=== PATIENT | female | born 1940 | race Caucasian/White ===

== ENCOUNTER 2016-04-04 09:50 | Outpatient (CLI) | payer MEDICARE ==
[2016-04-04 10:49] LABS: #Basophils 0.1 thou/uL (0.0-0.2); #Eosinphils 0.2 thou/uL (0.0-0.7); #Lymphocytes 2.5 thou/uL (1.20-3.40); #Monocytes 0.7 thou/uL (0.11-0.59); #Neutrophils 4.5 thou/uL (1.40-6.50); %Basophils 1.2 % (0.0-1.0); %Eosinophils 2.9 % (0.0-10.0); %Monocytes 8.4 % (0.0-10.0); %Neutrophils 56.5 % (42.0-75.0); Hemoglobin 14.1 g/dL (12.0-16.0); Mean Corpuscular HGB CONC 35.1 g/dL (32.0-36.0); Mean Corpuscular Hemoglobin 32.1 pg (27.0-31.0); Mean Corpuscular Volume 91.5 fl (81.0-99.0); Platelet Count 295 thou/uL (130-400); RBC Distribution Width 11.8 % (11.5-14.5); Red Blood Cell (RBC) Count 4.39 mill/uL (4.20-5.40)
[2016-04-04 12:00] LABS: ALT (SGPT) 15 U/L (0-55); AST (SGOT) 23 U/L (5-34); Albumin 4.4 g/dL (3.4-4.8); Alkaline Phosphatase 153 U/L (40-150); Anion Gap 21 mmol/L (10-20); BUN (Urea Nitrogen) 24 mg/dL (9.8-20.1); Bilirubin, Total 0.6 mg/dL (0.2-1.2); Calc. Creatinine Clearance 0 mL/min (70-130); Calcium 9.9 mg/dL (7.8-10.44); Carbon Dioxide 25 mmol/L (23-31); Cardiac Risk 3.9 (Less than 4.5); Chloride 97 mmol/L (98-107); Cholesterol 237 mg/dL (< 200 Desired); Estimated GFR-MDRD 41; Glucose 115 mg/dL (83-110); HDL Cholesterol 61 mg/dL (>60 Neg Risk); LDL Cholesterol, Calculated 153 mg/dL; Potassium 3.4 mmol/L (3.5-5.1); Protein, Total 7.4 g/dL (5.8-8.1); Sodium 140 mmol/L (136-145); Triglycerides 113 mg/dL (Less than 150)
[2016-04-04 12:23] LABS: Hemoglobin A1c 5.3 % (4.0-6.0)
[2016-04-04 12:59] LABS: Free T4 (Free Thyroxine) 1.09 ng/dL (0.70-1.48); Thyroid Stimulating Hormone 5.1109 uIU/mL (0.35-4.94)
== END 2016-04-04 09:51 | disposition home or self-care (01) ==
LOC: MADLABBHPM 09:50
PROVIDERS: ATTEND Family Medicine
DX: I50.9 Heart failure, unspecified (principal)
CPT/HCPCS: 36415; 80053; 80061; 83036; 84439; 84443; 85025

== ENCOUNTER 2016-04-07 11:38 | Emergency (ER) | payer MEDICARE ==
[~2016-04-07 11:38] MED LIST: Sodium Chloride 0.9% 1,000 ML BAG ONE
[2016-04-07 12:52] LABS: #Basophils 0.1 thou/uL (0.0-0.2); #Eosinphils 0.1 thou/uL (0.0-0.7); #Monocytes 0.9 thou/uL (0.11-0.59); #Neutrophils 5.1 thou/uL (1.40-6.50); %Basophils 1.4 % (0.0-1.0); %Eosinophils 1.6 % (0.0-10.0); %Lymphocytes 32.1 % (21.0-51.0); %Monocytes 10.1 % (0.0-10.0); %Neutrophils 54.9 % (42.0-75.0); Hemoglobin 13.1 g/dL (12.0-16.0); Large Platelets SLIGHT; MDiff Complete? YES; Mean Corpuscular HGB CONC 34.3 g/dL (32.0-36.0); Mean Corpuscular Hemoglobin 31.5 pg (27.0-31.0); Mean Corpuscular Volume 91.8 fl (81.0-99.0); Platelet Count 260 thou/uL (130-400); Red Blood Cell (RBC) Count 4.16 mill/uL (4.20-5.40); White Blood Cell (WBC) Count 9.3 thou/uL (4.8-10.8)
[2016-04-07 13:01] LABS: Acetaminophen Less than 3.0 mcg/mL (10.0-30.0); Alcohol Less than 10 mg/dL (Less than 10); Salicylate Less than 5.0 mg/dL (15.0-30.0)
[2016-04-07 13:04] LABS: CKMB 1.9 ng/mL (0-6.6); Troponin I 0.017 ng/mL (< 0.028)
--- NOTE | 2016-04-07 13:06 | CT ---
CT HEAD NONCONTRAST: Date: 04/07/16 HISTORY: Syncope. COMPARISON: 02/03/16. FINDINGS: There is no evidence of acute intracranial hemorrhage or infarct. The ventricles appear normal in si ze, shape, and position. Diffuse cortical atrophy and chronic ischemic small vessel disease are tequila lar in appearance to the prior study. IMPRESSION: No acute intracranial abnormalities are demonstrate on noncontrast CT head. POS: [facility]
[2016-04-07 13:10] LABS: ALT (SGPT) 15 U/L (0-55); AST (SGOT) 41 U/L (5-34); Albumin 4.2 g/dL (3.4-4.8); Alkaline Phosphatase 147 U/L (40-150); Anion Gap 18 mmol/L (10-20); BUN (Urea Nitrogen) 20 mg/dL (9.8-20.1); Bilirubin, Total 0.6 mg/dL (0.2-1.2); CK (CPK) 109 U/L (29-168); Calc. Creatinine Clearance 0 mL/min (70-130); Calcium 9.7 mg/dL (7.8-10.44); Carbon Dioxide 32 mmol/L (23-31); Chloride 92 mmol/L (98-107); Estimated GFR-MDRD 34; Globulin 3.4 g/dL (2.4-3.5); Glucose 100 mg/dL (83-110); Potassium 4.6 mmol/L (3.5-5.1); Protein, Total 7.6 g/dL (5.8-8.1); Sodium 137 mmol/L (136-145)
--- NOTE | 2016-04-07 13:27 | CT ---
CT CERVICAL SPINE NONCONTRAST: History: Fall, syncope, neck injury. FINDINGS: Vertebral body heights are maintained. Osteophytosis is present throughout the vertebral bodies and facets. Disc space narrowing is most pronounced at the C3-4 and C5-6 levels. Minimal degenerative spondylolisthesis is present at the C4-5 level and the cervicothoracic junction. No acute fracture or dislocation are apparent. There is multilevel foraminal stenoses. Dystrophic calcification and lobulation associated with each thyroid lobe has the appearance of a multinodular goiter. There is calcification in the arterial structures. IMPRESSION: 1. Cervical spondylosis. No acute osseous abnormalities are demonstrated. 2. Atherosclerosis. POS: [facility]
[2016-04-07 13:28] LABS: Bilirubin Negative (Negative); Blood, Urine Trace (Negative); Clarity Cloudy (Clear); Glucose, Urine (Dipstick) Negative (Negative); Leukocyte Trace (Negative); Nitrite Negative (Negative); Protein, Urine (Dipstick) 100 mg/dL (Neg-Trace); Urobilinogen 0.2 mg/dL (0.2-1.0); pH, Urine 5.5 (5.0-9.0)
[2016-04-07 13:29] LABS: Bacteria/HPF 4+ HPF (None Seen); RBC/HPF 0-3 HPF (0-3)
[2016-04-07 13:36] LABS: Amphetamine Not Detected (NotDetected); Benzodiazepine Screen Detected (NotDetected); Cocaine Metabolite Screen Not Detected (NotDetected); Methadone Not Detected (NotDetected); Methamphetamine Not Detected (NotDetected); Opiate Screen Not Detected (NotDetected); Phencyclidine (PCP) Not Detected (NotDetected); THC/Cannabinoid Screen Not Detected (NotDetected); Tricyclic Screen Not Detected (NotDetected)
[2016-04-07 13:37] LABS: Barbiturates Screen Detected (NotDetected); Medtox Control Line Valid? VALID (VALID); Oxycodone Screen Not Detected (NotDetected)
[2016-04-07] MEDS ORDERED: Sulfameth/Trimethoprim DS 800-160mg TAB ONE (16:33)
--- NOTE | 2016-04-07 17:28 | PICIS ---
[facility] EMERGENCY RECORD TRIAGE (11:50 CJEF) TRIAGE NOTES: PT HAS BEEN SICK FOR SEVERAL DAYS AND HAS BEEN TAKEN OFF MOST CARDIAC MEDICATIONS BY DR. FUENTES. PT WAS IN [place] YESTERDAY AND HAD HER AUTONOMIC SYSTEM CHECKED. PT HAS PMHX OF OTHOSTATIC HYPOTENSION AND WAS POSITIVE YESTERDAY WITH A DROP OF APPROX SYSTOLIC OF 130'S TO SYSTOLIC OF 30'S. PT REPORTS TODAY SHE HAS HAD X3 NEAR SYNCOPAL EPISODES. PT WITH LOTS OF RECENT STRESS. (11:50 CJEF) PATIENT: NAME: Judi Negrete, AGE: 75, GENDER: female, : Mon1940, TIME OF GREET: MonApr 07, 2016 11:39, PREFERRED LANGUAGE: Kinyarwanda, ETHNICITY: Not or , ECODE BILLING MAP: [facility], SSN: [id number], Zip Code: [address], KG WEIGHT: 102.51, PHONE: , , , PERSON ID: [id number], PCP: RUY. (11:50 CJEF) COMPLAINT: FAINTED X 2. (11:50 CJEF) ADMISSION: URGENCY: 2 Emergent, ADMISSION SOURCE: Home, TRANSPORT: CAR, BED: ED -02. (11:50 CJEF) ASSESSMENT: Assessment: NEAR SYNCOPE. (11:53 CJEF) PAIN: No complaint of pain. (11:53 CJEF) SIRS SCORING: Heart Rate 55-109 (0), Temp range 96.8-101.1 (0), respiratory rate 12-24 (0), Mental Status altered: no (0), Infection or Suspected Infection: No. (11:53 CJEF) TRIAGE SCREENING: Patient denies suicidal ideation, Patient denies presence of domestic violence. (11:53 CJEF) PROVIDERS: TRIAGE NURSE: Laisha Allred RN. (11:50 CJEF) VITAL SIGNS: BP 142/65, Pulse 82, Resp 18, Pain 0, O2 Sat 95, on Room Air, Time 04/07/2016 11:45. (11:45 CJEF) Temp 97.6, (Tympanic), Time 04/07/2016 11:52. (11:52 CJEF) PREVIOUS VISIT ALLERGIES: AARON Inhibitors, hydrocodone bitartrate, potassium chloride, vicodin. (11:50 CJEF) AARON Inhibitors, hydrocodone bitartrate, potassium chloride, vicodin. (11:53 CJEF) KNOWN ALLERGIES AARON Inhibitors hydrocodone bitartrate potassium: - IV POT potassium chloride (Unconfirmed) vicodin: Reaction: Rash CURRENT MEDICATIONS Xanax: TABLET : Strength - 0.25 mg : ORAL Patient Dose: 0.25 mg Oral once a day (at bedtime). (11:56 CJEF) KCl-20: PACKET (EA) : Strength - 20 mEq : ORAL Patient Dose: 10 mEq once a day. (13:30 CJEF) simvastatin: &a-1R&a+25V*p+0X*z1069A*c202B*c15G*c2P*p-0X&a-25V&a+1R Name: Judi Negrete : 1940 F75 MedRec: [id number] AcctNum: [id number] Prepared: [facility] Apr 07, 2016 16:58 by Interface Page 1 of 17 pMD [facility] EMERGENCY RECORD TABLET : Strength - 40 mg : ORAL Patient Dose: 40 mg Oral once a day. (13:30 CJEF) torsemide: TABLET : Strength - 20 mg : ORAL Patient Dose: 20 mg Oral 2 times a day. (13:31 CJEF) venlafaxine: TABLET, EXTENDED RELEASE 24 HR : Strength - 150 mg : ORAL Patient Dose: 150 mg Oral once a day. (13:31 CJEF) VITAL SIGNS VITAL SIGNS: BP: 142/65, Pulse: 82, Resp: 18, Pain: 0, O2 sat: 95 on Room Air, Time: 04/07/2016 11:45. (11:45 CJEF) Temp: 97.6 (Tympanic), Time: 04/07/2016 11:52. (11:52 CJEF) BP: 126/80, Pulse: 83, Resp: 19, Pain: 0, O2 sat: 97 on Room Air, Time: 04/07/2016 12:04. (12:04 CJEF) BP: 114/93, Pulse: 84, Resp: 18, O2 sat: 97 on Room Air, Time: 04/07/2016 12:20. (12:20 CJEF) BP: 144/80, Pulse: 91, Resp: 18, O2 sat: 97 on Room Air, Time: 04/07/2016 12:42. (12:42 CJEF) BP: 142/70, Pulse: 84, Resp: 17, O2 sat: 97 on Room Air, Time: 04/07/2016 13:11. (13:11 CJEF) BP: 137/74, Pulse: 77, Resp: 14, O2 sat: 98 on Room Air, Time: 04/07/2016 13:31. (13:31 CJEF) BP: 136/58, Pulse: 84, Resp: 17, O2 sat: 95 on Room Air, Time: 04/07/2016 13:48. (13:48 CJEF) BP: 126/66, Pulse: 80, Resp: 20, Pain: 0, O2 sat: 100 on Room Air, Time: 04/07/2016 14:13. (14:13 CJEF) BP: 157/68, Pulse: 80, Resp: 17, O2 sat: 97 on Room Air, Time: 04/07/2016 14:32. (14:32 CJEF) Temp: 97.6 (Tympanic), Time: 04/07/2016 14:39. (14:39 CJEF) BP: 141/76, Pulse: 80, Resp: 20, Pain: 0, O2 sat: 96 on Room Air, Time: 04/07/2016 15:19. (15:19 CJEF) BP: 133/63 (Lying), Pulse: 80, Resp: 18, O2 sat: 95 on Room Air, Time: 04/07/2016 15:40. (15:40 CJEF) BP: 130/61, Pulse: 83, Resp: 14, Temp: 97.9 (Tympanic), Pain: 0, O2 sat: 95 on Room Air, Time: 04/07/2016 16:01. (16:01 CJEF) BP: 137/62, Pulse: 83, Resp: 18, Pain: 0, O2 sat: 94 on Room Air, Time: 04/07/2016 16:44. (16:44 CJEF) NURSING ASSESSMENT: CARDIOVASCULAR (11:53 CJEF) CONSTITUTIONAL: Complex assessment performed, Patient arrives, via hospital wheelchair, Unsteady gait, Assistance to cart, History obtained from patient, Patient appears, generally ill, Patient cooperative, Patient alert, Oriented to person, place and time, Skin warm, Skin dry, Skin normal in color, Mucous membranes pink, Mucous membranes moist, Patient is well-groomed, PT HAS BEEN SICK FOR SEVERAL DAYS AND HAS BEEN TAKEN OFF MOST CARDIAC MEDICATIONS BY DR. FUENTES. PT WAS IN [place] YESTERDAY AND HAD HER AUTONOMIC SYSTEM CHECKED. PT HAS PMHX OF OTHOSTATIC HYPOTENSION AND WAS POSITIVE YESTERDAY WITH A DROP OF &a-1R&a+25V*p+0X*o0221J*c202B*c15G*c2P*p-0X&a-25V&a+1R Name: Judi Negrete : 1940 F75 MedRec: [id number] AcctNum: [id number] Prepared: [facility] Apr 07, 2016 16:58 by Interface Page 2 of 17 pMD [facility] EMERGENCY RECORD APPROX SYSTOLIC OF 130'S TO SYSTOLIC OF 30'S. PT REPORTS TODAY SHE HAS HAD X3 NEAR SYNCOPAL EPISODES. PT WITH LOTS OF RECENT STRESS. PT REPORTS THAT SHE HAS HAD X2 NEAR SYNCOPE EPISODES TODAY. PAIN: Patient rates pain as 0 out of 10. CARDIOVASCULAR: Cardiovascular assessment findings include heart rate normal, Heart rhythm, Normal sinus, Heart sounds normal, S1, S2, Associated with, near syncopal event, X3, Notes: PACED RHYTHM. RESPIRATORY/CHEST: Breath sounds clear, Respiratory assessment findings include respiratory effort easy, Respirations regular, Conversing normally, Neck and chest exam findings include trachea midline, Chest expansion equal, Chest movement symmetrical. NOTES: Patient tolerated procedure well. SAFETY: Side rails up, Cart/Stretcher in lowest position, Family at bedside, Call light within reach, Hospital ID band on. NURSING ASSESSMENT: FALL RISK (11:54 [facility]) FALL RISK: Fall risk assessment findings include: no history of falls (0), No bed rest greater than 2 days (0), No use of level of consciousness altering agents with mentation or cognitive changes (0), Change in blood pressure (1), Sensory deficits (1), Impaired mobility (3), No neurologic diagnosis (0), No elimination problems (0), No confusion (0), Total score 5, Fall risk. HENDRICH II FALL RISK: Hendrich II Fall Risk assessment findings include patient not confused, disoriented or impulsive, not symptomatic or depressed, no altered elimination, no dizziness or vertigo, female, no antiepileptics (anticonvulsants) administered, no Benzodiazepines administered, Unable to rise without assistance during test(4), Total score 4, Score less than 5. Patient not high risk for falls. NURSING ASSESSMENT: SKIN (11:55 CJEF) SKIN: Skin assessment findings include skin warm, Skin dry, Skin normal in color. ANNALEE SCALE: (3) Sensory perception slightly limited, (3) Skin is occasionally moist, (3) Patient walks occasionally, (3) Slightly limited mobility, (3) Adequate nutrition, (3) Patient has no apparent problem moving, Annalee Risk Total: 18. NOTES: Patient tolerated procedure well. SAFETY: Side rails up, Cart/Stretcher in lowest position, Family at bedside, Call light within reach, Hospital ID band on. NURSING PROCEDURE: BEDSIDE SIRS TESTING SCORES: Heart Rate 55-109 (0), Temp range 96.8-101.1 (0), respiratory rate 12-24 (0), Latest WBC 3-14.9 (0), Mental Status altered: no (0), Yes, Infection or Suspected Infection. (12:59 CJEF) SIRS: Yes, Infection or Suspected Infection. (13:35 &a-1R&a+25V*p+0X*x1427Z*c202B*c15G*c2P*p-0X&a-25V&a+1R Name: Judi Negrete : 1940 F75 MedRec: [id number] AcctNum: [id number] Prepared: [facility] Apr 07, 2016 16:58 by Interface Page 3 of 17 pMD [facility] EMERGENCY RECORD CJEF) NURSING PROCEDURE: TEST PREPARER (11:50 CJEF) PATIENT IDENTIFIER: Patient actively involved in identification process, Patient's identity verified by patient stating name, Patient's identity verified by patient stating date. TEST PREPARER: Cardiac monitoring indicated for NEAR SYNCOPE, Patient placed on cardiac cath tech, Heart rate: 80, showing paced rhythm, Patient placed on non-invasive blood pressure monitor, with disposable blood pressure cuff applied, Patient placed on continuous pulse oximetry, Adult/pediatric oxisensor applied. FOLLOW-UP: After procedure, alarms set and on, After procedure, patient tolerating monitoring. NOTES: Patient tolerated procedure well. SAFETY: Side rails up, Cart/Stretcher in lowest position, Family at bedside, Call light within reach, Hospital ID band on. NURSING PROCEDURE: EKG CHART (12:01 [facility]) PATIENT IDENTIFIER: Patient actively involved in identification process, Patient's identity verified by patient stating name, Patient's identity verified by patient stating date. EKG: EKG indicated for NEAR SYNCOPE, 12 lead EKG performed on the left chest, first EKG. FOLLOW-UP: After procedure, EKG for interpretation given to Dr. AYOUB. NOTES: Patient tolerated procedure well. SAFETY: Side rails up, Cart/Stretcher in lowest position, Family at bedside, Call light within reach, Hospital ID band on. NURSING PROCEDURE: IV (12:42 [facility]) PATIENT IDENITIFIER: Patient actively involved in identification process, Patient's identity verified by patient stating name, Patient's identity verified by patient stating date. IV SITE 1: IV therapy indicated for hydration, IV therapy indicated for medication administration, IV established, to the right forearm, using a 20 gauge catheter, in three attempts, IV site prepped with CHLORAPREP, Saline lock established, Flushed with normal saline (mls): 10, Labs drawn at time of placement, labeled in the presence of the patient and sent to lab. FOLLOW-UP SITE 1: After procedure, sterile transparent dressing applied. NOTES: Patient tolerated procedure well. SAFETY: Side rails up, Cart/Stretcher in lowest position, Family at bedside, Call light within reach, Hospital ID band on. NURSING PROCEDURE: NURSE NOTES NURSES NOTES: Patient in no apparent distress, Patient resting quietly, Notes: PT RESTING IN BED WITH EYES SHUT. NO DISTRESS NOTED. PT REPORTS THAT LYING DOWN RESOLVES HER SYMPTOMS. (12:20 &a-1R&a+25V*p+0X*q4799S*c202B*c15G*c2P*p-0X&a-25V&a+1R Name: Judi Negrete : 1940 F75 MedRec: [id number] AcctNum: [id number] Prepared: [facility] Apr 07, 2016 16:58 by Interface Page 4 of 17 pMD [facility] EMERGENCY RECORD CJEF) Patient in no apparent distress, Patient resting quietly, Notes: PT RESTING IN BED WITH EYES SHUT. NO DISTRESS NOTED. (14:13 CJEF) Patient in no apparent distress, Patient resting quietly, Notes: PT RESTING IN BED WITH EYES SHUT. NO DISTRESS NOTED. (15:20 CJEF) Patient in no apparent distress, Patient resting quietly, Notes: PT RESTING IN BED WITH EYES SHUT. NO DISTRESS NOTED. (16:01 CJEF) Notes: EMS AT BEDSIDE TO MOVE PT TO THEIR STRETCHER. (16:43 CJEF) NURSING PROCEDURE: ORTHOSTATIC VITAL SIGNS PATIENT IDENTIFIER: Patient actively involved in identification process, Patient's identity verified by patient stating name, Patient's identity verified by patient stating date. (13:28 CJEF) ORTHOSTATIC VITAL SIGNS: Orthostatic vital signs indicated for dizziness, Orthostatic vital signs indicated for NEAR SYNCOPE, Lying:, Blood pressure: 158/82, Pulse: 82, Dizziness present, Sitting:, Blood pressure: 153/81, Pulse: 86, Dizziness with position change, Standing:, Blood pressure: 53/35, Pulse: 106, Dizziness with position change. (13:28 CJEF) Orthostatic vital signs indicated for dizziness, Lying:, Blood pressure: 127/81, Pulse: 81, Dizziness present, Sitting:, Blood pressure: 97/54, Pulse: 89, Dizziness with position change, Standing:, Blood pressure: 82/69, Pulse: 106, Dizziness with position change. (15:36 CJEF) FOLLOW-UP: After procedure, results given to Dr. AYOUB. (15:36 CJEF) NOTES: Patient tolerated procedure well. (13:28 CJEF) SAFETY: Side rails up, Cart/Stretcher in lowest position, Family at bedside, Call light within reach, Hospital ID band on. (13:28 CJEF) NURSING PROCEDURE: TRANSFER (16:44 CJEF) TRANSFER: Reason for transfer need for specialized care, Transported by urgent ambulance, accompanied by emergency medical services personnel, Report called to receiving facility, ANNETTE HERNANDES, Provided opportunity to answer questions, Summary of Care printed, Copy of patient record prepared for receiving facility, Copy of diagnostic studies, Status of patient's valuables documented on chart, Medication reconciliation form prepared and sent to receiving facility, Patient consent for transfer signed, Patient given appropriate sedation for safe transport, Family member contacted. BELONGINGS: Belongings remain with patient, Valuables remain with patient. NOTES: Patient tolerated procedure well. SAFETY: Side rails up, Cart/Stretcher in lowest position, Family at bedside, Call light within reach, Hospital ID band on. &a-1R&a+25V*p+0X*g9049G*c202B*c15G*c2P*p-0X&a-25V&a+1R Name: Judi Negrete : 1940 F75 MedRec: [id number] AcctNum: [id number] Prepared: MonApr 07, 2016 16:58 by Interface Page 5 of 17 pMD [facility] EMERGENCY RECORD NURSING PROCEDURE: TRANSPORT TO TESTS PATIENT IDENTIFIER: Patient actively involved in identification process, Patient's identity verified by patient stating name, Patient's identity verified by patient stating date. (12:53 CJEF) TRANSPORT TO TESTS: Transport indicated to facilitate diagnosis, Patient transported to CT scan, via cart, Accompanied by x-ray educational technician. (12:53 CJEF) FOLLOW-UP: After procedure, patient returned to emergency department. (13:02 CJEF) NOTES: Patient tolerated procedure well. (12:53 CJEF) SAFETY: Side rails up, Cart/Stretcher in lowest position, Family at bedside, Call light within reach, Hospital ID band on. (12:53 CJEF) NURSING PROCEDURE: URINE COLLECTION (13:10 CJEF) PATIENT IDENTIFIER: Patient actively involved in identification process, Patient's identity verified by patient stating name, Patient's identity verified by patient stating date. URINE COLLECTION FEMALE: Urine collected by straight cath, using a 5 fr catheter kit, in one attempt. NOTES: Patient tolerated procedure well. SAFETY: Side rails up, Cart/Stretcher in lowest position, Family at bedside, Call light within reach, Hospital ID band on. ORDER DETAILS Order Name: B type Natriuretic Peptide, Status: Active, Time: 12:25 04/07/2016, User: JC, - Ordered for: MD Ayoub Lloyd, - Entered by: MD Ayoub Lloyd - [facility] Apr 07, 2016 12:25, - Quantity: 1, Order Name: TEST PREPARER ED, Status: Done, Time: 12:01 04/07/2016, User: YAQUELIN, - Ordered for: MD Ayoub Lloyd, - Entered by: CECILIO Allred, [facility] Apr 07, 2016 12:00, - Quantity: 1, Order Name: Cardiac Profile w/CKMB & Troponin - I, Status: Active, Time: 12:25 04/07/2016, User: JC, - Ordered for: MD Ayoub Lloyd, - Entered by: MD Ayoub Lloyd - [facility] Apr 07, 2016 12:25, - Quantity: 1, Order Name: CATH STRAIGHT ED, Status: Done, Time: 13:11 04/07/2016, User: YAQUELIN, - Ordered for: MD Ayoub Lloyd, - Entered by: CECILIO Allred, Laisha [facility] Apr 07, 2016 13:11, - Quantity: 1, Order Name: CBC with Differential, Status: Active, Time: 12:25 04/07/2016, User: JC, - Ordered for: MD Ayoub Lloyd, &a-1R&a+25V*p+0X*s9973W*c202B*c15G*c2P*p-0X&a-25V&a+1R Name: Judi Negreet : 1940 F75 MedRec: [id number] AcctNum: [id number] Prepared: MonApr 07, 2016 16:58 by Interface Page 6 of 17 [facility] EMERGENCY RECORD - Entered by: MD Ayoub Lloyd - [facility] Apr 07, 2016 12:25, - Quantity: 1, Order Name: CK (CPK), Status: Active, Time: 12:25 04/07/2016, User: JC, - Ordered for: MD Ayoub Lloyd, - Entered by: MD Ayoub Lloyd - [facility] Apr 07, 2016 12:25, - Quantity: 1, Order Name: Comprehensive Metabolic Panel, Status: Active, Time: 12:25 04/07/2016, User: JC, - Ordered for: MD Ayoub Lloyd, - Entered by: MD Ayoub Lloyd - [facility] Apr 07, 2016 12:25, - Quantity: 1, Order Name: CT Brain WO Con, Status: Active, Time: 12:28 04/07/2016, User: LLDO, - Ordered for: MD Ayoub Lloyd, - Entered by: MD Ayoub Lloyd [facility] Apr 07, 2016 12:28, - Quantity: 1, Order Name: CT Cervical Spine WO Con, Status: Active, Time: 12:28 04/07/2016, User: LLDO, - Ordered for: MD Ayoub Lloyd, - Entered by: MD Ayoub Lloyd [facility] Apr 07, 2016 12:28, - Quantity: 1, Order Name: Culture, Urine, Status: Active, Time: 12:26 04/07/2016, User: LLDO, - Ordered for: MD Ayoub Lloyd, - Entered by: MD Ayoub Lloyd [facility] Apr 07, 2016 12:26, - Quantity: 1, Order Name: Drug Screen, Serum, Status: Active, Time: 12:26 04/07/2016, User: LLDO, - Ordered for: MD Ayoub Lloyd, - Entered by: MD Ayoub Lloyd [facility] Apr 07, 2016 12:26, - Quantity: 1, Order Name: Drug Screen, Urine, Status: Active, Time: 12:26 04/07/2016, User: LLDO, - Ordered for: MD Ayoub Lloyd, - Entered by: MD Ayoub Lloyd [facility] Apr 07, 2016 12:26, - Quantity: 1, Order Name: EKG 12 Lead in Emergency Room, Status: Active, Time: 12:00 04/07/2016, User: CJEF, - Ordered for: MD Ayoub Lloyd, - Entered by: CECILIO Allred, Laisha [facility] Apr 07, 2016 12:00, - Quantity: 1, Order Name: ERRT Oxygen Usage ER, Status: Active, Time: 12:25 04/07/2016, User: LLDO, - Ordered for: MD Ayoub Lloyd, - Entered by: MD Ayoub Lloyd [facility] Apr 07, 2016 12:25, - Quantity: 1, Order Name: ERRT Pulse Oximeter ER, Status: Active, Time: 12:25 04/07/2016, User: LLDO, - Ordered for: MD Ayoub Lloyd, &a-1R&a+25V*p+0X*d0199H*c202B*c15G*c2P*p-0X&a-25V&a+1R Name: Judi Negrete : 1940 F75 MedRec: [id number] AcctNum: [id number] Prepared: MonApr 07, 2016 16:58 by Interface Page 7 of 17 D [facility] EMERGENCY RECORD - Entered by: MD Ayoub Lloyd - [facility] Apr 07, 2016 12:25, - Quantity: 1, Order Name: ORTHOSTATIC VITAL SIGNS, Status: Done, Time: 13:28 04/07/2016, User: YAQUELIN, - Ordered for: MD Ayoub Lloyd, - Entered by: MD Ayoub Lloyd - [facility] Apr 07, 2016 13:13, - Quantity: 1, Order Name: SALINE LOCK, Status: Done, Time: 12:41 04/07/2016, User: YAQUELIN, - Ordered for: MD Ayoub Lloyd, - Entered by: CECILIO Allred, Laisha [facility] Apr 07, 2016 12:41, - Quantity: 1, Order Name: Urinalysis w/ Rflx Microscopic, Status: Active, Time: 12:26 04/07/2016, User: JC, - Ordered for: MD Ayoub Lloyd, - Entered by: MD Ayoub Lloyd - [facility] Apr 07, 2016 12:26, - Quantity: 1. MEDICATION ADMINISTRATION SUMMARY Drug Name: Septra DS, Dose Ordered: 1 tab(s), Route: Oral, Status: Given, Time: 16:33 04/07/2016, Drug Name: *sodium chloride 0.9 % intravenous, Dose Ordered: 150 mL/hr, Route: IV Fluid Infusion, Status: Given, Time: 15:46 04/07/2016, Drug Name: *sodium chloride 0.9 % intravenous, Dose Ordered: 1 L, Route: IV Fluid Infusion, Status: Given, Time: 14:17 04/07/2016, *Additional information available in notes, Detailed record available in Medication Service section. MEDICATION SERVICE Septra DS: Order: Septra DS (sulfamethoxazole/trimethoprim) - Dose: 1 tab(s) : Oral Schedule: Now Ordered by: Javi Ayoub MD Entered by: Javi Ayoub MD [facility] Apr 07, 2016 16:31 Documented as given by: Laisha Allred RN [facility] Apr 07, 2016 16:33 Patient, Medication, Dose, Route and Time verified prior to administration. Amount given: 1 tab, Site: Medication administered P.O., Mouth check performed after administration of medication, Patient appears Awake and alert- acceptable, Correct patient, time, route, dose and medication confirmed prior to administration, Patient advised of actions and side-effects prior to administration, Allergies confirmed and medications reviewed prior to administration, Patient tolerated procedure well, Patient in position of comfort, Side rails up, Cart in lowest position, Family at bedside. : Follow Up : Response assessment performed, No signs or symptoms of allergic reaction noted, Advised not to ambulate without assistance, Patient in position of comfort, Side rails up, Cart in &a-1R&a+25V*p+0X*h2985S*c202B*c15G*c2P*p-0X&a-25V&a+1R Name: Judi Negrete : 1940 F75 MedRec: [id number] AcctNum: [id number] Prepared: [facility] Apr 07, 2016 16:58 by Interface Page 8 of 17 D [facility] EMERGENCY RECORD lowest position, Family at bedside. (16:46 [facility]) sodium chloride 0.9 % intravenous: Order: sodium chloride 0.9 % intravenous (0.9 % sodium chloride) - Dose: 1 L : IV Fluid Infusion Notes: (Bolus) after bolus, run NS at 150 ml/h Ordered by: Javi Ayoub MD Entered by: Javi Ayoub MD [facility] Apr 07, 2016 14:16 Documented as given by: Laisha Allred RN [facility] Apr 07, 2016 14:17 Patient, Medication, Dose, Route and Time verified prior to administration. Amount given: 1 L, IV SITE #1 IV fluids established for hydration, IV SITE #1 into right forearm, IV SITE #1 1st bag hung, IV SITE #1 bolus of 1000 ml established, via primary tubing, Awake and alert- acceptable, Connections checked prior to administration, Line traced prior to administration, Catheter placement confirmed via flush prior to administration, IV site without signs or symptoms of infiltration during medication administration, No swelling during administration, No drainage during administration, IV flushed after administration, Correct patient, time, route, dose and medication confirmed prior to administration, Patient advised of actions and side-effects prior to administration, Allergies confirmed and medications reviewed prior to administration, Patient tolerated procedure well, Patient in position of comfort, Side rails up, Cart in lowest position, Family at bedside. : Follow Up : Response assessment performed, No signs or symptoms of allergic reaction noted, _IV SITE #1:_, IV fluid infusion discontinued, on [facility] Apr 07, 2016 15:48, Total fluid hydration time IV site 1 1 hour, 35 minutes, ., Total amount infused: 1 L, Advised not to ambulate without assistance, Patient in position of comfort, Side rails up, Cart in lowest position, Family at bedside. (15:47 [facility]) sodium chloride 0.9 % intravenous: Order: sodium chloride 0.9 % intravenous (0.9 % sodium chloride) - Dose: 150 mL/hr : IV Fluid Infusion Schedule: Now Notes: after bolus, run NS at 150 ml/h Read back and verified, Written Order Ordered by: Javi Ayoub MD Entered by: Laisha Allred RN [facility] Apr 07, 2016 15:42 Documented as given by: Laisha Allred RN [facility] Apr 07, 2016 15:46 Patient, Medication, Dose, Route and Time verified prior to administration. Amount given: 150ML/HR, IV SITE #1 IV fluids established for hydration, IV SITE #1 into right forearm, IV SITE #1 2nd bag hung, IV SITE #1 After bolus completed rate changed to 150 ml/hr, IV SITE #1 Rate of infusion (non-bolus) Infusing at 150 ml/hr, via primary tubing, IV SITE #1 on IV pump, Awake and alert- acceptable, Connections checked prior to administration, Line traced prior to administration, Catheter placement confirmed via flush prior to administration, IV site without signs or symptoms of infiltration &a-1R&a+25V*p+0X*q1865B*c202B*c15G*c2P*p-0X&a-25V&a+1R Name: Judi Negrete : 1940 F75 MedRec: [id number] AcctNum: [id number] Prepared: MonApr 07, 2016 16:58 by Interface Page 9 of 17 pMD [facility] EMERGENCY RECORD during medication administration, No swelling during administration, No drainage during administration, IV flushed after administration, Correct patient, time, route, dose and medication confirmed prior to administration, Patient advised of actions and side-effects prior to administration, Allergies confirmed and medications reviewed prior to administration, Patient tolerated procedure well, Patient in position of comfort, Side rails up, Cart in lowest position, Family at bedside. : Follow Up : Response assessment performed, No signs or symptoms of allergic reaction noted, _IV SITE #1:_, IV fluid infusion discontinued, on MonApr 07, 2016 16:47, Total fluid hydration time IV site 1 1 hour, 5 minutes, ., Total amount infused: 150ML. (16:47 CJEF) HPI SYNCOPE (16:20 LLDO) CHIEF COMPLAINT: Patient presents for evaluation of syncope, Patient presents for evaluation of multiple episodes of syncope in the past 36 hours. marked orthostasis on standing. might be related to multiple medication changes recently. no head trauma. HISTORIAN: History provided by patient, History provided by patient's family, DAUGHTERs. LOCATION: Symptoms are generalized. QUALITY: Symptom quality described as blackout, Symptom quality described as dizziness. SEVERITY: Maximum severity of symptoms severe, Currently symptoms are moderate. TIME COURSE: Sudden onset of symptoms, There has been no change in the patient's symptoms over time, Symptoms are intermittent. ASSOCIATED WITH: Associated with fall, No associated shortness of breath, No associated seizures, No associated tachycardia, Associated with weakness. EXACERBATED BY: Patient's condition exacerbated by movement, Patient's condition exacerbated by position. RELIEVED BY: Patient's condition relieved by nothing. RISK FACTORS: Abdominal aortic aneurysm risk factors, include age over 40 years, Subarachnoid hemorrhage risk factors, not applicable for this patient, Thoracic aortic dissection risk factors, include hypertension, Coronary artery disease risk factors, include known coronary artery disease, include family history, include hypertension, Pulmonary embolism risk factors, not applicable to this patient. WELLS CRITERIA FOR PE: Total 0. ROS (16:25 LLDO) CONSTITUTIONAL: Historian reports fatigue, reports weakness. CARDIOVASCULAR: Historian reports syncope. RESPIRATORY: Historian denies shortness of breath. NEUROLOGIC: Historian denies confusion, reports &a-1R&a+25V*p+0X*[id number]*c202B*c15G*c2P*p-0X&a-25V&a+1R Name: Judi Negrete : 1940 F75 MedRec: [id number] AcctNum: [id number] Prepared: MonApr 07, 2016 16:58 by Interface Page 10 of 17 pMD [facility] EMERGENCY RECORD dizziness, denies dysphasia, denies focal weakness, denies gait changes, reports headache, denies irritability, denies lethargy, denies mental status changes, denies paralysis, denies paresthesias, denies seizures, denies sensory changes, denies speech changes, denies tics, denies tremors. NOTES: All systems reviewed, negative except as described above. PAST MEDICAL HISTORY MEDICAL HISTORY: Notes: ORTHOSTATIC HYPOTENSION, Past medical history includes history of obesity, Past medical history includes pulmonary disease, chronic obstructive pulmonary disease, Past medical history includes cardiac history, coronary artery disease, congestive heart failure, Treated with a pacemaker, Past medical history includes history of hyperlipidemia, high cholesterol, Past medical history includes history of hypertension, which has been treated. REVIEWED 02/02/16. (11:53 CJEF) FEMALE SURGICAL HISTORY: EXPLORATORY LAPAROTOMY, Surgical history of cholecystectomy, Surgical history of hysterectomy. lap band. REVIEWED 02/02/16. (11:53 CJEF) PSYCHIATRIC HISTORY: Psychiatric history includes, anxiety, depression. REVIEWED 02/02/16. (11:53 CJEF) SOCIAL HISTORY: Patient denies alcohol use, Patient denies drug use, Patient has no smoking history, Lives at home, with family. REVIEWED 02/02/16. (11:53 CJEF) NOTES: Nursing records reviewed, Agree with nursing records, Medication list reviewed. (16:29 LLDO) PHYSICAL EXAM (16:27 LLDO) CONSTITUTIONAL: Vital Signs Reviewed, Patient afebrile, Pulse normal, Blood pressure normal, Respiratory rate normal, Patient appears, uncomfortable, Patient appears, in mild pain distress, Patient alert and oriented to person, place and time, Nursing notes reviewed, examined when pt is supine. EVENTS TRANSFER: Triage to Emergency Main ED -02. (MonApr 07, 2016 11:50 CJEF) Removed from Emergency Main ED -02. (16:47 CJEF) PROBLEM LIST No recorded problems DIAGNOSIS (16:33 LLDO) FINAL: PRIMARY: Orthostasis, ADDITIONAL: renal insufficiency, UTI SITE NOT SPECIFIED. DISPOSITION PATIENT: Disposition Type: Transfer, Disposition: Transfer to [facility]. (16:33 LLDO) &a-1R&a+25V*p+0X*k8286S*c202B*c15G*c2P*p-0X&a-25V&a+1R Name: Judi Negrete : 1940 F75 MedRec: [id number] AcctNum: [id number] Prepared: MonApr 07, 2016 16:58 by Interface Page 11 of 17 pMD [facility] EMERGENCY RECORD Patient left the department. (16:47 CJEF) PRESCRIPTION No recorded prescriptions IMAGING HOME MEDS: Image captured from scanner. (13:27 JPAR) *EKG: Image captured from scanner. (16:33 LWAL) CONSENTS: Image captured from scanner. (16:34 LWAL) EMS TRANSPORT ORDERS: Image captured from scanner. (16:34 LWAL) *MEMORANDUM OF TRANSFER: Image captured from scanner. (16:36 LWAL) *SUPPLY CHARGE SHEET: Image captured from scanner. (16:48 CJEF) ADMIN (16:33 LLDO) DIGITAL SIGNATURE: MD Ayoub Lloyd. RESULTS RADIOLOGY: CT Cervical Spine WO Con Observe DT: MonApr 07, 2016 12:34, CSP CT CERVICAL SPINE NONCONTRAST: History: Fall, syncope, neck injury. FINDINGS: Vertebral body heights are maintained. Osteophytosis is present throughout the vertebral bodies and facets. Disc space narrowing is most pronounced at the C3-4 and C5-6 levels. Minimal degenerative spondylolisthesis is present at the C4-5 level and the cervicothoracic junction. No acute fracture or dislocation are apparent. There is multilevel foraminal stenoses. Dystrophic calcification and lobulation associated with each thyroid lobe has the appearance of a multinodular goiter. There is calcification in the arterial structures. IMPRESSION: 1. Cervical spondylosis. No acute osseous abnormalities are demonstrated. 2. Atherosclerosis. POS: [facility] . (13:35 CJEF) CT Brain WO Con Observe DT: MonApr 07, 2016 12:30, BR CT HEAD NONCONTRAST: Date: &a-1R&a+25V*p+0X*h7388Q*c202B*c15G*c2P*p-0X&a-25V&a+1R Name: Judi Negrete : 1940 F75 MedRec: [id number] AcctNum: [id number] Prepared: MonApr 07, 2016 16:58 by Interface Page 12 of 17 pMD [facility] EMERGENCY RECORD 04/07/16 HISTORY: Syncope. COMPARISON: 02/03/16. FINDINGS: There is no evidence of acute intracranial hemorrhage or infarct. The ventricles appear normal in si ze, shape, and position. Diffuse cortical atrophy and chronic ischemic small vessel disease are tequila lar in appearance to the prior study. IMPRESSION: No acute intracranial abnormalities are demonstrate on noncontrast CT head. POS: [facility] . (13:35 CJEF) CT Cervical Spine WO Con Observe DT: MonApr 07, 2016 12:34, CSP CT CERVICAL SPINE NONCONTRAST: History: Fall, syncope, neck injury. FINDINGS: Vertebral body heights are maintained. Osteophytosis is present throughout the vertebral bodies and facets. Disc space narrowing is most pronounced at the C3-4 and C5-6 levels. Minimal degenerative spondylolisthesis is present at the C4-5 level and the cervicothoracic junction. No acute fracture or dislocation are apparent. There is multilevel foraminal stenoses. Dystrophic calcification and lobulation associated with each thyroid lobe has the appearance of a multinodular goiter. There is calcification in the arterial structures. IMPRESSION: 1. Cervical spondylosis. No acute osseous abnormalities are demonstrated. 2. Atherosclerosis. POS: [facility] . (13:35 LWAL) CT Brain WO Con Observe DT: MonApr 07, 2016 12:30, BR CT HEAD NONCONTRAST: &a-1R&a+25V*p+0X*g5920G*c202B*c15G*c2P*p-0X&a-25V&a+1R Name: Judi Negrete : 1940 F75 MedRec: [id number] AcctNum: [id number] Prepared: MonApr 07, 2016 16:58 by Interface Page 13 of 17 pMD [facility] EMERGENCY RECORD Date: 04/07/16 HISTORY: Syncope. COMPARISON: 02/03/16. FINDINGS: There is no evidence of acute intracranial hemorrhage or infarct. The ventricles appear normal in si ze, shape, and position. Diffuse cortical atrophy and chronic ischemic small vessel disease are tequila lar in appearance to the prior study. IMPRESSION: No acute intracranial abnormalities are demonstrate on noncontrast CT head. POS: [facility] . (13:35 LWAL) LABORATORY: Drug Screen, Blood Collection DT: MonApr 07, 2016 12:41, *Acetaminophen Less than 3.0 - L mcg/mL, Range (10.0-30.0), Therapeutic Range: 10.0 - 30.0 ug/mL Toxic Range: Possible, toxicity: 150 - 200 ug/mL Probable toxicity: Greater than 200, ug/mL *IMPORTANT TESTING INFORMATION* The half-life of NAC is 2, hours. The total NAC clearance is 5.6 hours for adults and 11 hours for, Newborns. Testing acetaminophen levels prior to a reasonable time frame, for clearance can cause falsely decreased acetaminophen levels. , Alcohol Less than 10 mg/dL, Range (Less than 10), The pharmacological response to blood alcohol levels may vary from, individual to individual. Negative: Less than 10, mg/dL Toxic: 50 - 100 mg/dL , Depression of REELER OPERATOR: Greater than 100 mg/dL , Fatalities reported: Greater than 400 mg/dL , &a-1R&a+25V*p+0X*g7121I*c202B*c15G*c2P*p-0X&a-25V&a+1R Name: Judi Negrete : 1940 F75 MedRec: [id number] AcctNum: [id number] Prepared: MonApr 07, 2016 16:58 by Interface Page 14 of 17 pMD [facility] EMERGENCY RECORD *Salicylate Less than 5.0 - L mg/dL, Range (15.0-30.0). (13:07 LWAL) CBC with Differential Collection DT: MonApr 07, 2016 12:41, White Blood Cell (WBC) Count 9.3 thou/uL, Range (4.8-10.8), *Red Blood Cell (RBC) Count 4.16 - L mill/uL, Range (4.20-5.40), Hemoglobin 13.1 g/dL, Range (12.0-16.0), Hematocrit 38.2 %, Range (36.0-47.0), Mean Corpuscular Volume 91.8 fl, Range (81.0-99.0), *Mean Corpuscular Hemoglobin 31.5 - H pg, Range (27.0-31.0), Mean Corpuscular HGB CONC 34.3 g/dL, Range (32.0-36.0), RBC Distribution Width 12.0 %, Range (11.5-14.5), Platelet Count 260 thou/uL, Range (130-400), *Mean Platelet Volume 12.0 - H fL, Range (7.4-10.4), %Neutrophils 54.9 %, Range (42.0-75.0), %Lymphocytes 32.1 %, Range (21.0-51.0), *%Monocytes 10.1 - H %, Range (0.0-10.0), %Eosinophils 1.6 %, Range (0.0-10.0), *%Basophils 1.4 - H %, Range (0.0-1.0), #Neutrophils 5.1 thou/uL, Range (1.40-6.50), #Lymphocytes 3.0 thou/uL, Range (1.20-3.40), *#Monocytes 0.9 - H thou/uL, Range (0.11-0.59), #Eosinphils 0.1 thou/uL, Range (0.0-0.7), #Basophils 0.1 thou/uL, Range (0.0-0.2), Large Platelets SLIGHT . (13:07 LWAL) CK (CPK) Collection DT: MonApr 07, 2016 12:41, CK (CPK) 109 U/L, Range (29-168). (13:12 CJ) Comprehensive Metabolic Panel Collection DT: MonApr 07, 2016 12:41, Sodium 137 mmol/L, Range (136-145), Potassium 4.6 mmol/L, Range (3.5-5.1), *Chloride 92 - L mmol/L, Range (98-107), *Carbon Dioxide 32 - H mmol/L, Range (23-31), Anion Gap 18 mmol/L, Range (10-20), BUN (Urea Nitrogen) 20 mg/dL, Range (9.8-20.1), *Creatinine 1.51 - H mg/dL, Range (0.6-1.1), Estimated GFR-MDRD 34 , Reference Range for Estimated GFR: Greater than 90, mL/min/1.73 m2 NOTE: The MDRD equation has not been validated for use, with the elderly (over 70 years of age), women, patients with, serious comorbid condition or persons with extremes of body size, muscle, mass, or nutritional status. , Glucose 100 mg/dL, Range (83-110), Calcium 9.7 mg/dL, Range (7.8-10.44), Bilirubin, Total 0.6 mg/dL, Range (0.2-1.2), Protein, Total 7.6 g/dL, Range (5.8-8.1), NOTE: Plasma values are generally 0.3 to 0.5 g/dL higher than serum values, due to the presence of fibrinogen. , Albumin 4.2 g/dL, Range (3.4-4.8), Globulin 3.4 g/dL, Range (2.4-3.5), &a-1R&a+25V*p+0X*l7165X*c202B*c15G*c2P*p-0X&a-25V&a+1R Name: Judi Negrete : 1940 F75 MedRec: [id number] AcctNum: [id number] Prepared: MonApr 07, 2016 16:58 by Interface Page 15 of 17 pMD [facility] EMERGENCY RECORD Alb/Glob Ratio 1.2 g/dL, Range (1.2-2.2), Alkaline Phosphatase 147 U/L, Range (40-150), *AST (SGOT) 41 - H U/L, Range (5-34), ALT (SGPT) 15 U/L, Range (0-55). (13:12 EF) B type Natriuretic Peptide Collection DT: MonApr 07, 2016 12:41, B type Natriuretic Peptide 46.2 pg/mL, Range (0-100). (13:12 CJEF) Cardiac Profile w/CKMB & TropI Collection DT: MonApr 07, 2016 12:41, CKMB 1.9 ng/mL, Range (0-6.6), Troponin I 0.017 ng/mL, Range (< 0.028), Reference Range , 0.00 - 0.028 ng/mL Negative 0.029 - 0.29 ng/mL , Indeterminate Greater or Equal to 0.3 ng/mL Strongly suggests LA , . (13:12 CJEF) Urine Microscopic Collection DT: MonApr 07, 2016 13:28, RBC/HPF 0-3 HPF, Range (0-3), *WBC/HPF 7-10 - H HPF, Range (0-3), *Squamous Epithelial 4-6 - H HPF, Range (0-3), *Bacteria/HPF 4+ - H HPF, Range (None Seen). (13:35 CJEF) Urinalysis w/ Rflx Microscopic Collection DT: MonApr 07, 2016 13:28, Color Yellow , Range (Yellow), Clarity Cloudy , Range (Clear), Specific [place], Urine 1.020 , Range (1.005-1.030), pH, Urine 5.5 , Range (5.0-9.0), *Leukocyte Trace - H , Range (Negative), Nitrite Negative , Range (Negative), *Protein, Urine (Dipstick) 100 - H mg/dL, Range (Neg-Trace), Glucose, Urine (Dipstick) Negative mg/dL, Range (Negative), Ketone, Urine Negative mg/dL, Range (Negative), Urobilinogen 0.2 mg/dL, Range (0.2-1.0), Bilirubin Negative , Range (Negative), *Blood, Urine Trace - H , Range (Negative). (13:35 CJEF) Urine Microscopic Collection DT: MonApr 07, 2016 13:28, RBC/HPF 0-3 HPF, Range (0-3), *WBC/HPF 7-10 - H HPF, Range (0-3), *Squamous Epithelial 4-6 - H HPF, Range (0-3), *Bacteria/HPF 4+ - H HPF, Range (None Seen). (13:35 LWAL) Urinalysis w/ Rflx Microscopic Collection DT: MonApr 07, 2016 13:28, Color Yellow , Range (Yellow), Clarity Cloudy , Range (Clear), Specific [place], Urine 1.020 , Range (1.005-1.030), pH, Urine 5.5 , Range (5.0-9.0), *Leukocyte Trace - H , Range (Negative), Nitrite Negative , Range (Negative), *Protein, Urine (Dipstick) 100 - H mg/dL, Range (Neg-Trace), Glucose, Urine (Dipstick) Negative mg/dL, Range (Negative), Ketone, Urine Negative mg/dL, Range (Negative), Urobilinogen 0.2 mg/dL, Range (0.2-1.0), Bilirubin Negative , Range (Negative), &a-1R&a+25V*p+0X*d8087K*c202B*c15G*c2P*p-0X&a-25V&a+1R Name: Judi Negrete : 1940 F75 MedRec: [id number] AcctNum: [id number] Prepared: MonApr 07, 2016 16:58 by Interface Page 16 of 17 pMD [facility] EMERGENCY RECORD *Blood, Urine Trace - H , Range (Negative). (13:35 LWAL) Drug Screen, Urine Collection DT: MonApr 07, 2016 13:36, THC/Cannabinoid Screen Not Detected , Range (NotDetected), Phencyclidine (PCP) Not Detected , Range (NotDetected), Cocaine Metabolite Screen Not Detected , Range (NotDetected), Methamphetamine Not Detected , Range (NotDetected), Opiate Screen Not Detected , Range (NotDetected), Amphetamine Not Detected , Range (NotDetected), *Benzodiazepine Screen Detected - H , Range (NotDetected), Tricyclic Screen Not Detected , Range (NotDetected), Methadone Not Detected , Range (NotDetected), *Barbiturates Screen Detected - H , Range (NotDetected), Oxycodone Screen Not Detected , Range (NotDetected), Propoxyphene Screen Not Detected , Range (NotDetected), Drug Screen Cutoff , Range (), The VISEOx Profile-V Panel for Qualitative Drugs of Abuse assays are for, presumptive screening testing only. The drug class and detection limits, are as follows: Drug Class Detection Limit Amphetamine , 500 ng/mL* Barbiturates 200 ng/mL , Benzodiazepines 150 ng/mL* Cocaine 150 ng/mL*, Methamphetamine 500 ng/mL* Methadone 200, ng/mL* Opiates 100 ng/mL* Oxycodone , 100 ng/mL PCP 25 ng/mL Propoxyphene , 300 ng/mL Tricyclic Antidepressants 300 ng/mL Cannabinoids (THC) , 50 ng/mL Tests which yield a presumptive positive result must be , tested using a more specific alternate chemical method in order to obtain, a confirmed analytical result. Additional confirmation and identification, may be ordered on a routine basis, if desired. Presumptive positive urines, are held for two weeks. . (13:50 [facility]) [place]: YAQUELIN=CECILIO Allred, Laisha DEJESUS=MART Coello, Jazmin GREENE=MD Anitra, Javi EARL=CECILIO Torres, Stephie VICKERS=CECILIO Booker, Fabio &a-1R&a+25V*p+0X*p5272Q*c202B*c15G*c2P*p-0X&a-25V&a+1R Name: Judi Negrete : 1940 F75 MedRec: [id number] AcctNum: [id number] Prepared: [place] Apr 07, 2016 16:58 by Interface Page 17 of 17 pMD MTDD
== END 2016-04-07 16:48 | disposition short-term general hospital (02) ==
LOC: MADERS 11:38
DX: I95.1 Orthostatic hypotension (principal); N39.0 Urinary tract infection, site not specified; N28.9 Disorder of kidney and ureter, unspecified; F41.9 Anxiety disorder, unspecified; F32.9 Major depressive disorder, single episode, unspecified
CPT/HCPCS: 36415; 51701; 70450; 72125; 80053; 80306; 80307; 81003; 81015; 82553; 83880; 84484; 85025; 87077; 87086; 87186; 93005; 94760; 96360; 96361; A4353; J7050

== ENCOUNTER 2016-08-04 12:44 | Emergency (ER) | payer MEDICARE ==
[2016-08-04] MEDS ORDERED: cloNIDine HCl 0.1 MG TAB ONE (13:18)
[2016-08-04] MEDS ORDERED: Lorazepam 1 MG TAB ONE (13:25)
[2016-08-04 13:41] LABS: #Basophils 0.2 thou/uL (0.0-0.2); #Eosinphils 0.2 thou/uL (0.0-0.7); #Lymphocytes 3.6 thou/uL (1.20-3.40); #Monocytes 0.8 thou/uL (0.11-0.59); #Neutrophils 3.9 thou/uL (1.40-6.50); %Basophils 2.1 % (0.0-1.0); %Eosinophils 2.8 % (0.0-10.0); %Lymphocytes 41.6 % (21.0-51.0); %Neutrophils 44.5 % (42.0-75.0); Hemoglobin 13.1 g/dL (12.0-16.0); Mean Corpuscular HGB CONC 33.7 g/dL (32.0-36.0); Mean Corpuscular Hemoglobin 30.4 pg (27.0-31.0); Mean Corpuscular Volume 90.2 fl (81.0-99.0); Mean Platelet Volume 10.4 fL (7.4-10.4); Platelet Count 142 thou/uL (130-400); RBC Distribution Width 11.4 % (11.5-14.5); White Blood Cell (WBC) Count 8.7 thou/uL (4.8-10.8)
[2016-08-04 13:54] LABS: Anion Gap 15 mmol/L (10-20); BUN (Urea Nitrogen) 22 mg/dL (9.8-20.1); Calc. Creatinine Clearance 0 mL/min (70-130); Calcium 9.2 mg/dL (7.8-10.44); Carbon Dioxide 26 mmol/L (23-31); Chloride 100 mmol/L (98-107); Estimated GFR-MDRD 70; Glucose 98 mg/dL (83-110); Potassium 3.4 mmol/L (3.5-5.1); Sodium 138 mmol/L (136-145)
[2016-08-04 13:59] LABS: CKMB 2.4 ng/mL (0-6.6); Troponin I 0.012 ng/mL (< 0.028)
== END 2016-08-04 14:30 | disposition home or self-care (01) ==
LOC: MADERS 12:44
DX: I11.0 Hypertensive heart disease with heart failure (principal); I50.9 Heart failure, unspecified; J44.9 Chronic obstructive pulmonary disease, unspecified; I25.10 Atherosclerotic heart disease of native coronary artery without angina pectoris; E78.5 Hyperlipidemia, unspecified; F41.9 Anxiety disorder, unspecified; F32.9 Major depressive disorder, single episode, unspecified; Z95.0 Presence of cardiac pacemaker
CPT/HCPCS: 36415; 80048; 82553; 84484; 85025; 93005

== ENCOUNTER 2016-08-06 12:14 | Emergency (ER) | payer MEDICARE ==
[2016-08-06] MEDS ORDERED: Ketorolac Tromethamine 30 MG/ML VIAL ONE (13:12)
[2016-08-06] MEDS ORDERED: Meclizine HCl 25 MG TAB ONE (13:12)
[2016-08-06] MEDS ORDERED: Ondansetron HCl/PF 4 MG/2 ML Vial ONE (13:12)
--- NOTE | 2016-08-06 13:14 | RAD ---
UPRIGHT PORTABLE CHEST 1 VIEW: Date: 08/06/16 HISTORY: 76-year-old female with syncope. COMPARISON: 02/02/16. FINDINGS: Cardiomegaly with left ICD. Monitor leads overlie the chest. Probable small hiatal hernia. No conflu ent pneumonia, overt edema, or pleural effusion. IMPRESSION: Cardiomegaly with left ICD. Probable small hiatal hernia. No other acute process. POS: [facility]
--- NOTE | 2016-08-06 13:33 | CT ---
CT HEAD NONCONTRAST: Date: 08/06/16 INDICATION: Syncopal episode at home. Reference made to 04/07/16. FINDINGS: There is age-appropriate size of ventricular system. Mild chronic microvascular ischemic disease pre sent. No acute intracranial hemorrhage, mass effect, or midline shift. There is mild paranasal sinus mucosal thickening. IMPRESSION: 1. No acute intracranial abnormalities. 2. Mild chronic microvascular ischemic disease. POS: [facility]
[2016-08-06 13:36] LABS: #Basophils 0.1 thou/uL (0.0-0.2); #Eosinphils 0.2 thou/uL (0.0-0.7); #Lymphocytes 2.3 thou/uL (1.20-3.40); #Neutrophils 5.7 thou/uL (1.40-6.50); %Basophils 1.4 % (0.0-1.0); %Eosinophils 2.6 % (0.0-10.0); %Lymphocytes 24.6 % (21.0-51.0); %Monocytes 10.8 % (0.0-10.0); %Neutrophils 60.6 % (42.0-75.0); Hemoglobin 13.9 g/dL (12.0-16.0); Mean Corpuscular HGB CONC 35.1 g/dL (32.0-36.0); Mean Corpuscular Hemoglobin 31.5 pg (27.0-31.0); Mean Corpuscular Volume 89.7 fl (81.0-99.0); Mean Platelet Volume 9.6 fL (7.4-10.4); Platelet Count 263 thou/uL (130-400); RBC Distribution Width 11.4 % (11.5-14.5); Red Blood Cell (RBC) Count 4.41 mill/uL (4.20-5.40); White Blood Cell (WBC) Count 9.3 thou/uL (4.8-10.8)
[2016-08-06 13:40] LABS: PTT 27.4 SEC (22.9-36.1); Prothrombin Time 13.1 SEC (12.0-14.7)
[2016-08-06 13:49] LABS: ALT (SGPT) 18 U/L (8-55); AST (SGOT) 27 U/L (5-34); Alkaline Phosphatase 122 U/L (40-150); Anion Gap 16 mmol/L (10-20); BUN (Urea Nitrogen) 20 mg/dL (9.8-20.1); Bilirubin, Total 0.4 mg/dL (0.2-1.2); CK (CPK) 75 U/L (29-168); Calc. Creatinine Clearance 0 mL/min (70-130); Calcium 9.5 mg/dL (7.8-10.44); Carbon Dioxide 27 mmol/L (23-31); Chloride 100 mmol/L (98-107); Estimated GFR-MDRD 64; Globulin 2.8 g/dL (2.4-3.5); Glucose 110 mg/dL (83-110); Lipase 138 U/L (8-78); Potassium 3.4 mmol/L (3.5-5.1); Protein, Total 6.8 g/dL (6.0-8.3); Sodium 140 mmol/L (136-145)
[2016-08-06 13:56] LABS: Troponin I 0.014 ng/mL (< 0.028)
[2016-08-06 14:24] LABS: Bacteria/HPF Rare-Few HPF (None Seen); Bilirubin Negative (Negative); Blood, Urine Negative (Negative); Clarity Clear (Clear); Glucose, Urine (Dipstick) Negative (Negative); Leukocyte Negative (Negative); Nitrite Negative (Negative); Protein, Urine (Dipstick) 30 mg/dL (Neg-Trace); RBC/HPF 0-3 HPF (0-3); Renal Epithelial 0-3 HPF (0-3); Squamous Epithelial 0-3 HPF (0-3); Transitional Epithelial 0-3 HPF (0-3); Urobilinogen 0.2 mg/dL (0.2-1.0); WBC/HPF 0-3 HPF (0-3)
== END 2016-08-06 15:52 | disposition home or self-care (01) ==
LOC: MADERS 12:14
DX: R55 Syncope and collapse (principal); E66.9 Obesity, unspecified; J44.9 Chronic obstructive pulmonary disease, unspecified; I11.0 Hypertensive heart disease with heart failure; I50.9 Heart failure, unspecified; I25.10 Atherosclerotic heart disease of native coronary artery without angina pectoris; E78.5 Hyperlipidemia, unspecified; E78.00 Pure hypercholesterolemia, unspecified; F41.9 Anxiety disorder, unspecified; F32.9 Major depressive disorder, single episode, unspecified; Z79.899 Other long term (current) drug therapy
CPT/HCPCS: 36415; 51701; 70450; 71010; 80053; 81001; 82150; 82553; 83605; 83690; 83880; 84443; 84484; 85025; 85610; 85730; 87086; 93005; 96361; 96374; 96375; A4353; J1885; J2405; J7050

== ENCOUNTER 2016-09-06 11:19 | Outpatient (CLI) | payer MEDICARE ==
[2016-09-06 12:25] LABS: #Basophils 0.2 thou/uL (0.0-0.2); #Eosinphils 0.3 thou/uL (0.0-0.7); #Lymphocytes 4.3 thou/uL (1.20-3.40); #Neutrophils 5.7 thou/uL (1.40-6.50); %Basophils 1.5 % (0.0-1.0); %Eosinophils 2.4 % (0.0-10.0); %Lymphocytes 37.4 % (21.0-51.0); %Monocytes 8.6 % (0.0-10.0); %Neutrophils 50.1 % (42.0-75.0); Hemoglobin 14.4 g/dL (12.0-16.0); Mean Corpuscular HGB CONC 32.9 g/dL (32.0-36.0); Mean Corpuscular Hemoglobin 29.9 pg (27.0-31.0); Mean Corpuscular Volume 91.1 fl (81.0-99.0); Mean Platelet Volume 10.4 fL (7.4-10.4); Platelet Count 301 thou/uL (130-400); RBC Distribution Width 11.6 % (11.5-14.5); White Blood Cell (WBC) Count 11.4 thou/uL (4.8-10.8)
[2016-09-06 12:35] LABS: ALT (SGPT) 17 U/L (8-55); AST (SGOT) 25 U/L (5-34); Albumin 4.3 g/dL (3.4-4.8); Alkaline Phosphatase 129 U/L (40-150); Anion Gap 17 mmol/L (10-20); BUN (Urea Nitrogen) 16 mg/dL (9.8-20.1); Bilirubin, Total 0.7 mg/dL (0.2-1.2); Calc. Creatinine Clearance 0 mL/min (70-130); Calcium 9.9 mg/dL (7.8-10.44); Carbon Dioxide 28 mmol/L (23-31); Cardiac Risk 4.4 (Less than 4.5); Chloride 96 mmol/L (98-107); Cholesterol 284 mg/dl (< 200 Desired); Estimated GFR-MDRD 49; Globulin 3.2 g/dL (2.4-3.5); Glucose 106 mg/dL (83-110); HDL Cholesterol 65 mg/dL (>60 Neg Risk); LDL Cholesterol, Calculated 190 mg/dL; Potassium 3.7 mmol/L (3.5-5.1); Protein, Total 7.5 g/dL (6.0-8.3); Sodium 137 mmol/L (136-145); Triglycerides 143 mg/dL (Less than 150)
[2016-09-06 21:28] LABS: Folate (Folic Acid) 74.5 ng/mL (7.0-31.4)
== END 2016-09-06 11:20 | disposition home or self-care (01) ==
LOC: MADLABBHPM 11:19
PROVIDERS: ATTEND Family Medicine
DX: E78.5 Hyperlipidemia, unspecified (principal); E53.8 Deficiency of other specified B group vitamins; E55.9 Vitamin D deficiency, unspecified
CPT/HCPCS: 36415; 80053; 80061; 82306; 82607; 82746; 85025

== ENCOUNTER 2016-11-29 12:55 | Emergency (ER) | payer MEDICARE ==
--- NOTE | 2016-11-29 14:00 | CT ---
HEAD CT NONCONTRAST: Indication: Syncope. Comparison: 10-06-16 FINDINGS: There is mild generalized parenchymal volume loss. Ventricular system is within normal limits in siz e. There is mild chronic microvascular ischemic disease. No intracranial hemorrhage, mass effect, or midline shift. IMPRESSION: No acute intracranial abnormalities. POS: [facility]
[2016-11-29 14:10] LABS: CKMB 1.5 ng/mL (0-6.6); Troponin I 0.018 ng/mL (< 0.028)
[2016-11-29 14:46] LABS: ALT (SGPT) 17 U/L (8-55); AST (SGOT) 22 U/L (5-34); Albumin 4.1 g/dL (3.4-4.8); Alkaline Phosphatase 119 U/L (40-150); Anion Gap 16 mmol/L (10-20); BUN (Urea Nitrogen) 17 mg/dL (9.8-20.1); Bilirubin, Total 0.6 mg/dL (0.2-1.2); Calc. Creatinine Clearance 0 mL/min (70-130); Calcium 9.8 mg/dL (7.8-10.44); Carbon Dioxide 27 mmol/L (23-31); Chloride 102 mmol/L (98-107); Estimated GFR-MDRD 57; Globulin 3.2 g/dL (2.4-3.5); Glucose 98 mg/dL (83-110); Magnesium 1.9 mg/dL (1.6-2.6); Potassium 3.6 mmol/L (3.5-5.1); Protein, Total 7.3 g/dL (6.0-8.3); Sodium 141 mmol/L (136-145)
== END 2016-11-29 16:40 | disposition short-term general hospital (02) ==
LOC: MADERS 12:55
DX: R55 Syncope and collapse (principal); J44.9 Chronic obstructive pulmonary disease, unspecified; I25.10 Atherosclerotic heart disease of native coronary artery without angina pectoris; E66.9 Obesity, unspecified; I11.0 Hypertensive heart disease with heart failure; I50.9 Heart failure, unspecified; F41.9 Anxiety disorder, unspecified; F32.9 Major depressive disorder, single episode, unspecified; Z79.899 Other long term (current) drug therapy
CPT/HCPCS: 36415; 70450; 80053; 82553; 83735; 84443; 84484; 93005

== ENCOUNTER 2016-12-02 14:02 | Inpatient (IN) | payer MEDICARE ==
[2016-12-05] MEDS ORDERED: Polyethylene Glycol 3350 17 GM Packet PO PRN (15:11)
[2016-12-05] MEDS: Potassium Chloride 10 MEQ TAB PO SCH (17:22)
[2016-12-05] MEDS: ALPRAZolam 0.25 MG TAB PO SCH (20:21)
[2016-12-05] MEDS: Famotidine 20 MG TAB PO SCH (20:22)
[2016-12-05] MEDS: Atorvastatin Calcium 10 MG TAB PO SCH (20:22)
[2016-12-05] MEDS: Metoprolol Tartrate 25 MG TAB PO SCH (20:22)
[2016-12-05] MEDS: Senokot S 8.6-50 MG TAB PO SCH (20:23)
[2016-12-05] MEDS: Midodrine HCl 2.5 MG TAB PO SCH (20:23)
--- NOTE | 2016-12-06 07:17 | HP ---
DATE OF ADMISSION: 12/05/2016 ATTENDING: Barb Mayers M.D. REASON FOR ADMISSION: Skilled Rehabilitation in [facility] swing bed. HISTORY OF PRESENT ILLNESS AND HOSPITAL COURSE: Ms. Negrete is a very pleasant 76-year-old with multiple chronic medical conditions including CHF, hypertension, COPD, depression, anxiety, nonischemic cardiomyopathy. The patient was admitted to [facility] on 11/29/2016 due to episodes of feeling extremely dizzy becoming more frequent. She has had similar episodes in the past that was deemed due to orthostatic hypotension. The patient reports that she has been doing okay for a while with midodrine maintenance until on 11/29/2016 when she had a near syncopal episode while attending her routine psych counselling in [facility] in [place]. She reports that this episode was somewhat different and she was transferred to [place] [facility] for initial evaluation. She was subsequently transferred to [facility] and was admitted for further observation. She was seen by neurologist as well as charge rn during the hospital course. She was reported to have evidence of tachycardia/SVT during her hospital stay in telemetry. Initially, it was thought to be supraventricular tachycardia, but was found to be sinus tachycardia with very- very short infrequent episodes of atrial fibrillation. There was an behavioral health technician consultation wherein digoxin was added to her regimen to help control the heart rate. Midodrine 5 mg was likewise increased from b.i.d. to three times a day The patient reports that she continues to have general weakness and fatigue and very deconditioned, hence she was transferred to [facility] bed for continued therapy prior to going back to the home environment. When seen today, she was resting in bed by herself, her daughter Senait came in during the assessment. The patient was able to give the history herself. She is currently chest pain free, eating, but very unsteady with her gait. States that she tried to visit her while in the hospital, but could not tolerate sitting in a wheelchair for more than 10 minutes and she feels easily tired and dizzy. No other new issues reported. PAST MEDICAL HISTORY: Hypertension, dyslipidemia, chronic combined systolic and diastolic congestive heart failure, nonischemic cardiomyopathy as verified by heart catheterization on 06/2013, COPD, anxiety with depression, CAD with recurrent angina, dyspnea on exertion, orthostatic hypotension, hypoxemia requiring supplemental oxygen p.r.n., tremors, and insomnia. PAST SURGICAL HISTORY: Exploratory laparotomy, AICD implantation, cholecystectomy, hysterectomy, pacemaker. FAMILY HISTORY: Noncontributory. SOCIAL HISTORY: Nonsmoker, no alcohol, no illicit drug use. The patient is . 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 ALLERGIES: To VICODIN, itching; AARON INHIBITOR. PREVIOUS HOSPITALIZATION: Chest pain in 2014; syncopal episode in 2016; respiratory failure in 02/02/2016; dizziness, orthostatic hypotension recurring multiple times; hospitalized multiple times. REVIEW OF SYSTEMS: Constitutional: No fever, no chills. Reports malaise, general weakness. HEENT: No acute visual changes or hearing changes. Cardiovascular: Reports intermittent palpitations, chest pain, dyspnea on exertion. No paroxysmal nocturnal dyspnea, no pain with breathing. Respiratory : No acute or active shortness of breath, cough, wheezing, sputum production. GI: No nausea, vomiting, abdominal pain, diarrhea, constipation. Genitourinary : No dysuria, hematuria, frequency, urgency or incontinence. Musculoskeletal: No acute joint pain, swelling, stiffness. Skin: No rashes, no lesions or pruritus. Neurologic: No motor or sensory losses. Psychiatric: Reports depressive symptoms, severe anxiety. No hallucinations. No suicidal thoughts. HOME MEDICATIONS: 1. Effexor 150 mg p.o. daily. 2. Demadex 20 mg p.o. b.i.d. 3. Zocor 40 mg p.o. at bedtime. 4. Docusate sodium 1 tablet twice daily. 5. Klor-Con 10 mEq. twice daily. 6. MiraLax 17 grams daily. 7. ProAmatine 5 mg twice daily. 8. Metoprolol 12.5 mg b.i.d. 9. Pepcid 20 mg b.i.d. 10. Digoxin 0.125 mg daily. 11. Vitamin D3 1000 units q. day. 12. Tylenol 650 mg q.4 hours as needed. 13. Xanax 0.75 mg at bedtime and 0.25 mg daily. RECENT PROCEDURES FROM THE HOSPITAL: Bilateral carotid Dopplers, which were negative for any flow limiting disease. The patient also had an echocardiogram , which is pending at the time of discharge. CT scan of the brain showing no acute intracranial abnormalities. PHYSICAL EXAMINATION: VITAL SIGNS: Blood pressure 138/94, temperature 97.3, pulse 88, respirations 20 , O2 sats 95% on room air. GENERAL: The patient is awake, alert, oriented x3, not in distress, generally weak looking. HEENT: Normocephalic, atraumatic. PERRL, intact EOM. Nnnicteric sclerae. Oral mucosa is moist. NECK: Supple. No LAD, no JVD, no bruit. CHEST: Normal excursion, clear to auscultation bilaterally. CARDIAC: RRR. Normal S1 and S2. No murmurs. ABDOMEN: Soft, nondistended, nontender. Positive bowel sounds in 4 quadrants. No rebound, no guarding. Negative CVA tenderness bilaterally. EXTREMITIES: No edema, no cyanosis. PSYCHIATRIC: Appears calm with appropriate demeanor and affect. SKIN: Good turgor. Intact. No rashes, no lesions. NEUROLOGIC: Nonfocal. DTRs 2+, unsteady gait. PSYCH: good eye contact, calm with appropriate mood and affect. ASSESSMENT: 1. Deconditioning. 2. Severe dizziness and balance disorder. 3. Orthostatic hypotension. 4. Paroxysmal atrial fibrillation. 5. Chronic obstructive pulmonary disease. 6. Coronary artery disease. 7. Chronic mixed systolic and diastolic heart failure. 8. Hypertension. 9. History of Meniere's disease. 10. Anxiety and depression. 11. Insomnia. PLAN: 1. The patient is admitted to [facility] for purposes of skilled rehabilitation. All her medications will be continued as per list. Routine digoxin level. PT, OT evaluation in a.m. 2. Fall precautions. 3. Gastrointestinal prophylaxis with PPI. DVT prophylaxis with compression stockings. 4. Further recommendations depending on the hospital course. ESTIMATED LENGTH OF STAY: 1 to 2 weeks. CODE STATUS: The patient reports FULL CODE. MTDD
[2016-12-06] MEDS: Torsemide 20 MG TAB PO SCH ×2 (08:29→14:23)
[2016-12-06] MEDS: Venlafaxine HCl XR 150 MG CAP PO SCH (08:29)
[2016-12-06] MEDS: Midodrine HCl 2.5 MG TAB PO SCH ×3 (08:30→20:27)
[2016-12-06] MEDS: Potassium Chloride 10 MEQ TAB PO SCH ×2 (08:30→17:21)
[2016-12-06] MEDS: Famotidine 20 MG TAB PO SCH ×2 (08:30→20:27)
[2016-12-06] MEDS: Senokot S 8.6-50 MG TAB PO SCH ×2 (08:30→20:27)
[2016-12-06] MEDS: Metoprolol Tartrate 25 MG TAB PO SCH ×2 (08:30→20:27)
[2016-12-06] MEDS: Digoxin 0.125 MG TAB PO SCH (08:30)
[2016-12-06] MEDS: Atorvastatin Calcium 10 MG TAB PO SCH (20:27)
[2016-12-06] MEDS: ALPRAZolam 0.25 MG TAB PO SCH (20:27)
[2016-12-07] MEDS: Potassium Chloride 10 MEQ TAB PO SCH ×2 (07:58→16:36)
[2016-12-07] MEDS: Digoxin 0.125 MG TAB PO SCH (08:29)
[2016-12-07] MEDS: Famotidine 20 MG TAB PO SCH ×2 (08:30→20:03)
[2016-12-07] MEDS: Metoprolol Tartrate 25 MG TAB PO SCH ×2 (08:30→20:03)
[2016-12-07] MEDS: Midodrine HCl 2.5 MG TAB PO SCH ×3 (08:31→20:03)
[2016-12-07] MEDS: Torsemide 20 MG TAB PO SCH ×2 (08:31→14:17)
[2016-12-07] MEDS: Senokot S 8.6-50 MG TAB PO SCH ×2 (08:31→20:05)
[2016-12-07] MEDS: Acetaminophen 325 MG TAB PO PRN (08:32)
[2016-12-07] MEDS: Venlafaxine HCl XR 150 MG CAP PO SCH (08:32)
[2016-12-07] MEDS: ALPRAZolam 0.25 MG TAB PO SCH (20:02)
[2016-12-07] MEDS: Atorvastatin Calcium 10 MG TAB PO SCH (20:02)
[2016-12-08] MEDS: Metoprolol Tartrate 25 MG TAB PO SCH ×2 (08:17→21:45)
[2016-12-08] MEDS: Senokot S 8.6-50 MG TAB PO SCH ×2 (08:17→21:47)
[2016-12-08] MEDS: Venlafaxine HCl XR 150 MG CAP PO SCH (08:17)
[2016-12-08] MEDS: Potassium Chloride 10 MEQ TAB PO SCH ×2 (08:17→17:04)
[2016-12-08] MEDS: Midodrine HCl 2.5 MG TAB PO SCH ×3 (08:17→21:47)
[2016-12-08] MEDS: Digoxin 0.125 MG TAB PO SCH (08:18)
[2016-12-08] MEDS: Famotidine 20 MG TAB PO SCH ×2 (08:18→21:45)
[2016-12-08] MEDS: Torsemide 20 MG TAB PO SCH ×2 (08:18→14:21)
[2016-12-08] MEDS: ALPRAZolam 0.25 MG TAB PO SCH (21:44)
[2016-12-08] MEDS: Atorvastatin Calcium 10 MG TAB PO SCH (21:45)
[2016-12-09] MEDS: Famotidine 20 MG TAB PO SCH ×2 (08:46→20:51)
[2016-12-09] MEDS: Senokot S 8.6-50 MG TAB PO SCH ×2 (08:46→20:53)
[2016-12-09] MEDS: Metoprolol Tartrate 25 MG TAB PO SCH ×2 (08:46→20:52)
[2016-12-09] MEDS: Potassium Chloride 10 MEQ TAB PO SCH ×2 (08:46→17:10)
[2016-12-09] MEDS: Venlafaxine HCl XR 150 MG CAP PO SCH (08:47)
[2016-12-09] MEDS: Torsemide 20 MG TAB PO SCH ×2 (08:47→14:43)
[2016-12-09] MEDS: Midodrine HCl 2.5 MG TAB PO SCH ×3 (08:51→20:53)
[2016-12-09] MEDS: Digoxin 0.125 MG TAB PO SCH ×2 (08:51→09:15)
[2016-12-09] MEDS: Acetaminophen 325 MG TAB PO PRN ×2 (09:22→20:51)
[2016-12-09] MEDS: Atorvastatin Calcium 10 MG TAB PO SCH (20:50)
[2016-12-09] MEDS: ALPRAZolam 0.25 MG TAB PO SCH (20:50)
[2016-12-10] MEDS: Digoxin 0.125 MG TAB PO SCH (08:54)
[2016-12-10] MEDS: Potassium Chloride 10 MEQ TAB PO SCH ×2 (08:54→17:23)
[2016-12-10] MEDS: Venlafaxine HCl XR 150 MG CAP PO SCH (08:54)
[2016-12-10] MEDS: Metoprolol Tartrate 25 MG TAB PO SCH ×2 (08:55→21:16)
[2016-12-10] MEDS: Torsemide 20 MG TAB PO SCH ×3 (08:55→15:22)
[2016-12-10] MEDS: Famotidine 20 MG TAB PO SCH ×2 (08:55→21:15)
[2016-12-10] MEDS: Senokot S 8.6-50 MG TAB PO SCH ×2 (08:55→21:15)
[2016-12-10] MEDS: Midodrine HCl 2.5 MG TAB PO SCH ×3 (08:59→21:15)
[2016-12-10] MEDS: Acetaminophen 325 MG TAB PO PRN (08:59)
[2016-12-10] MEDS: Ondansetron ODT 4 MG TAB PO PRN (11:56)
[2016-12-10] MEDS: Atorvastatin Calcium 10 MG TAB PO SCH (21:15)
[2016-12-10] MEDS: ALPRAZolam 0.25 MG TAB PO SCH (21:16)
[2016-12-11] MEDS: Potassium Chloride 10 MEQ TAB PO SCH ×2 (08:29→17:07)
[2016-12-11] MEDS: Venlafaxine HCl XR 150 MG CAP PO SCH (08:29)
[2016-12-11] MEDS: Senokot S 8.6-50 MG TAB PO SCH ×2 (08:29→20:10)
[2016-12-11] MEDS: Famotidine 20 MG TAB PO SCH ×2 (08:29→20:13)
[2016-12-11] MEDS: Torsemide 20 MG TAB PO SCH ×2 (08:29→14:51)
[2016-12-11] MEDS: Midodrine HCl 2.5 MG TAB PO SCH ×3 (08:30→20:14)
[2016-12-11] MEDS: Digoxin 0.125 MG TAB PO SCH (08:30)
[2016-12-11] MEDS: Metoprolol Tartrate 25 MG TAB PO SCH ×2 (08:30→20:12)
[2016-12-11] MEDS: Acetaminophen 325 MG TAB PO PRN (14:51)
[2016-12-11] MEDS: ALPRAZolam 0.25 MG TAB PO SCH (20:11)
[2016-12-11] MEDS: Atorvastatin Calcium 10 MG TAB PO SCH (20:13)
[2016-12-12 05:55] LABS: #Basophils 0.1 thou/uL (0.0-0.2); #Eosinphils 0.6 thou/uL (0.0-0.7); #Lymphocytes 4.2 thou/uL (1.20-3.40); #Monocytes 0.9 thou/uL (0.11-0.59); %Basophils 1.5 % (0.0-1.0); %Eosinophils 5.7 % (0.0-10.0); %Lymphocytes 42.7 % (21.0-51.0); %Monocytes 9.3 % (0.0-10.0); %Neutrophils 40.8 % (42.0-75.0); Hemoglobin 13.5 g/dL (12.0-16.0); Mean Corpuscular HGB CONC 33.9 g/dL (32.0-36.0); Mean Corpuscular Hemoglobin 30.9 pg (27.0-31.0); Mean Corpuscular Volume 91.1 fl (81.0-99.0); Mean Platelet Volume 11.4 fL (7.4-10.4); Platelet Count 232 thou/uL (130-400); RBC Distribution Width 11.6 % (11.5-14.5); Red Blood Cell (RBC) Count 4.36 mill/uL (4.20-5.40); White Blood Cell (WBC) Count 9.9 thou/uL (4.8-10.8)
[2016-12-12] MEDS: Potassium Chloride 10 MEQ TAB PO SCH ×2 (07:36→16:59)
[2016-12-12] MEDS: Senokot S 8.6-50 MG TAB PO SCH ×2 (08:38→20:35)
[2016-12-12] MEDS: Digoxin 0.125 MG TAB PO SCH (08:38)
[2016-12-12] MEDS: Famotidine 20 MG TAB PO SCH ×2 (08:39→20:36)
[2016-12-12] MEDS: Metoprolol Tartrate 25 MG TAB PO SCH ×2 (08:39→20:36)
[2016-12-12] MEDS: Midodrine HCl 2.5 MG TAB PO SCH ×3 (08:40→20:37)
[2016-12-12] MEDS: Acetaminophen 325 MG TAB PO PRN ×2 (08:40→20:38)
[2016-12-12] MEDS: Venlafaxine HCl XR 150 MG CAP PO SCH (08:40)
[2016-12-12] MEDS: Torsemide 20 MG TAB PO SCH ×2 (08:41→16:59)
[2016-12-12 10:08] LABS: ALT (SGPT) 15 U/L (8-55); AST (SGOT) 19 U/L (5-34); Albumin 3.9 g/dL (3.4-4.8); Alkaline Phosphatase 104 U/L (40-150); Anion Gap 16 mmol/L (10-20); BUN (Urea Nitrogen) 17 mg/dL (9.8-20.1); Bilirubin, Total 0.3 mg/dL (0.2-1.2); Calc. Creatinine Clearance 97 mL/min (70-130); Calcium 9.6 mg/dL (7.8-10.44); Carbon Dioxide 28 mmol/L (23-31); Chloride 101 mmol/L (98-107); Estimated GFR-MDRD 65; Glucose 97 mg/dL (83-110); Potassium 3.4 mmol/L (3.5-5.1); Protein, Total 6.9 g/dL (6.0-8.3); Sodium 142 mmol/L (136-145)
[2016-12-12 10:29] LABS: Digoxin 0.71 ng/mL (0.8-2.0)
[2016-12-12] MEDS: ALPRAZolam 0.25 MG TAB PO SCH (20:35)
[2016-12-12] MEDS: Atorvastatin Calcium 10 MG TAB PO SCH (20:36)
[2016-12-13] MEDS: Midodrine HCl 2.5 MG TAB PO SCH ×3 (08:11→20:38)
[2016-12-13] MEDS: Senokot S 8.6-50 MG TAB PO SCH ×2 (08:12→20:38)
[2016-12-13] MEDS: Potassium Chloride 10 MEQ TAB PO SCH ×2 (08:12→17:05)
[2016-12-13] MEDS: Metoprolol Tartrate 25 MG TAB PO SCH ×2 (08:12→20:38)
[2016-12-13] MEDS: Famotidine 20 MG TAB PO SCH ×2 (08:13→20:38)
[2016-12-13] MEDS: Venlafaxine HCl XR 150 MG CAP PO SCH (08:13)
[2016-12-13] MEDS: Torsemide 20 MG TAB PO SCH ×2 (08:13→14:35)
[2016-12-13] MEDS: Digoxin 0.125 MG TAB PO SCH (08:14)
[2016-12-13] MEDS: Acetaminophen 325 MG TAB PO PRN (11:54)
[2016-12-13] MEDS: Atorvastatin Calcium 10 MG TAB PO SCH (20:37)
[2016-12-13] MEDS: ALPRAZolam 0.25 MG TAB PO SCH (20:38)
[2016-12-14] MEDS: Senokot S 8.6-50 MG TAB PO SCH ×2 (08:16→20:45)
[2016-12-14] MEDS: Famotidine 20 MG TAB PO SCH ×2 (08:16→20:45)
[2016-12-14] MEDS: Torsemide 20 MG TAB PO SCH ×2 (08:16→15:15)
[2016-12-14] MEDS: Potassium Chloride 10 MEQ TAB PO SCH ×2 (08:17→17:08)
[2016-12-14] MEDS: Venlafaxine HCl XR 150 MG CAP PO SCH (08:17)
[2016-12-14] MEDS: Digoxin 0.125 MG TAB PO SCH (08:17)
[2016-12-14] MEDS: Metoprolol Tartrate 25 MG TAB PO SCH ×2 (08:17→20:45)
[2016-12-14] MEDS: Midodrine HCl 2.5 MG TAB PO SCH ×3 (08:17→20:45)
[2016-12-14] MEDS: Atorvastatin Calcium 10 MG TAB PO SCH (20:45)
[2016-12-14] MEDS: ALPRAZolam 0.25 MG TAB PO SCH (20:46)
[2016-12-15] MEDS: Midodrine HCl 2.5 MG TAB PO SCH ×3 (08:33→20:37)
[2016-12-15] MEDS: Digoxin 0.125 MG TAB PO SCH (08:33)
[2016-12-15] MEDS: Torsemide 20 MG TAB PO SCH ×2 (08:34→14:35)
[2016-12-15] MEDS: Venlafaxine HCl XR 150 MG CAP PO SCH (08:34)
[2016-12-15] MEDS: Metoprolol Tartrate 25 MG TAB PO SCH ×2 (08:34→20:38)
[2016-12-15] MEDS: Famotidine 20 MG TAB PO SCH ×2 (08:34→20:37)
[2016-12-15] MEDS: Senokot S 8.6-50 MG TAB PO SCH ×2 (08:34→20:38)
[2016-12-15] MEDS: Potassium Chloride 10 MEQ TAB PO SCH ×2 (08:34→17:04)
[2016-12-15] MEDS: Atorvastatin Calcium 10 MG TAB PO SCH (20:37)
[2016-12-15] MEDS: ALPRAZolam 0.25 MG TAB PO SCH (20:37)
[2016-12-16] MEDS: Potassium Chloride 10 MEQ TAB PO SCH ×2 (08:16→16:19)
[2016-12-16] MEDS: Torsemide 20 MG TAB PO SCH ×2 (08:16→14:34)
[2016-12-16] MEDS: Midodrine HCl 2.5 MG TAB PO SCH ×3 (08:16→21:27)
[2016-12-16] MEDS: Senokot S 8.6-50 MG TAB PO SCH ×2 (08:16→21:27)
[2016-12-16] MEDS: Digoxin 0.125 MG TAB PO SCH (08:16)
[2016-12-16] MEDS: Metoprolol Tartrate 25 MG TAB PO SCH ×2 (08:16→21:28)
[2016-12-16] MEDS: Venlafaxine HCl XR 150 MG CAP PO SCH (08:17)
[2016-12-16] MEDS: Famotidine 20 MG TAB PO SCH ×2 (08:17→21:33)
[2016-12-16] MEDS: Acetaminophen 325 MG TAB PO PRN (16:19)
[2016-12-16] MEDS: ALPRAZolam 0.5 MG TAB PO SCH (21:34)
[2016-12-16] MEDS: Atorvastatin Calcium 10 MG TAB PO SCH (21:35)
[2016-12-17] MEDS: Senokot S 8.6-50 MG TAB PO SCH ×2 (08:46→20:54)
[2016-12-17] MEDS: Metoprolol Tartrate 25 MG TAB PO SCH ×2 (08:46→20:52)
[2016-12-17] MEDS: Venlafaxine HCl XR 150 MG CAP PO SCH (08:46)
[2016-12-17] MEDS: Famotidine 20 MG TAB PO SCH ×2 (08:47→20:52)
[2016-12-17] MEDS: Midodrine HCl 2.5 MG TAB PO SCH ×3 (08:47→20:53)
[2016-12-17] MEDS: Potassium Chloride 10 MEQ TAB PO SCH ×2 (08:47→17:08)
[2016-12-17] MEDS: Torsemide 20 MG TAB PO SCH ×2 (08:47→13:42)
[2016-12-17] MEDS: Digoxin 0.125 MG TAB PO SCH (08:47)
[2016-12-17] MEDS: Ondansetron ODT 4 MG TAB PO PRN (13:42)
[2016-12-17] MEDS: ALPRAZolam 0.5 MG TAB PO SCH (20:46)
[2016-12-17] MEDS: Atorvastatin Calcium 10 MG TAB PO SCH (20:51)
[2016-12-17] MEDS: Acetaminophen 325 MG TAB PO PRN (20:53)
[2016-12-18] MEDS: Potassium Chloride 10 MEQ TAB PO SCH ×2 (09:01→17:23)
[2016-12-18] MEDS: Digoxin 0.125 MG TAB PO SCH (09:02)
[2016-12-18] MEDS: Famotidine 20 MG TAB PO SCH ×2 (09:02→20:37)
[2016-12-18] MEDS: Metoprolol Tartrate 25 MG TAB PO SCH ×2 (09:02→20:37)
[2016-12-18] MEDS: Midodrine HCl 2.5 MG TAB PO SCH ×3 (09:03→20:37)
[2016-12-18] MEDS: Torsemide 20 MG TAB PO SCH ×2 (09:03→15:22)
[2016-12-18] MEDS: Senokot S 8.6-50 MG TAB PO SCH ×2 (09:03→20:37)
[2016-12-18] MEDS: Venlafaxine HCl XR 150 MG CAP PO SCH (09:03)
[2016-12-18] MEDS: Atorvastatin Calcium 10 MG TAB PO SCH (20:37)
[2016-12-18] MEDS: ALPRAZolam 0.5 MG TAB PO SCH (20:38)
[2016-12-18] MEDS: Acetaminophen 325 MG TAB PO PRN (20:38)
[2016-12-19] MEDS: Torsemide 20 MG TAB PO SCH ×2 (09:16→14:39)
[2016-12-19] MEDS: Famotidine 20 MG TAB PO SCH ×2 (09:16→20:32)
[2016-12-19] MEDS: Senokot S 8.6-50 MG TAB PO SCH ×2 (09:17→20:32)
[2016-12-19] MEDS: Acetaminophen 325 MG TAB PO PRN (09:17)
[2016-12-19] MEDS: Midodrine HCl 2.5 MG TAB PO SCH ×3 (09:17→20:32)
[2016-12-19] MEDS: Potassium Chloride 10 MEQ TAB PO SCH ×2 (09:17→16:55)
[2016-12-19] MEDS: Metoprolol Tartrate 25 MG TAB PO SCH ×2 (09:17→20:31)
[2016-12-19] MEDS: Digoxin 0.125 MG TAB PO SCH (09:18)
[2016-12-19] MEDS: Venlafaxine HCl XR 150 MG CAP PO SCH (09:18)
[2016-12-19] MEDS ORDERED: FLU VACC TS2017-18 (>65YR) 0.5 ML SYRINGE IM ONE (12:00)
[2016-12-19 20:23] VITALS: BMI 37.0
[2016-12-19] MEDS: Atorvastatin Calcium 10 MG TAB PO SCH (20:30)
[2016-12-19] MEDS: ALPRAZolam 0.25 MG TAB PO SCH (20:31)
[2016-12-20] MEDS: Potassium Chloride 10 MEQ TAB PO SCH ×2 (08:28→17:07)
[2016-12-20] MEDS: Digoxin 0.125 MG TAB PO SCH (08:28)
[2016-12-20] MEDS: Torsemide 20 MG TAB PO SCH ×2 (08:28→14:47)
[2016-12-20] MEDS: Senokot S 8.6-50 MG TAB PO SCH ×2 (08:28→20:41)
[2016-12-20] MEDS: Metoprolol Tartrate 25 MG TAB PO SCH ×2 (08:28→20:41)
[2016-12-20] MEDS: Midodrine HCl 2.5 MG TAB PO SCH ×3 (08:29→20:42)
[2016-12-20] MEDS: Famotidine 20 MG TAB PO SCH ×2 (08:30→20:41)
[2016-12-20] MEDS: Venlafaxine HCl XR 150 MG CAP PO SCH (08:30)
[2016-12-20] MEDS: ALPRAZolam 0.25 MG TAB PO SCH (20:41)
[2016-12-20] MEDS: Atorvastatin Calcium 10 MG TAB PO SCH (20:41)
[2016-12-21] MEDS: Midodrine HCl 2.5 MG TAB PO SCH ×3 (08:56→20:36)
[2016-12-21] MEDS: Famotidine 20 MG TAB PO SCH ×2 (08:57→20:35)
[2016-12-21] MEDS: Senokot S 8.6-50 MG TAB PO SCH ×2 (08:57→20:37)
[2016-12-21] MEDS: Potassium Chloride 10 MEQ TAB PO SCH ×2 (08:57→17:06)
[2016-12-21] MEDS: Digoxin 0.125 MG TAB PO SCH (08:57)
[2016-12-21] MEDS: Metoprolol Tartrate 25 MG TAB PO SCH ×2 (08:57→20:34)
[2016-12-21] MEDS: Venlafaxine HCl XR 150 MG CAP PO SCH (08:57)
[2016-12-21] MEDS: Torsemide 20 MG TAB PO SCH ×2 (08:58→14:40)
[2016-12-21] MEDS: ALPRAZolam 0.25 MG TAB PO SCH (20:32)
[2016-12-21] MEDS: Atorvastatin Calcium 10 MG TAB PO SCH (20:35)
[2016-12-22] MEDS: Midodrine HCl 2.5 MG TAB PO SCH ×3 (08:22→20:10)
[2016-12-22] MEDS: Venlafaxine HCl XR 150 MG CAP PO SCH (08:22)
[2016-12-22] MEDS: Metoprolol Tartrate 25 MG TAB PO SCH ×2 (08:22→20:11)
[2016-12-22] MEDS: Torsemide 20 MG TAB PO SCH ×2 (08:23→14:37)
[2016-12-22] MEDS: Acetaminophen 325 MG TAB PO PRN ×2 (08:23→17:44)
[2016-12-22] MEDS: Potassium Chloride 10 MEQ TAB PO SCH ×2 (08:23→17:06)
[2016-12-22] MEDS: Senokot S 8.6-50 MG TAB PO SCH ×2 (08:23→20:10)
[2016-12-22] MEDS: Famotidine 20 MG TAB PO SCH ×2 (08:23→20:10)
[2016-12-22] MEDS: Digoxin 0.125 MG TAB PO SCH (08:23)
[2016-12-22] MEDS: ALPRAZolam 0.25 MG TAB PO SCH (20:09)
[2016-12-22] MEDS: Atorvastatin Calcium 10 MG TAB PO SCH (20:10)
[2016-12-23] MEDS: Midodrine HCl 2.5 MG TAB PO SCH ×3 (08:23→20:51)
[2016-12-23] MEDS: Potassium Chloride 10 MEQ TAB PO SCH ×2 (08:23→16:46)
[2016-12-23] MEDS: Venlafaxine HCl XR 150 MG CAP PO SCH (08:23)
[2016-12-23] MEDS: Metoprolol Tartrate 25 MG TAB PO SCH ×2 (08:24→20:50)
[2016-12-23] MEDS: Senokot S 8.6-50 MG TAB PO SCH ×2 (08:24→20:52)
[2016-12-23] MEDS: Acetaminophen 325 MG TAB PO PRN ×2 (08:24→14:25)
[2016-12-23] MEDS: Famotidine 20 MG TAB PO SCH ×2 (08:24→20:52)
[2016-12-23] MEDS: Digoxin 0.125 MG TAB PO SCH (08:25)
[2016-12-23] MEDS: Torsemide 20 MG TAB PO SCH ×2 (08:25→14:15)
[2016-12-23] MEDS: ALPRAZolam 0.25 MG TAB PO SCH (20:50)
[2016-12-23] MEDS: Atorvastatin Calcium 10 MG TAB PO SCH (20:52)
[2016-12-24] MEDS: Metoprolol Tartrate 25 MG TAB PO SCH ×2 (08:45→20:36)
[2016-12-24] MEDS: Torsemide 20 MG TAB PO SCH ×2 (08:46→14:19)
[2016-12-24] MEDS: Potassium Chloride 10 MEQ TAB PO SCH ×2 (08:46→17:14)
[2016-12-24] MEDS: Digoxin 0.125 MG TAB PO SCH (08:46)
[2016-12-24] MEDS: Midodrine HCl 2.5 MG TAB PO SCH ×3 (08:46→20:37)
[2016-12-24] MEDS: Famotidine 20 MG TAB PO SCH ×2 (08:46→20:36)
[2016-12-24] MEDS: Venlafaxine HCl XR 150 MG CAP PO SCH (08:46)
[2016-12-24] MEDS: Senokot S 8.6-50 MG TAB PO SCH ×2 (08:46→20:36)
[2016-12-24] MEDS: Atorvastatin Calcium 10 MG TAB PO SCH (20:36)
[2016-12-24] MEDS: ALPRAZolam 0.25 MG TAB PO SCH (20:36)
[2016-12-24] MEDS: Acetaminophen 325 MG TAB PO PRN (20:42)
[2016-12-25] MEDS: Midodrine HCl 2.5 MG TAB PO SCH ×3 (08:44→20:27)
[2016-12-25] MEDS: Metoprolol Tartrate 25 MG TAB PO SCH ×2 (08:44→20:26)
[2016-12-25] MEDS: Acetaminophen 325 MG TAB PO PRN (08:44)
[2016-12-25] MEDS: Famotidine 20 MG TAB PO SCH ×2 (08:45→20:26)
[2016-12-25] MEDS: Torsemide 20 MG TAB PO SCH ×2 (08:45→14:41)
[2016-12-25] MEDS: Potassium Chloride 10 MEQ TAB PO SCH ×2 (08:45→17:10)
[2016-12-25] MEDS: Senokot S 8.6-50 MG TAB PO SCH ×2 (08:45→20:27)
[2016-12-25] MEDS: Venlafaxine HCl XR 150 MG CAP PO SCH (08:45)
[2016-12-25] MEDS: Digoxin 0.125 MG TAB PO SCH (08:45)
[2016-12-25] MEDS: Ondansetron ODT 4 MG TAB PO PRN (10:03)
[2016-12-25] MEDS: ALPRAZolam 0.25 MG TAB PO SCH (20:24)
[2016-12-25] MEDS: Atorvastatin Calcium 10 MG TAB PO SCH (20:25)
[2016-12-26] MEDS: Potassium Chloride 10 MEQ TAB PO SCH ×2 (08:34→17:13)
[2016-12-26] MEDS: Digoxin 0.125 MG TAB PO SCH (08:35)
[2016-12-26] MEDS: Famotidine 20 MG TAB PO SCH ×2 (08:35→20:33)
[2016-12-26] MEDS: Midodrine HCl 2.5 MG TAB PO SCH ×3 (08:36→20:29)
[2016-12-26] MEDS: Metoprolol Tartrate 25 MG TAB PO SCH ×2 (08:36→20:29)
[2016-12-26] MEDS: Senokot S 8.6-50 MG TAB PO SCH ×2 (08:37→20:35)
[2016-12-26] MEDS: Torsemide 20 MG TAB PO SCH ×2 (08:37→14:17)
[2016-12-26] MEDS: Venlafaxine HCl XR 150 MG CAP PO SCH (08:37)
[2016-12-26] MEDS: Atorvastatin Calcium 10 MG TAB PO SCH (20:32)
[2016-12-26] MEDS: ALPRAZolam 0.25 MG TAB PO SCH (20:33)
[2016-12-26] MEDS ORDERED: Apixaban 5 MG TAB PO SCH (21:00)
[2016-12-27] MEDS: Digoxin 0.125 MG TAB PO SCH (08:36)
[2016-12-27] MEDS: Famotidine 20 MG TAB PO SCH ×2 (08:36→20:44)
[2016-12-27] MEDS: Potassium Chloride 10 MEQ TAB PO SCH ×2 (08:36→17:24)
[2016-12-27] MEDS: Metoprolol Tartrate 25 MG TAB PO SCH ×2 (08:37→20:44)
[2016-12-27] MEDS: Senokot S 8.6-50 MG TAB PO SCH ×2 (08:37→20:44)
[2016-12-27] MEDS: Midodrine HCl 2.5 MG TAB PO SCH ×3 (08:37→20:45)
[2016-12-27] MEDS: Torsemide 20 MG TAB PO SCH ×2 (08:38→13:15)
[2016-12-27] MEDS: Venlafaxine HCl XR 150 MG CAP PO SCH (08:38)
[2016-12-27] MEDS: ALPRAZolam 0.25 MG TAB PO SCH (20:44)
[2016-12-27] MEDS: Atorvastatin Calcium 10 MG TAB PO SCH (20:44)
[2016-12-28] MEDS: Senokot S 8.6-50 MG TAB PO SCH ×2 (08:21→20:10)
[2016-12-28] MEDS: Venlafaxine HCl XR 150 MG CAP PO SCH (08:22)
[2016-12-28] MEDS: Metoprolol Tartrate 25 MG TAB PO SCH ×2 (08:22→20:10)
[2016-12-28] MEDS: Digoxin 0.125 MG TAB PO SCH (08:22)
[2016-12-28] MEDS: Torsemide 20 MG TAB PO SCH ×2 (08:22→14:44)
[2016-12-28] MEDS: Famotidine 20 MG TAB PO SCH ×2 (08:22→20:10)
[2016-12-28] MEDS: Potassium Chloride 10 MEQ TAB PO SCH ×2 (08:22→17:08)
[2016-12-28] MEDS: Midodrine HCl 2.5 MG TAB PO SCH ×3 (08:25→20:12)
[2016-12-28] MEDS: Acetaminophen 325 MG TAB PO PRN (13:44)
[2016-12-28] MEDS: Atorvastatin Calcium 10 MG TAB PO SCH (20:09)
[2016-12-28] MEDS: ALPRAZolam 0.25 MG TAB PO SCH (20:10)
[2016-12-29] MEDS: Famotidine 20 MG TAB PO SCH (08:12)
[2016-12-29] MEDS: Digoxin 0.125 MG TAB PO SCH (08:12)
[2016-12-29] MEDS: Potassium Chloride 10 MEQ TAB PO SCH (08:13)
[2016-12-29] MEDS: Senokot S 8.6-50 MG TAB PO SCH (08:13)
[2016-12-29] MEDS: Venlafaxine HCl XR 150 MG CAP PO SCH (08:13)
[2016-12-29] MEDS: Metoprolol Tartrate 25 MG TAB PO SCH (08:13)
[2016-12-29] MEDS: Torsemide 20 MG TAB PO SCH ×2 (08:13→14:45)
[2016-12-29] MEDS: Midodrine HCl 2.5 MG TAB PO SCH ×2 (08:13→14:45)
[2016-12-29 09:31] VITALS: BP 120/86; TEMP 97.6
--- NOTE | 2016-12-30 14:41 | DIS ---
DATE OF ADMISSION: 12/05/2016 DATE OF DISCHARGE: 12/29/2016 REASON FOR ADMISSION: Skilled rehabilitation in [place] swing bed post-hospitalization. CONSULTS: 1. Cardiology, Dr. Yusuf. 2. Neurology, Dr. Lona Paris. FINAL DIAGNOSES: 1. Deconditioning. 2. Severe dizziness and imbalance disorder secondary to severe dysautonomia. 3. Orthostatic hypotension. 4. Paroxysmal atrial fibrillation. 5. Pacemaker in situ. 6. Anxiety and depression. SECONDARY DIAGNOSES: 1. Coronary artery disease, chronic. 2. Systolic and diastolic heart failure, compensated. 3. Hypertension. 4. Insomnia, chronic. 5. History of Meniere disease. LABORATORY DATA: On 12/12/2016, WBC 9.9, hemoglobin 13.5, hematocrit 39.7 and platelets 232. Chemi stry: Sodium 142, potassium 3.4, BUN 17, creatinine 0.85 and glucose 97. Liver function tests with in normal limits. Albumin 3.9. Digoxin 0.71. PROCEDURES: EEG on 12/22/2016, unremarkable as reported by Dr. Lona Paris. DISCHARGE MEDICATIONS: Alprazolam 0.75 mg p.o. at bedtime, acetaminophen 650 mg p.o. q.4 hours p.r. n., atorvastatin 20 mg p.o. at bedtime, vitamin D3 1000 mg p.o. q.a.m., digoxin 0.125 mg q.a.m., fam otidine 20 mg p.o. b.i.d., metoprolol 12.5 mg p.o. b.i.d., midodrine 5 mg p.o. t.i.d., MiraLax 17 gr ams p.o. daily p.r.n., potassium chloride 10 mEq p.o. b.i.d., Demadex 20 mg p.o. b.i.d. and venlafax ine 150 mg p.o. daily. DISPOSITION: Home. CONDITION ON DISCHARGE: Stable. DIET: Regular. ACTIVITY: 1. Ad gareth. Need supervision 10/10. 2. Avoid abrupt change of position with extra caution upon getting up or out of bed and in standing position. Fall precautions. FOLLOWUP: Follow up with Dr. Mayers in 1 week. Follow up with Dr. Yusuf in 6 months, followup f or or as previously scheduled. Follow up with Dr. Adorno, Neuro/Movement Specialist in [place], ph one # [phone]. For a second opinion of neuro/movement/balance disorders, information were faxe d to [phone] and clinic will be calling back Senait, patient's daughter to make appointment. HISTORY OF PRESENT ILLNESS AND HOSPITAL COURSE: Ms. Negrete is a very pleasant 76-year-old Cauc[place] an female with multiple chronic medical conditions including hypertension, diastolic and systolic CH F, paroxysmal atrial fibrillation, status post pacemaker placement, depression, anxiety, insomnia an d severe balanced disorders associated with orthostatic hypotension and intermittent SVT. Patient w as initially admitted to [facility] on 11/29/2016 for a near syncopal episode while attending her routine psych counseling at [facility] in [place]. Patient has chroni c episodes of orthostatic hypotension associated with tremors and near syncope/syncopal episode. Sh e has been with Dr. Yusuf for Cardio Care and Dr. Lona Paris for Neuro Care for this. She also at o ne point reported to Dr. Santos, specialist in [place] for dysautonomia. Both doctors Dr. Lona correia and Dr. Santos were in agreement that patient has a severe dysautonomia. On her latest hospita lization in [facility], patient was told that this is noncardiac. There was also an manufacturing plant technician consultation at that time and digoxin was added to her regimen to help c ontrol the heart rate and midodrine was likewise increased from 5 mg b.i.d. to t.i.d. dosing. Krystal peralta continues to have general weakness and fatigue post-discharge and deemed deconditioned that she w as transferred to [place] swing bed for therapy. Patient did well in her therapy. She was wal jennifer about 100 feet with supervision without the use of assisted device. Overall, patient has shown progress in endurance and strength during this rehabilitation. She completed all her exercises wit h no complaints of pain or irritation. During her rehab stay, there were episodes of near syncope/s yncopal episodes associated with orthostatic hypotension, transient tachycardia up to 120s. Every e pisode noted post-episode confusion and loss of memory. There was a telephone consultation with her ssis architect, Dr. Yusuf as well as her neurologist, Dr. Lona Paris regarding the above symptoms. Franklin Yusuf reports that again this is noncardiac. Midodrine was sent to [place] at one point to r laeck the status of her pacemaker and was told to be unremarkable. They also had a good discussion and coordination of care with Dr. Lona Paris for possible . We agreed to get an EEG to rule out. Her EEG on 12/22/2016, came back unremarkable. Dr. Lona Paris recommended to follow up with dysautonomia specialist, Dr. Santos in [place] for further recommendations. Dr. Lona Paris report s that there is nothing that could be done more than supportive medical treatment with midodrine or cortisone. This was discussed at length with the patient and the family as represented by her daughter/RADHAA, Senait. After several discussions, patient and family found another specialist in [facility], Dr. Adorno who was recommended by a friend. Patient wanted to follow up with Dr. Adorno inst ead. Appointment was set up prior to discharge, but unfortunately, the program scheduler was not available at that time and was told that the office will be calling the patient for appointment. On 7, patient was feeling a lot better. She is comfortable to go back home. She will continue her valerie ab at home via home health. She is preferred to continue services with interim per request. TIME SPENT ON THIS DISCHARGE: 35 minutes. PHYSICAL EXAMINATION: VITAL SIGNS: Prior to discharge, blood pressure 120/86 standing position, 153/85 sitting position, temperature 97.6, heart rate 86, respirations 20, O2 sats 95% at room air. Weight 237 pounds and he ight 5 feet 7 inches. CODE STATUS: The patient reports do not resuscitate (in correction to the initial report from the a dmitting history and physical exam).
== END 2016-12-29 15:37 | disposition home health service (06) | DRG 92 ==
LOC: MADMS 12-05 12:49
PROVIDERS: ADMIT Family Medicine; ATTEND Family Medicine
DX: G90.1 Familial dysautonomia [Riley-Day] (principal); I42.8 Other cardiomyopathies; I11.0 Hypertensive heart disease with heart failure; I50.42 Chronic combined systolic (congestive) and diastolic (congestive) heart failure; R53.1 Weakness; J44.9 Chronic obstructive pulmonary disease, unspecified; I48.0 Paroxysmal atrial fibrillation; Z99.81 Dependence on supplemental oxygen; F32.9 Major depressive disorder, single episode, unspecified; I95.1 Orthostatic hypotension; I25.10 Atherosclerotic heart disease of native coronary artery without angina pectoris; G47.00 Insomnia, unspecified; F41.9 Anxiety disorder, unspecified; R09.02 Hypoxemia; Z95.810 Presence of automatic (implantable) cardiac defibrillator; Z88.5 Allergy status to narcotic agent; Z88.8 Allergy status to other drugs, medicaments and biological substances
CPT/HCPCS: 36415; 80053; 80162; 85025; 90471; 90682; G0008; G8978-GP-CK; G8979-GP-CI; Q0162; Q2036

== ENCOUNTER 2017-01-04 16:28 | Emergency (ER) | payer MEDICARE ==
[~2017-01-04 16:28] MED LIST changes: +Iopamidol 370 76% 125 ML VIAL FS ONE
[2017-01-04] MEDS ORDERED: Ondansetron HCl/PF 4 MG/2 ML Vial ONE (17:23)
[2017-01-04 17:34] LABS: ALT (SGPT) 36 U/L (8-55); AST (SGOT) 38 U/L (5-34); Albumin 4.5 g/dL (3.4-4.8); Alkaline Phosphatase 122 U/L (40-150); Anion Gap 19 mmol/L (10-20); BUN (Urea Nitrogen) 15 mg/dL (9.8-20.1); Bilirubin, Total 0.6 mg/dL (0.2-1.2); Calc. Creatinine Clearance 0 mL/min (70-130); Calcium 10.3 mg/dL (7.8-10.44); Carbon Dioxide 29 mmol/L (23-31); Chloride 94 mmol/L (98-107); Estimated GFR-MDRD 43; Globulin 2.9 g/dL (2.4-3.5); Glucose 111 mg/dL (83-110); Magnesium 1.6 mg/dL (1.6-2.6); Potassium 3.4 mmol/L (3.5-5.1); Protein, Total 7.4 g/dL (6.0-8.3); Sodium 139 mmol/L (136-145)
[2017-01-04 17:35] LABS: CKMB 2.5 ng/mL (0-6.6); Troponin I 0.023 ng/mL (< 0.028)
[2017-01-04 17:40] LABS: Band 4 % (5-11); Eosinophils 2 % (0-10); Hemoglobin 14.9 g/dL (12.0-16.0); Lymphocytes 32 % (21-51); MDiff Complete? YES; Mean Corpuscular HGB CONC 33.8 g/dL (32.0-36.0); Mean Corpuscular Hemoglobin 30.8 pg (27.0-31.0); Mean Corpuscular Volume 91.2 fl (81.0-99.0); Mean Platelet Volume 11.3 fL (7.4-10.4); Monocytes 8 % (0-10); Neutrophil 48 % (42-75); PLT Morphology Comment Appears Adequate; Platelet Count 265 thou/uL (130-400); RBC Distribution Width 11.8 % (11.5-14.5); Reactive Lymphocytes 5 % (0-10); Red Blood Cell (RBC) Count 4.83 mill/uL (4.20-5.40); White Blood Cell (WBC) Count 15.1 thou/uL (4.8-10.8)
[2017-01-04] MEDS ORDERED: Potassium Chloride 10 MEQ TAB ONE ×2 (17:55)
[2017-01-04 17:56] LABS: Digoxin 0.57 ng/mL (0.8-2.0)
[2017-01-04 18:22] LABS: Bilirubin Negative (Negative); Blood, Urine Negative (Negative); Clarity Slightly Cloudy (Clear); Glucose, Urine (Dipstick) Negative (Negative); Leukocyte Negative (Negative); Nitrite Negative (Negative); Protein, Urine (Dipstick) Trace mg/dL (Neg-Trace); Specific Gravity, Urine 1.015 (1.005-1.030); Urobilinogen 0.2 mg/dL (0.2-1.0)
[2017-01-04] MEDS ORDERED: Metoclopramide HCl 10 MG/2 ML VIAL ONE (19:44)
--- NOTE | 2017-01-05 00:14 | CT ---
CT ABDOMEN AND PELVIS WITH CONTRAST 01/04/17 COMPARISON: 04/09/16 HISTORY: Abdominal pain. TECHNIQUE: Multiple contiguous axial images were obtained in a CT of the abdomen and pelvis with contrast. PO c ontrast was administered. Coronal reformats were performed. FINDINGS: The patient is status post cholecystectomy. A gastric band is seen at the gastroesophageal junction. There is diffuse fatty infiltration of the liver. The kidneys, adrenal glands, spleen, and pancreas are unremarkable. No free air, free fluid, or stranding changes are seen in the abdomen or pelvis. The patient is status post hysterectomy. The large and small bowel are unremarkable. The appendix is not seen and may have been removed. No abdominal or pelvic lymphadenopathy are seen. The abdominal wall soft tissues and visualized inferior thorax are unremarkable. Mild degenerative c hanges are seen in the spine. IMPRESSION: 1. No evidence of acute intra-abdominal/pelvic abnormality. 2. Fatty liver. POS: [facility]
== END 2017-01-04 22:19 | disposition home or self-care (01) ==
LOC: MADERS 16:28
DX: E86.0 Dehydration (principal); E87.6 Hypokalemia; I95.9 Hypotension, unspecified; E66.9 Obesity, unspecified; J44.9 Chronic obstructive pulmonary disease, unspecified; I25.10 Atherosclerotic heart disease of native coronary artery without angina pectoris; I11.0 Hypertensive heart disease with heart failure; I50.9 Heart failure, unspecified; E78.00 Pure hypercholesterolemia, unspecified; F41.9 Anxiety disorder, unspecified; F32.9 Major depressive disorder, single episode, unspecified; Z79.899 Other long term (current) drug therapy
CPT/HCPCS: 74177; 80053; 80162; 81003; 82553; 83735; 84484; 85025; 93005; 96361; 96374; 96375; J2405; J2765; J7050

== ENCOUNTER 2017-02-03 13:21 | Emergency (ER) | payer MEDICARE ==
[~2017-02-03 13:21] MED LIST changes: -Iopamidol 370 76% 125 ML VIAL FS ONE
[2017-02-03] MEDS ORDERED: Ondansetron HCl/PF 4 MG/2 ML Vial ONE (13:57)
[2017-02-03] MEDS ORDERED: Famotidine 20 MG TAB ONE (13:57)
--- NOTE | 2017-02-03 14:02 | RAD ---
PORTABLE CHEST: HISTORY: Dyspnea. COMPARISON: 11/29/16 exam. FINDINGS: Heart size is enlarged. Pacemaker is present. The lungs are clear of infiltrates. IMPRESSION: Mild cardiomegaly. Stable exam. POS: [facility]
[2017-02-03 14:35] LABS: #Basophils 0.2 thou/uL (0.0-0.2); #Eosinphils 0.4 thou/uL (0.0-0.7); #Lymphocytes 3.8 thou/uL (1.20-3.40); #Monocytes 0.9 thou/uL (0.11-0.59); %Basophils 1.3 % (0.0-1.0); %Lymphocytes 28.6 % (21.0-51.0); %Monocytes 6.6 % (0.0-10.0); %Neutrophils 60.5 % (42.0-75.0); Hemoglobin 13.1 g/dL (12.0-16.0); Mean Corpuscular HGB CONC 34.2 g/dL (32.0-36.0); Mean Corpuscular Hemoglobin 31.5 pg (27.0-31.0); Mean Corpuscular Volume 92.2 fl (81.0-99.0); Platelet Count 291 thou/uL (130-400); RBC Distribution Width 12.2 % (11.5-14.5); Red Blood Cell (RBC) Count 4.17 mill/uL (4.20-5.40); White Blood Cell (WBC) Count 13.2 thou/uL (4.8-10.8)
[2017-02-03 14:44] LABS: Anion Gap 16 mmol/L (10-20); BUN (Urea Nitrogen) 14 mg/dL (9.8-20.1); Calc. Creatinine Clearance 0 mL/min (70-130); Calcium 9.3 mg/dL (7.8-10.44); Carbon Dioxide 27 mmol/L (23-31); Chloride 99 mmol/L (98-107); Estimated GFR-MDRD 57; Glucose 111 mg/dL (83-110); Lipase 121 U/L (8-78); Potassium 3.5 mmol/L (3.5-5.1); Sodium 138 mmol/L (136-145)
[2017-02-03 14:45] LABS: ALT (SGPT) 18 U/L (8-55); AST (SGOT) 22 U/L (5-34); Albumin 3.8 g/dL (3.4-4.8); Alkaline Phosphatase 107 U/L (40-150); Bilirubin, Direct 0.2 mg/dL (0.1-0.3); Bilirubin, Total 0.4 mg/dL (0.2-1.2); Protein, Total 6.2 g/dL (6.0-8.3)
[2017-02-03 14:48] LABS: CKMB 1.1 ng/mL (0-6.6); Troponin I 0.015 ng/mL (< 0.028)
[2017-02-03 16:09] LABS: Bilirubin Negative (Negative); Blood, Urine Negative (Negative); Clarity Slightly Cloudy (Clear); Glucose, Urine (Dipstick) Negative (Negative); Leukocyte Trace (Negative); Nitrite Negative (Negative); Protein, Urine (Dipstick) Negative (Neg-Trace); RBC/HPF 0-3 HPF (0-3); Specific Gravity, Urine 1.015 (1.005-1.030); Urobilinogen 0.2 mg/dL (0.2-1.0)
[2017-02-03 16:10] LABS: Bacteria/HPF 4+ HPF (None Seen); Squamous Epithelial 0-3 HPF (0-3)
== END 2017-02-03 16:13 | disposition home or self-care (01) ==
LOC: MADERS 13:21
DX: E86.0 Dehydration (principal); E66.9 Obesity, unspecified; E78.00 Pure hypercholesterolemia, unspecified; F32.9 Major depressive disorder, single episode, unspecified; F41.9 Anxiety disorder, unspecified; J44.9 Chronic obstructive pulmonary disease, unspecified; H81.09 Meniere's disease, unspecified ear; I25.10 Atherosclerotic heart disease of native coronary artery without angina pectoris; I50.9 Heart failure, unspecified; I11.0 Hypertensive heart disease with heart failure
CPT/HCPCS: 71010; 80048; 80076; 81003; 81015; 82150; 82553; 83690; 83880; 84484; 85025; 93005; 96361; 96374; J2405; J7050; J7620

== ENCOUNTER 2017-04-17 14:53 | Outpatient (CLI) | payer MEDICARE ==
--- NOTE | 2017-04-17 15:39 | CT ---
CT BRAIN WITHOUT CONTRAST: Comparison: 11-29-16 History: Dizziness for two weeks, memory loss. Technique: Multiple contiguous axial images were obtained in a CT of the brain without contrast. FINDINGS: There are scattered hypodensities in the subcortical and periventricular white matter, likely seconda ry to small vessel ischemic disease. No large confluent infarction is seen. There is no evidence of h ydrocephalus, intracranial hemorrhage, or extraaxial fluid collection. The calvarium and overlying soft tissues are unremarkable. The visualized paranasal sinuses and masto id air cells are well aerated. IMPRESSION: 1. No evidence of acute intracranial abnormality. POS: [facility]
== END 2017-04-17 14:54 | disposition home or self-care (01) ==
LOC: MADCT 14:53
PROVIDERS: ATTEND Family Medicine
DX: F41.1 Generalized anxiety disorder (principal)
CPT/HCPCS: 70450

== ENCOUNTER 2017-08-29 09:47 | Emergency (ER) | payer MEDICARE ==
[2017-08-29 11:06] LABS: #Basophils 0.1 thou/uL (0.0-0.2); #Eosinphils 0.3 thou/uL (0.0-0.7); #Lymphocytes 3.6 thou/uL (1.20-3.40); #Neutrophils 5.8 thou/uL (1.40-6.50); %Basophils 1.1 % (0.0-1.0); %Eosinophils 2.4 % (0.0-10.0); %Lymphocytes 33.4 % (21.0-51.0); %Monocytes 9.6 % (0.0-10.0); %Neutrophils 53.5 % (42.0-75.0); Mean Corpuscular HGB CONC 33.4 g/dL (32.0-36.0); Mean Corpuscular Hemoglobin 29.1 pg (27.0-31.0); Mean Corpuscular Volume 87.3 fl (81.0-99.0); Mean Platelet Volume 10.1 fL (7.4-10.4); Platelet Count 238 thou/uL (130-400); RBC Distribution Width 11.5 % (11.5-14.5); Red Blood Cell (RBC) Count 4.45 mill/uL (4.20-5.40); White Blood Cell (WBC) Count 10.8 thou/uL (4.8-10.8)
[2017-08-29 11:06] LABS: Bilirubin Negative (Negative); Blood, Urine Negative (Negative); Glucose, Urine (Dipstick) Negative (Negative); Leukocyte Trace (Negative); Nitrite Negative (Negative); Protein, Urine (Dipstick) Negative (Neg-Trace); Urobilinogen 0.2 mg/dL (0.2-1.0)
[2017-08-29 11:17] LABS: Bacteria/HPF 3+ HPF (None Seen); Clarity Cloudy (Clear); RBC/HPF 0-3 HPF (0-3)
--- NOTE | 2017-08-29 11:18 | CT ---
NONCONTRAST CT HEAD: Date: 08-29-17 History: Fall, loss of consciousness. Syncopal episode along with fall. Comparison: 04-17-17 FINDINGS: Again noted are scattered low density areas within the periventricular white matter which are nonspec ific but likely reflective of mild chronic small vessel ischemic changes. There is no evidence of an acute cortical infarction, hemorrhage, mass effect, or midline shift. Mild cerebral volume loss is ag ain present. Ventricular system is normal in size, shape, and position for the degree of sulcal atrop hy. The paranasal sinuses and mastoid air cells are clear. No calvarial fracture is seen. There has been no interval change when compared to study of 04-17-17. IMPRESSION: 1. No acute intracranial abnormality is demonstrated. POS: [facility]
--- NOTE | 2017-08-29 11:22 | CT ---
NONCONTRAST CT CERVICAL SPINE: 08/29/2017 HISTORY: Fall. Loss of consciousness. Neck pain. COMPARISON: 04/07/2016 TECHNIQUE: Contiguous axial CT images were obtained through the cervical spine, from the skull base to the T3-T4 level. Sagittal and coronal reformatted images were provided. FINDINGS: There are hypodense nodules seen in each lobe of the thyroid gland, with enlargement of the right lob e of the thyroid gland compared to the left, with associated calcifications in each lobe of the thyro id gland. Findings are stable compared to the study in 2017. Prevertebral soft tissues are within normal limits. A dual-lead left subclavian cardiac pacemaker device is partially imaged. The lung apices are clear. Vascular calcifications are seen in the aortic arch. No fracture or subluxation is seen involving the cervical spine. Scattered degenerative changes are seen in the cervical spine. There is a disk osteophyte complex at the C3-C4 level, resulting in effa cement of the ventral subarachnoid space. The neural foramina do apparent patent, based on CT evalua tion. There is uncinate process hypertrophy at the C4-C5 level with prominent facet hypertrophic changes on the left, resulting in moderate left-sided neural foraminal narrowing, primarily related to the bony encroachment. At the C5-C6, level, there is, again, loss of intervertebral disk height with a broad-based disk oste ophyte complex narrowing the ventral subarachnoid space. There is mild bilateral neural foraminal na rrowing due to bony encroachment. Findings have not significantly progressed when compared to the pr ior exam. IMPRESSION: 1. No acute fracture or subluxation involving the cervical spine. 2. Scattered degenerative changes in the cervical spine. 3. Stable hypodense nodules in each lobe of the thyroid gland, with enlargement of the right lobe of the thyroid gland, also stable from prior study in 2017. POS: [facility]
[2017-08-29 11:24] LABS: Prothrombin Time 13.5 SEC (12.0-14.7)
[2017-08-29 11:25] LABS: ALT (SGPT) 11 U/L (8-55); AST (SGOT) 17 U/L (5-34); Alkaline Phosphatase 120 U/L (40-150); Anion Gap 18 mmol/L (10-20); BUN (Urea Nitrogen) 16 mg/dL (9.8-20.1); Bilirubin, Total 0.5 mg/dL (0.2-1.2); CK (CPK) 97 U/L (29-168); Calc. Creatinine Clearance 0 mL/min (70-130); Calcium 9.6 mg/dL (7.8-10.44); Carbon Dioxide 25 mmol/L (23-31); Chloride 101 mmol/L (98-107); Estimated GFR-MDRD 68; Globulin 2.9 g/dL (2.4-3.5); Glucose 96 mg/dL (83-110); PTT 29.5 SEC (22.9-36.1); Potassium 3.7 mmol/L (3.5-5.1); Protein, Total 6.9 g/dL (6.0-8.3); Sodium 140 mmol/L (136-145)
[2017-08-29 11:28] LABS: CKMB 1.7 ng/mL (0-6.6); Troponin I Less than 0.010 ng/mL (< 0.028)
[2017-08-29] MEDS ORDERED: Sulfameth/Trimethoprim DS 800-160mg TAB ONE (11:52)
[2017-08-29] MEDS ORDERED: Acetaminophen/Codeine 30-300mg Tablet ONE (11:52)
== END 2017-08-29 12:03 | disposition home or self-care (01) ==
LOC: MADERS 09:47
DX: S09.90XA Unspecified injury of head, initial encounter (principal); S00.03XA Contusion of scalp, initial encounter; R55 Syncope and collapse; N39.0 Urinary tract infection, site not specified; E66.9 Obesity, unspecified; F32.9 Major depressive disorder, single episode, unspecified; I11.0 Hypertensive heart disease with heart failure; I50.9 Heart failure, unspecified; F41.9 Anxiety disorder, unspecified; H81.09 Meniere's disease, unspecified ear; I25.10 Atherosclerotic heart disease of native coronary artery without angina pectoris; J44.9 Chronic obstructive pulmonary disease, unspecified; Z79.899 Other long term (current) drug therapy; W18.30XA Fall on same level, unspecified, initial encounter
CPT/HCPCS: 70450; 72125; 80053; 81001; 82550; 82553; 83605; 83880; 84443; 84484; 85025; 85610; 85730; 87086; 87186; 93005; 94760

== ENCOUNTER 2017-09-24 14:25 | Emergency (ER) | payer MEDICARE ==
[2017-09-24 16:00] LABS: #Basophils 0.1 thou/uL (0.0-0.2); #Eosinphils 0.3 thou/uL (0.0-0.7); #Lymphocytes 3.4 thou/uL (1.20-3.40); #Monocytes 1.1 thou/uL (0.11-0.59); #Neutrophils 5.8 thou/uL (1.40-6.50); %Basophils 1.2 % (0.0-1.0); %Eosinophils 2.9 % (0.0-10.0); %Lymphocytes 31.6 % (21.0-51.0); %Monocytes 10.3 % (0.0-10.0); %Neutrophils 54.1 % (42.0-75.0); Mean Corpuscular HGB CONC 33.2 g/dL (32.0-36.0); Mean Corpuscular Hemoglobin 29.7 pg (27.0-31.0); Mean Corpuscular Volume 89.6 fL (78.0-98.0); Mean Platelet Volume 9.4 fL (7.4-10.4); Platelet Count 248 thou/uL (130-400); Red Blood Cell (RBC) Count 4.38 mill/uL (4.20-5.40); White Blood Cell (WBC) Count 10.7 thou/uL (4.8-10.8)
[2017-09-24 16:16] LABS: ALT (SGPT) 13 U/L (8-55); AST (SGOT) 16 U/L (5-34); Albumin 3.6 g/dL (3.4-4.8); Alkaline Phosphatase 112 U/L (40-150); Anion Gap 17 mmol/L (10-20); BUN (Urea Nitrogen) 18 mg/dL (9.8-20.1); Bilirubin, Total 0.4 mg/dL (0.2-1.2); Calc. Creatinine Clearance 0 mL/min (70-130); Calcium 8.5 mg/dL (7.8-10.44); Carbon Dioxide 24 mmol/L (23-31); Chloride 105 mmol/L (98-107); Estimated GFR-MDRD 67; Globulin 2.6 g/dL (2.4-3.5); Glucose 114 mg/dL (83-110); Potassium 4.4 mmol/L (3.5-5.1); Protein, Total 6.2 g/dL (6.0-8.3); Sodium 142 mmol/L (136-145)
[2017-09-24 17:00] LABS: Bilirubin Negative (Negative); Blood, Urine Negative (Negative); Clarity Clear (Clear); Glucose, Urine (Dipstick) Negative (Negative); Leukocyte Negative (Negative); Nitrite Negative (Negative); Protein, Urine (Dipstick) Negative (Neg-Trace); Specific Gravity, Urine 1.015 (1.005-1.030); Urobilinogen 0.2 mg/dL (0.2-1.0)
== END 2017-09-24 17:30 | disposition home or self-care (01) ==
LOC: MADERS 14:25
DX: I95.1 Orthostatic hypotension (principal); E66.9 Obesity, unspecified; J44.9 Chronic obstructive pulmonary disease, unspecified; I50.9 Heart failure, unspecified; E78.00 Pure hypercholesterolemia, unspecified; F41.9 Anxiety disorder, unspecified; F32.9 Major depressive disorder, single episode, unspecified; I25.10 Atherosclerotic heart disease of native coronary artery without angina pectoris; Z79.899 Other long term (current) drug therapy
CPT/HCPCS: 36415; 80053; 81003; 85025; 96360; 96361; J7050

== ENCOUNTER 2018-03-01 11:15 | Emergency (ER) | payer MEDICARE ==
[2018-03-01] MEDS ORDERED: Lorazepam 2 MG/ML VIAL ONE (12:05)
--- NOTE | 2018-03-01 12:08 | RAD ---
FRONTAL RADIOGRAPH CHEST: Date: 03-01-18 Comparison: 02-03-17 History: Chest pain. FINDINGS: Multi-lead transvenous AICD, stable. No pneumothorax, pleural fluid, focal consolidation or alveolar edema. IMPRESSION: No acute findings. POS: [facility]
[2018-03-01 12:10] LABS: #Basophils 0.1 thou/uL (0.0-0.2); #Eosinphils 0.3 thou/uL (0.0-0.7); #Lymphocytes 3.4 thou/uL (1.20-3.40); #Monocytes 0.9 thou/uL (0.11-0.59); #Neutrophils 5.4 thou/uL (1.40-6.50); %Basophils 1.4 % (0.0-1.0); %Eosinophils 3.3 % (0.0-10.0); %Lymphocytes 33.8 % (21.0-51.0); %Monocytes 8.8 % (0.0-10.0); %Neutrophils 52.8 % (42.0-75.0); Hemoglobin 13.2 g/dL (12.0-16.0); Mean Corpuscular HGB CONC 32.7 g/dL (32.0-36.0); Mean Corpuscular Hemoglobin 29.4 pg (27.0-31.0); Mean Platelet Volume 9.9 fL (7.4-10.4); Platelet Count 303 thou/uL (130-400); RBC Distribution Width 11.7 % (11.5-14.5); Red Blood Cell (RBC) Count 4.48 mill/uL (4.20-5.40); White Blood Cell (WBC) Count 10.2 thou/uL (4.8-10.8)
[2018-03-01 12:24] LABS: ALT (SGPT) 10 U/L (8-55); AST (SGOT) 21 U/L (5-34); Alkaline Phosphatase 117 U/L (40-150); Anion Gap 14 mmol/L (10-20); BUN (Urea Nitrogen) 15 mg/dL (9.8-20.1); Bilirubin, Total 0.7 mg/dL (0.2-1.2); Calc. Creatinine Clearance 0 mL/min (70-130); Calcium 9.6 mg/dL (7.8-10.44); Carbon Dioxide 27 mmol/L (23-31); Chloride 103 mmol/L (98-107); Estimated GFR-MDRD 70; Globulin 2.9 g/dL (2.4-3.5); Glucose 105 mg/dL (83-110); Potassium 3.5 mmol/L (3.5-5.1); Protein, Total 6.9 g/dL (6.0-8.3); Sodium 140 mmol/L (136-145)
== END 2018-03-01 16:17 | disposition home or self-care (01) ==
LOC: MADERS 11:15
DX: R07.89 Other chest pain (principal); F43.20 Adjustment disorder, unspecified; I95.1 Orthostatic hypotension; E66.9 Obesity, unspecified; J44.9 Chronic obstructive pulmonary disease, unspecified; I25.10 Atherosclerotic heart disease of native coronary artery without angina pectoris; I11.0 Hypertensive heart disease with heart failure; I50.9 Heart failure, unspecified; F41.9 Anxiety disorder, unspecified; F32.9 Major depressive disorder, single episode, unspecified; Z79.899 Other long term (current) drug therapy
CPT/HCPCS: 36415; 71045; 80053; 84484; 85025; 93005; 94760; 96374; J2060

== ENCOUNTER 2018-05-08 14:46 | Observation (INO) | payer MEDICARE ==
[2018-05-08] MEDS ORDERED: Ondansetron PF 4 MG/2 ML Vial ONE (15:40)
[2018-05-08] MEDS ORDERED: Sodium Chloride 0.9% 500 ML ONE (15:40)
[2018-05-08 15:47] LABS: #Basophils 0.1 thou/uL (0.0-0.2); #Eosinphils 0.5 thou/uL (0.0-0.7); #Monocytes 1.1 thou/uL (0.11-0.59); #Neutrophils 6.4 thou/uL (1.40-6.50); %Basophils 1.1 % (0.0-1.0); %Eosinophils 4.1 % (0.0-10.0); %Lymphocytes 32.9 % (21.0-51.0); %Monocytes 9.3 % (0.0-10.0); %Neutrophils 52.7 % (42.0-75.0); Hemoglobin 14.1 g/dL (12.0-16.0); Mean Corpuscular HGB CONC 33.6 g/dL (32.0-36.0); Mean Corpuscular Hemoglobin 30.5 pg (27.0-31.0); Mean Corpuscular Volume 90.8 fL (78.0-98.0); Mean Platelet Volume 9.2 fL (7.4-10.4); Platelet Count 304 thou/uL (130-400); RBC Distribution Width 11.9 % (11.5-14.5); Red Blood Cell (RBC) Count 4.62 mill/uL (4.20-5.40); White Blood Cell (WBC) Count 12.2 thou/uL (4.8-10.8)
[2018-05-08 16:08] LABS: ALT (SGPT) 14 U/L (8-55); AST (SGOT) 17 U/L (5-34); Albumin 4.2 g/dL (3.4-4.8); Alkaline Phosphatase 118 U/L (40-150); Anion Gap 16 mmol/L (10-20); BUN (Urea Nitrogen) 24 mg/dL (9.8-20.1); Bilirubin, Total 0.4 mg/dL (0.2-1.2); Calc. Creatinine Clearance 0 mL/min (70-130); Calcium 9.8 mg/dL (7.8-10.44); Carbon Dioxide 26 mmol/L (23-31); Chloride 103 mmol/L (98-107); Estimated GFR-MDRD 64; Globulin 3.2 g/dL (2.4-3.5); Glucose 96 mg/dL (83-110); Potassium 3.8 mmol/L (3.5-5.1); Protein, Total 7.4 g/dL (6.0-8.3); Sodium 141 mmol/L (136-145)
[2018-05-08 16:39] LABS: Bilirubin Negative (Negative); Blood, Urine Negative (Negative); Clarity Clear (Clear); Glucose, Urine (Dipstick) Negative (Negative); Leukocyte Negative (Negative); Nitrite Negative (Negative); Protein, Urine (Dipstick) Negative (Neg-Trace); Urobilinogen 0.2 mg/dL (0.2-1.0)
[2018-05-08 16:40] LABS: Specific Gravity, Urine 1.012 (1.002-1.036)
--- NOTE | 2018-05-08 17:09 | RAD ---
CHEST ONE VIEW: 05/08/18 HISTORY: Dyspnea. COMPARISON: 03/01/18. FINDINGS: Cardiac silhouette is magnified by projection. Pulmonary vasculature upper limits of normal. Mediasti num is midline with a multilead left subclavian cardiac electronic device. No lobar consolidation or evidence of pneumothorax. IMPRESSION: No active cardiopulmonary abnormalities are demonstrated. POS: [facility]
[2018-05-08] MEDS ORDERED: Acetaminophen 325 MG TAB PO PRN ×2 (19:32→20:35)
[2018-05-08] MEDS ORDERED: Ondansetron PF 4 MG/2 ML Vial SLOW IVP PRN (19:32)
[2018-05-08] MEDS ORDERED: HYDROcodone/Acetaminophen 5/325 mg Tablet PO PRN ×2 (19:32)
[2018-05-08] MEDS ORDERED: MIDODRINE HCL 5 MG PO PRN (20:35)
[2018-05-08] MEDS ORDERED: ALPRAZolam 0.25 MG TAB PO PRN (20:35)
[2018-05-08] MEDS: Sodium Chloride 0.9% 1,000 ML IV SCH (20:39)
[2018-05-08] MEDS: clonazePAM 0.5 MG TAB PO SCH (20:52)
[2018-05-08] MEDS: Apixaban 5 MG TAB PO SCH (20:52)
[2018-05-08] MEDS ORDERED: Atorvastatin Calcium 10 MG TAB PO SCH (21:00)
[2018-05-08] MEDS: Potassium Chloride 10 MEQ TAB PO SCH (21:03)
[2018-05-08] MEDS: Metoprolol Tartrate 25 MG TAB PO SCH (21:03)
[2018-05-08 22:39] VITALS: BMI 36.0
[2018-05-09] MEDS ORDERED: LINACLOTIDE 145 MG PO SCH (07:30)
[2018-05-09] MEDS: Potassium Chloride 10 MEQ TAB PO SCH (08:16)
[2018-05-09] MEDS: Apixaban 5 MG TAB PO SCH (08:17)
[2018-05-09] MEDS: Metoprolol Tartrate 25 MG TAB PO SCH (08:17)
[2018-05-09] MEDS: clonazePAM 0.5 MG TAB PO SCH (08:17)
[2018-05-09] MEDS: Sodium Chloride 0.9% 1,000 ML IV SCH (08:23)
[2018-05-09] MEDS ORDERED: Venlafaxine HCl XR 150 MG CAP PO SCH (09:00)
[2018-05-09] MEDS ORDERED: Sodium Chloride 0.9% 1,000 ML BAG ONE (10:18)
[2018-05-09] MEDS ORDERED: Ondansetron ODT 4 MG TAB PO PRN (15:24)
[2018-05-09 15:59] VITALS: BP 134/70; TEMP 97.1
--- NOTE | 2018-05-10 04:30 | SS ---
DATE OF ADMISSION: 05/08/2018 DATE OF DISCHARGE: 05/09/2018 PRIMARY CARE PHYSICIAN: Dr. Mayers. REASON FOR ADMISSION: Dehydration. FINAL DIAGNOSES: 1. Acute viral gastroenteritis. 2. Dehydration, mild. SECONDARY DIAGNOSES: 1. Congestive heart failure. 2. History of severe dysautonomic syndrome. 3. Anxiety and depression. 4. Dyslipidemia. 5. Chronic atrial fibrillation, s?p pacemaker placement. 6. Long-term use of anticoagulant. MEDICATIONS: Continue all current medications with addition of Zofran 4 mg ODT sublingual q.6 hours p.r.n. HOSPITAL COURSE: Ms. Negrete is a very pleasant female with significant history of CHF; orthostatic hypotension; atrial fibrillation, status post pacemaker placement, on long-term use of Eliquis; dyslipidemia; hypertension; Meniere's disease; severe dysautonomic syndrome; anxiety; depression and obesity; She has been complaining of acute onset of nausea and vomiting associated with loose bowel movement over the past 2 to 3 days. This is not associated with fever or cold symptoms. The patient reports yellowish-brown loose watery stools, more than 3 to 4 times a day. Stools are nonbloody, non-mucous. The patient reports that she has not been really eating much nor drinking much as she just wants to stay in bed most of the time. She was sent to [place] [facility] due to progressively worsening symptoms on 05/08/2018. Initial labs showed WBC of 12.2, hemoglobin 14.1, platelets 304 with sodium of 141, potassium 3.8, chloride 103, BUN 24, creatinine 0.86, estimated GFR 64, lactic acid 1.2, and calcium 9.8. Liver function tests within normal limits. Albumin 4.2. Negative urine. Chest x-ray showed no acute disease. EKG; AV dual paced rhythm, 80 beats per minute, normal axis, QRS 152, and nonspecific changes. The patient was initially treated with Zofran IV 4 mg and received IVF hydration with sodium chloride at 500 mL infusion. The patient felt a little better after the initial treatment. Given the history of acute gastroenteritis , more likely viral and obvious dehydration on exam, the patient was admitted for slow fluid resuscitation due to history of CHF and further observation. The patient was observed overnigh with unremarkable course. She did not have recurrence of GI issues. No significant nausea, vomiting, or BM since admission. Her vitals remained stable. We held the diuretic since admission, and no significant volume retention reported. After completion of 1 L of NS, the patient started eating and drinking and walking some. She remains febrile free. In the late afternoon of 05/09/2018, the patient reports she felt a whole lot better. She has been ambulatory without significant issues. The patient was deemed stable to be discharged home in the afternoon of 2018 and the patient is comfortable with this. She was discharged with an oral antiemetic prescription. Otherwise, she will continue all her current medications per home list. PHYSICAL EXAMINATION: VITAL SIGNS: Prior to discharge; temperature 97.1, blood pressure 134/70 ( standing position), pulse 81, respirations 18, and O2 saturation 96% on room air. Weight 230 pounds, height 5 feet 7 inches. GENERAL: The patient is awake, alert, and oriented x3, comfortable, not in distress. HEENT: Normocephalic, atraumatic. PERRL. Nonicteric sclerae. Clear nares. Oral mucosa is moist. Cando throat. No oral lesions. NECK: Supple. No LAD. Flat JVD. CHEST: Normal excursion. Clear to auscultation bilaterally. CARDIAC: RRR. Normal S1 and S2. ABDOMEN: Obese, soft. Normoactive bowel sounds. Nondistended, nontender. No rebound. No guarding. No signs of peritonitis. Negative CVA tenderness bilaterally. SKIN: Moist and warm. Good skin turgor and elasticity. No rashes. No lesions. NEURO: Nonfocal. The patient is ambulatory without assistive device. DISCHARGE INSTRUCTIONS: 1. Diet; BRAT diet until completely symptom free. 2. Activity; ad gareth. 3. Follow up with Dr. Mayers/PCP within 2 to 3 days if with worsening symptoms. 4. ER warnings. Job ID: [id number] [facility]
== END 2018-05-09 16:53 | disposition home or self-care (01) ==
LOC: MADERS 14:46 → MADMS 17:48
PROVIDERS: ADMIT Family Medicine; ATTEND Family Medicine
DX: A08.4 Viral intestinal infection, unspecified (principal); E86.0 Dehydration; G90.8 Other disorders of autonomic nervous system; E78.5 Hyperlipidemia, unspecified; F41.9 Anxiety disorder, unspecified; F32.9 Major depressive disorder, single episode, unspecified; I48.2 Chronic atrial fibrillation; I11.0 Hypertensive heart disease with heart failure; I50.9 Heart failure, unspecified; Z95.0 Presence of cardiac pacemaker; H81.09 Meniere's disease, unspecified ear; I95.1 Orthostatic hypotension; E66.9 Obesity, unspecified; Z68.36 Body mass index [BMI] 36.0-36.9, adult; Z79.01 Long term (current) use of anticoagulants; Z79.899 Other long term (current) drug therapy; Z88.5 Allergy status to narcotic agent; Z88.6 Allergy status to analgesic agent; Z88.8 Allergy status to other drugs, medicaments and biological substances
CPT/HCPCS: 36415; 71045; 80053; 81003; 83605; 85025; 93005; 96361; 96374; G0378; J2405; J7050

== ENCOUNTER 2018-07-21 10:08 | Observation (INO) | payer MEDICARE ==
--- NOTE | 2018-07-21 11:28 | RAD ---
EXAM: Portable chest PROVIDED CLINICAL HISTORY: Weakness COMPARISON: 05/08/2018 FINDINGS: Cardiac and mediastinal silhouette is unchanged in appearance. Left subclavian cardiac pacing device is redemonstrated, with lead tips in similar positions. No focal consolidation, pleural fluid or pneumothorax evident. IMPRESSION: No evidence for an acute cardiopulmonary process.
[2018-07-21 11:31] LABS: #Basophils 0.1 thou/uL (0.0-0.2); #Eosinphils 0.3 thou/uL (0.0-0.7); #Lymphocytes 2.8 thou/uL (1.20-3.40); #Neutrophils 5.7 thou/uL (1.40-6.50); %Basophils 1.2 % (0.0-1.0); %Eosinophils 2.6 % (0.0-10.0); %Lymphocytes 28.8 % (21.0-51.0); %Neutrophils 57.5 % (42.0-75.0); Hemoglobin 13.8 g/dL (12.0-16.0); Mean Corpuscular Hemoglobin 28.9 pg (27.0-31.0); Mean Corpuscular Volume 87.7 fL (78.0-98.0); Mean Platelet Volume 9.6 fL (7.4-10.4); Platelet Count 270 thou/uL (130-400); RBC Distribution Width 11.8 % (11.5-14.5); Red Blood Cell (RBC) Count 4.78 mill/uL (4.20-5.40); White Blood Cell (WBC) Count 9.9 thou/uL (4.8-10.8)
[2018-07-21 11:51] LABS: ALT (SGPT) 12 U/L (8-55); AST (SGOT) 18 U/L (5-34); Albumin 4.2 g/dL (3.4-4.8); Alkaline Phosphatase 126 U/L (40-150); Anion Gap 15 mmol/L (10-20); BUN (Urea Nitrogen) 15 mg/dL (9.8-20.1); Bilirubin, Total 0.5 mg/dL (0.2-1.2); CK (CPK) 54 U/L (29-168); Calc. Creatinine Clearance 0 mL/min (70-130); Calcium 9.6 mg/dL (7.8-10.44); Carbon Dioxide 26 mmol/L (23-31); Chloride 102 mmol/L (98-107); Estimated GFR-MDRD 52; Globulin 3.1 g/dL (2.4-3.5); Glucose 105 mg/dL (83-110); Lipase 91 U/L (8-78); Potassium 3.6 mmol/L (3.5-5.1); Protein, Total 7.3 g/dL (6.0-8.3); Sodium 139 mmol/L (136-145)
[2018-07-21 14:04] VITALS: BMI 34.9
[2018-07-21] MEDS ORDERED: Acetaminophen 325 MG TAB PO PRN (16:26)
[2018-07-21] MEDS ORDERED: Polyethylene Glycol 3350 17 GM Packet PO PRN (16:26)
[2018-07-21] MEDS ORDERED: ALPRAZolam 0.25 MG TAB PO PRN (18:40)
[2018-07-21] MEDS ORDERED: Sodium Chloride 0.9% 1,000 ML IV SCH (18:45)
[2018-07-21] MEDS ORDERED: Ondansetron ODT 4 MG TAB PO PRN (19:01)
[2018-07-21] MEDS: Apixaban 5 MG TAB PO SCH (20:20)
[2018-07-21] MEDS: Potassium Chloride 10 MEQ TAB PO SCH (20:22)
[2018-07-21] MEDS: Senokot S 8.6-50 MG TAB PO SCH (20:23)
[2018-07-21] MEDS: Metoprolol Tartrate 25 MG TAB PO SCH (20:26)
[2018-07-21] MEDS ORDERED: Calcium Polycarbophil 625 MG TAB PO SCH (21:00)
[2018-07-21] MEDS ORDERED: Atorvastatin Calcium 10 MG TAB PO SCH (21:00)
[2018-07-21] MEDS ORDERED: Midodrine HCl 2.5 MG TAB PO PRN (21:00)
[2018-07-21] MEDS ORDERED: clonazePAM 0.5 MG TAB PO SCH ×2 (21:00)
[2018-07-21] MEDS ORDERED: Venlafaxine HCl XR 150 MG CAP PO SCH (21:00)
[2018-07-22] MEDS ORDERED: Torsemide 20 MG TAB PO SCH (06:30)
[2018-07-22] MEDS ORDERED: Sodium Chloride 0.9% 1,000 ML IV SCH (06:30)
[2018-07-22 07:35] LABS: Anion Gap 12 mmol/L (10-20); BUN (Urea Nitrogen) 15 mg/dL (9.8-20.1); Calc. Creatinine Clearance 90 mL/min (70-130); Calcium 9.1 mg/dL (7.8-10.44); Carbon Dioxide 26 mmol/L (23-31); Chloride 106 mmol/L (98-107); Estimated GFR-MDRD 63; Glucose 97 mg/dL (83-110); Lipase 103 U/L (8-78); Potassium 3.5 mmol/L (3.5-5.1); Sodium 140 mmol/L (136-145)
[2018-07-22] MEDS: Apixaban 5 MG TAB PO SCH (08:23)
[2018-07-22] MEDS: Senokot S 8.6-50 MG TAB PO SCH (08:24)
[2018-07-22] MEDS: Metoprolol Tartrate 25 MG TAB PO SCH (08:24)
[2018-07-22] MEDS: Potassium Chloride 10 MEQ TAB PO SCH (08:26)
[2018-07-22] MEDS: Torsemide 20 MG TAB PO SCH ×2 (08:28→15:00)
[2018-07-22] MEDS ORDERED: Venlafaxine HCl XR 150 MG CAP PO SCH (09:00)
[2018-07-22] MEDS ORDERED: Calcium Polycarbophil 625 MG TAB PO SCH ×2 (09:00→21:00)
[2018-07-22] MEDS ORDERED: clonazePAM 0.5 MG TAB PO SCH (09:00)
[2018-07-22] MEDS ORDERED: Linaclotide [Linzess] 72 MCG PO SCH (09:00)
[2018-07-22] MEDS ORDERED: Iopamidol 370 76% 100 ML VIAL ONE (09:15)
--- NOTE | 2018-07-22 11:32 | CT ---
CONTRAST ENHANCED CT IMAGES ABDOMEN AND PELVIS: HISTORY: Rule out pancreatitis. FINDINGS: The lung bases are unremarkable. The patient has had a gastric lap band. The liver and spleen are unremarkable. The gallbladder has been surgically removed. Some intrabiliary gas is noted. Large sliding hiatal hernia. The pancreas is unremarkable with no evidence of masses or lesions. Adrenal glands unremarkable. The left kidney has a lower pole 15 mm cortical cyst. No definite evidence of right renal parenchymal lesions seen. The proximal right ureter is mildly dilated. The mid right ureter is markedly dilated. No definite ev idence of right ureteral calculi seen. This was not present on the patient's previous CT from February 08, 2017. No evidence of periaortic lymphadenopathy seen. No dilated loops of small bowel seen. The colon is unremarkable. IMPRESSION: No evidence of pancreatitis seen. The patient does have a large hiatal hernia. Area of proximal and m id right ureteral dilatation. Transcribed Date/Time: 07/22/2018 11:40 AM
[2018-07-22 11:48] VITALS: BP 133/68; TEMP 98
--- NOTE | 2018-07-22 14:56 | HP ---
ATTENDING/PRIMARY CARE PHYSICIAN: Dr. Mayers. REASON FOR ADMISSION: Dehydration, general weakness. HISTORY OF THE PRESENT ILLNESS AND HOSPITAL COURSE: Ms. Negrete is a very pleasant 78-year-old female with multiple chronic medical conditions including chronic combined systolic and diastolic congestive heart failure, dysautonomic syndrome, hypertension, ischemic cardiomyopathy, CAD, COPD. The patient reports she has been having irritation in her bowel for awhile. She reports intermittent constipation alternating with diarrhea. She follows up with Dr. De La Fuente for GI care. Over the past week, the patient reports that she has been having intermittent loose bowel movements associated with nausea without significant vomiting. The patient is unable to eat much as every time she eats,she would have moderate to severe type of loose bowel movements per episode. Stools are brown, nonbloody,non-mucoid, as described. This is associated with intermittent crampy abdominal pain. Over the past 48 to 72 hours, she was generally weak and unable to get up and with decreased urine output. Prior to admission, the patient reports that she tried to hold her torsemide, but remains generally weak. She went to the ER for persistent progressive symptoms on 07/21/2018. At the ER, the patient's vital signs are stable. Routine labs ordered were unremarkable except for lipase of 91. Creatine kinase is 54. Troponin I is less than 0.10. BUN 15, creatinine is 1.03, TSH of 1.27, and lactic acid of 1.5. Urine was negative and digoxin level was 0.71 with WBC of 9.9, hemoglobin 13.8, hematocrit 41.9, and platelets 270. EKG in the ER showed paced rhythm at 80 beats per minute with no ectopies compared to previous EKG from May 08, 2018 per ER physician interpretation. The patient was reported to have clinical signs of dehydration , generally weak, thus she was recommended to be admitted for 24-hour observation at [facility] and the patient agrees. IVF hydration was started from the ER with normal saline solution. Per ER, the patient does not have evidence of septic nor toxic appearing, no respiratory distress or hypoxia, does not suspect any acute pancreatitis with very mild elevation of lipase noted . The patient reports similar episode in April 2018, where in IV hydration had helped her out a lot and has agreed to be in the hospital for further observation. When seen, the patient was in bed, comfortably resting. No family was present at bedside. She is awake, alert, and oriented. She reports that she feels a little better, since the IVF has been initiated. She already had urine output. She reports some dizziness when she get up and go to the bathroom, but ambulation was well tolerated and vital signs remained stable. Of note, the patient has significant history of orthostatic hypotension in the past and she reports that dizzy spells is not new to her. No other issues reported. She also reports that she already had her dinner and she tolerated oral intake for the first time. No significant nausea or vomiting reported since admission. No bowel movements since admission. PAST MEDICAL HISTORY: Combined systolic and diastolic congestive heart failure , ischemic cardiomyopathy, hypertension, dyslipidemia, COPD, anxiety, depression , CAD with recurrent angina, dyspnea on exertion, dysautonomic hypotension syndrome. PAST SURGICAL HISTORY: Exploratory laparotomy, AICD implantation, cholecystectomy, hysterectomy, and pacemaker placement. FAMILY HISTORY: Noncontributory. SOCIAL HISTORY: Nonsmoker. No alcohol or illicit drug use. The patient is . ALLERGIES: ALLERGIES TO VICODIN, REPORTS ITCHING. ALLERGIES TO AARON INHIBITOR. REVIEW OF SYSTEMS: GENERAL: Denies fever or chills. Reports general weakness and malaise. HEENT: No acute visual changes, hearing changes, or cold symptoms. CARDIOVASCULAR: Denies active chest pain. Dyspnea on exertion. Reports intermittent leg swelling. No paroxysmal nocturnal dyspnea. RESPIRATORY: No shortness of breath, sputum production, or chronic cough, wheezing. GI: As per HPI. Denies rectal bleeding, melena, hematochezia, or hematemesis. GENITOURINARY: No dysuria, hematuria, frequency, urgency or incontinence. MUSCULOSKELETAL: No arthralgia, stiffness, myalgia, or joint effusions. SKIN: No rashes. No rsh, lesions, pruritus, or jaundice. NEUROLOGIC: No motor or sensory losses. No loss of incoordination. PSYCHIATRIC: Reports stable depressive symptoms and anxiety. No hallucinations. No suicidal thoughts. CURRENT MEDICATIONS: 1. Effexor 150 mg p.o. q.a.m. and 75 mg p.o. q.p.m. 2. Torsemide 20 mg p.o. b.i.d. 3. Zocor 40 mg p.o. at bedtime. 4. Klor-Con 10 mEq p.o. b.i.d. 5. ProAmatine 5 mg twice a day p.r.n. for hypotension. 6. Metoprolol 12.5 mg b.i.d. 7. Protonix 40 mg p.o. b.i.d. 8. Digoxin 0.125 mg p.o. daily. 9. Xanax 0.25 mg b.i.d. p.r.n. 10. Klonopin 0.25 mg q.a.m. and 0.5 mg q.p.m. PHYSICAL EXAMINATION: VITAL SIGNS: Blood pressure 141/63, temperature 97.3, pulse 80, respirations 18 , O2 sats 97% on room air. Weight 229 pounds 7 ounces. Height 5 feet 7 inches. GENERAL: The patient is awake, alert, and oriented x3. Not in distress, comfortably she is resting in bed. No signs of discomfort, interactive. HEENT: Normocephalic and atraumatic. PERRL. Nonicteric sclerae. Oral mucosa is dry. No oral lesions. NECK: Supple. No LAD. No JVD. No bruit. CHEST: Normal excursion. Clear to auscultation bilaterally. CARDIAC: Rate controlled. Normal S1 and S2. ABDOMEN: Obese and soft. Normoactive bowel sounds. Nondistended. Mild right upper quadrant direct tenderness. Negative Echevarria's sign. No epigastric pain tenderness. No rebound or guarding. Negative CVA tenderness bilaterally. No signs of peritonitis. EXTREMITIES: No leg edema. No cyanosis. Positive superficial varicosities. Negative Homans sign. PSYCHIATRIC: Appears calm with appropriate demeanor and affect. NEUROLOGIC: Awake and alert. Oriented x 3 ; Nonfocal. SKIN: Poor skin turgor and elasticity. ASSESSMENT AND PLAN: 1. Clinical Dehydration. 2. General weakness. 3. Acute gastroenteritis, likely viral. 4. Elevated pancreatitis, nonspecific. . 5. Chronic gastroesophageal reflux disease. 6. History of Irritable bowel syndrome with alternating constipation and diarrhea 7. Combined chronic systolic and diastolic congestive heart failure. 8. Anxiety and depression. 9. Coronary artery disease. 10. Dyslipidemia. 11.History of dysautonomic syndrome. PLAN: The patient is admitted for 24-hour observation at [facility]. We will continue current IV hydration. Diet, clear full liquids. May advance as tolerated. Activity, ad gareth. Continue all current medications as modified per list. We will hold diuretic for now secondary to clinical dehydration. We will continue to monitor I's and O's. Given the history of CHF, we will monitor input and output strictly. We will titrate down her IVF for now at 75 mL/h of NS. We probably resume oral diuretics in a.m. if clinically indicated. GI prophylaxis: Already on PPI. DVT prophylaxis with SCD. Further recommendations depending on the hospital course, possibly discharge in a.m. if clinically improved. CODE STATUS: The patient reports DANR per wishes. The patient reports that all her kids is aware of their wishes. We will order. Job ID: [id number] MTDD
[2018-07-22] MEDS ORDERED: ALPRAZolam 0.25 MG TAB PO PRN (15:55)
[2018-07-22] MEDS ORDERED: Venlafaxine XR 37.5 MG CAP PO SCH (21:00)
--- NOTE | 2018-07-22 22:24 | DIS ---
DATE OF ADMISSION: 07/21/2018 DATE OF DISCHARGE: 07/22/2018 ATTENDING/PRIMARY CARE PHYSICIAN: Dr. Mayers. REASON FOR ADMISSION: General weakness, persistent loose bowel movement. FINAL DIAGNOSES: 1. History of irritable bowel syndrome, alternating constipation and diarrhea. 2. Chronic gastroesophageal reflux disease. 3. Acute viral gastroenteritis. 4. Clinical dehydration, improved. 5. General weakness, improved. 6. Elevated lipase, nonspecified, mild, stable. No evidence of pancreatitis by CT scan of abdomen. 7. Right upper quadrant pain. CT ruled out pancreatitis. 8. Status post cholecystectomy. 9. Dilated right ureter per CT scan results without significant ureterolithiasis. SECONDARY DIAGNOSES: 1. Combined systolic and diastolic chronic congestive heart failure. 2. Coronary artery disease. 3. Dysautonomic orthostatic syndrome, stable. 4. Chronic major depressive disorder, recurrent. 5. Anxiety. 6. Hypertension, stable. 7. Dyslipidemia. DISPOSITION: Home with family. CONDITION ON DISCHARGE: Stable. DISCHARGE INSTRUCTIONS: 1. Diet; BRAT diet, advance to regular if GI symptoms improve. 2. Activity; ad gareth. Fall precautions. 3. Follow up with Dr. Mayers in 1 week or sooner with concerns. 4. Follow up with GI, Dr. De La Fuente as previously scheduled. MEDICATIONS: 1. Continue all current medications. 2. New medications; Zofran 4 mg ODT q.6 sublingual p.r.n. for nausea and vomiting. HISTORY OF THE PRESENT ILLNESS AND HOSPITAL COURSE: Ms. Negrete is a very pleasant 78-year-old, admitted on 07/21/2018, to [facility] for a 24-hour observation. The patient presented with persistent nausea and loose bowel movement for a week. Associated with clinical dehydration and general weakness. Initial laboratory was unremarkable except for a mildly elevated lipase. The patient reports significant history of irritable bowel, alternating constipation and diarrhea. She also has history of chronic GERD and status post cholecystectomy. Reports right upper quadrant abdominal soreness that she attributes because of persistent dry heaving. Initial lab work in the ER was unremarkable except for a mildly elevated lipase at 91. There was no significant signs of ischemic colitis or peritonitis. The patient remained afebrile. The patient was treated with IV hydration and diuretic was withheld initially. The patient started improving with overall symptoms after overnight stay. She denies recurrence of nausea, vomiting. She has had 1 bowel movement prior to discharge and it was not loose any longer. Repeat basic metabolic panel on 07/2018, showed sodium 140, potassium 3.5, BUN 12, BUN 15, creatinine 0.87, estimated GFR of 63 (admitting 52). Her repeat lipase trended up mildly to 103. She remains to have some soreness on the right upper quadrant area and direct tenderness without significant Echevarria sign. Diet was advanced prior to discharge and the patient tolerated it well without significant nausea or vomiting. Prior to discharge, the patient was also started on torsemide back, 20 mg p.o. x1 secondary to no output noted overnight. The patient was able to urinate 1600 mL prior to discharge. Overall, she remains clinically stable and hemodynamically stable. She was adamant to go home on 07/22/2018. CT scan of the abdomen prior to discharge with IV and oral contrast ruled out presence of pancreatitis. The mid right ureter is markedly dilated. No definite evidence of right ureteral calculi is seen. This was not present on the patient's previous CT from January 2017. No dilated loops of small bowel seen. The colon was unremarkable and there was no periaortic lymphadenopathy. The patient is recommended to follow up with urologist prior to discharge, that will be set up to do outpatient followup at PCP's clinic. Vital signs prior to discharge; blood pressure 133/68, temp 98, pulse 83, respirations 20, O2 sats 96%. Weight 229 pounds. Height 5 feet 7 inches. Job ID: [id number] [facility]
== END 2018-07-22 15:55 | disposition home or self-care (01) ==
LOC: MADERS 10:08 → MADMS 13:03
PROVIDERS: ADMIT Family Medicine; ATTEND Family Medicine
DX: E86.0 Dehydration (principal); K58.2 Mixed irritable bowel syndrome; R74.8 Abnormal levels of other serum enzymes; R10.11 Right upper quadrant pain; N28.82 Megaloureter; I11.0 Hypertensive heart disease with heart failure; I50.42 Chronic combined systolic (congestive) and diastolic (congestive) heart failure; I25.10 Atherosclerotic heart disease of native coronary artery without angina pectoris; G90.3 Multi-system degeneration of the autonomic nervous system; I25.5 Ischemic cardiomyopathy; J44.9 Chronic obstructive pulmonary disease, unspecified; E78.5 Hyperlipidemia, unspecified; F41.9 Anxiety disorder, unspecified; K21.9 Gastro-esophageal reflux disease without esophagitis; K44.9 Diaphragmatic hernia without obstruction or gangrene; F33.9 Major depressive disorder, recurrent, unspecified; Z79.899 Other long term (current) drug therapy; Z88.5 Allergy status to narcotic agent; Z88.8 Allergy status to other drugs, medicaments and biological substances; Z95.810 Presence of automatic (implantable) cardiac defibrillator; Z98.890 Other specified postprocedural states
CPT/HCPCS: 36415; 51701; 71045; 74160; 80048; 80053; 82550; 83605; 83690; 84443; 84484; 85025; 96360; 96361; G0378; J7050; Q9967

== ENCOUNTER 2018-07-28 14:20 | Inpatient (IN) | payer MEDICARE ==
[2018-07-28 14:51] LABS: #Basophils 0.1 thou/uL (0.0-0.2); #Eosinphils 0.3 thou/uL (0.0-0.7); #Lymphocytes 2.5 thou/uL (1.20-3.40); #Monocytes 0.9 thou/uL (0.11-0.59); #Neutrophils 4.2 thou/uL (1.40-6.50); %Basophils 1.3 % (0.0-1.0); %Eosinophils 4.1 % (0.0-10.0); %Lymphocytes 31.2 % (21.0-51.0); %Monocytes 10.7 % (0.0-10.0); %Neutrophils 52.7 % (42.0-75.0); Hemoglobin 13.3 g/dL (12.0-16.0); Mean Corpuscular HGB CONC 32.7 g/dL (32.0-36.0); Mean Corpuscular Volume 88.7 fL (78.0-98.0); Mean Platelet Volume 9.6 fL (7.4-10.4); Platelet Count 273 thou/uL (130-400); RBC Distribution Width 12.2 % (11.5-14.5); Red Blood Cell (RBC) Count 4.58 mill/uL (4.20-5.40)
--- NOTE | 2018-07-28 14:52 | CT ---
CT Brain WO Con: 07/28/2018 2:38 PM CLINICAL HISTORY: Dizziness. IMAGING TECHNIQUE: Multiple CT images were obtained of the brain without IV contrast. COMPARISON: Noncontrast CT brain dated August 29, 2017 FINDINGS: Infarct: No acute infarct evident. Hemorrhage: None. Hydrocephalus: None.. Basal cisterns: Normal. Cerebral parenchyma: There is mild chronic small vessel white matter ischemic change which is stable. . Midline shift: None. Cerebellum: Normal. Brainstem: Normal. OTHER: Calvarium: Normal. Visualized Paranasal sinuses: Clear. Extracranial soft tissues:Normal IMPRESSION: No acute intracranial abnormality.
[2018-07-28 15:09] LABS: ALT (SGPT) 14 U/L (8-55); AST (SGOT) 19 U/L (5-34); Alkaline Phosphatase 124 U/L (40-150); Anion Gap 14 mmol/L (10-20); BUN (Urea Nitrogen) 18 mg/dL (9.8-20.1); Bilirubin, Total 0.4 mg/dL (0.2-1.2); CK (CPK) 42 U/L (29-168); Calc. Creatinine Clearance 0 mL/min (70-130); Calcium 9.7 mg/dL (7.8-10.44); Carbon Dioxide 26 mmol/L (23-31); Chloride 102 mmol/L (98-107); Estimated GFR-MDRD 52; Globulin 3.2 g/dL (2.4-3.5); Glucose 107 mg/dL (83-110); Potassium 3.5 mmol/L (3.5-5.1); Protein, Total 7.2 g/dL (6.0-8.3); Sodium 138 mmol/L (136-145)
[2018-07-28] MEDS ORDERED: Meclizine HCl 25 MG TAB ONE (15:20)
[2018-07-28 16:00] LABS: Bilirubin Negative (Negative); Blood, Urine Negative (Negative); Clarity Clear (Clear); Glucose, Urine (Dipstick) Negative (Negative); Leukocyte Negative (Negative); Nitrite Negative (Negative); Protein, Urine (Dipstick) Negative (Neg-Trace); Urobilinogen 0.2 mg/dL (0.2-1.0); pH, Urine 5.5 (5.0-9.0)
[2018-07-28] MEDS ORDERED: Meclizine HCl 25 MG TAB PO PRN (17:58)
[2018-07-28] MEDS ORDERED: Sodium Chloride 0.9% 1,000 ML IV SCH (18:20)
[2018-07-28] MEDS ORDERED: Ondansetron ODT 4 MG TAB PO PRN ×2 (18:20→22:38)
[2018-07-28] MEDS ORDERED: ALPRAZolam 0.25 MG TAB PO PRN (22:32)
[2018-07-28] MEDS ORDERED: Acetaminophen 325 MG TAB PO PRN (22:35)
[2018-07-28] MEDS ORDERED: Midodrine HCl 2.5 MG TAB PO PRN (22:37)
[2018-07-28] MEDS ORDERED: Polyethylene Glycol 3350 17 GM Packet PO PRN ×2 (22:37→22:45)
[2018-07-28] MEDS ORDERED: clonazePAM 0.5 MG TAB PO SCH (23:15)
[2018-07-29] MEDS ORDERED: Ondansetron ODT 4 MG TAB PO PRN (02:29)
[2018-07-29 05:08] LABS: #Basophils 0.1 thou/uL (0.0-0.2); #Eosinphils 0.4 thou/uL (0.0-0.7); #Lymphocytes 3.3 thou/uL (1.20-3.40); #Monocytes 0.9 thou/uL (0.11-0.59); #Neutrophils 3.5 thou/uL (1.40-6.50); %Basophils 1.4 % (0.0-1.0); %Eosinophils 4.8 % (0.0-10.0); %Lymphocytes 40.4 % (21.0-51.0); %Neutrophils 42.5 % (42.0-75.0); Hemoglobin 12.4 g/dL (12.0-16.0); Mean Corpuscular HGB CONC 33.4 g/dL (32.0-36.0); Mean Corpuscular Hemoglobin 29.5 pg (27.0-31.0); Mean Corpuscular Volume 88.5 fL (78.0-98.0); Mean Platelet Volume 9.2 fL (7.4-10.4); Platelet Count 205 thou/uL (130-400); RBC Distribution Width 11.8 % (11.5-14.5); White Blood Cell (WBC) Count 8.3 thou/uL (4.8-10.8)
[2018-07-29 05:19] LABS: Anion Gap 10 mmol/L (10-20); BUN (Urea Nitrogen) 15 mg/dL (9.8-20.1); Calc. Creatinine Clearance 82 mL/min (70-130); Calcium 9.1 mg/dL (7.8-10.44); Carbon Dioxide 32 mmol/L (23-31); Chloride 102 mmol/L (98-107); Estimated GFR-MDRD 57; Glucose 93 mg/dL (83-110); Potassium 4.1 mmol/L (3.5-5.1); Sodium 140 mmol/L (136-145)
[2018-07-29] MEDS: Venlafaxine HCl XR 150 MG CAP PO SCH ×2 (08:31→20:31)
[2018-07-29] MEDS: Calcium Polycarbophil 625 MG TAB PO SCH ×2 (08:31→20:29)
[2018-07-29] MEDS: Senokot S 8.6-50 MG TAB PO SCH ×2 (08:32→20:31)
[2018-07-29] MEDS: clonazePAM 0.5 MG TAB PO SCH ×2 (08:33→20:32)
[2018-07-29] MEDS: Potassium Chloride 10 MEQ TAB PO SCH ×2 (08:34→20:30)
[2018-07-29] MEDS: Torsemide 20 MG TAB PO SCH ×2 (08:34→14:00)
[2018-07-29] MEDS: Apixaban 5 MG TAB PO SCH ×2 (08:34→20:30)
[2018-07-29] MEDS: Docusate 100 MG CAP PO SCH ×2 (08:35→20:29)
[2018-07-29] MEDS: Linaclotide [Linzess] 72 MCG PO SCH (08:36)
[2018-07-29] MEDS ORDERED: Venlafaxine HCl XR 150 MG CAP PO SCH (09:00)
[2018-07-29] MEDS ORDERED: Calcium Polycarbophil 625 MG TAB PO SCH (09:00)
[2018-07-29] MEDS ORDERED: Metoprolol Tartrate 25 MG TAB PO SCH ×2 (09:00)
[2018-07-29] MEDS ORDERED: Prevnar 13-Val Conj/PF 0.5 ML SYRINGE IM ONE (09:00)
--- NOTE | 2018-07-29 17:18 | HP ---
PRIMARY CARE PHYSICIAN: Dr. Mayers. REASON FOR ADMISSION: Dizziness, near syncope, and generalized weakness. HISTORY OF PRESENT ILLNESS: Ms. Negrete is a 78-year-old female with multiple chronic medical conditions, who was recently discharged from [facility] in [place] after a 1-day stay on July 22, 2018. The patient presented back to the emergency room on the with history of orthostatic dizziness, tingling feeling around the mouth area, weakness, and recent diarrhea. The patient stated on the she had severe episodes of diarrhea and weakness started that day and she progressively worsened. She denies any fall. She denies any fever. She complains of severe nausea, and the patient was brought into the emergency room. The patient does have a medical history significant for combined systolic and diastolic congestive heart failure, dysautonomic syndrome, hypertension, ischemic cardiomyopathy, CAD, COPD, and possibly IBS. Due to all the comorbidities, the patient was given normal saline IV fluids and 50 mg of meclizine in the emergency room, observed for a couple of hours by emergency physician. EKG was normal. They did a CAT scan of the brain, which showed no acute intracranial abnormality. Labs were all normal, but the patient progressively complained of dizziness and was unable to ambulate within the emergency room without any assistance. She was significantly dizzy, and the decision was made to admit the patient and continue IV fluids. Upon admission to the floor, the patient denied any chest pain, shortness of breath, or palpitations. She complains of severe dizziness. She complains of nausea, and she complains of generalized abdominal pain, but no diarrhea today. PAST MEDICAL HISTORY: Congestive heart failure, systolic and diastolic; COPD; anxiety; depression; CAD with recurrent angina; ischemic cardiomyopathy; dysautonomic hypotension syndrome. PAST SURGICAL HISTORY: Exploratory laparotomy, AICD implantation, cholecystectomy, hysterectomy, pacemaker placement. FAMILY HISTORY: Noncontributory. SOCIAL HISTORY: Nonsmoker. No alcohol. No illicit drug use. The patient is . ALLERGIES: ALLERGIC TO VICODIN. ALLERGIC TO AARON INHIBITOR. REVIEW OF SYSTEMS: GENERAL: Complains of generalized weakness, nausea, mild abdominal pain, dizziness. HEENT: No visual changes, hearing changes, or cold symptoms. CARDIOVASCULAR: Denies any chest pain, dyspnea on exertion, shortness of breath , or swelling to extremities. RESPIRATORY: Denies any cough, shortness of breath, or wheezing. GI: Complains of recent diarrhea. Complains of nausea. Denies hematochezia or hematemesis. GENITOURINARY: Denies dysuria, hematuria, frequency, urgency, or incontinence. MUSCULOSKELETAL: Denies stiffness, myalgia, or effusions. SKIN: Denies rashes or pruritus. NEUROLOGICAL: Denies loss of motor or sensory. Complains of dizziness. PSYCHIATRY: Complains of depression and anxiety. No hallucination. MEDICATIONS: 1. Effexor 150 q.a.m., 75 q.p.m. 2. Torsemide 20 b.i.d. 3. Zocor 40 at bedtime. 4. Klor-Con 10 mEq b.i.d. 5. Metoprolol 12.5 b.i.d. 6. ProAmatine 5 mg twice a day p.r.n. for hypotension. 7. Protonix 40 b.i.d. 8. Digoxin 0.125 daily. 9. Xanax 0.25 b.i.d. p.r.n. 10. Klonopin 0.25 in a.m. 0.5 in p.m. PHYSICAL EXAMINATION: VITAL SIGNS: Temperature 98, pulse 83, respirations 18, O2 saturation 95% on room air, blood pressure 130/70. GENERAL: The patient is alert, awake, oriented x3. She is resting in bed, in no apparent discomfort. HEENT: Normocephalic, atraumatic. Oral mucous membrane is moist. PERRL. Nonicteric sclerae. NECK: Supple. No JVD. No bruit. CHEST: S1, S2 normal. No murmurs. RESPIRATORY: Clear to auscultation Bilaterally. ABDOMEN: Positive bowel sounds. Obese. Nondistended. Generalized tenderness with worse tenderness in the right upper quadrant. No CVA tenderness. No guarding. No rebound. EXTREMITIES: No edema. No erythema. Positive superficial varicosities. PSYCHIATRIC: A little bit anxious, but no hallucinations. NEUROLOGICAL: Alert, awake, oriented x3. No focal deficits. ASSESSMENT: 1. Near syncope. 2. Clinical dehydration. 3. Generalized weakness. 4. Acute gastroenteritis. 5. Combined systolic and diastolic congestive heart failure. 6. History of irritable bowel syndrome. 7. Anxiety with depression. 8. Dyslipidemia. 9. Coronary artery disease. 10. History of dysautonomic syndrome. PLAN: The patient has been admitted to [facility]. We will gently hydrate with normal saline at 50 mL per hour due to her history of CHF. We will monitor closely for any fluid overload due to history of CHF. We will place the patient on meclizine 50 mg q.8 hours p.r.n. dizziness. We will make the patient bed rest. We will resume a heart healthy diet. We will place the patient on GI prophylaxis and DVT prophylaxis with SCD. We will monitor electrolytes closely. We will monitor her progress closely. Anticipated length of stay is 1 to 2 days. CODE STATUS: The patient reports DNR. Job ID: [id number] MTDD
[2018-07-29] MEDS ORDERED: Sodium Chloride 0.9% 1,000 ML IV SCH (20:15)
[2018-07-29] MEDS: Atorvastatin Calcium 10 MG TAB PO SCH (20:28)
[2018-07-30] MEDS: Nystatin Powder 15 GM BOT TOP PRN (05:54)
[2018-07-30] MEDS: Torsemide 20 MG TAB PO SCH (08:35)
[2018-07-30] MEDS: Venlafaxine HCl XR 150 MG CAP PO SCH ×2 (08:35→20:10)
[2018-07-30] MEDS: clonazePAM 0.5 MG TAB PO SCH ×2 (08:35→20:12)
[2018-07-30] MEDS: Calcium Polycarbophil 625 MG TAB PO SCH ×2 (08:35→20:13)
[2018-07-30] MEDS: Apixaban 5 MG TAB PO SCH ×2 (08:36→20:13)
[2018-07-30] MEDS: Docusate 100 MG CAP PO SCH ×2 (08:37→20:12)
[2018-07-30] MEDS: Potassium Chloride 10 MEQ TAB PO SCH ×2 (08:37→20:11)
[2018-07-30] MEDS: Senokot S 8.6-50 MG TAB PO SCH ×2 (08:37→20:21)
[2018-07-30] MEDS: Linaclotide [Linzess] 72 MCG PO SCH (08:37)
[2018-07-30 10:40] VITALS: BMI 36.1
[2018-07-30] MEDS ORDERED: Sodium Chloride 0.45% 1,000 ML IV SCH (11:45)
[2018-07-30] MEDS: Acetaminophen 325 MG TAB PO PRN (13:54)
[2018-07-30] MEDS: Atorvastatin Calcium 10 MG TAB PO SCH (20:11)
[2018-07-31] MEDS: Calcium Polycarbophil 625 MG TAB PO SCH ×2 (08:43→20:57)
[2018-07-31] MEDS: clonazePAM 0.5 MG TAB PO SCH ×2 (08:44→20:57)
[2018-07-31] MEDS: Apixaban 5 MG TAB PO SCH ×2 (08:44→20:55)
[2018-07-31] MEDS: Docusate 100 MG CAP PO SCH ×2 (08:46→20:58)
[2018-07-31] MEDS: Linaclotide [Linzess] 72 MCG PO SCH (08:48)
[2018-07-31] MEDS: Potassium Chloride 10 MEQ TAB PO SCH ×2 (08:48→20:59)
[2018-07-31] MEDS: Senokot S 8.6-50 MG TAB PO SCH ×2 (08:48→20:59)
[2018-07-31] MEDS: Venlafaxine HCl XR 150 MG CAP PO SCH ×2 (08:49→21:01)
[2018-07-31] MEDS: Torsemide 20 MG TAB PO SCH (08:49)
[2018-07-31] MEDS ORDERED: Midodrine HCl 2.5 MG TAB PO SCH (09:00)
[2018-07-31] MEDS ORDERED: Midodrine HCl 2.5 MG TAB PO PRN (11:57)
[2018-07-31] MEDS: Atorvastatin Calcium 10 MG TAB PO SCH (20:56)
[2018-07-31] MEDS: Acetaminophen 325 MG TAB PO PRN (21:01)
[2018-07-31] MEDS: Nystatin Powder 15 GM BOT TOP PRN (21:03)
[2018-08-01] MEDS: Torsemide 20 MG TAB PO SCH (08:08)
[2018-08-01] MEDS: clonazePAM 0.5 MG TAB PO SCH (08:08)
[2018-08-01] MEDS: Senokot S 8.6-50 MG TAB PO SCH (08:08)
[2018-08-01] MEDS: Venlafaxine HCl XR 150 MG CAP PO SCH (08:08)
[2018-08-01] MEDS: Docusate 100 MG CAP PO SCH (08:08)
[2018-08-01] MEDS: Potassium Chloride 10 MEQ TAB PO SCH (08:09)
[2018-08-01] MEDS: Calcium Polycarbophil 625 MG TAB PO SCH (08:10)
[2018-08-01] MEDS: Apixaban 5 MG TAB PO SCH (08:10)
[2018-08-01] MEDS: Linaclotide [Linzess] 72 MCG PO SCH (08:13)
[2018-08-01 16:18] VITALS: BP 117/70; TEMP 97.8
--- NOTE | 2018-08-03 04:50 | DIS ---
DATE OF ADMISSION: 07/29/2018 DATE OF DISCHARGE: 08/01/2018 PRIMARY CARE PHYSICIAN/ATTENDING: Dr. Mayers. REASON FOR ADMISSION: Dizziness, near syncope, and general weakness. DIAGNOSES: 1. Clinical dehydration. 2. Acute gastroenteritis, multi bacterial. A viral gastroenteritis versus inflammatory bowel disease. 3. Dysautonomic orthostatic syndrome, recurrent. 4. Congestive heart failure, combined systolic and diastolic, compensated. 5. History of hypertension. 6. Depression and anxiety. 7. Generalized weakness. 8. General weakness, improved. 9. Unsteadiness of the gait. DISPOSITION: Home. CONDITION ON DISCHARGE: Stable. DIET: BRAT diet and prudent/AHA diet. ACTIVITY: Needs assistance with ADLs to use rolling walker at all times for fall risk. FOLLOWUP VISITS: 1. Follow up with Dr. Mayers in 1 week or sooner with concern. 2. Follow up with Dr. Alva for cardiac procedure on 08/03/2018 as previously scheduled. 3. Follow up with [facility] in one week. 4. Follow up with GI as previously scheduled. MEDICATIONS: 1. Metoprolol 12.5 mg b.i.d. to hold with blood pressure less than 120/80. 2. Torsemide 20 mg p.o. daily. 3. Midodrine 5 mg p.o. t.i.d. p.r.n. for blood pressure less than 115/65. 4. Effexor 150 b.i.d. 5. Zocor 40 mg nightly. 6. Klor-Con 10 mEq b.i.d. 7. Protonix 40 mg b.i.d. 8. Digoxin 0.125 mg daily. 9. Xanax 0.1 mg b.i.d. p.r.n. 10. Klonopin 0.5 in the morning and 0.5 mg in p.m. scheduled. 11. Zofran 4 mg p.o. ODT sublingual p.r.n. for nausea and vomiting. 12. Linzess one tablet daily. 13. MiraLAX 17 g p.r.n. HISTORY OF PRESENT ILLNESS AND HOSPITAL COURSE: Ms. Negrete is a very pleasant 78-year-old female with multiple chronic medical conditions including severe dysautonomic orthostatic hypotension, combined CHF, IBS, ischemic cardiomyopathy, and CAD. The patient has had near syncopal episode associated with dizziness, general weakness couple of days prior to admission on 07/29/2018. She was noted to be generally weak and unable to eat well. She was admitted initially for 24-hour observation for clinical dehydration and general weakness. The patient was eventually admitted to NICU as GI symptoms has persisted. During this admission, the patient was noted to have significant severe orthostatic hypotension, symptomatic. We have been monitoring her blood pressure in the standing position and blood pressure usually runs less than 120/65. She easily gets dizzy when she gets up and out of bed. She could not tolerate prolonged standing in the shower or in the bathroom. Her blood pressure medicines were subsequently titrated down. We have been holding her metoprolol and torsemide. Due to her severe CHF and cardiomyopathy history, she was maintained later on with torsemide 20 mg p.o. daily while she is on IV hydration. The patient's symptoms subsequently improved with midodrine increase to 5 mg p.o. t.i.d. for hypotension. Of note, the patient has severe dysautonomic syndrome in the recent past. The patient reports that she has never had issues again with this for the last six months. Lately, she has been having issues with her irritable bowel syndrome. She has been using several stool softener including Linzess due to issues with constipation. The patient reports that she is not allowed to strain, so she needs to maintain on stool softeners. The patient has been having issues with severe loose bowel movement that is associated with nausea, vomiting, making her not tolerating oral consumption much leading to dehydration. Of note, this is her second hospitalization in the last couple of weeks with similar episodes of severe diarrhea associated with general weakness and clinical dehydration. After volume hydration with extra caution and adjustment of her medications, the patient's blood pressure stabilized prior to discharge. She has a forthcoming appointment on 08/03/[address] Alva for her heart procedure. 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 On 08/01/2018, the patient was hemodynamically stable to be discharged home. She is highly recommended to have therapy post hospitalization. The patient requested to continue her home health therapy instead. Home health was contacted prior to discharge to re-initiate home health services. Vital signs prior to discharge; blood pressure 117/70, temp 97.8, pulse 98, respiration 18, O2 saturation 96%. Weight 28 pounds and 3 ounces. Height 5 feet 7 inches. CODE STATUS: Do not resuscitate. TIME SPENT: Time spent in this discharge in examining the patient, coordinating care 35 minutes. Job ID: [id number]
== END 2018-08-01 16:24 | disposition home health service (06) | DRG 312 ==
LOC: MADERS 14:20 → MADMS 16:42 → OBSVTOIN 07-29 19:15
PROVIDERS: ADMIT Family Medicine; ATTEND Family Medicine
DX: R55 Syncope and collapse (principal); I50.40 Unspecified combined systolic (congestive) and diastolic (congestive) heart failure; I42.9 Cardiomyopathy, unspecified; R53.1 Weakness; Z66 Do not resuscitate; K52.9 Noninfective gastroenteritis and colitis, unspecified; F41.9 Anxiety disorder, unspecified; F32.9 Major depressive disorder, single episode, unspecified; E86.0 Dehydration; E78.5 Hyperlipidemia, unspecified; I25.10 Atherosclerotic heart disease of native coronary artery without angina pectoris; Z86.69 Personal history of other diseases of the nervous system and sense organs; Z87.19 Personal history of other diseases of the digestive system; Z90.49 Acquired absence of other specified parts of digestive tract; Z95.810 Presence of automatic (implantable) cardiac defibrillator; Z90.710 Acquired absence of both cervix and uterus; Z88.8 Allergy status to other drugs, medicaments and biological substances
CPT/HCPCS: 36415; 70450; 80048; 80053; 81003; 82550; 83605; 84484; 85025; 93005; 96360; J7050; J8499

== ENCOUNTER 2018-09-22 18:31 | Emergency (ER) | payer MEDICARE ==
[2018-09-22 18:56] LABS: #Basophils 0.1 thou/uL (0.0-0.2); #Eosinphils 0.3 thou/uL (0.0-0.7); #Lymphocytes 3.8 thou/uL (1.20-3.40); #Monocytes 0.9 thou/uL (0.11-0.59); #Neutrophils 4.6 thou/uL (1.40-6.50); %Basophils 1.5 % (0.0-1.0); %Eosinophils 3.3 % (0.0-10.0); %Lymphocytes 38.8 % (21.0-51.0); %Monocytes 9.3 % (0.0-10.0); %Neutrophils 47.1 % (42.0-75.0); Hemoglobin 13.5 g/dL (12.0-16.0); Mean Corpuscular HGB CONC 32.6 g/dL (32.0-36.0); Mean Corpuscular Hemoglobin 28.8 pg (27.0-31.0); Mean Corpuscular Volume 88.5 fL (78.0-98.0); Mean Platelet Volume 8.9 fL (7.4-10.4); Platelet Count 304 thou/uL (130-400); RBC Distribution Width 12.2 % (11.5-14.5); Red Blood Cell (RBC) Count 4.69 mill/uL (4.20-5.40); White Blood Cell (WBC) Count 9.7 thou/uL (4.8-10.8)
[2018-09-22] MEDS ORDERED: Ondansetron PF 4 MG/2 ML Vial ONE (18:56)
[2018-09-22] MEDS ORDERED: Sodium Chloride 0.9% 0 ML ONE (18:56)
[2018-09-22 19:13] LABS: ALT (SGPT) 15 U/L (8-55); AST (SGOT) 18 U/L (5-34); Albumin 4.3 g/dL (3.4-4.8); Alkaline Phosphatase 126 U/L (40-150); Anion Gap 14 mmol/L (10-20); BUN (Urea Nitrogen) 20 mg/dL (9.8-20.1); Bilirubin, Total 0.3 mg/dL (0.2-1.2); Calc. Creatinine Clearance 0 mL/min (70-130); Calcium 9.5 mg/dL (7.8-10.44); Carbon Dioxide 26 mmol/L (23-31); Chloride 103 mmol/L (98-107); Estimated GFR-MDRD 52; Globulin 2.7 g/dL (2.4-3.5); Glucose 115 mg/dL (83-110); Lipase 106 U/L (8-78); Potassium 3.9 mmol/L (3.5-5.1); Sodium 139 mmol/L (136-145)
[2018-09-22] MEDS ORDERED: Sodium Chloride 0.9% 1,000 ML ONE (19:41)
== END 2018-09-22 20:05 | disposition home or self-care (01) ==
LOC: MADERS 18:31
DX: E86.0 Dehydration (principal); R11.2 Nausea with vomiting, unspecified; R19.7 Diarrhea, unspecified; E66.9 Obesity, unspecified; J44.9 Chronic obstructive pulmonary disease, unspecified; I25.10 Atherosclerotic heart disease of native coronary artery without angina pectoris; I11.0 Hypertensive heart disease with heart failure; I50.9 Heart failure, unspecified; F41.9 Anxiety disorder, unspecified; F32.9 Major depressive disorder, single episode, unspecified; Z79.899 Other long term (current) drug therapy; Z79.01 Long term (current) use of anticoagulants
CPT/HCPCS: 83690; 85025; 96361; 96374; J2405; J7050

== ENCOUNTER 2018-10-30 09:59 | Inpatient (IN) | payer MEDICARE ==
[2018-10-30] MEDS ORDERED: Ondansetron PF 4 MG/2 ML Vial ONE (10:26)
[2018-10-30] MEDS ORDERED: Sodium Chloride 0.9% 1,000 ML ONE (10:26)
[2018-10-30 10:32] LABS: #Basophils 0.1 thou/uL (0.0-0.2); #Eosinphils 0.3 thou/uL (0.0-0.7); #Lymphocytes 2.5 thou/uL (1.20-3.40); #Monocytes 0.9 thou/uL (0.11-0.59); #Neutrophils 5.4 thou/uL (1.40-6.50); %Basophils 1.5 % (0.0-1.0); %Eosinophils 3.4 % (0.0-10.0); %Lymphocytes 27.5 % (21.0-51.0); %Monocytes 9.2 % (0.0-10.0); %Neutrophils 58.5 % (42.0-75.0); Hemoglobin 13.2 g/dL (12.0-16.0); Mean Corpuscular HGB CONC 32.8 g/dL (32.0-36.0); Mean Corpuscular Hemoglobin 28.7 pg (27.0-31.0); Mean Corpuscular Volume 87.5 fL (78.0-98.0); Mean Platelet Volume 8.4 fL (7.4-10.4); Platelet Count 281 thou/uL (130-400); RBC Distribution Width 12.1 % (11.5-14.5); White Blood Cell (WBC) Count 9.3 thou/uL (4.8-10.8)
[2018-10-30 10:51] LABS: ALT (SGPT) 15 U/L (8-55); AST (SGOT) 27 U/L (5-34); Albumin 4.2 g/dL (3.4-4.8); Alkaline Phosphatase 100 U/L (40-150); Anion Gap 18 mmol/L (10-20); BUN (Urea Nitrogen) 12 mg/dL (9.8-20.1); Bilirubin, Total 0.5 mg/dL (0.2-1.2); CK (CPK) 75 U/L (29-168); Calc. Creatinine Clearance 0 mL/min (70-130); Calcium 9.3 mg/dL (7.8-10.44); Carbon Dioxide 25 mmol/L (23-31); Chloride 101 mmol/L (98-107); Estimated GFR-MDRD 58; Globulin 3.1 g/dL (2.4-3.5); Glucose 110 mg/dL (83-110); Lipase 53 U/L (8-78); Potassium 4.5 mmol/L (3.5-5.1); Protein, Total 7.3 g/dL (6.0-8.3); Sodium 139 mmol/L (136-145)
--- NOTE | 2018-10-30 11:50 | RAD ---
EXAM: Single view of the chest HISTORY: Cough COMPARISON: 07/21/2018 FINDINGS: Single view of the chest shows an enlarged but stable cardiomediastinal silhouette. The pa cemaker is unchanged in position. There is no evidence of consolidation, mass, or pleural effusion. The bones are unremarkable. IMPRESSION: No evidence of acute cardiopulmonary disease
[2018-10-30 11:53] LABS: Bilirubin Small (Negative); Blood, Urine Negative (Negative); Glucose, Urine (Dipstick) Negative (Negative); Leukocyte Negative (Negative); Nitrite Negative (Negative); Protein, Urine (Dipstick) 100 mg/dL (Neg-Trace)
[2018-10-30 11:55] LABS: Clarity Hazy (Clear)
[2018-10-30 11:56] LABS: Bacteria/HPF 2+ HPF (None Seen); RBC/HPF 0-3 HPF (0-3); WBC/HPF 0-3 HPF (0-3)
[2018-10-30] MEDS ORDERED: cefTRIAXone\\ROCEPHIN 1 GM VIAL ONE (12:10)
[2018-10-30] MEDS ORDERED: Sodium Chloride 0.9% 100 ML ONE (12:10)
[2018-10-30] MEDS: Acetaminophen 325 MG TAB PO PRN (17:06)
[2018-10-30] MEDS ORDERED: Nystatin Powder 15 GM BOT TOP PRN (17:16)
[2018-10-30] MEDS ORDERED: ALPRAZolam 0.25 MG TAB PO PRN (17:16)
[2018-10-30] MEDS ORDERED: Acetaminophen 325 MG TAB PO PRN (17:16)
[2018-10-30] MEDS ORDERED: Midodrine HCl 2.5 MG TAB PO PRN (17:16)
[2018-10-30] MEDS: Apixaban 5 MG TAB PO SCH (21:48)
[2018-10-30] MEDS: clonazePAM 0.5 MG TAB PO SCH (21:49)
[2018-10-30] MEDS: Digoxin 0.125 MG TAB PO SCH (21:49)
[2018-10-30] MEDS: Atorvastatin Calcium 10 MG TAB PO SCH (21:49)
[2018-10-30] MEDS: Potassium Chloride 10 MEQ TAB PO SCH (21:50)
[2018-10-30] MEDS: Venlafaxine HCl XR 150 MG CAP PO SCH (21:50)
[2018-10-30] MEDS ORDERED: Ondansetron ODT 4 MG TAB PO SCH (22:00)
[2018-10-30] MEDS: cefTRIAXone\\ROCEPHIN 1 GM in Sodium Chloride 0.9% 100 ML IVPB SCH (23:46)
[2018-10-30] MEDS: Ondansetron ODT 4 MG TAB PO PRN (23:47)
--- NOTE | 2018-10-31 00:01 | HP ---
REASON FOR ADMISSION: General weakness, dehydration, and UTI. HISTORY OF THE PRESENT ILLNESS AND HOSPITAL COURSE: Ms. Negrete is a 78-year- old female with multiple chronic medical conditions including CHF, chronic constipation,hiatal hernia, chronic GERD with pending re-evaluation from GI, Dr. De La Fuente. The patient reports that she has been having nausea associated with intermittent vomiting over the past week. Above symptoms come and go, but here lately symptoms have been persistent. Initially loose watery stools comes and goes. BM is described as watery stools, more non-mucoid, nonbloody, brownish in color. The patient reports that lately loose stools have been progressively worsening , occurs more than 4-5 times a day over the past few days with the nausea and vomiting, making her to have very poor oral intake.The last episode of vomiting and diarrhea was yesterday. The patient reports that she could hardly get up from the bed the last couple of days, thus she was sent to the ER by her daughter. On further evaluation at the ER, the patient was clinically dehydrated. Her urine came back with trace ketone and urine bacteria 2+. The patient was started with IV hydration , Rocephin 1 g x1, and Zofran. Of note, the patient had similar episodes in the past few months that led to severe dehydration, requiring inpatient treatment. This time, the patient was recommended to be admitted for supportive medical management of dehydration and further observation. When seen in the floor,the patient was asleep. No family is available at the time of visit. The patient was easily aroused. She looks generally weak and frail. States that she has not really been eating much lately. She tried to hold her Torsemide since yesterday and stopped taking all her stool softener. No other issues at this time. PAST MEDICAL HISTORY: Congestive heart failure, combined systolic and diastolic ;EF 15-20%, COPD; anxiety; depression; CAD with recurrent angina; Severe dysautonomic syndrome; chronic constipation; dyslipidemia; hypertension; and ischemic cardiomyopathy. Obesity. Chronic insomnia. PAST SURGICAL HISTORY: Exploratory laparotomy, ICD implantation, cholecystectomy, hysterectomy, and pacemaker placement. FAMILY HISTORY: Noncontributory. SOCIAL HISTORY: . Nonsmoker. No alcohol or illicit drug use. ALLERGIES: TO VICODIN, REPORTS ITCHING. ALLERGY TO AARON INHIBITOR. REVIEW OF SYSTEMS: GENERAL: Denies fever or chills. Reports general weakness and malaise. HEENT: No acute visual changes, hearing changes, or cold symptoms. CARDIOVASCULAR: Denies active chest pain. Reports dyspnea on exertion, intermittent leg swelling. No paroxysmal nocturnal dyspnea. RESPIRATORY: No shortness of breath, sputum production, chronic cough, or wheezing. GI: As per HPI, denies rectal bleeding, melena, hematochezia, or hematemesis. GENITOURINARY: No dysuria, hematuria, frequency, urgency, or incontinence. MUSCULOSKELETAL: Reports intermittent joint pain, stiffness, and some myalgia. No joint effusions or redness. SKIN: No rashes. No lesions. No pruritus or jaundice. NEURO: No motor or sensory losses. No loss of incoordination. Reports dizziness associated with low blood pressure. PSYCHIATRIC: Reports stable depressive symptoms and anxiety. No hallucinations. No suicidal thoughts, ideations, or plans. CURRENT MEDICATIONS: 1. Alprazolam 0.25 mg p.o. daily p.r.n. 2. Eliquis 2.5 mg p.o. b.i.d. 3. Calciferol 1000 mg p.o. q.a.m. 4. Clonazepam 0.5 mg p.o. at bedtime. 5. Digoxin 0.125 mg p.o. at bedtime. 6. Docusate 100 mg p.o. b.i.d. 7. Linzess 72 mcg p.o. p.r.n. 8. Metoprolol 6.25 mg p.o. daily p.r.n. 9. Midodrine 5 mg p.o. t.i.d. 10.Nnystatin cream b.i.d.prn 11. Ondansetron 4 mg p.o. q.8 hours p.r.n., ODT. 12. Pantoprazole 40 mg p.o. b.i.d. 13. Polyethylene glycol 17 g p.o. daily. 14. Potassium 10 mEq p.o. b.i.d. 15. Quetiapine 25 mg p.o. at bedtime. 16. Simvastatin 40 mg p.o. at bedtime. 17. Torsemide 10 mg p.o. daily p.r.n. 18. Venlafaxine XR 150 mg p.o. b.i.d. PHYSICAL EXAMINATION: VITAL SIGNS: Blood pressure 178/88, Pulse Rate 90 bpm, Respiratory 16, Temperature 97.6; 0xygen saturation 92% Room Air; Weight 225 pounds, Height 5 feet and 8 inches. GENERAL: The patient is awake, alert, and oriented x3. Generally weak-looking , ill looking, build: obese, comfortable in exam, not in acute distress. HEENT: Normocephalic, atraumatic. PERRL. Intact EOM. No nystagmus. Nonicteric sclerae. Oral mucosa is dry. No lesions. NECK: Supple. No LAD. Flat JVD. CHEST: Normal excursion. Nonlabored breathing. RESPIRATORY: Clear to auscultation bilaterally. No rales. No crackles. No wheezing. No rhonchi. CARDIAC: regular rhythm. Normal S1 and S2. No murmurs. ABDOMEN: Obese, soft. Normoactive bowel sounds. Nondistended, nontender. No rebound or guarding. No signs of peritonitis. Negative CVA tenderness bilaterally. EXTREMITIES: No edema. No cyanosis. NEUROLOGIC: Nonfocal. DTRs 2+. Gait unsteady. PSYCH: Appears calm with appropriate demeanor and affect. ASSESSMENT AND PLAN: 1. Clinical dehydration. 2. Acute gastroenteritis, likely viral. 3. Bacteriuria, possible urinary tract infection. 4. Chronic constipation, on long-term use of stool softeners. Now with diarrhea , 5. Congestive heart failure, combined systolic and diastolic, EF 15-20%. with no acute exacerbation. 6. Hypertension with history of Hypotension, seconadry to severe dysautonomic syndrome. 7. Depression and anxiety. 8. Dyslipidemia. 9. General weakness. The patient is admitted to Med/Surg for supportive medical management of clinical dehydration and acute gastroenteritis associated with possible urinary tract infection. The patient is currently receiving intravenous fluid hydration with extra caution secondary to history of congestive heart failure that gets easily exacerbated. We will continue all current medications as modified per list. She will continue empiric treatment of Intravenous antibiotic therapy,pending cultures. All stool softeners will be withheld. Diuretic will be on a p.r.n. basis. Continue antiemetic. We will add antispasmodic. We will continue close monitoring of patient's blood pressure. Once she tolerated standing/ambulatory blood pressure, we will proceed. The patient usually has higher supine or sitting blood pressures compared to standing blood pressures. Serial blood works, for routine electrolytes and renal function monitoring. Gastrointestinal prophylaxis with PPI and deep venous thrombosis prophylaxis with compression stockings. Further recommendations depending on the hospital course. ESTIMATED LENGTH OF STAY: The patient may need possible 2 to 3 days of stay. She may need possible therapy post acute stay for muscle strengthening and gait training. CODE STATUS: The patient reports DO NOT RESUSCITATE. Job ID: [id number] MTDD
[2018-10-31] MEDS: Sodium Chloride 0.9% 1,000 ML IV SCH (03:24)
[2018-10-31 07:26] LABS: Anion Gap 13 mmol/L (10-20); BUN (Urea Nitrogen) 9 mg/dL (9.8-20.1); Calc. Creatinine Clearance 93 mL/min (70-130); Carbon Dioxide 27 mmol/L (23-31); Chloride 105 mmol/L (98-107); Estimated GFR-MDRD 67; Glucose 97 mg/dL (83-110); Sodium 141 mmol/L (136-145)
[2018-10-31 07:27] LABS: #Basophils 0.2 thou/uL (0.0-0.2); #Eosinphils 0.4 thou/uL (0.0-0.7); #Lymphocytes 2.8 thou/uL (1.20-3.40); #Monocytes 0.8 thou/uL (0.11-0.59); #Neutrophils 3.4 thou/uL (1.40-6.50); %Eosinophils 5.9 % (0.0-10.0); %Lymphocytes 36.8 % (21.0-51.0); %Monocytes 10.4 % (0.0-10.0); %Neutrophils 44.9 % (42.0-75.0); Hemoglobin 11.9 g/dL (12.0-16.0); Mean Corpuscular HGB CONC 32.8 g/dL (32.0-36.0); Mean Corpuscular Hemoglobin 28.7 pg (27.0-31.0); Mean Corpuscular Volume 87.6 fL (78.0-98.0); Mean Platelet Volume 8.1 fL (7.4-10.4); Platelet Count 250 thou/uL (130-400); RBC Distribution Width 12.1 % (11.5-14.5); Red Blood Cell (RBC) Count 4.14 mill/uL (4.20-5.40); White Blood Cell (WBC) Count 7.7 thou/uL (4.8-10.8)
[2018-10-31] MEDS: Apixaban 5 MG TAB PO SCH ×2 (09:19→21:11)
[2018-10-31] MEDS: Venlafaxine HCl XR 150 MG CAP PO SCH ×2 (09:20→21:12)
[2018-10-31] MEDS: Potassium Chloride 10 MEQ TAB PO SCH ×2 (09:20→21:12)
[2018-10-31] MEDS: cefTRIAXone\\ROCEPHIN 1 GM in Sodium Chloride 0.9% 100 ML IVPB SCH ×2 (12:38→23:16)
[2018-10-31] MEDS: clonazePAM 0.5 MG TAB PO SCH (21:11)
[2018-10-31] MEDS: Atorvastatin Calcium 10 MG TAB PO SCH (21:11)
[2018-10-31] MEDS: Digoxin 0.125 MG TAB PO SCH (21:12)
[2018-11-01] MEDS: Apixaban 5 MG TAB PO SCH ×2 (09:26→20:22)
[2018-11-01] MEDS: Venlafaxine HCl XR 150 MG CAP PO SCH ×2 (09:27→20:23)
[2018-11-01] MEDS: Potassium Chloride 10 MEQ TAB PO SCH ×2 (09:27→20:22)
[2018-11-01] MEDS: Atorvastatin Calcium 10 MG TAB PO SCH (20:22)
[2018-11-01] MEDS: Digoxin 0.125 MG TAB PO SCH (20:22)
[2018-11-01] MEDS: clonazePAM 0.5 MG TAB PO SCH (20:22)
[2018-11-02] MEDS: Apixaban 5 MG TAB PO SCH ×2 (08:13→20:58)
[2018-11-02] MEDS: Venlafaxine HCl XR 150 MG CAP PO SCH ×2 (08:15→21:02)
[2018-11-02] MEDS: Potassium Chloride 10 MEQ TAB PO SCH ×2 (08:15→21:01)
[2018-11-02] MEDS: Torsemide 20 MG TAB PO PRN (12:18)
[2018-11-02] MEDS: Ondansetron ODT 4 MG TAB PO PRN (12:20)
[2018-11-02] MEDS: Sodium Chloride 0.9% 1,000 ML IV SCH (16:13)
[2018-11-02] MEDS: Atorvastatin Calcium 10 MG TAB PO SCH (20:59)
[2018-11-02] MEDS: clonazePAM 0.5 MG TAB PO SCH (20:59)
[2018-11-02] MEDS: Digoxin 0.125 MG TAB PO SCH (21:00)
[2018-11-02] MEDS: Docusate 100 MG CAP PO SCH (21:01)
[2018-11-03] MEDS: Acetaminophen 325 MG TAB PO PRN (04:19)
[2018-11-03] MEDS: LINZESS 72 MCG PO PRN (06:55)
[2018-11-03] MEDS ORDERED: LINZESS 72 MCG PO SCH ×2 (07:00→09:00)
[2018-11-03] MEDS: Potassium Chloride 10 MEQ TAB PO SCH ×2 (08:58→21:23)
[2018-11-03] MEDS: Apixaban 5 MG TAB PO SCH ×2 (08:58→21:22)
[2018-11-03] MEDS: Venlafaxine HCl XR 150 MG CAP PO SCH ×2 (08:58→21:23)
[2018-11-03] MEDS: Docusate 100 MG CAP PO SCH ×2 (08:58→21:23)
[2018-11-03] MEDS: Ondansetron ODT 4 MG TAB PO PRN (11:43)
[2018-11-03] MEDS: Atorvastatin Calcium 10 MG TAB PO SCH (21:23)
[2018-11-03] MEDS: clonazePAM 0.5 MG TAB PO SCH (21:26)
[2018-11-03] MEDS: Digoxin 0.125 MG TAB PO SCH (21:26)
[2018-11-04] MEDS: Potassium Chloride 10 MEQ TAB PO SCH ×2 (08:16→20:47)
[2018-11-04] MEDS: Docusate 100 MG CAP PO SCH ×2 (08:16→20:47)
[2018-11-04] MEDS: Venlafaxine HCl XR 150 MG CAP PO SCH ×2 (08:16→20:46)
[2018-11-04] MEDS: Apixaban 5 MG TAB PO SCH ×2 (08:16→20:45)
[2018-11-04] MEDS: Atorvastatin Calcium 10 MG TAB PO SCH (20:46)
[2018-11-04] MEDS: Digoxin 0.125 MG TAB PO SCH (20:46)
[2018-11-04] MEDS: clonazePAM 0.5 MG TAB PO SCH (20:46)
[2018-11-05] MEDS: LINZESS 72 MCG PO PRN (07:30)
[2018-11-05] MEDS: Torsemide 20 MG TAB PO PRN (08:39)
[2018-11-05] MEDS: Venlafaxine HCl XR 150 MG CAP PO SCH ×2 (08:39→20:52)
[2018-11-05] MEDS: Apixaban 5 MG TAB PO SCH ×2 (08:39→20:50)
[2018-11-05] MEDS: Potassium Chloride 10 MEQ TAB PO SCH (08:41)
[2018-11-05] MEDS: Docusate 100 MG CAP PO SCH ×2 (08:41→20:52)
[2018-11-05] MEDS: Ondansetron ODT 4 MG TAB PO PRN (11:48)
[2018-11-05] MEDS ORDERED: Potassium Chloride 10 MEQ TAB PO PRN (13:32)
[2018-11-05 14:09] VITALS: BMI 34.5
[2018-11-05] MEDS: Acetaminophen 325 MG TAB PO PRN (14:51)
[2018-11-05] MEDS: Digoxin 0.125 MG TAB PO SCH (20:51)
[2018-11-05] MEDS: clonazePAM 0.5 MG TAB PO SCH (20:52)
[2018-11-05] MEDS: Atorvastatin Calcium 10 MG TAB PO SCH (20:52)
[2018-11-06] MEDS ORDERED: Polyethylene Glycol 3350 17 GM Packet PER TUBE SCH (09:00)
[2018-11-06] MEDS: Apixaban 5 MG TAB PO SCH (09:06)
[2018-11-06 09:08] VITALS: BP 129/81; TEMP 97.6
[2018-11-06] MEDS: Venlafaxine HCl XR 150 MG CAP PO SCH (09:13)
[2018-11-06] MEDS: Torsemide 20 MG TAB PO PRN (09:13)
[2018-11-06] MEDS: Docusate 100 MG CAP PO SCH (09:13)
--- NOTE | 2018-11-07 04:39 | DIS ---
DATE OF ADMISSION: 10/30/2018 DATE OF DISCHARGE: 11/06/2018 REASON FOR ADMISSION: General weakness, dehydration, and UTI. FINAL DIAGNOSES: 1. Clinical dehydration secondary to acute gastroenteritis, likely viral, improved. 2. Bacteriuria, urinary tract infection was ruled out with negative urine culture. 3. Congestive heart failure, combined systolic and diastolic with EF of 15% to 20%, compensated. 4. Chronic constipation, on long-term use of stool softeners. 5. Severe dysautonomic syndrome, stable. 6. Deconditioning and general weakness. SECONDARY DIAGNOSES: 1. Depression and anxiety. 2. Dyslipidemia. 3. Chronic gastroesophageal reflux disease. 4. Chronic insomnia. CONDITION ON DISCHARGE: Stable. DISPOSITION: Home with daughter. MEDICATIONS: 1. Acetaminophen 650 mg p.o. q.4 hours p.r.n. 2. Xanax 0.25 mg p.o. daily p.r.n. 3. Eliquis 2.5 mg p.o. b.i.d. 4. Atorvastatin 20 mg p.o. at bedtime. 5. Vitamin D, 1000 units p.o. q.Monday through Monday. 6. Clonazepam 0.5 mg p.o. at bedtime. 7. Digoxin 0.125 mg p.o. at bedtime. 8. Docusate 100 mg p.o. b.i.d. 9. Midodrine . 10. Zofran 4 mg p.o. q.6 p.r.n. sublingual. 11. Pantoprazole 40 mg p.o. b.i.d. 12. Polyethylene glycol 17 g p.o. daily p.r.n. 13. Quetiapine fumarate p.o. at bedtime. 14. Torsemide 10 mg p.o. daily p.r.n. 15. Venlafaxine 150 mg p.o. daily. 16. Potassium chloride 10 mEq p.o. daily p.r.n. with torsemide intake. DISCHARGE INSTRUCTIONS: 1. Diet: Heart healthy. 2. Activity: To use rolling walker at all times. Fall precautions. 3. Follow up with Dr. Mayers in 1 week or sooner with concern. 4. Follow up with Dr. De La Fuente in 2 weeks or as previously scheduled for gastroenterology care. 5. Follow up with Dr. Alva on Monday for cardiac care. 6. Follow up with senior renal as previously scheduled. HISTORY OF THE PRESENT ILLNESS AND HOSPITAL COURSE: Ms. Negrete is a very pleasant 78-year-old female with significant history of chronic GERD, CHF, chronic constipation, hiatal hernia, severe dysautonomic syndrome. The patient had been having nausea associated with intermittent vomiting and abdominal pain over the past week prior to admission. This is associated with loose bowel movements that comes and goes as well. Above GI symptoms progressively worsen for a week. The patient became generally weak, dehydrated, and could hardly walk. The patient was seen in the ER on 10/30/2018, due to progressively worsening symptoms. The patient was admitted for clinical dehydration and gastroenteritis. Her urine was positive for 2+ bacteriuria. The patient was admitted for IV hydration and supportive medical management of GI issues. The patient was likewise started on IV antibiotic for empiric treatment of UTI, pending cultures. The patient has no significant genitourinary symptoms nor fever. The patient's urine culture came back negative for UTI, thus Rocephin was discontinued on the second day of use. The patient was treated supportively with antiemetics. Diuretics and stool softeners were withheld during this admission. The patient did well and regained back her appetite after the GI symptoms have improved dramatically. However, the patient remained generally weak with unsteadiness of gait and easily gets fatigued when walking. She underwent rehab and did well. The patient gradually improved with her overall functional status as well as oral consumption. Her blood pressure has been very stable with p.r.n. torsemide use. The patient reports intermittent GI upset that serves as a barrier for her therapy. She reports that she feels easily gets to stomach associated with dizziness and could hardly stand up whenever this episode happens. We tried to explore the possibility of drug-induced cause of the GI symptoms. More likely, Linzess could have caused it versus potassium chloride. Potassium chloride was titrated down to p.r.n. use only with the torsemide. Her electrolytes posthydration have been very stable including the potassium level. She also did well with MiraLAX and Dulcolax without Linzess, thus Linzess was likewise not recommended to take on a regular basis at this point. The patient was walking about 300 feet using rolling walker prior to discharge. Therapy reports that she still has decreased balance endurance and strength, but may benefit from home health for therapy. The patient requested that if she can continue with interim home health, thus referred prior to discharge. On 11/06/2018, the patient was adamant to go home and was deemed hemodynamically stable to go home, thus discharged. Vital signs prior to discharge; blood pressure 129/81, temp 97.6, pulse 100, respirations 18, O2 saturations 96% room air. Weight 223 pounds. Height 5 feet 8 inches. Job ID: [id number]
== END 2018-11-06 18:30 | disposition home or self-care (01) | DRG 392 ==
LOC: MADERS 09:59 → UNDOADMOB 12:21 → MADMS 12:21
PROVIDERS: ADMIT Family Medicine; ATTEND Family Medicine
DX: K52.9 Noninfective gastroenteritis and colitis, unspecified (principal); I50.42 Chronic combined systolic (congestive) and diastolic (congestive) heart failure; N39.0 Urinary tract infection, site not specified; E86.0 Dehydration; I11.0 Hypertensive heart disease with heart failure; K21.9 Gastro-esophageal reflux disease without esophagitis; J44.9 Chronic obstructive pulmonary disease, unspecified; F41.9 Anxiety disorder, unspecified; F32.9 Major depressive disorder, single episode, unspecified; E78.5 Hyperlipidemia, unspecified; E66.9 Obesity, unspecified; K59.09 Other constipation; G47.00 Insomnia, unspecified; Z90.49 Acquired absence of other specified parts of digestive tract; Z95.0 Presence of cardiac pacemaker; Z90.710 Acquired absence of both cervix and uterus; Z88.8 Allergy status to other drugs, medicaments and biological substances; Z79.899 Other long term (current) drug therapy
CPT/HCPCS: 36415; 71045; 80048; 80053; 80162; 81003; 81015; 82550; 83690; 84484; 85025; 87040; 87086; 93005; 96361; 96365; 96375; J0696; J2405; J3490; J7050; Q0162

== ENCOUNTER 2018-11-16 19:43 | Emergency (ER) | payer MEDICARE ==
[2018-11-16] MEDS ORDERED: Ondansetron PF 4 MG/2 ML Vial ONE (20:15)
[2018-11-16 20:30] LABS: #Basophils 0.2 thou/uL (0.0-0.2); #Eosinphils 0.4 thou/uL (0.0-0.7); #Lymphocytes 3.6 thou/uL (1.20-3.40); #Monocytes 0.8 thou/uL (0.11-0.59); #Neutrophils 6.9 thou/uL (1.40-6.50); %Basophils 1.3 % (0.0-1.0); %Eosinophils 3.3 % (0.0-10.0); %Lymphocytes 30.5 % (21.0-51.0); %Monocytes 6.9 % (0.0-10.0); %Neutrophils 58.2 % (42.0-75.0); Hemoglobin 13.3 g/dL (12.0-16.0); Mean Corpuscular HGB CONC 34.2 g/dL (32.0-36.0); Mean Corpuscular Hemoglobin 29.6 pg (27.0-31.0); Mean Corpuscular Volume 86.4 fL (78.0-98.0); Mean Platelet Volume 9.1 fL (7.4-10.4); Platelet Count 267 thou/uL (130-400); White Blood Cell (WBC) Count 11.8 thou/uL (4.8-10.8)
[2018-11-16 20:48] LABS: ALT (SGPT) 16 U/L (8-55); AST (SGOT) 18 U/L (5-34); Albumin 3.9 g/dL (3.4-4.8); Alkaline Phosphatase 95 U/L (40-150); Anion Gap 15 mmol/L (10-20); BUN (Urea Nitrogen) 15 mg/dL (9.8-20.1); Bilirubin, Total 0.3 mg/dL (0.2-1.2); CK (CPK) 61 U/L (29-168); Calc. Creatinine Clearance 0 mL/min (70-130); Calcium 9.6 mg/dL (7.8-10.44); Carbon Dioxide 24 mmol/L (23-31); Chloride 104 mmol/L (98-107); Estimated GFR-MDRD 63; Globulin 2.8 g/dL (2.4-3.5); Glucose 125 mg/dL (83-110); Potassium 3.2 mmol/L (3.5-5.1); Protein, Total 6.7 g/dL (6.0-8.3); Sodium 140 mmol/L (136-145)
--- NOTE | 2018-11-16 20:48 | RAD ---
PORTABLE CHEST ONE VIEW: 11/16/18 at 8:21 p.m. HISTORY: Chest pain. FINDINGS: Comparison made with exam of 10/30/18. Left sided pacemaker device remains in place. The heart size is enlarged but stable. The aorta is tor tuous. The lungs are well expanded without lobar consolidation, pneumothoraces, heydi pulmonary edema , or pleural effusions. IMPRESSION: No acute process. POS: REANNA
[2018-11-16] MEDS ORDERED: Amlodipine 5 MG TAB ONE (20:50)
[2018-11-16] MEDS ORDERED: Potassium Chloride 20 MEQ TAB ONE (20:54)
[2018-11-16] MEDS ORDERED: Potassium Chloride 10 MEQ TAB ONE (20:55)
[2018-11-16 21:16] LABS: CKMB 1.4 ng/mL (0-6.6)
== END 2018-11-16 22:45 | disposition home or self-care (01) ==
LOC: MADERS 19:43
DX: I95.1 Orthostatic hypotension (principal); E86.0 Dehydration; R19.7 Diarrhea, unspecified; I10 Essential (primary) hypertension; I25.10 Atherosclerotic heart disease of native coronary artery without angina pectoris; I48.91 Unspecified atrial fibrillation; E78.5 Hyperlipidemia, unspecified; Z79.899 Other long term (current) drug therapy
CPT/HCPCS: 36415; 71045; 80053; 82550; 82553; 83880; 84484; 85025; 93005; 96361; 96374; J2405; J7050

== ENCOUNTER 2019-01-02 12:59 | Inpatient (IN) | payer MEDICARE ==
[~2019-01-02 12:59] MED LIST changes: -Sodium Chloride 0.9% 1,000 ML BAG ONE; +Sodium Chloride 0.9% 500 ML BAG ONE
[2019-01-02] MEDS ORDERED: Metoclopramide HCl 10 MG/2 ML VIAL ONE (14:20)
[2019-01-02 14:22] LABS: #Basophils 0.1 thou/uL (0.0-0.2); #Eosinphils 0.4 thou/uL (0.0-0.7); #Lymphocytes 3.1 thou/uL (1.20-3.40); #Monocytes 0.9 thou/uL (0.11-0.59); #Neutrophils 6.1 thou/uL (1.40-6.50); %Basophils 1.2 % (0.0-1.0); %Eosinophils 3.8 % (0.0-10.0); %Lymphocytes 29.5 % (21.0-51.0); %Monocytes 8.3 % (0.0-10.0); %Neutrophils 57.2 % (42.0-75.0); Hemoglobin 12.2 g/dL (12.0-16.0); Mean Corpuscular HGB CONC 32.1 g/dL (32.0-36.0); Mean Corpuscular Hemoglobin 28.1 pg (27.0-31.0); Mean Corpuscular Volume 87.3 fL (78.0-98.0); Mean Platelet Volume 8.3 fL (7.4-10.4); Platelet Count 286 thou/uL (130-400); RBC Distribution Width 12.7 % (11.5-14.5); Red Blood Cell (RBC) Count 4.34 mill/uL (4.20-5.40); White Blood Cell (WBC) Count 10.6 thou/uL (4.8-10.8)
--- NOTE | 2019-01-02 14:25 | RAD ---
XR Chest 1 View Portable HISTORY: Weakness COMPARISON: 11/16/2018 FINDINGS: The heart size is normal. Left-sided pacemaker device remains in place. The lungs are well expanded without focal areas of consolidation, pneumothorax or pleural effusions. IMPRESSION: No radiographic evidence of acute cardiopulmonary process.
[2019-01-02 14:36] LABS: ALT (SGPT) 14 U/L (8-55); AST (SGOT) 18 U/L (5-34); Albumin 3.7 g/dL (3.4-4.8); Alkaline Phosphatase 88 U/L (40-110); Anion Gap 14 mmol/L (10-20); BUN (Urea Nitrogen) 11 mg/dL (9.8-20.1); Bilirubin, Total 0.3 mg/dL (0.2-1.2); Calc. Creatinine Clearance 0 mL/min (70-130); Calcium 8.9 mg/dL (7.8-10.44); Carbon Dioxide 27 mmol/L (23-31); Chloride 104 mmol/L (98-107); Estimated GFR-MDRD 65; Globulin 2.7 g/dL (2.4-3.5); Glucose 99 mg/dL (83-110); Potassium 3.5 mmol/L (3.5-5.1); Protein, Total 6.4 g/dL (6.0-8.3); Sodium 141 mmol/L (136-145)
[2019-01-02 16:08] LABS: Bilirubin Negative (Negative); Blood, Urine Negative (Negative); Clarity Hazy (Clear); Glucose, Urine (Dipstick) Negative (Negative); Leukocyte Negative (Negative); Nitrite Negative (Negative); Protein, Urine (Dipstick) 30 mg/dL (Neg-Trace)
[2019-01-02 16:13] LABS: Bacteria/HPF Rare-Few HPF (None Seen); RBC/HPF None Seen HPF (0-3); WBC/HPF 0-3 HPF (0-3)
[2019-01-02] MEDS ORDERED: Meclizine HCl 25 MG TAB ONE ×2 (16:53→16:54)
[2019-01-02] MEDS ORDERED: Acetaminophen 325 MG TAB PO PRN (20:26)
[2019-01-02] MEDS ORDERED: Torsemide 20 MG TAB PO PRN (20:26)
[2019-01-02] MEDS ORDERED: Acetaminophen/Codeine 30-300mg Tablet PO PRN (20:26)
[2019-01-02] MEDS ORDERED: Nystatin Powder 15 GM BOT TOP PRN (20:26)
[2019-01-02] MEDS ORDERED: Midodrine HCl 2.5 MG TAB PO PRN (20:26)
[2019-01-02] MEDS ORDERED: Potassium Chloride 10 MEQ TAB PO PRN (20:26)
[2019-01-02] MEDS ORDERED: ALPRAZolam 0.25 MG TAB PO PRN (20:26)
[2019-01-02] MEDS ORDERED: Metoprolol Tartrate 25 MG TAB PO PRN (20:26)
[2019-01-02] MEDS ORDERED: Senokot S 8.6-50 MG TAB PO PRN (21:14)
[2019-01-02] MEDS: Sucralfate 1 GM/10 ML UDCUP PO SCH (21:16)
[2019-01-02] MEDS: clonazePAM 0.5 MG TAB PO SCH (21:16)
[2019-01-02] MEDS: Venlafaxine HCl XR 150 MG CAP PO SCH (21:16)
[2019-01-02] MEDS: Apixaban 5 MG TAB PO SCH (21:17)
[2019-01-02] MEDS: Digoxin 0.125 MG TAB PO SCH (21:17)
[2019-01-02] MEDS: Sodium Chloride 0.9% 1,000 ML IV SCH (21:18)
[2019-01-03 07:43] LABS: Anion Gap 14 mmol/L (10-20); BUN (Urea Nitrogen) 9 mg/dL (9.8-20.1); Calc. Creatinine Clearance 95 mL/min (70-130); Calcium 8.3 mg/dL (7.8-10.44); Carbon Dioxide 26 mmol/L (23-31); Chloride 106 mmol/L (98-107); Estimated GFR-MDRD 72; Glucose 88 mg/dL (83-110); Sodium 142 mmol/L (136-145)
[2019-01-03] MEDS: Sucralfate 1 GM/10 ML UDCUP PO SCH ×4 (08:15→21:35)
[2019-01-03] MEDS: Sodium Chloride 0.9% 1,000 ML IV SCH ×2 (08:15→12:44)
[2019-01-03] MEDS: Venlafaxine HCl XR 150 MG CAP PO SCH ×2 (08:16→21:35)
[2019-01-03] MEDS: Apixaban 5 MG TAB PO SCH ×2 (08:16→21:34)
[2019-01-03] MEDS ORDERED: FLU VACC TS2019-20(65YR UP)/PF 180 MCG/0.5 ML SYRINGE IM ONE (09:00)
[2019-01-03] MEDS: Ondansetron ODT 4 MG TAB PO PRN (13:23)
[2019-01-03] MEDS: Digoxin 0.125 MG TAB PO SCH (21:34)
[2019-01-03] MEDS: clonazePAM 0.5 MG TAB PO SCH (21:34)
[2019-01-04] MEDS: Sodium Chloride 0.9% 1,000 ML IV SCH (03:39)
[2019-01-04 07:51] LABS: Anion Gap 13 mmol/L (10-20); BUN (Urea Nitrogen) 7 mg/dL (9.8-20.1); Calc. Creatinine Clearance 99 mL/min (70-130); Calcium 8.3 mg/dL (7.8-10.44); Carbon Dioxide 25 mmol/L (23-31); Chloride 107 mmol/L (98-107); Estimated GFR-MDRD 75; Glucose 90 mg/dL (83-110); Potassium 3.9 mmol/L (3.5-5.1); Sodium 141 mmol/L (136-145)
[2019-01-04] MEDS: Sucralfate 1 GM/10 ML UDCUP PO SCH ×4 (08:12→21:00)
[2019-01-04] MEDS: Apixaban 5 MG TAB PO SCH ×2 (08:12→20:58)
[2019-01-04] MEDS: Venlafaxine HCl XR 150 MG CAP PO SCH ×2 (08:12→20:59)
[2019-01-04] MEDS ORDERED: Plecanatide [Trulance] 3 MG PO SCH (09:00)
--- NOTE | 2019-01-04 09:13 | HP ---
PRIMARY CARE PHYSICIAN: Barb Mayers MD REASON FOR ADMISSION: Intractable nausea, vomiting, dehydration. HISTORY OF PRESENT ILLNESS AND HOSPITAL COURSE: Ms. Negrete is a 78-year-old female with history of chronic GERD associated with intermittent nausea, vomiting and chronic constipation, complicated with intermittent loose bowel movements. The patient has been having chronic issues with the above GI problems secondary to possible IBS. Patient has been hospitalized for this several times secondary to symptomatic dehydration and general weakness .Patient also reports chronic right upper quadrant pain. Patient reports that she has been following up with GI Specialist for this. She was just seen by GI couple of weeks ago and she was told to have "possible obstructive issues" recommending further evaluation. Patient could not recall the specific tests requested, but needing Cardiac clearance to be able to schedule. She just went to Cardio and was cleared this week. Couple of days after her Cardio visit, patient reports she again had another onset of nausea and vomiting that progressively worsened. She has not been tolerating solids nor liquids lately. She became generally weak and unable to get up or out of bed. Daughter also reports that patient has been sleeping a lot with malodorous dark urine noted. She was sent to [facility] for further evaluation.In the ER, the patient was reported to have clinically dehydrated. Her initial labs showed WBC of 10.6, hemoglobin 12.2, hematocrit 37.9, and platelets 286. Sodium 141, potassium 3.5, BUN 11, creatinine 0.85, and glucose 99. BNP 55.7. Troponin I 0.015. Her urine was negative for UTI. Chest x-ray showed no radiographic evidence of acute cardiopulmonary process. The patient was subsequently admitted for inpatient management of dehydration and intractable vomiting. Intravenous hydration was started from the ER. After receiving antiemetic and fluids from the ER, the patient reports some improvement of nausea and vomiting. When evaluated, she was generally weak and lethargic. She is easily arousable with verbal stimuli and is able to answer questions appropriately, but easily goes back to sleep. Daughter was present at the time of examination, who reports that she has been like this over the past 4 to 5 days at home and feels so miserable. Denies loss of consciousness/syncope, chest pain, shortness of breath or dyspnea on exertion. PAST MEDICAL HISTORY: Systolic and diastolic combined congestive heart failure, dysautonomic syndrome, hypertension, ischemic cardiomyopathy, CAD, COPD, chronic GERD, depression, anxiety, and chronic atrial fibrillation, anticoagulated with Eliquis. PAST SURGICAL HISTORY: Exploratory laparotomy, AICD implantation, cholecystectomy, hysterectomy, and pacemaker placement. FAMILY HISTORY: Noncontributory. SOCIAL HISTORY: The patient is nonsmoker, no alcohol, no illicit drug use. The patient is a . 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 ALLERGIES: TO VICODIN AND AARON INHIBITOR. MEDICATIONS: 1. Alprazolam 0.25 mg p.o. t.i.d. p.r.n. 2. Eliquis 2.5 mg p.o. b.i.d. 3. Cholecalciferol (Vitamin D) 1000 mcg p.o. daily. 4. Clonazepam 0.5 mg p.o. at bedtime. 5. Digoxin 0.125 mg p.o. at bedtime. 6. Metoprolol 75 mg p.o. b.i.d. p.r.n. for elevated blood pressure greater than 150/90. 7. Midodrine 5 mg p.o. t.i.d. p.r.n. for hypotension. 8. Potassium chloride 10 mEq p.o. daily p.r.n. with torsemide use. 9. Quetiapine 50 mg p.o. at bedtime. 10. Sennosides-docusate 2 tablets p.o. daily p.r.n. 11. Sucralfate 1 g p.o. q.i.d. 12. Torsemide 10 mg p.o. daily p.r.n. for leg edema. 13. Venlafaxine (Effexor 150) mg p.o. b.i.d. REVIEW OF SYSTEMS: GENERAL: The patient denies fever or chills. Reports fatigue, general weakness, and loss of appetite. HEENT: No acute visual changes or hearing changes. No cold symptoms. RESPIRATORY: No chronic cough, sputum production, pain with breathing/ wheezing. CARDIAC: No chest pain, paroxysmal nocturnal dyspnea or dyspnea on exertion. Reports intermittent leg edema. GENITOURINARY: No dysuria, hematuria, frequency, urgency or incontinence. MUSCULOSKELETAL: No joint effusion, erythema, swelling or stiffness. NEUROLOGIC: No focal numbness, focal weakness, tics, tremors, seizure-like activity, loss of consciousness or syncope. SKIN: No rashes. No pruritus. No lesions. No jaundice. PSYCHIATRIC: Reports depressive symptoms, anxiety, currently stable with medication, under psych care. PHYSICAL EXAMINATION: VITAL SIGNS: Temperature 97.8, pulse 82, respirations 16, O2 saturation 96% on room air, blood pressure 108/56 standing position and 169/83 lying position. GENERAL: The patient is awake, alert and oriented x3, generally weak looking, elderly, comfortable on exam, not in distress. HEENT: Normocephalic and atraumatic. PERRL. Intact EOM. Anicteric sclerae. Oral mucosa is moist. No oral lesions. NECK: Supple. No LAD. Negative JVD. CHEST: Normal excursion. Nonlabored breathing. Clear to auscultation bilaterally. CARDIAC: Rate controlled. Normal S1 and S2. No murmurs. ABDOMEN: Obese and soft. Normoactive bowel sounds. Nondistended. Reports mild direct right upper quadrant tenderness. No rebound or guarding. Negative Echevarria's. Negative CVA tenderness bilaterally. EXTREMITIES: No edema. No cyanosis. SKIN: Good turgor. Moist and warm. No rashes. No lesions. PSYCHIATRIC: Appears calm with appropriate demeanor and affect. ASSESSMENT: 1. Intractable nausea and vomiting. 2. Clinical dehydration secondary to poor oral intake. 3. Chronic gastroesophageal reflux disease. 4. Irritable Bowel syndrome, pending further GI evaluation as scheduled outpatient, by GI specialist. 5. Dysautonomic syndrome. 6. Congestive heart failure, combined, not in acute exacerbation. 7. Coronary artery disease. 8. Depression and anxiety. 9. Chronic Insomnia. 10. Unsteadiness of gait. PLAN: The patient is admitted to Med/Surg for inpatient management of dehydration and further observation. We will continue IVF hydration with extra caution secondary to history of CHF. Routine electrolytes monitoring. Continue antiemetics. Continue current medications as per list. Trial of titrating down Seroquel to 25 mg p.o. at bedtime secondary to reported possibility of daytime somnolence and dizziness that the daughter reported since Seroquel was titrated up to 50 mg po q hs. DIET: full liquids, advance to soft diet as tolerated. Activities: Bedrest, ambulates with assistance as tolerated. GI prophylaxis with sucralfate. DVT prophylaxis not needed, patient is already on Eliquis. Further recommendations depending on the hospital course. Estimated length of stay 2-3 days. If she remains generally weak post management of current acute issues, patient may possibly be a candidate for skilled rehab prior to going back home. Discussed above with patient and family, represented by daughter, Tanesha. Voiced understanding and agreed with the plan of care. CODE STATUS: The patient reports DNAR in the presence of her daughter, Senait, who acts as a primary svp business development. Job ID: [id number]
[2019-01-04] MEDS: Ondansetron ODT 4 MG TAB PO PRN (09:42)
[2019-01-04 14:00] VITALS: BMI 34.4
[2019-01-04] MEDS: Digoxin 0.125 MG TAB PO SCH (20:59)
[2019-01-04] MEDS: clonazePAM 0.5 MG TAB PO SCH (20:59)
[2019-01-05] MEDS: Venlafaxine HCl XR 150 MG CAP PO SCH (08:27)
[2019-01-05] MEDS: Sucralfate 1 GM/10 ML UDCUP PO SCH ×2 (08:27→12:31)
[2019-01-05] MEDS: Apixaban 5 MG TAB PO SCH (08:29)
[2019-01-05 12:59] VITALS: BP 109/66; TEMP 98.1
--- NOTE | 2019-01-06 05:21 | DIS ---
DATE OF ADMISSION: 01/02/2019 DATE OF DISCHARGE: 01/05/2019 PRIMARY CARE PHYSICIAN: Barb Mayers MD. DISCHARGE DIAGNOSES: 1. Clinical dehydration secondary to acute gastroenteritis most likely viral, much improved. 2. Deconditioning and generalized weakness, improving. 3. Dizziness, resolved. 4. Congestive heart failure with combined systolic and diastolic with an ejection fraction of 15-20 percent, compensated. 5. Severe dysautonomic syndrome, stable. SECONDARY DIAGNOSES: 1. Depression with anxiety. 2. Chronic insomnia. 3. Chronic gastroesophageal reflux disease. 4. Dyslipidemia. DISCHARGE DISPOSITION: To home with daughter. DISCHARGE CONDITION: Stable. DISCHARGE MEDICATIONS: 1. Tylenol 3 one tab q.6h p.r.n. severe pain. 2. Xanax 0.25 t.i.d. p.r.n. anxiety, agitation. 3. Eliquis 2.5 b.i.d. 4. Vitamin D3 1000 units daily. 5. Klonopin 0.5 at bedtime. 6. Digoxin 0.125 at bedtime. 7. Metoprolol 25 b.i.d. p.r.n. 8. Midodrine 5 t.i.d. p.r.n. 9. Zofran 4 mg p.o. q.6h p.r.n. nausea, vomiting. 10. Potassium chloride 10 mEq daily p.r.n. 11. Seroquel 25 at bedtime. 12. Torsemide 10 mg p.o. daily p.r.n. 13. Sucralfate 1 g p.o. t.i.d. 14. Effexor 150 p.o. b.i.d. DISCHARGE INSTRUCTIONS: Diet: Diabetic, heart healthy. Activity: Use rolling walker for ambulation at all times, fall precautions. Followup: 1. Follow up with PCP within 2 weeks or sooner with any concerns. 2. Followup with Dr. De La Fuente in 1 week for preplanned gastroenterology care with EGD. BRIEF HOSPITAL COURSE: Ms. Negrete is a very pleasant 78-year-old female with multiple admissions due to chronic nausea, vomiting, abdominal pain. The patient does have a history significant for chronic GERD, CHF, chronic constipation, hiatal hernia and severe dysautonomic syndrome. She presented to the emergency room on the 02 of January due to intermittent nausea, vomiting, and diarrhea. The patient also complained of chronic right upper quadrant pain. She reports she has been followed by GI specialist and was seen by GI a couple of weeks ago and told of possible obstructive issues, recommending further evaluation. The patient could not recall the specifics, but she notes she is to have an EGD done after clearance by Cardiology. She notes cardiology has just cleared, but they are waiting on the reports and then the EGD to be planned. Daughter noted the patient was sleeping more than normal, weak and was sent to the ER for further evaluation. Urine was negative for urinary tract infection, but patient was noted to be clinically dehydrated and she was admitted. The patient during hospitalization had gentle fluids just overnight and this improved. An IV was changed to just KVO due to history of severe CHF. The patient improved the next day and was able to tolerate a diet and did not have any diarrhea. By January 04, she had severe nausea, no vomiting, no diarrhea, with some dizziness. She was monitored again overnight and placed on just a regular bland diet. By this morning, January 05, the patient was able to tolerate breakfast and lunch. She did not have any nausea, no vomiting, no diarrhea, no dizziness. She was stable enough and ready to be discharged back to home. The patient was discharged home in a stable condition with the daughter and recommended to follow up with dopeman as planned. DISCHARGE VITAL SIGNS: Temperature 98.1, pulse 94, respirations 16, O2 saturation 96% on room air, blood pressure 109/66. Job ID: [id number] MTDD
== END 2019-01-05 14:20 | disposition home or self-care (01) | DRG 392 ==
LOC: MADERS 12:59 → MADMS 18:04
PROVIDERS: ADMIT Family Medicine; ATTEND Family Medicine
DX: A08.4 Viral intestinal infection, unspecified (principal); I48.20 Chronic atrial fibrillation, unspecified; I50.42 Chronic combined systolic (congestive) and diastolic (congestive) heart failure; E86.0 Dehydration; K21.9 Gastro-esophageal reflux disease without esophagitis; I25.10 Atherosclerotic heart disease of native coronary artery without angina pectoris; J44.9 Chronic obstructive pulmonary disease, unspecified; F32.9 Major depressive disorder, single episode, unspecified; Z95.810 Presence of automatic (implantable) cardiac defibrillator; Z90.49 Acquired absence of other specified parts of digestive tract; Z90.710 Acquired absence of both cervix and uterus; Z79.899 Other long term (current) drug therapy; K58.9 Irritable bowel syndrome, unspecified; F41.9 Anxiety disorder, unspecified; G47.00 Insomnia, unspecified; R26.81 Unsteadiness on feet; G90.4 Autonomic dysreflexia; Z66 Do not resuscitate; R53.1 Weakness; R53.81 Other malaise
CPT/HCPCS: 36415; 71045; 80048; 80053; 81003; 81015; 83880; 84484; 85025; 90471; 90662; 93005; 96361; 96374; G0008; J2765; J7050; J8597; Q0162

== ENCOUNTER 2019-03-19 12:36 | Emergency (ER) | payer MEDICARE ==
[~2019-03-19 12:36] MED LIST changes: +Sodium Chloride 0.9% 1,000 ML BAG ONE; -Sodium Chloride 0.9% 500 ML BAG ONE
[2019-03-19 13:01] LABS: #Basophils 0.2 thou/uL (0.0-0.2); #Eosinphils 0.6 thou/uL (0.0-0.7); #Monocytes 1.1 thou/uL (0.11-0.59); #Neutrophils 6.8 thou/uL (1.40-6.50); %Basophils 1.4 % (0.0-1.0); %Eosinophils 4.7 % (0.0-10.0); %Lymphocytes 31.4 % (21.0-51.0); %Monocytes 8.9 % (0.0-10.0); %Neutrophils 53.7 % (42.0-75.0); Hemoglobin 14.4 g/dL (12.0-16.0); Mean Corpuscular HGB CONC 31.1 g/dL (32.0-36.0); Mean Corpuscular Hemoglobin 28.1 pg (27.0-31.0); Mean Corpuscular Volume 90.4 fL (78.0-98.0); Mean Platelet Volume 9.2 fL (7.4-10.4); Platelet Count 316 thou/uL (130-400); RBC Distribution Width 12.6 % (11.5-14.5); Red Blood Cell (RBC) Count 5.13 mill/uL (4.20-5.40); White Blood Cell (WBC) Count 12.6 thou/uL (4.8-10.8)
[2019-03-19 13:20] LABS: ALT (SGPT) 16 U/L (8-55); AST (SGOT) 20 U/L (5-34); Albumin 4.5 g/dL (3.4-4.8); Alkaline Phosphatase 106 U/L (40-110); Anion Gap 16 mmol/L (10-20); BUN (Urea Nitrogen) 16 mg/dL (9.8-20.1); Bilirubin, Total 0.5 mg/dL (0.2-1.2); Calc. Creatinine Clearance 0 mL/min (70-130); Calcium 10.2 mg/dL (7.8-10.44); Carbon Dioxide 27 mmol/L (23-31); Chloride 99 mmol/L (98-107); Estimated GFR-MDRD 63; Globulin 3.2 g/dL (2.4-3.5); Glucose 111 mg/dL (83-110); Magnesium 1.8 mg/dL (1.6-2.6); Potassium 3.9 mmol/L (3.5-5.1); Protein, Total 7.7 g/dL (6.0-8.3); Sodium 138 mmol/L (136-145)
== END 2019-03-19 14:12 | disposition home or self-care (01) ==
LOC: MADERS 12:36
DX: E86.0 Dehydration (principal); B34.9 Viral infection, unspecified; I25.10 Atherosclerotic heart disease of native coronary artery without angina pectoris; I49.9 Cardiac arrhythmia, unspecified; I48.91 Unspecified atrial fibrillation; E78.5 Hyperlipidemia, unspecified; I10 Essential (primary) hypertension; Z79.899 Other long term (current) drug therapy
CPT/HCPCS: 80053; 83735; 83880; 84484; 85025; 93005; 96360; J7050

== ENCOUNTER 2019-03-29 14:25 | Inpatient (IN) | payer MEDICARE ==
[2019-03-29] MEDS ORDERED: Cepastat Lozenges 1 LOZ PO PRN (17:20)
[2019-03-29] MEDS ORDERED: Potassium Chloride 10 MEQ TAB PO PRN (17:20)
[2019-03-29] MEDS ORDERED: Artificial Tear Sol 15 ML BOT EA EYE PRN (17:20)
[2019-03-29] MEDS: Acetaminophen 325 MG TAB PO PRN (18:35)
[2019-03-29] MEDS: Simvastatin 40 MG TAB PO SCH (20:44)
[2019-03-29] MEDS: Venlafaxine HCl XR 150 MG CAP PO SCH (20:44)
[2019-03-29] MEDS: clonazePAM 0.5 MG TAB PO SCH (20:44)
[2019-03-29] MEDS: Sucralfate 1 GM/10 ML UDCUP PO SCH (20:44)
[2019-03-29] MEDS: Digoxin 0.125 MG TAB PO SCH (20:45)
[2019-03-29] MEDS: Metoprolol Tartrate 25 MG TAB PO SCH ×2 (20:45)
[2019-03-29] MEDS: Apixaban 5 MG TAB PO SCH (20:45)
[2019-03-30] MEDS: Metoprolol Tartrate 25 MG TAB PO SCH ×2 (09:30→20:17)
[2019-03-30] MEDS: Apixaban 5 MG TAB PO SCH ×2 (09:30→20:17)
[2019-03-30] MEDS: Sucralfate 1 GM/10 ML UDCUP PO SCH ×4 (09:31→20:22)
[2019-03-30] MEDS: Venlafaxine HCl XR 150 MG CAP PO SCH ×2 (09:31→20:19)
[2019-03-30] MEDS: Digoxin 0.125 MG TAB PO SCH (20:18)
[2019-03-30] MEDS: Simvastatin 40 MG TAB PO SCH (20:19)
[2019-03-30] MEDS: clonazePAM 0.5 MG TAB PO SCH (20:20)
--- NOTE | 2019-03-30 21:27 | HP ---
REASON FOR ADMISSION: Skilled rehab at [facility] Swing bed post hospitalization. HISTORY OF PRESENT ILLNESS AND HOSPITAL COURSE: Ms. Negrete is a very pleasant 78-year-old female with significant history of paroxysmal atrial fibrillation, on chronic anticoagulation therapy, orthostatic hypotension syndrome, anxiety, and depression, CHF, combined systolic and diastolic. The patient had recurrent episodes of dizziness and near syncopal episode secondary to orthostatic hypotensive syndrome. She has been on Midodrine prn for this. She has been stable until since Brenden time. The patient became unresponsive prior to this hospitalization. She was lethargic with some facial droop on the left side and generalized weakness. She was then evaluated in the ER for possible CVA and was subsequently admitted for further evaluation and management at [facility] on 03/26/2019. CT of the brain was negative for any acute process. MRI of the brain was not done because of the presence of AICD and incompatibility. The patient was also diagnosed with UTI upon further evaluation in the ER. She was placed on Rocephin for empiric IV antibiotic therapy. During this period, Dr. Richmond was consulted for neurological care. The patient has had an EEG and was reported normal. The neuro felt that those episodes of near syncope/syncope were related to her orthostasis and hypotension. Cardiac likewise consulted during this hospitalization. Dr. Hernandez saw the patient and ordered echocardiogram. Her echocardiogram showed LVEF estimated at 30% to 35%. Dr. Hernandez had started the patient on Entresto. Chain Splitter had recommended to avoid diuretics or only as needed at this time. She was recommended to discontinue midodrine for her orthostatic hypotension. The patient did well over time, but she was reported to be generally weak and able to ambulate on her own. PT and OT evaluated the patient and had started walking some. But she was then deemed unable to go back home, thus family requested for further rehab in [facility] thus transferred on 03/29/2019. PAST MEDICAL HISTORY: 1. CHF, combined systolic and diastolic with EF of 30% to 35%. 2. Anxiety, depression. 3. Dysautonomic syndrome. 4. Chronic atrial fibrillation, on long-term use of Eliquis. 5. Chronic GERD. 6. Dyslipidemia. 7. Ischemic cardiomyopathy. 8. Coronary artery disease. 9. COPD. 10. Obesity PAST SURGICAL HISTORY: Exploratory laparotomy, AICD implantation, cholecystectomy, hysterectomy, and pacemaker placement. FAMILY HISTORY: No strong family history of premature artery disease, stroke, or cancer. ALLERGIES: TO VICODIN AND AARON INHIBITOR. SOCIAL HISTORY: She denies smoking, alcohol, or illicit drug use. The patient is . She lives with her daughter,Senait Marvin who acts as her MPOA. CURRENT MEDICATIONS: 1. Seroquel 25 mg at bedtime. 2. Effexor XR 150 mg twice a day. 3. Sucralfate 1 g four times a day. 4. Digoxin 125 mcg at bedtime. 5. Torsemide 10 mg p.r.n. as needed. 6. Zocor 40 mg at bedtime. 7. Pantoprazole one tab twice daily. 8. Metoprolol tartrate 12.5 mg p.o. b.i.d. 9. Clonazepam 0.5 mg p.o. nightly. 10. Cholecalciferol 1000 mg p.o. daily. 11. Throat lozenges p.o. q.2 hours p.r.n. 12. Artificial Tears two drops each eye p.r.n. 13. Apixaban 2.5 mg p.o. b.i.d. 14. Alprazolam 0.25 mg p.o. t.i.d. p.r.n. 15. Acetaminophen 650 mg p.o. q.4 hours p.r.n. 16. Potassium chloride 10 mEq daily p.r.n. with torsemide intake. 17. Entresto 24/26 mg p.o. b.i.d. 18. Simvastatin 40 mg p.o. nightly. REVIEW OF SYSTEMS: GENERAL: Denies fever and chills. Reports fatigue and general weakness. HEENT: No acute visual changes or hearing changes. RESPIRATORY: No shortness of breath, sputum production, or chronic cough. Pain with breathing or wheezing. CARDIAC: No active chest pain, dyspnea on exertion, paroxysmal nocturnal dyspnea. Reports intermittent leg swelling. GENITOURINARY: No dysuria, hematuria, frequency, urgency, incontinence, or gross hematuria. MUSCULOSKELETAL: Denies arthralgia, myalgia, or joint swelling. SKIN: No rashes. No lesions. No history of nonhealing ulcers. PSYCH: Reports anxiety, chronic depressive symptoms. Denies insomnia, suicidal thoughts, ideations, or plans. PHYSICAL EXAMINATION: VITAL SIGNS: Blood pressure 144/81, temperature 97.4, pulse 81, respiration 18 , and O2 sats 95%. Weight 203 pounds and 3 ounces, height 5 feet 7 inches. GENERAL: The patient is awake, alert, and oriented x3, comfortable on exam, not in acute distress. No family is at bedside by the time of examination. HEENT: Normocephalic and atraumatic. PERRL. Intact EOM. Anicteric sclerae. Oral mucosa is moist. NECK: Supple. No LAD. Flat JVD. No carotid bruit. CHEST: Normal excursion. Nonlabored breathing. LUNGS: Clear to auscultation bilaterally. CARDIAC: RRR. Rate controlled. Normal S1 and S2. ABDOMEN: Obese and soft. Normoactive bowel sounds. Nondistended, nontender. No rebound or guarding. Negative CVA tenderness bilaterally. EXTREMITIES: No edema. No cyanosis. NEUROLOGIC: Nonfocal. DTRs 2+. Unsteady gait. PSYCHIATRIC: Appears calm with appropriate demeanor, pleasant, interactive, nonsuicidal. LABORATORY STUDIES: Recent labs or tests; echocardiogram with EF of 30% to 35% on 03/27/2019. Carotid ultrasound on 03/27/2019, no hemodynamically significant stenosis. Electrophysiology procedure normal awake EEG. Chest x-ray on 2019, no acute process. White count on 03/27/2019, 11.1 with hemoglobin 14, hematocrit 42.5, platelets 271. Chemistry: Sodium 138, potassium 3.6, BUN 19, creatinine 0.83, estimated GFR 67, calcium 9.6. Lactic acid on 03/26/2019, 1.6. Triglycerides 211, LDL 115, cholesterol 195. Cortisol on 03/28/2019, 6.30, HDL 38. Troponin on 03/26/2019, 0.034 at 1455 hours, at 1758 hours 0.018, at 2045 hours, 0.36. No bacterial growth on blood cultures and no urine growth at 36 hours of urine. ASSESSMENT: 1. Deconditioning secondary to general weakness. 2. Cardiomyopathy with mixed picture of systolic and diastolic heart failure, EF of 30% to 35% as of 03/27/2019. 3. Orthostatic hypotension, presenting as episodes of altered mental status, improved. 4. Urinary tract infection was ruled out with negative urine culture. 5. Dysautonomic syndrome. 6. Anxiety and depression. 7. Chronic atrial fibrillation, rate controlled on long-term use of Eliquis. 8. Pacemaker/defibrillator in situ. 9. Dyslipidemia. 10. Unsteady gait. PLAN: 1. The patient is admitted to [facility] for skilled rehab. We will refer to PT and OT. Continue all current medications as modified per list. We will continue to monitor BP in a standing position to rule out orthostatic hypotension. I discussed patient's new medications, adverse effects of Entresto to include, but not limited to orthostatic hypotension, dizziness, which she already had. At this point, the patient reports no recurrence of the above symptoms. We will continue to monitor. 2. Diet, heart healthy. 3. Activity to be determined by the therapist. 4. GI prophylaxis. The patient is already on PPI. 5. DVT prophylaxis. The patient is already on Eliquis for anticoagulation. 6. Further recommendations depending on the hospital course. ESTIMATED LENGTH OF STAY: 2 to 3 weeks. CODE STATUS: The patient reports DNAR, which is consistent with patient's previous DNR status with previous hospitalizations. Job ID: [id number] [facility]
[2019-03-31] MEDS: Sucralfate 1 GM/10 ML UDCUP PO SCH ×4 (08:42→20:26)
[2019-03-31] MEDS: Metoprolol Tartrate 25 MG TAB PO SCH ×2 (08:43→20:29)
[2019-03-31] MEDS: Apixaban 5 MG TAB PO SCH ×2 (08:43→20:28)
[2019-03-31] MEDS: Venlafaxine HCl XR 150 MG CAP PO SCH ×2 (08:43→20:27)
[2019-03-31] MEDS ORDERED: Polyethylene Glycol 3350 17 GM Packet PO SCH (13:30)
[2019-03-31] MEDS: ALPRAZolam 0.25 MG TAB PO PRN (19:16)
[2019-03-31] MEDS: clonazePAM 0.5 MG TAB PO SCH (20:27)
[2019-03-31] MEDS: Simvastatin 40 MG TAB PO SCH (20:27)
[2019-03-31] MEDS: Digoxin 0.125 MG TAB PO SCH (20:28)
[2019-04-01] MEDS: Polyethylene Glycol 3350 17 GM Packet PO SCH (09:31)
[2019-04-01] MEDS: Venlafaxine HCl XR 150 MG CAP PO SCH ×2 (09:31→20:04)
[2019-04-01] MEDS: Sucralfate 1 GM/10 ML UDCUP PO SCH ×4 (09:31→20:03)
[2019-04-01] MEDS: Apixaban 5 MG TAB PO SCH ×2 (09:31→20:03)
[2019-04-01] MEDS: Metoprolol Tartrate 25 MG TAB PO SCH ×2 (09:31→20:03)
[2019-04-01] MEDS: Acetaminophen 325 MG TAB PO PRN (15:08)
[2019-04-01] MEDS: clonazePAM 0.5 MG TAB PO SCH (20:02)
[2019-04-01] MEDS: Simvastatin 40 MG TAB PO SCH (20:03)
[2019-04-01] MEDS: Digoxin 0.125 MG TAB PO SCH (20:04)
[2019-04-02] MEDS: Apixaban 5 MG TAB PO SCH ×2 (08:21→21:03)
[2019-04-02] MEDS: Venlafaxine HCl XR 150 MG CAP PO SCH ×2 (08:22→21:10)
[2019-04-02] MEDS: Sucralfate 1 GM/10 ML UDCUP PO SCH ×4 (08:22→21:07)
[2019-04-02] MEDS: Polyethylene Glycol 3350 17 GM Packet PO SCH (08:22)
[2019-04-02] MEDS: Metoprolol Tartrate 25 MG TAB PO SCH ×3 (08:23→21:06)
[2019-04-02] MEDS: Ondansetron ODT 4 MG TAB PO PRN (11:39)
[2019-04-02] MEDS: clonazePAM 0.5 MG TAB PO SCH (21:02)
[2019-04-02] MEDS: Digoxin 0.125 MG TAB PO SCH (21:03)
[2019-04-02] MEDS: Simvastatin 40 MG TAB PO SCH (21:05)
[2019-04-03] MEDS: Sucralfate 1 GM/10 ML UDCUP PO SCH ×4 (08:25→21:27)
[2019-04-03] MEDS: Venlafaxine HCl XR 150 MG CAP PO SCH ×2 (08:25→21:26)
[2019-04-03] MEDS: Apixaban 5 MG TAB PO SCH ×2 (08:25→21:27)
[2019-04-03] MEDS: Polyethylene Glycol 3350 17 GM Packet PO SCH (08:25)
[2019-04-03] MEDS: Metoprolol Tartrate 25 MG TAB PO SCH ×2 (12:33→21:27)
[2019-04-03] MEDS: clonazePAM 0.5 MG TAB PO SCH (21:25)
[2019-04-03] MEDS: Digoxin 0.125 MG TAB PO SCH (21:26)
[2019-04-03] MEDS: Simvastatin 40 MG TAB PO SCH (21:27)
[2019-04-03] MEDS: Acetaminophen 325 MG TAB PO PRN (21:47)
[2019-04-04] MEDS: Polyethylene Glycol 3350 17 GM Packet PO SCH (08:29)
[2019-04-04] MEDS: Metoprolol Tartrate 25 MG TAB PO SCH ×3 (08:29→21:10)
[2019-04-04] MEDS: Torsemide 20 MG TAB PO PRN (08:29)
[2019-04-04] MEDS: Apixaban 5 MG TAB PO SCH ×2 (08:30→21:08)
[2019-04-04] MEDS: Venlafaxine HCl XR 150 MG CAP PO SCH ×2 (08:30→21:12)
[2019-04-04] MEDS: Sucralfate 1 GM/10 ML UDCUP PO SCH ×4 (08:32→21:07)
[2019-04-04] MEDS: Digoxin 0.125 MG TAB PO SCH (21:09)
[2019-04-04] MEDS: clonazePAM 0.5 MG TAB PO SCH (21:09)
[2019-04-04] MEDS: Simvastatin 40 MG TAB PO SCH (21:12)
[2019-04-05] MEDS: Apixaban 5 MG TAB PO SCH ×2 (08:35→21:24)
[2019-04-05] MEDS: Metoprolol Tartrate 25 MG TAB PO SCH ×2 (08:35→21:39)
[2019-04-05] MEDS: Venlafaxine HCl XR 150 MG CAP PO SCH ×2 (08:35→21:21)
[2019-04-05] MEDS: Polyethylene Glycol 3350 17 GM Packet PO SCH (08:36)
[2019-04-05] MEDS: Sucralfate 1 GM/10 ML UDCUP PO SCH ×4 (08:36→21:21)
[2019-04-05 11:39] LABS: Bilirubin Negative (Negative); Blood, Urine Negative (Negative); Clarity Clear (Clear); Glucose, Urine (Dipstick) Negative (Negative); Leukocyte Negative (Negative); Nitrite Negative (Negative); Protein, Urine (Dipstick) Negative (Neg-Trace); Urobilinogen 0.2 mg/dL (Less than 2)
[2019-04-05 11:45] LABS: Bacteria/HPF Rare-Few HPF (None Seen); RBC/HPF 0-3 HPF (0-3); WBC/HPF 0-3 HPF (0-3); Yeast-Budding Rare HPF (None Seen)
[2019-04-05 11:46] LABS: Urine Culture Reflex No No
[2019-04-05] MEDS: Simvastatin 40 MG TAB PO SCH (21:22)
[2019-04-05] MEDS: Digoxin 0.125 MG TAB PO SCH (21:24)
[2019-04-05] MEDS: clonazePAM 0.5 MG TAB PO SCH (21:24)
[2019-04-05] MEDS: Miconazole 2% Vaginal Cream 45 GM TUBE VAG SCH (21:38)
[2019-04-06] MEDS: Apixaban 5 MG TAB PO SCH ×2 (09:30→21:31)
[2019-04-06] MEDS: Metoprolol Tartrate 25 MG TAB PO SCH ×2 (09:32→21:33)
[2019-04-06] MEDS: Polyethylene Glycol 3350 17 GM Packet PO SCH (09:33)
[2019-04-06] MEDS: Sucralfate 1 GM/10 ML UDCUP PO SCH ×4 (09:34→21:35)
[2019-04-06] MEDS: Venlafaxine HCl XR 150 MG CAP PO SCH ×2 (09:34→21:35)
[2019-04-06] MEDS: Torsemide 20 MG TAB PO PRN (16:45)
[2019-04-06] MEDS: clonazePAM 0.5 MG TAB PO SCH (21:32)
[2019-04-06] MEDS: Digoxin 0.125 MG TAB PO SCH (21:32)
[2019-04-06] MEDS: Miconazole 2% Vaginal Cream 45 GM TUBE VAG SCH (21:35)
[2019-04-06] MEDS: Simvastatin 40 MG TAB PO SCH (21:35)
[2019-04-07] MEDS: Polyethylene Glycol 3350 17 GM Packet PO SCH (08:49)
[2019-04-07] MEDS: Apixaban 5 MG TAB PO SCH ×2 (08:51→21:30)
[2019-04-07] MEDS: Venlafaxine HCl XR 150 MG CAP PO SCH ×2 (08:53→21:32)
[2019-04-07] MEDS: Sucralfate 1 GM/10 ML UDCUP PO SCH ×4 (08:53→21:32)
[2019-04-07] MEDS: Metoprolol Tartrate 25 MG TAB PO SCH ×2 (09:00→21:33)
[2019-04-07] MEDS: ALPRAZolam 0.25 MG TAB PO PRN (13:43)
[2019-04-07] MEDS: Acetaminophen 325 MG TAB PO PRN (17:41)
[2019-04-07] MEDS: clonazePAM 0.5 MG TAB PO SCH (21:31)
[2019-04-07] MEDS: Digoxin 0.125 MG TAB PO SCH (21:31)
[2019-04-07] MEDS: Simvastatin 40 MG TAB PO SCH (21:32)
[2019-04-07] MEDS: Miconazole 2% Vaginal Cream 45 GM TUBE VAG SCH (21:35)
[2019-04-08 06:19] LABS: Hemoglobin 12.8 g/dL (12.0-16.0); Platelet Count 265 thou/uL (130-400)
[2019-04-08] MEDS: Polyethylene Glycol 3350 17 GM Packet PO SCH (08:46)
[2019-04-08] MEDS: Venlafaxine HCl XR 150 MG CAP PO SCH ×2 (08:46→21:32)
[2019-04-08] MEDS: Metoprolol Tartrate 25 MG TAB PO SCH (08:47)
[2019-04-08] MEDS: Apixaban 5 MG TAB PO SCH ×2 (08:47→21:30)
[2019-04-08] MEDS: Sucralfate 1 GM/10 ML UDCUP PO SCH ×4 (08:48→21:32)
[2019-04-08] MEDS: clonazePAM 0.5 MG TAB PO SCH (21:31)
[2019-04-08] MEDS: Simvastatin 40 MG TAB PO SCH (21:33)
[2019-04-08] MEDS: Digoxin 0.125 MG TAB PO SCH (21:34)
[2019-04-08] MEDS: Acetaminophen 325 MG TAB PO PRN (21:35)
[2019-04-09] MEDS: Sucralfate 1 GM/10 ML UDCUP PO SCH ×4 (09:34→21:19)
[2019-04-09] MEDS: Venlafaxine HCl XR 150 MG CAP PO SCH ×2 (09:36→21:18)
[2019-04-09] MEDS: Polyethylene Glycol 3350 17 GM Packet PO SCH (09:37)
[2019-04-09] MEDS: Apixaban 5 MG TAB PO SCH ×2 (09:37→21:20)
[2019-04-09 12:31] LABS: Body Surface Area 2.07
[2019-04-09 12:32] LABS: Creatinine, Urine 99.89 mg/dL (47-110)
[2019-04-09] MEDS: Ondansetron ODT 4 MG TAB PO PRN (18:26)
[2019-04-09] MEDS: Simvastatin 40 MG TAB PO SCH (21:19)
[2019-04-09] MEDS: Digoxin 0.125 MG TAB PO SCH (21:20)
[2019-04-09] MEDS: clonazePAM 0.5 MG TAB PO SCH (21:20)
[2019-04-10] MEDS: Polyethylene Glycol 3350 17 GM Packet PO SCH (09:29)
[2019-04-10] MEDS: Apixaban 5 MG TAB PO SCH ×2 (09:30→20:06)
[2019-04-10] MEDS: Sucralfate 1 GM/10 ML UDCUP PO SCH ×4 (09:31→20:07)
[2019-04-10] MEDS: Venlafaxine HCl XR 150 MG CAP PO SCH ×2 (09:31→20:06)
[2019-04-10] MEDS: Acetaminophen 325 MG TAB PO PRN (19:32)
[2019-04-10] MEDS: clonazePAM 0.5 MG TAB PO SCH (20:04)
[2019-04-10] MEDS: Simvastatin 40 MG TAB PO SCH (20:06)
[2019-04-10] MEDS: Digoxin 0.125 MG TAB PO SCH (20:06)
[2019-04-11] MEDS: Sucralfate 1 GM/10 ML UDCUP PO SCH ×4 (09:02→20:09)
[2019-04-11] MEDS: Venlafaxine HCl XR 150 MG CAP PO SCH ×2 (09:02→20:09)
[2019-04-11] MEDS: Apixaban 5 MG TAB PO SCH ×2 (09:02→20:09)
[2019-04-11] MEDS: Polyethylene Glycol 3350 17 GM Packet PO SCH (09:03)
[2019-04-11] MEDS: clonazePAM 0.5 MG TAB PO SCH (20:08)
[2019-04-11] MEDS: Acetaminophen 325 MG TAB PO PRN (20:08)
[2019-04-11] MEDS: Simvastatin 40 MG TAB PO SCH (20:09)
[2019-04-11] MEDS: Digoxin 0.125 MG TAB PO SCH (20:09)
[2019-04-12] MEDS: Apixaban 5 MG TAB PO SCH ×2 (08:35→21:21)
[2019-04-12] MEDS: Sucralfate 1 GM/10 ML UDCUP PO SCH ×4 (08:35→21:22)
[2019-04-12] MEDS: Polyethylene Glycol 3350 17 GM Packet PO SCH (08:35)
[2019-04-12] MEDS: Venlafaxine HCl XR 150 MG CAP PO SCH ×2 (08:36→21:22)
[2019-04-12] MEDS: Acetaminophen 325 MG TAB PO PRN ×2 (18:24→22:45)
[2019-04-12] MEDS: ALPRAZolam 0.25 MG TAB PO PRN (18:27)
[2019-04-12] MEDS: clonazePAM 0.5 MG TAB PO SCH (21:21)
[2019-04-12] MEDS: Digoxin 0.125 MG TAB PO SCH (21:21)
[2019-04-12] MEDS: Simvastatin 40 MG TAB PO SCH (21:22)
[2019-04-13] MEDS: Apixaban 5 MG TAB PO SCH ×3 (09:25→20:47)
[2019-04-13] MEDS: Sucralfate 1 GM/10 ML UDCUP PO SCH ×4 (09:25→20:48)
[2019-04-13] MEDS: Polyethylene Glycol 3350 17 GM Packet PO SCH ×2 (09:25→12:07)
[2019-04-13] MEDS: Venlafaxine HCl XR 150 MG CAP PO SCH ×3 (09:26→20:47)
[2019-04-13] MEDS: Simvastatin 40 MG TAB PO SCH (20:47)
[2019-04-13] MEDS: clonazePAM 0.5 MG TAB PO SCH (20:47)
[2019-04-13] MEDS: Digoxin 0.125 MG TAB PO SCH (20:47)
[2019-04-14] MEDS: Sucralfate 1 GM/10 ML UDCUP PO SCH ×4 (08:45→20:35)
[2019-04-14] MEDS: Polyethylene Glycol 3350 17 GM Packet PO SCH (08:46)
[2019-04-14] MEDS: Apixaban 5 MG TAB PO SCH ×2 (08:46→20:33)
[2019-04-14] MEDS: Venlafaxine HCl XR 150 MG CAP PO SCH ×2 (08:47→20:34)
[2019-04-14] MEDS: Digoxin 0.125 MG TAB PO SCH (20:34)
[2019-04-14] MEDS: Simvastatin 40 MG TAB PO SCH (20:34)
[2019-04-14] MEDS: clonazePAM 0.5 MG TAB PO SCH (20:34)
[2019-04-14] MEDS: Acetaminophen 325 MG TAB PO PRN (20:37)
[2019-04-15 06:50] LABS: Hemoglobin 12.3 g/dL (12.0-16.0)
[2019-04-15 06:51] LABS: Platelet Count 257 thou/uL (130-400)
[2019-04-15] MEDS: Apixaban 5 MG TAB PO SCH ×2 (08:36→21:01)
[2019-04-15] MEDS: Sucralfate 1 GM/10 ML UDCUP PO SCH ×4 (08:36→21:03)
[2019-04-15] MEDS: Polyethylene Glycol 3350 17 GM Packet PO SCH (08:37)
[2019-04-15] MEDS: Venlafaxine HCl XR 150 MG CAP PO SCH ×2 (08:37→21:02)
[2019-04-15 14:19] VITALS: BMI 32.9
[2019-04-15] MEDS: clonazePAM 0.5 MG TAB PO SCH (21:01)
[2019-04-15] MEDS: Digoxin 0.125 MG TAB PO SCH (21:02)
[2019-04-15] MEDS: Simvastatin 40 MG TAB PO SCH (21:02)
[2019-04-15] MEDS: Acetaminophen 325 MG TAB PO PRN (21:03)
[2019-04-16] MEDS: Sucralfate 1 GM/10 ML UDCUP PO SCH ×4 (08:39→20:26)
[2019-04-16] MEDS: Venlafaxine HCl XR 150 MG CAP PO SCH ×2 (08:57→20:26)
[2019-04-16] MEDS: Apixaban 5 MG TAB PO SCH ×2 (08:58→20:25)
[2019-04-16] MEDS: Polyethylene Glycol 3350 17 GM Packet PO SCH (08:58)
[2019-04-16] MEDS: Acetaminophen 325 MG TAB PO PRN ×2 (13:38→20:25)
[2019-04-16] MEDS: clonazePAM 0.5 MG TAB PO SCH (20:25)
[2019-04-16] MEDS: Simvastatin 40 MG TAB PO SCH (20:25)
[2019-04-16] MEDS: Digoxin 0.125 MG TAB PO SCH (20:26)
[2019-04-17] MEDS: Polyethylene Glycol 3350 17 GM Packet PO SCH (08:02)
[2019-04-17] MEDS: Venlafaxine HCl XR 150 MG CAP PO SCH ×2 (08:02→20:10)
[2019-04-17] MEDS: Apixaban 5 MG TAB PO SCH ×2 (08:02→20:10)
[2019-04-17] MEDS: Sucralfate 1 GM/10 ML UDCUP PO SCH ×4 (08:02→20:11)
[2019-04-17] MEDS: Acetaminophen 325 MG TAB PO PRN (14:12)
[2019-04-17] MEDS: clonazePAM 0.5 MG TAB PO SCH (20:09)
[2019-04-17] MEDS: Digoxin 0.125 MG TAB PO SCH (20:10)
[2019-04-17] MEDS: Simvastatin 40 MG TAB PO SCH (20:11)
[2019-04-18 08:43] VITALS: BP 123/77; TEMP 97.8
[2019-04-18] MEDS: Apixaban 5 MG TAB PO SCH (09:05)
[2019-04-18] MEDS: Venlafaxine HCl XR 150 MG CAP PO SCH (09:06)
[2019-04-18] MEDS: Sucralfate 1 GM/10 ML UDCUP PO SCH ×2 (09:06→12:49)
[2019-04-18] MEDS: Polyethylene Glycol 3350 17 GM Packet PO SCH (09:06)
--- NOTE | 2019-04-18 20:32 | DIS ---
DATE OF ADMISSION: 03/29/2019 DATE OF DISCHARGE: 04/18/2019 PRIMARY CARE PHYSICIAN: Barb Mayers MD. GLASS FURNACE TENDER: Dr. Hernandez. NEUROLOGIST: Dr. Richmond. PSYCHIATRY: at [place], Dr. Arrieta. REASON FOR ADMISSION: Deconditioning secondary to general weakness from recent hospitalization. FINAL DIAGNOSES: 1. Deconditioning secondary to general weakness. 2. Cardiomyopathy with mixed picture of systolic and diastolic heart failure with ejection fraction of 30% to 35% on 03/27/2019 echocardiogram. 3. Orthostatic hypotension, drug-induced versus dysautonomic syndrome, stable. 4. Chronic atrial fibrillation, rate controlled. 5. Pacemaker in situ. 6. Anxiety and depression, chronic. 7. Unsteady gait. 8. Long-term use of Eliquis. 9. Syncopal episode, resolved. MEDICATIONS: 1. Entresto 24/26 mg p.o. at bedtime. 2. Metoprolol 12.5 mg p.o. daily. 3. Effexor 150 mg p.o. twice daily. 4. Seroquel 25 mg at bedtime. 5. Digoxin 125 mcg at bedtime. 6. Torsemide 10 mg p.o. daily p.r.n. for volume retention and leg edema. 7. Zocor 40 mg p.o. at bedtime. 8. Pantoprazole 1 tablet b.i.d. 9. Clonazepam 0.5 mg p.o. at bedtime. 10. Cholecalciferol 1000 mg p.o. daily. 11. Artificial Tears drop each eye p.r.n. 12. Apixaban 2.5 mg p.o. b.i.d. 13. Alprazolam 0.25 mg p.o. b.i.d. p.r.n. 14. Acetaminophen 650 mg p.o. q.4 hours p.r.n. 15. Potassium chloride 10 mEq p.o. daily p.r.n. with torsemide intake. CONDITION ON DISCHARGE: Stable. DISPOSITION: Home with daughter. DIET: Low salt, low fat. ACTIVITY: 1. To use rolling walker at all times, fall precautions. 2. Follow up with Dr. Mayers in 1 to 2 weeks as scheduled. 3. Follow up with Dr. Hernandez on 04/29/2019 as scheduled. 4. Follow up with Dr. Richmond on 04/25 for neuro care. 5. Referred to [facility] per patient's choice (has had it before) for long term, PT, OT eval and treat. HISTORY OF THE PRESENT ILLNESS AND HOSPITAL COURSE: Ms. Negrete is a very pleasant 78-year-old female with multiple chronic medical conditions including paroxysmal atrial fibrillation, on chronic anticoagulation therapy, dysautonomic orthostatic hypotension syndrome, anxiety, depression, CHF, combined systolic and diastolic, unsteadiness of gait. The patient had recurrent episode of dizziness, near syncopal episode secondary to orthostatic hypotensive syndrome. She had been on midodrine in the past for this. Overall, symptoms have been stable until last Brenden time. The patient reports an episode of unresponsiveness prior to this hospitalization. This was associated with lethargy, some facial drooping of the left side and generalized weakness. She was initially evaluated in the ER for possible CVA and was subsequently admitted for further evaluation and observation at [facility] on 03/26/2019. Imaging studies including CT of the brain and EEG were unremarkable. She has had a cardiac eval by Dr. Hernandez and echocardiogram was repeated. Her latest echo cardiogram showed LVEF estimated at 30% to 35%. The patient was started on Entresto by Dr. Hernandez. Her midodrine and diuretics were discontinued. Dr. Richmond was likewise consulted for Neurology care. Per neuro's notes, the syncopal episode or near syncope were related to her orthostasis and hypotension more than anything. The patient was deemed stable to be discharged, but very weak and deconditioned, so patient was transferred to [facility] Bed for skilled rehab. The patient did well in rehab over time. She has had episodes of dizzy spells associated sometimes with orthostatic hypotension, sometimes not. Her Entresto was initially titrated down as well as her beta nicole in consultation with Dr. Hernandez. The patient's blood pressure has stabilized with metoprolol 12.5 mg daily and Entresto 24/26 daily. The patient remained to have intermittent episodes of dizzy spells, which may or may not be related to the status of her blood pressure. There was a concern from the daughter that there are times patient was noted to have blank stares for few seconds to minutes and it is happening persistently every now and then. There was no recorded, witnessed episodes by the nursing staff or the attending physician. Given the apparent concern, I recommended the patient to follow up with Dr. Richmond for further neuro evaluation. An appointment was set up for Dr. Richmond's PA on April 25, 2019. Prior to discharge, patient is walking about 400 feet using a four-wheel walker with standby assist and contact guard assist. The patient reports that she feels much stronger with only minimal fatigue every now and then with exertion. On 04/18/2019, patient is adamant to go home. Daughter, Senait, who acts as the terrazzo journeyman is comfortable with this. She is recommended to continue therapy with home health. She is also going to follow up with Dr. Hernandez for cardio and Dr. Arrieta for psych care. PHYSICAL EXAMINATION: GENERAL: On the day of discharge, the patient is awake, alert, oriented x3 with clear breath sounds. Rate controlled. Heart rate without significant evidence of fluid retention. VITAL SIGNS: Prior to discharge; blood pressure 123/77, temperature 97.8, pulse 92, respiration 20, O2 saturation 97% on room air, weight 212 pounds and 5 ounces, height 5 feet 7 inches. Time spent on this discharge 35 minutes in examining the patient, coordinating care, and med reconciliation with the family and counseling. Job ID: [id number]
== END 2019-04-18 13:00 | disposition home or self-care (01) | DRG 92 ==
LOC: MADMS 14:25
PROVIDERS: ADMIT Family Medicine; ATTEND Family Medicine
DX: G90.1 Familial dysautonomia [Riley-Day] (principal); I50.42 Chronic combined systolic (congestive) and diastolic (congestive) heart failure; I48.20 Chronic atrial fibrillation, unspecified; I11.0 Hypertensive heart disease with heart failure; F41.9 Anxiety disorder, unspecified; F32.9 Major depressive disorder, single episode, unspecified; K21.9 Gastro-esophageal reflux disease without esophagitis; Z79.02 Long term (current) use of antithrombotics/antiplatelets; E78.5 Hyperlipidemia, unspecified; I25.10 Atherosclerotic heart disease of native coronary artery without angina pectoris; E66.9 Obesity, unspecified; Z95.810 Presence of automatic (implantable) cardiac defibrillator; Z79.899 Other long term (current) drug therapy; R53.81 Other malaise; R26.81 Unsteadiness on feet; Z66 Do not resuscitate; E11.9 Type 2 diabetes mellitus without complications; Z79.4 Long term (current) use of insulin; I25.5 Ischemic cardiomyopathy; Z79.01 Long term (current) use of anticoagulants; I95.2 Hypotension due to drugs
CPT/HCPCS: 36415; 81001; 82575; 85014; 85018; 85049; Q0162

== ENCOUNTER 2019-06-26 11:04 | Emergency (ER) | payer MEDICARE, OTHER ==
[2019-06-26 12:03] LABS: #Basophils 0.2 thou/uL (0.0-0.2); #Eosinphils 0.4 thou/uL (0.0-0.7); #Lymphocytes 4.3 thou/uL (1.20-3.40); #Monocytes 1.1 thou/uL (0.11-0.59); #Neutrophils 6.8 thou/uL (1.40-6.50); %Basophils 1.5 % (0.0-1.0); %Eosinophils 2.9 % (0.0-10.0); %Lymphocytes 33.6 % (21.0-51.0); %Monocytes 8.3 % (0.0-10.0); %Neutrophils 53.7 % (42.0-75.0); Hemoglobin 12.9 g/dL (12.0-16.0); Mean Corpuscular HGB CONC 32.6 g/dL (32.0-36.0); Mean Corpuscular Hemoglobin 30.4 pg (27.0-31.0); Mean Corpuscular Volume 93.3 fL (78.0-98.0); Mean Platelet Volume 9.3 fL (7.4-10.4); Platelet Count 246 thou/uL (130-400); RBC Distribution Width 13.5 % (11.5-14.5); Red Blood Cell (RBC) Count 4.23 mill/uL (4.20-5.40); White Blood Cell (WBC) Count 12.7 thou/uL (4.8-10.8)
[2019-06-26 12:21] LABS: ALT (SGPT) 15 U/L (8-55); Alkaline Phosphatase 77 U/L (40-110); Anion Gap 17 mmol/L (10-20); BUN (Urea Nitrogen) 28 mg/dL (9.8-20.1); Bilirubin, Total 0.2 mg/dL (0.2-1.2); Calc. Creatinine Clearance 0 mL/min (70-130); Carbon Dioxide 25 mmol/L (23-31); Chloride 102 mmol/L (98-107); Estimated GFR-MDRD 57; Globulin 3.4 g/dL (2.4-3.5); Glucose 103 mg/dL (83-110); Lipase 133 U/L (8-78); Potassium 4.7 mmol/L (3.5-5.1); Protein, Total 7.4 g/dL (6.0-8.3); Sodium 139 mmol/L (136-145)
[2019-06-26 12:22] LABS: AST (SGOT) 20 U/L (5-34)
--- NOTE | 2019-06-26 12:47 | RAD ---
CHEST 1 VIEW: Date: 06/26/2019 INDICATION: 79-year-old female with cough. COMPARISON: Prior exam dated 03/26/2019. FINDINGS: Lungs are clear. Mild cardiomegaly is stable. Pacemaker is unchanged. No acute osseous abnormality is evident. IMPRESSION: No acute cardiopulmonary abnormality. POS: BH
[2019-06-26 15:22] LABS: Bilirubin Negative (Negative); Blood, Urine Negative (Negative); Clarity Hazy (Clear); Glucose, Urine (Dipstick) Negative (Negative); Leukocyte Negative (Negative); Nitrite Negative (Negative); Protein, Urine (Dipstick) Negative (Neg-Trace); Urobilinogen 0.2 mg/dL (Less than 2)
== END 2019-06-26 16:23 | disposition home or self-care (01) ==
LOC: MADERS 11:04
DX: E86.0 Dehydration (principal); I25.10 Atherosclerotic heart disease of native coronary artery without angina pectoris; I48.91 Unspecified atrial fibrillation; E78.5 Hyperlipidemia, unspecified; I10 Essential (primary) hypertension; Z79.899 Other long term (current) drug therapy; Z20.828 Contact with and (suspected) exposure to other viral communicable diseases
CPT/HCPCS: 71045; 80053; 81003; 82550; 83605; 83690; 83880; 84484; 85025; 87804 ×2; 93005; 96360; 96361; 99285; U0002; 36415; 87635; J7050; U0003

== ENCOUNTER 2019-07-10 10:04 | Inpatient (IN) | payer MEDICARE ==
[2019-07-10 11:06] LABS: #Basophils 0.2 thou/uL (0.0-0.2); #Eosinphils 0.3 thou/uL (0.0-0.7); #Neutrophils 6.3 thou/uL (1.40-6.50); %Basophils 1.3 % (0.0-1.0); %Eosinophils 2.5 % (0.0-10.0); %Lymphocytes 33.9 % (21.0-51.0); %Monocytes 8.8 % (0.0-10.0); %Neutrophils 53.5 % (42.0-75.0); Hemoglobin 13.4 g/dL (12.0-16.0); Mean Corpuscular HGB CONC 32.2 g/dL (32.0-36.0); Mean Corpuscular Hemoglobin 30.1 pg (27.0-31.0); Mean Corpuscular Volume 93.2 fL (78.0-98.0); Mean Platelet Volume 8.5 fL (7.4-10.4); Platelet Count 286 thou/uL (130-400); RBC Distribution Width 12.7 % (11.5-14.5); Red Blood Cell (RBC) Count 4.47 mill/uL (4.20-5.40); White Blood Cell (WBC) Count 11.8 thou/uL (4.8-10.8)
[2019-07-10] MEDS ORDERED: Acetaminophen 500 MG TAB ONE (11:07)
[2019-07-10 11:19] LABS: ALT (SGPT) 15 U/L (8-55); AST (SGOT) 14 U/L (5-34); Alkaline Phosphatase 81 U/L (40-110); Anion Gap 17 mmol/L (10-20); BUN (Urea Nitrogen) 21 mg/dL (9.8-20.1); Bilirubin, Total 0.4 mg/dL (0.2-1.2); Calc. Creatinine Clearance 0 mL/min (70-130); Calcium 9.4 mg/dL (7.8-10.44); Carbon Dioxide 26 mmol/L (23-31); Chloride 99 mmol/L (98-107); Estimated GFR-MDRD 54; Globulin 2.8 g/dL (2.4-3.5); Glucose 108 mg/dL (83-110); Lipase 223 U/L (8-78); Potassium 3.9 mmol/L (3.5-5.1); Protein, Total 6.8 g/dL (6.0-8.3); Sodium 138 mmol/L (136-145)
[2019-07-10 11:50] LABS: Bilirubin Small (Negative); Blood, Urine Negative (Negative); Clarity Slightly Cloudy (Clear); Glucose, Urine (Dipstick) Negative (Negative); Leukocyte Negative (Negative); Nitrite Negative (Negative); Protein, Urine (Dipstick) Trace mg/dL (Neg-Trace); Urobilinogen 0.2 mg/dL (Less than 2)
[2019-07-10 12:37] VITALS: BMI 33.0
[2019-07-10] MEDS ORDERED: Ondansetron PF 4 MG/2 ML Vial SLOW IVP PRN (12:56)
[2019-07-10] MEDS ORDERED: Sodium Chloride 0.9% 1,000 ML IV SCH (12:56)
[2019-07-10] MEDS ORDERED: Acetaminophen 325 MG TAB PO PRN ×2 (12:56→19:02)
[2019-07-10] MEDS ORDERED: Morphine 2 MG/ML SYRINGE SLOW IVP PRN (12:59)
[2019-07-10] MEDS ORDERED: Morphine 4 MG/ML VIAL SLOW IVP PRN (13:00)
[2019-07-10] MEDS: Sodium Chloride 0.9% 1,000 ML IV SCH (17:35)
[2019-07-10] MEDS ORDERED: Ondansetron ODT 4 MG TAB PO PRN (18:55)
[2019-07-10] MEDS ORDERED: ALPRAZolam 0.25 MG TAB PO PRN (18:55)
[2019-07-10] MEDS ORDERED: Potassium Chloride 10 MEQ TAB PO PRN (18:55)
[2019-07-10] MEDS ORDERED: Torsemide 20 MG TAB PO PRN (18:55)
[2019-07-10] MEDS ORDERED: Artificial Tear Sol 15 ML BOT EA EYE PRN (19:03)
--- NOTE | 2019-07-10 19:53 | HP ---
REASON FOR ADMISSION: Persistent abdominal pain. HISTORY OF THE PRESENT ILLNESS AND HOSPITAL COURSE: Ms. Negrete is a 79-year- old female who went to the [place] ER today for evaluation of weakness. The patient reports 4-day history of generalized weakness, which is similar to her multiple prior symptoms of dehydration. The patient reports that she has a history of chronic intermittent nausea associated with or without vomiting. She has a history of chronic GERD and severe dysautonomic syndrome. The patient had another episode of GI symptoms couple weeks ago with persistent nausea associated with occasional vomiting. At that time, she was diagnosed with general weakness and dehydration and was advised for further evaluation and IV hydration. However, due to suspicion of possible COVID symptoms, the patient was recommended to be admitted in [facility] instead of [facility]. The patient opted out and went home and chose to be self-quarantined. The patient reports she did well. Her COVID virus came back negative. At that time, her lipase was 133 and was suspicious of possibility of beginning acute pancreatitis. The patient had multiple similar episodes in the past, but that needs supportive medical management with IV hydrations and antiemetic and as well. She would normally go back home and be back at her baseline. This past episode, patient reports that she did well again. Over the past 4 days, the patient started having nausea and couple times of vomiting. This is associated with epigastric pain that has become persistent. She would normally get her sucralfate and does fine. However, at this time, the patient reports that, she felt so bloated that she has to take her torsemide for diuretic. She took one dose of torsemide yesterday along with her potassium supplement and reports that she diuresed a lot. She then developed loose watery stools 4 to 5 times until yesterday. This time, the epigastric pain progressed and reports generalized abdominal pain as well, but more in the right side. This is associated with decreased appetite. The patient becomes generally weak and feels like she is dehydrated again just like her usual symptoms for this. On further examination in the ER, patient's labs showed mild leukocytosis at 11.8 thousand, no significant left shift. Her lipase went up to 223 with baseline of 133 on 06/26/2019. Liver function tests are within normal limits with BUN of 21 and creatinine of 0.99. Her urine was negative. Other tests include 12-lead EKG that showed paced rhythm. The patient was then recommended for further inpatient management of acute pancreatitis. She received IV hydration from the ER. She was deemed hemodynamically stable. There was no renal or cardiac compromise. No respiratory compromise noted and negative SIRS. When the patient was seen in the floor, the patient was resting comfortably in bed. She was asleep. No family members around. The patient was easily aroused. Above information was taken from the patient herself. She states that she feels a little better at this time. She still has the epigastric pain that is constant, but not as bad as with initial presentation. No other issues reported. PAST MEDICAL HISTORY: Systolic and diastolic combined congestive heart failure, dysautonomic syndrome, hypertension, ischemic cardiomyopathy, CAD, COPD, chronic GERD, depression, anxiety, chronic atrial fibrillation, anticoagulated with Eliquis, seizure disorder. Chronic insomnia. PAST SURGICAL HISTORY: Exploratory laparotomy, AICD implementation, cholecystectomy, hysterectomy, and pacemaker placement. FAMILY HISTORY: Noncontributory. SOCIAL HISTORY: The patient is a nonsmoker. No alcohol or illicit drug use. She is a . She has a fluid dynamicist during daytime and her daughter, Senait Marvin, is her surrogate decision maker. ALLERGIES: TO VICODIN AND AARON INHIBITOR. MEDICATIONS: 1. Acetaminophen with codeine every 6 hours as needed. 2. Alprazolam tablet 0.25 mg p.r.n. for panic attacks. 3. Eliquis 2.5 mg p.o. b.i.d. 4. Clonazepam 0.5 mg at bedtime. 5. Digoxin 125 mcg p.o. at bedtime. 6. Keppra 250 mg p.o. at bedtime for seizures. 7. Metoprolol succinate 12.5 mg p.o. at bedtime. 8. Zofran ODT 4 q. 6 hours,sublingual p.r.n. for nausea and vomiting. 9. Pantoprazole 40 mg b.i.d. 10. Potassium chloride 10 mEq p.o. daily p.r.n. when torsemide is taken. 11. Seroquel 25 mg p.o. at bedtime. 12. Entresto 24/25 mg p.o. at bedtime. 13. Sucralfate 1 g per 10 mL before meals and bedtime b.i.d. 14. Torsemide 10 mg p.o. p.r.n. with weight gain of 4 pounds or more. 15. Venlafaxine 150 mg p.o. b.i.d. 16. Simvastatin 40 mg p.o. at bedtime. REVIEW OF SYSTEMS: GENERAL: The patient denies fever or chills. Reports fatigue, general weakness, and loss of appetite. HEENT: No acute visual changes or hearing changes. No cold symptoms. Reports intermittent vertigo. RESPIRATORY: No chronic cough. No sputum production. No pain with breathing or wheezing. CARDIAC: No chest pain, paroxysmal nocturnal dyspnea, or dyspnea on exertion. Reports intermittent leg edema that is responsive for p.r.n. diuretic. GENITOURINARY: No dysuria, hematuria, frequency, urgency, or incontinence. MUSCULOSKELETAL: No joint effusion, erythema, swelling, or stiffness. NEUROLOGIC: No focal numbness or focal weakness. Reports history of seizure. SKIN: No rashes. No lesions. No jaundice. PSYCHIATRIC: Reports depressive symptoms and anxiety, stable with current medication under psych care. PHYSICAL EXAMINATION: VITAL SIGNS: Blood pressure 141/80, temperature 97.7, pulse 81, respiration 19 , O2 saturations 96% room air. Weight 210 pounds and 9.6 ounces. GENERAL: The patient is awake, alert, oriented x 3. Comfortable on exam. Generally weak looking, not in acute distress. HEENT: Normocephalic, atraumatic. PERRL. Nonicteric sclerae. Oral mucosa is dry. No oral lesions. Mustang throat. NECK: Supple. No LAD. No JVD. CHEST: Normal excursion. Nonlabored breathing. LUNGS: Clear to auscultation bilaterally. CARDIAC: Rate controlled. Normal S1 and S2. ABDOMEN: Obese, soft, nondistended. Reports generalized direct tenderness, worst pain in the mid epigastrium a No rebound. No guarding. No signs of peritonitis. No hepatosplenomegaly. Negative CVA tenderness bilaterally. No rigidity. No guarding. Negative McBurney's point tenderness. Negative Echevarria' s sign. EXTREMITIES: Trace to 1+ nonpitting edema bilaterally up to anterior tibia. Negative calf tenderness. Negative Homans signs. No erythema. No cyanosis. NEUROLOGIC: Nonfocal. Alert, oriented x3. Spontaneous speech, gait unsteady. PSYCH: Appears calm with appropriate demeanor and affect. LABORATORY DATA: WBC 11.8, hemoglobin 13.4, hematocrit 41.7, platelets 286. Chemistry; sodium 138, potassium 3.9, BUN 21, creatinine 0.99, glucose 108. Liver function tests within normal limits. Lipase 223. Albumin 4. ASSESSMENT AND PLAN: 1. Mild acute pancreatitis with absence of organ failure and local or systemic complications. 2. Chronic gastroesophageal reflux disease. 3. Congestive heart failure, combined diastolic and systolic. 4. Severe dysautonomic syndrome. 5. Chronic atrial fibrillation, status post pacemaker placement, on long-term use of Eliquis, rate controlled. 6. Anxiety, depression. 7. Chronic insomnia. 8. Obesity. The patient is admitted to Med/Surg for supportive medical management. The patient is afebrile, not in acute respiratory distress and hemodynamically stable at this time. She has no renal, cardiac, nor respiratory compromise. Negative SIRS symptoms. There is no absence of organ failure or local/systemic complications. Her symptoms are typical for acute onset of persistent severe epigastric abdominal pain with elevation of lipase at 233. We will continue IV hydration with extra caution secondary to history of systolic and diastolic CHF. The patient has history of significant intermittent marked volume retention. We will continue diuretic on a p.r.n. basis. We will keep her on n.p.o. for at least 24 to 48 hours and advance diet in a slow manner depending on the clinical presentation. Serial labs, electrolytes, and CBC. We will also include serum lipid, lactate, digoxin level , and magnesium level in the morning. We will continue close monitoring of the abdomen. Consider imaging studies only with worsening symptoms. GI prophylaxis with PPI. Patient on long-term anticoagulation of Eliquis. Discussed above findings, diagnosis and treatment options with patient at length. All her questions were answered to her satisfaction. She will be kept in [facility] for at least 3 nights. At any time, the patient will manifest symptoms of [id number] acute pancreatitis within the next 48 to 72 hours, we will highly consider transfer to tertiary care at any time. The patient voiced understanding. Further recommendations depending on the hospital course. CODE STATUS: The patient reports do not resuscitate consistent with her previous hospitalizations. Job ID: [id number] [facility]
[2019-07-10] MEDS: Atorvastatin Calcium 10 MG TAB PO SCH (20:11)
[2019-07-10] MEDS: Sucralfate 1 GM/10 ML UDCUP PO SCH (20:11)
[2019-07-10] MEDS: Venlafaxine HCl XR 150 MG CAP PO SCH (20:11)
[2019-07-10] MEDS: clonazePAM 0.5 MG TAB PO SCH (20:12)
[2019-07-10] MEDS: Digoxin 0.125 MG TAB PO SCH (20:12)
[2019-07-10] MEDS: Apixaban 2.5 MG TAB PO SCH (20:12)
[2019-07-10] MEDS: levETIRAcetam 500 mg/5 ml Oral Solution PO SCH (20:13)
[2019-07-11 05:29] LABS: #Basophils 0.1 thou/uL (0.0-0.2); #Eosinphils 0.4 thou/uL (0.0-0.7); #Monocytes 0.9 thou/uL (0.11-0.59); #Neutrophils 4.1 thou/uL (1.40-6.50); %Basophils 1.5 % (0.0-1.0); %Eosinophils 4.1 % (0.0-10.0); %Lymphocytes 42.2 % (21.0-51.0); %Monocytes 9.1 % (0.0-10.0); %Neutrophils 43.1 % (42.0-75.0); Hemoglobin 12.4 g/dL (12.0-16.0); Mean Corpuscular HGB CONC 33.3 g/dL (32.0-36.0); Mean Corpuscular Hemoglobin 30.8 pg (27.0-31.0); Mean Corpuscular Volume 92.4 fL (78.0-98.0); Mean Platelet Volume 8.9 fL (7.4-10.4); Platelet Count 273 thou/uL (130-400); RBC Distribution Width 12.5 % (11.5-14.5); Red Blood Cell (RBC) Count 4.01 mill/uL (4.20-5.40); White Blood Cell (WBC) Count 9.4 thou/uL (4.8-10.8)
[2019-07-11 05:50] LABS: ALT (SGPT) 14 U/L (8-55); AST (SGOT) 13 U/L (5-34); Albumin 3.6 g/dL (3.4-4.8); Alkaline Phosphatase 73 U/L (40-110); Anion Gap 12 mmol/L (10-20); BUN (Urea Nitrogen) 16 mg/dL (9.8-20.1); Bilirubin, Total 0.5 mg/dL (0.2-1.2); Calc. Creatinine Clearance 86 mL/min (70-130); Calcium 8.6 mg/dL (7.8-10.44); Carbon Dioxide 28 mmol/L (23-31); Chloride 104 mmol/L (98-107); Estimated GFR-MDRD 67; Globulin 2.5 g/dL (2.4-3.5); Glucose 90 mg/dL (83-110); Magnesium 1.9 mg/dL (1.6-2.6); Potassium 3.9 mmol/L (3.5-5.1); Protein, Total 6.1 g/dL (6.0-8.3); Sodium 140 mmol/L (136-145)
[2019-07-11] MEDS: Sodium Chloride 0.9% 1,000 ML IV SCH (06:23)
[2019-07-11] MEDS: Sucralfate 1 GM/10 ML UDCUP PO SCH ×4 (08:33→20:56)
[2019-07-11] MEDS: Apixaban 2.5 MG TAB PO SCH ×2 (08:34→20:52)
[2019-07-11] MEDS: Venlafaxine HCl XR 150 MG CAP PO SCH ×2 (08:34→20:56)
[2019-07-11] MEDS ORDERED: Prevnar 13-Val Conj/PF 0.5 ML SYRINGE IM ONE (09:00)
[2019-07-11] MEDS: Ondansetron ODT 4 MG TAB PO PRN (16:32)
[2019-07-11] MEDS ORDERED: Dextrose 5 % And 0.9 % NaCl 1,000 ML IV SCH (17:45)
[2019-07-11] MEDS: Atorvastatin Calcium 10 MG TAB PO SCH (20:52)
[2019-07-11] MEDS: clonazePAM 0.5 MG TAB PO SCH (20:52)
[2019-07-11] MEDS: Digoxin 0.125 MG TAB PO SCH (20:53)
[2019-07-11] MEDS: levETIRAcetam 500 mg/5 ml Oral Solution PO SCH (20:53)
[2019-07-12 06:12] LABS: Hemoglobin 11.9 g/dL (12.0-16.0); Mean Corpuscular HGB CONC 32.9 g/dL (32.0-36.0); Mean Corpuscular Hemoglobin 30.2 pg (27.0-31.0); Mean Platelet Volume 8.2 fL (7.4-10.4); Platelet Count 247 thou/uL (130-400); RBC Distribution Width 12.2 % (11.5-14.5); Red Blood Cell (RBC) Count 3.93 mill/uL (4.20-5.40); White Blood Cell (WBC) Count 9.8 thou/uL (4.8-10.8)
[2019-07-12 06:25] LABS: ALT (SGPT) 14 U/L (8-55); AST (SGOT) 13 U/L (5-34); Albumin 3.5 g/dL (3.4-4.8); Alkaline Phosphatase 71 U/L (40-110); Anion Gap 11 mmol/L (10-20); BUN (Urea Nitrogen) 12 mg/dL (9.8-20.1); Bilirubin, Total 0.5 mg/dL (0.2-1.2); Calc. Creatinine Clearance 89 mL/min (70-130); Calcium 8.4 mg/dL (7.8-10.44); Carbon Dioxide 25 mmol/L (23-31); Cardiac Risk 5.5 (Less than 4.5); Chloride 107 mmol/L (98-107); Cholesterol 164 mg/dl (< 200 Desired); Estimated GFR-MDRD 70; Globulin 2.5 g/dL (2.4-3.5); Glucose 98 mg/dL (83-110); HDL Cholesterol 30 mg/dL (>60 Neg Risk); LDL Cholesterol, Calculated 104 mg/dL; Potassium 3.8 mmol/L (3.5-5.1); Sodium 139 mmol/L (136-145); Triglycerides 148 mg/dL (Less than 150)
[2019-07-12] MEDS ORDERED: Sodium Chloride 0.9% 1,000 ML IV SCH ×2 (07:00→14:00)
[2019-07-12] MEDS: Sucralfate 1 GM/10 ML UDCUP PO SCH ×4 (08:25→21:25)
[2019-07-12] MEDS: Venlafaxine HCl XR 150 MG CAP PO SCH ×2 (08:26→21:25)
[2019-07-12] MEDS: Apixaban 2.5 MG TAB PO SCH ×2 (08:27→21:22)
[2019-07-12] MEDS ORDERED: Sodium Chloride 0.9% 1,000 ML BAG ONE (09:09)
[2019-07-12] MEDS: Digoxin 0.125 MG TAB PO SCH (21:22)
[2019-07-12] MEDS: levETIRAcetam 500 mg/5 ml Oral Solution PO SCH (21:22)
[2019-07-12] MEDS: clonazePAM 0.5 MG TAB PO SCH (21:22)
[2019-07-12] MEDS: Atorvastatin Calcium 10 MG TAB PO SCH (21:22)
[2019-07-12] MEDS: Acetaminophen/Codeine 30-300mg Tablet PO PRN (21:29)
[2019-07-13 06:25] LABS: Anion Gap 12 mmol/L (10-20); BUN (Urea Nitrogen) 10 mg/dL (9.8-20.1); Calc. Creatinine Clearance 88 mL/min (70-130); Calcium 8.5 mg/dL (7.8-10.44); Carbon Dioxide 24 mmol/L (23-31); Chloride 108 mmol/L (98-107); Estimated GFR-MDRD 69; Glucose 90 mg/dL (83-110); Potassium 3.8 mmol/L (3.5-5.1); Sodium 140 mmol/L (136-145)
[2019-07-13] MEDS: Venlafaxine HCl XR 150 MG CAP PO SCH ×2 (08:10→21:01)
[2019-07-13] MEDS: Apixaban 2.5 MG TAB PO SCH ×2 (08:10→20:58)
[2019-07-13] MEDS: Sucralfate 1 GM/10 ML UDCUP PO SCH ×4 (08:10→21:01)
[2019-07-13] MEDS: Digoxin 0.125 MG TAB PO SCH (20:58)
[2019-07-13] MEDS: clonazePAM 0.5 MG TAB PO SCH (20:58)
[2019-07-13] MEDS: Atorvastatin Calcium 10 MG TAB PO SCH (20:58)
[2019-07-13] MEDS: levETIRAcetam 500 mg/5 ml Oral Solution PO SCH (20:59)
[2019-07-13] MEDS: Acetaminophen/Codeine 30-300mg Tablet PO PRN (21:04)
[2019-07-14] MEDS: Venlafaxine HCl XR 150 MG CAP PO SCH ×2 (08:02→21:24)
[2019-07-14] MEDS: Sucralfate 1 GM/10 ML UDCUP PO SCH ×4 (08:02→21:24)
[2019-07-14] MEDS: Apixaban 2.5 MG TAB PO SCH ×2 (08:02→21:21)
[2019-07-14] MEDS: Ondansetron ODT 4 MG TAB PO PRN (09:14)
[2019-07-14] MEDS: clonazePAM 0.5 MG TAB PO SCH (21:21)
[2019-07-14] MEDS: Atorvastatin Calcium 10 MG TAB PO SCH (21:21)
[2019-07-14] MEDS: Digoxin 0.125 MG TAB PO SCH (21:21)
[2019-07-14] MEDS: levETIRAcetam 500 mg/5 ml Oral Solution PO SCH (21:22)
[2019-07-14] MEDS: Acetaminophen/Codeine 30-300mg Tablet PO PRN (21:24)
[2019-07-15 07:39] VITALS: BP 114/66; TEMP 97.3
[2019-07-15] MEDS: Sucralfate 1 GM/10 ML UDCUP PO SCH ×2 (08:10→13:04)
[2019-07-15] MEDS: Venlafaxine HCl XR 150 MG CAP PO SCH (08:11)
[2019-07-15] MEDS: Apixaban 2.5 MG TAB PO SCH (08:11)
[2019-07-15] MEDS ORDERED: clonazePAM 0.5 MG TAB PO SCH (21:00)
--- NOTE | 2019-07-15 22:40 | DIS ---
DATE OF ADMISSION: 07/10/2019 DATE OF DISCHARGE: 07/15/2019 Date of discharge to swing bed: 07/15/2019. FINAL DIAGNOSES: 1. Acute pancreatitis, mild. 2. Physical deconditioning. 3. General weakness. 4. Unsteady gait needing assistance. 5. Dehydration, resolved. 6. Congestive heart failure, combined diastolic and systolic, compensated. 7. History of severe dysautonomic syndrome. 8. Chronic atrial fibrillation. 9. Status post pacemaker placement. 10. Anxiety, depression. 11. Chronic insomnia. 12. Obesity. 13. Long-term use of anticoagulation with Eliquis. 14. Seizure disorder. DISPOSITION: [facility] for skilled rehab. MEDICATIONS: 1. Acetaminophen with codeine every 6 hours as needed. 2. Alprazolam 0.25 mg p.r.n. for panic attacks. 3. Eliquis 2.5 mg p.o. b.i.d. 4. Clonazepam 0.5 mg at bedtime. 5. Digoxin 125 mcg p.o. at bedtime. 6. Keppra 250 mg p.o. at bedtime. 7. Metoprolol succinate 12.5 mg p.o. at bedtime. 8. Zofran ODT 4 mg sublingual q.6 p.r.n. 9. Pantoprazole 40 mg p.o. b.i.d. 10. Potassium chloride 10 mEq p.o. daily p.r.n. when torsemide is taken. 11. Seroquel 25 mg p.o. at bedtime. 12. Entresto 24/25 mg p.o. at bedtime. 13. Sucralfate 1 g per 10 mL before meals and bedtime b.i.d. 14. Torsemide 10 mg p.o. p.r.n. with weight gain of 4 pounds or more. 15. Venlafaxine 150 mg p.o. b.i.d. 16. Simvastatin 40 mg at bedtime. DISCHARGE INSTRUCTIONS: 1. Diet: Regular as tolerated. 2. Activity: To be determined by therapist. 3. Refer to PT and OT once admitted at rehab. 4. Continue all current medications per list. HISTORY OF THE PRESENT ILLNESS AND HOSPITAL COURSE: Ms. Negrete was admitted on 07/10/2019 at [facility] for acute pancreatitis, mild, with absence of organ failure and/or local or systemic complications. The patient initially presented to [facility] with persistent acute onset of progressively worsening epigastric pain associated with nausea, vomiting, and diarrhea. On further evaluation in the ER, patient's lipase was elevated to 223 with baseline of 133 on 06/26/2019 ER visit. Her liver function tests are within normal limits. Her BUN was 21 and creatinine of 0.99. Her urine was negative. The patient was deemed hemodynamically stable. There was no renal or cardiac compromise nor respiratory compromise and was negative for seizures. The patient was admitted for mild acute pancreatitis. Supportive medical management was initiated from the ER with IV hydration. She was kept n.p.o. until pain subsided. The patient remained febrile-free during the whole course. Her diet was slowly advanced 48 to 72 hours after n.p.o. The patient currently tolerating regular diet with minimal symptoms of epigastric tenderness, notable postprandial. Overall, symptoms improved in a slow manner. The patient did not need any stronger medications for pain except for plain Tylenol and antiemetic. Her white count from 11 went down to normal limits subsequently. Her electrolytes remained stable and her EGFR improved with hydration. On 07/15/2019, patient was clinically doing well. The patient did not require further imaging studies with a typical presentation of mild acute pancreatitis. On 07/15/2019, the patient was tolerating regular diet, but remained generally weak with some unsteadiness associated with lightheadedness when walking. She was deemed to benefit further with rehab prior to going back to the home environment, thus patient was transferred to [facility]. Job ID: [id number]
== END 2019-07-15 15:39 | disposition swing bed (61) | DRG 439 ==
LOC: MADERS 10:04 → MADMS 12:09
PROVIDERS: ADMIT Family Medicine; ATTEND Family Medicine
DX: K85.90 Acute pancreatitis without necrosis or infection, unspecified (principal); I50.42 Chronic combined systolic (congestive) and diastolic (congestive) heart failure; I48.20 Chronic atrial fibrillation, unspecified; R53.81 Other malaise; R26.81 Unsteadiness on feet; E86.0 Dehydration; F41.9 Anxiety disorder, unspecified; F32.9 Major depressive disorder, single episode, unspecified; G47.00 Insomnia, unspecified; I25.10 Atherosclerotic heart disease of native coronary artery without angina pectoris; E78.5 Hyperlipidemia, unspecified; E66.9 Obesity, unspecified; K21.9 Gastro-esophageal reflux disease without esophagitis; I25.5 Ischemic cardiomyopathy; G40.909 Epilepsy, unspecified, not intractable, without status epilepticus; Z79.01 Long term (current) use of anticoagulants; Z90.49 Acquired absence of other specified parts of digestive tract; Z90.710 Acquired absence of both cervix and uterus; Z88.5 Allergy status to narcotic agent; Z88.8 Allergy status to other drugs, medicaments and biological substances; Z95.810 Presence of automatic (implantable) cardiac defibrillator; Z68.33 Body mass index [BMI] 33.0-33.9, adult
CPT/HCPCS: 36415; 80048; 80053; 80061; 80162; 81003; 83690; 83735; 85025; 85027; 96360; 96361; J7042; J7050; Q0162

== ENCOUNTER 2019-07-15 14:36 | Inpatient (IN) | payer MEDICARE ==
[2019-07-15] MEDS ORDERED: Acetaminophen/Codeine 30-300mg Tablet PO PRN (17:06)
[2019-07-15] MEDS ORDERED: Artificial Tear Sol 15 ML BOT EA EYE PRN (17:06)
[2019-07-15] MEDS ORDERED: ALPRAZolam 0.25 MG TAB PO PRN (17:06)
[2019-07-15] MEDS ORDERED: Potassium Chloride 10 MEQ TAB PO PRN (17:24)
[2019-07-15] MEDS ORDERED: Torsemide 20 MG TAB PO PRN (17:24)
[2019-07-15] MEDS ORDERED: Ondansetron ODT 4 MG TAB PO PRN (17:24)
[2019-07-15] MEDS: Acetaminophen 325 MG TAB PO PRN (18:19)
[2019-07-15] MEDS ORDERED: clonazePAM 1 MG TAB PO SCH (21:00)
[2019-07-15] MEDS ORDERED: levETIRAcetam 500 MG TAB PO SCH (21:00)
[2019-07-15] MEDS ORDERED: Apixaban 5 MG TAB PO SCH (21:00)
[2019-07-15] MEDS: clonazePAM 0.5 MG TAB PO SCH (21:26)
[2019-07-15] MEDS: Atorvastatin Calcium 10 MG TAB PO SCH (21:31)
[2019-07-15] MEDS: Apixaban 2.5 MG TAB PO SCH (21:31)
[2019-07-15] MEDS: Sucralfate 1 GM/10 ML UDCUP PO SCH (21:32)
[2019-07-15] MEDS: Digoxin 0.125 MG TAB PO SCH (21:32)
[2019-07-15] MEDS: Venlafaxine HCl XR 150 MG CAP PO SCH (21:33)
[2019-07-16] MEDS: Venlafaxine HCl XR 150 MG CAP PO SCH ×2 (08:19→21:16)
[2019-07-16] MEDS: Sucralfate 1 GM/10 ML UDCUP PO SCH ×4 (08:19→21:16)
[2019-07-16] MEDS: Apixaban 2.5 MG TAB PO SCH ×2 (08:19→21:09)
[2019-07-16] MEDS: Atorvastatin Calcium 10 MG TAB PO SCH (21:09)
[2019-07-16] MEDS: clonazePAM 0.5 MG TAB PO SCH (21:12)
[2019-07-16] MEDS: Digoxin 0.125 MG TAB PO SCH (21:13)
[2019-07-16] MEDS: LEVETIRACETAM PO SCH (21:15)
[2019-07-16] MEDS: [UNRECOGNIZED DRUG - OTHER] PO SCH (21:15)
[2019-07-16] MEDS: Acetaminophen 325 MG TAB PO PRN (21:16)
[2019-07-17 05:37] LABS: Hemoglobin 12.5 g/dL (12.0-16.0); Platelet Count 253 thou/uL (130-400)
[2019-07-17] MEDS: Acetaminophen 325 MG TAB PO PRN ×2 (07:54→20:24)
[2019-07-17] MEDS: Sucralfate 1 GM/10 ML UDCUP PO SCH ×4 (08:04→20:29)
[2019-07-17] MEDS: Venlafaxine HCl XR 150 MG CAP PO SCH ×2 (08:04→20:23)
[2019-07-17] MEDS: Apixaban 2.5 MG TAB PO SCH ×2 (08:04→20:23)
[2019-07-17] MEDS: clonazePAM 0.5 MG TAB PO SCH (20:22)
[2019-07-17] MEDS: Digoxin 0.125 MG TAB PO SCH (20:23)
[2019-07-17] MEDS: Atorvastatin Calcium 10 MG TAB PO SCH (20:23)
[2019-07-17] MEDS: LEVETIRACETAM PO SCH (20:28)
[2019-07-17] MEDS: [UNRECOGNIZED DRUG - OTHER] PO SCH (20:28)
[2019-07-18] MEDS: Apixaban 2.5 MG TAB PO SCH ×2 (08:01→20:41)
[2019-07-18] MEDS: Sucralfate 1 GM/10 ML UDCUP PO SCH ×4 (08:01→20:41)
[2019-07-18] MEDS: Venlafaxine HCl XR 150 MG CAP PO SCH ×2 (08:01→20:37)
[2019-07-18] MEDS: Acetaminophen 325 MG TAB PO PRN ×2 (08:03→20:38)
[2019-07-18 12:30] VITALS: BMI 32.8
[2019-07-18] MEDS: clonazePAM 0.5 MG TAB PO SCH (20:37)
[2019-07-18] MEDS: [UNRECOGNIZED DRUG - OTHER] PO SCH (20:38)
[2019-07-18] MEDS: Atorvastatin Calcium 10 MG TAB PO SCH (20:38)
[2019-07-18] MEDS: LEVETIRACETAM PO SCH (20:38)
[2019-07-18] MEDS: Digoxin 0.125 MG TAB PO SCH (20:40)
[2019-07-19 08:05] VITALS: BP 140/83; TEMP 97.8
[2019-07-19] MEDS ORDERED: Polyethylene Glycol 3350 17 GM Packet PO SCH (08:30)
[2019-07-19] MEDS: Sucralfate 1 GM/10 ML UDCUP PO SCH ×2 (09:22→12:54)
[2019-07-19] MEDS: Acetaminophen 325 MG TAB PO PRN (09:22)
[2019-07-19] MEDS: Apixaban 2.5 MG TAB PO SCH (09:22)
[2019-07-19] MEDS: Venlafaxine HCl XR 150 MG CAP PO SCH (09:22)
== END 2019-07-19 14:00 | disposition home or self-care (01) | DRG 439 ==
LOC: MADMS 15:45
PROVIDERS: ADMIT Family Medicine; ATTEND Family Medicine
DX: K85.90 Acute pancreatitis without necrosis or infection, unspecified (principal); I50.42 Chronic combined systolic (congestive) and diastolic (congestive) heart failure; I48.20 Chronic atrial fibrillation, unspecified; K21.9 Gastro-esophageal reflux disease without esophagitis; E86.0 Dehydration; I11.0 Hypertensive heart disease with heart failure; I25.5 Ischemic cardiomyopathy; I25.10 Atherosclerotic heart disease of native coronary artery without angina pectoris; J44.9 Chronic obstructive pulmonary disease, unspecified; F32.9 Major depressive disorder, single episode, unspecified; E66.9 Obesity, unspecified; G40.909 Epilepsy, unspecified, not intractable, without status epilepticus; F51.04 Psychophysiologic insomnia; F41.9 Anxiety disorder, unspecified; Z79.01 Long term (current) use of anticoagulants; Z90.710 Acquired absence of both cervix and uterus; Z90.49 Acquired absence of other specified parts of digestive tract; Z95.810 Presence of automatic (implantable) cardiac defibrillator; Z88.5 Allergy status to narcotic agent; Z68.32 Body mass index [BMI] 32.0-32.9, adult
CPT/HCPCS: 36415; 85014; 85018; 85049; Q0162

== ENCOUNTER 2019-09-12 11:28 | Emergency (ER) | payer MEDICARE ==
[2019-09-12] MEDS ORDERED: Sodium Chloride 0.9% 1,000 ML ONE (12:38)
[2019-09-12 14:09] LABS: #Basophils 0.2 thou/uL (0.0-0.2); #Eosinphils 0.2 thou/uL (0.0-0.7); #Lymphocytes 3.7 thou/uL (1.20-3.40); #Monocytes 0.9 thou/uL (0.11-0.59); #Neutrophils 7.5 thou/uL (1.40-6.50); %Basophils 1.2 % (0.0-1.0); %Eosinophils 1.9 % (0.0-10.0); %Lymphocytes 29.4 % (21.0-51.0); %Monocytes 7.5 % (0.0-10.0); %Neutrophils 59.9 % (42.0-75.0); Hemoglobin 12.9 g/dL (12.0-16.0); Mean Corpuscular HGB CONC 31.5 g/dL (32.0-36.0); Mean Corpuscular Hemoglobin 29.1 pg (27.0-31.0); Mean Corpuscular Volume 92.5 fL (78.0-98.0); Mean Platelet Volume 8.4 fL (7.4-10.4); Platelet Count 302 thou/uL (130-400); Red Blood Cell (RBC) Count 4.42 mill/uL (4.20-5.40); White Blood Cell (WBC) Count 12.5 thou/uL (4.8-10.8)
[2019-09-12 14:36] LABS: Albumin 3.8 g/dL (3.4-4.8); BUN (Urea Nitrogen) 16 mg/dL (9.8-20.1); Bilirubin, Total 0.3 mg/dL (0.2-1.2); Calc. Creatinine Clearance 0 mL/min (70-130); Calcium 9.1 mg/dL (7.8-10.44); Carbon Dioxide 26 mmol/L (23-31); Chloride 102 mmol/L (98-107); Estimated GFR-MDRD 71; Globulin 2.7 g/dL (2.4-3.5); Glucose 98 mg/dL (83-110); Potassium 4.1 mmol/L (3.5-5.1); Protein, Total 6.5 g/dL (5.8-8.1); Sodium 139 mmol/L (136-145)
[2019-09-12 14:37] LABS: ALT (SGPT) 14 U/L (8-55); AST (SGOT) 15 U/L (5-34); Alkaline Phosphatase 77 U/L (40-110); Anion Gap 15 mmol/L (10-20); CK (CPK) 55 U/L (29-168); Lipase 91 U/L (8-78)
[2019-09-12 14:38] LABS: CRP (Inflammatory) Less than 0.50 mg/dL (= or < 0.5)
[2019-09-12 15:22] LABS: Bilirubin Negative (Negative); Blood, Urine Negative (Negative); Clarity Clear (Clear); Glucose, Urine (Dipstick) Negative (Negative); Leukocyte Negative (Negative); Nitrite Negative (Negative); Protein, Urine (Dipstick) Negative (Neg-Trace); Urobilinogen 0.2 mg/dL (Less than 2)
[2019-09-12] MEDS ORDERED: Acetaminophen 500 MG TAB ONE (15:35)
[2019-09-12] MEDS ORDERED: Ondansetron ODT 4 MG TAB ONE (15:41)
== END 2019-09-12 15:50 | disposition home or self-care (01) ==
LOC: MADERS 11:28
DX: I95.1 Orthostatic hypotension (principal); K86.1 Other chronic pancreatitis; I50.9 Heart failure, unspecified; E86.0 Dehydration; I25.10 Atherosclerotic heart disease of native coronary artery without angina pectoris; I48.91 Unspecified atrial fibrillation; E78.5 Hyperlipidemia, unspecified; I11.0 Hypertensive heart disease with heart failure; Z79.899 Other long term (current) drug therapy
CPT/HCPCS: 80053; 81003; 82150; 82550; 83690; 86140; 96360; J7050; Q0162

== ENCOUNTER 2019-09-29 09:46 | Emergency (ER) | payer MEDICARE ==
[2019-09-29] MEDS ORDERED: Ondansetron PF 4 MG/2 ML Vial ONE (10:28)
[2019-09-29] MEDS ORDERED: Sodium Chloride 0.9% 1,000 ML ONE ×2 (10:28→12:57)
[2019-09-29 10:34] LABS: #Basophils 0.1 thou/uL (0.0-0.2); #Eosinphils 0.3 thou/uL (0.0-0.7); #Monocytes 0.6 thou/uL (0.11-0.59); #Neutrophils 6.1 thou/uL (1.40-6.50); %Basophils 1.1 % (0.0-1.0); %Eosinophils 2.7 % (0.0-10.0); %Lymphocytes 29.7 % (21.0-51.0); %Monocytes 6.1 % (0.0-10.0); %Neutrophils 60.4 % (42.0-75.0); Hemoglobin 12.8 g/dL (12.0-16.0); Mean Corpuscular HGB CONC 31.5 g/dL (32.0-36.0); Mean Corpuscular Hemoglobin 29.2 pg (27.0-31.0); Mean Corpuscular Volume 92.4 fL (78.0-98.0); Platelet Count 300 thou/uL (130-400); RBC Distribution Width 12.4 % (11.5-14.5); White Blood Cell (WBC) Count 10.1 thou/uL (4.8-10.8)
[2019-09-29 10:48] LABS: ALT (SGPT) 16 U/L (8-55); AST (SGOT) 16 U/L (5-34); Albumin 3.9 g/dL (3.4-4.8); Alkaline Phosphatase 75 U/L (40-110); Anion Gap 16 mmol/L (10-20); BUN (Urea Nitrogen) 19 mg/dL (9.8-20.1); Bilirubin, Total 0.3 mg/dL (0.2-1.2); CK (CPK) 43 U/L (29-168); Calc. Creatinine Clearance 0 mL/min (70-130); Calcium 9.2 mg/dL (7.8-10.44); Carbon Dioxide 24 mmol/L (23-31); Chloride 102 mmol/L (98-107); Estimated GFR-MDRD 60; Globulin 2.7 g/dL (2.4-3.5); Glucose 141 mg/dL (83-110); Lipase 116 U/L (8-78); Potassium 3.8 mmol/L (3.5-5.1); Protein, Total 6.6 g/dL (6.0-8.3); Sodium 138 mmol/L (136-145)
== END 2019-09-29 15:40 | disposition home or self-care (01) ==
LOC: MADERS 09:46
DX: E86.0 Dehydration (principal); K86.1 Other chronic pancreatitis; I48.91 Unspecified atrial fibrillation; E78.5 Hyperlipidemia, unspecified; I10 Essential (primary) hypertension; Z79.899 Other long term (current) drug therapy
CPT/HCPCS: 80053; 82150; 82550; 83605; 83690; 85025; 96361; 96374; J2405; J7050

== ENCOUNTER 2019-10-09 14:09 | Inpatient (IN) | payer MEDICARE ==
[2019-10-09 14:54] LABS: Red Blood Cell (RBC) Count 4.63 mill/uL (4.20-5.40); White Blood Cell (WBC) Count 12.3 thou/uL (4.8-10.8)
--- NOTE | 2019-10-09 14:54 | RAD ---
Exam: Chest one view HISTORY:Dyspnea. Comparison: 06/26/2019 FINDINGS: Cardiac silhouette:Upper normal cardiac silhouette Pacing device: Stable 3 a left-sided defibrillator. Aorta: Unremarkable Pulmonary vessels: Normal Costophrenic angles: Clear LUNGS: No masses or consolidation. Pneumothorax: None Osseous abnormalities: None IMPRESSION: No acute cardiopulmonary process.
[2019-10-09 14:55] LABS: #Basophils 0.2 thou/uL (0.0-0.2); #Eosinphils 0.2 thou/uL (0.0-0.7); #Lymphocytes 3.1 thou/uL (1.20-3.40); #Neutrophils 7.9 thou/uL (1.40-6.50); %Basophils 1.3 % (0.0-1.0); %Eosinophils 1.4 % (0.0-10.0); %Lymphocytes 25.2 % (21.0-51.0); %Monocytes 8.2 % (0.0-10.0); %Neutrophils 63.9 % (42.0-75.0); Hemoglobin 13.2 g/dL (12.0-16.0); Mean Corpuscular HGB CONC 31.2 g/dL (32.0-36.0); Mean Corpuscular Hemoglobin 28.6 pg (27.0-31.0); Mean Corpuscular Volume 91.7 fL (78.0-98.0); Mean Platelet Volume 8.6 fL (7.4-10.4); Platelet Count 317 thou/uL (130-400); RBC Distribution Width 11.9 % (11.5-14.5)
[2019-10-09] MEDS ORDERED: Ondansetron PF 4 MG/2 ML Vial ONE (14:59)
[2019-10-09 15:14] LABS: ALT (SGPT) 16 U/L (8-55); AST (SGOT) 17 U/L (5-34); Albumin 3.9 g/dL (3.4-4.8); Alkaline Phosphatase 79 U/L (40-110); Anion Gap 15 mmol/L (10-20); BUN (Urea Nitrogen) 16 mg/dL (9.8-20.1); Bilirubin, Total 0.5 mg/dL (0.2-1.2); Calc. Creatinine Clearance 0 mL/min (70-130); Calcium 9.1 mg/dL (7.8-10.44); Carbon Dioxide 26 mmol/L (23-31); Chloride 100 mmol/L (98-107); Estimated GFR-MDRD 59; Globulin 2.8 g/dL (2.4-3.5); Glucose 104 mg/dL (83-110); Potassium 4.2 mmol/L (3.5-5.1); Protein, Total 6.7 g/dL (6.0-8.3); Sodium 137 mmol/L (136-145)
[2019-10-09] MEDS ORDERED: Sodium Chloride 0.9% 1,000 ML ONE (16:22)
[2019-10-09 17:36] VITALS: BMI 33.5
[2019-10-09] MEDS ORDERED: Torsemide 20 MG TAB PO PRN (18:43)
[2019-10-09] MEDS ORDERED: Acetaminophen/Codeine 30-300mg Tablet PO PRN (18:43)
[2019-10-09] MEDS ORDERED: Potassium Chloride 10 MEQ TAB PO PRN (18:43)
[2019-10-09] MEDS ORDERED: Artificial Tear Sol 15 ML BOT EA EYE PRN (18:43)
[2019-10-09] MEDS ORDERED: HYDROcodone/Acetaminophen 5/325 mg Tablet PO PRN ×2 (18:47)
[2019-10-09] MEDS ORDERED: Calcium Carbonate 500 MG ChewTAB PO PRN (18:47)
[2019-10-09] MEDS ORDERED: Sodium Chloride 0.9% 1,000 ML IV SCH (18:47)
[2019-10-09] MEDS ORDERED: Senokot S 8.6-50 MG TAB PO PRN (18:49)
[2019-10-09] MEDS ORDERED: (Plecanatide [Trulance] 3 MG) PO SCH (19:15)
[2019-10-09] MEDS: Sodium Chloride 0.9% 1,000 ML IV SCH (19:36)
[2019-10-09] MEDS: levETIRAcetam 500 MG TAB PO SCH (20:21)
[2019-10-09] MEDS: ALPRAZolam 0.25 MG TAB PO SCH (20:21)
[2019-10-09] MEDS: Apixaban 2.5 MG TAB PO SCH (20:22)
[2019-10-09] MEDS: Simvastatin 40 MG TAB PO SCH (20:22)
[2019-10-09] MEDS: Venlafaxine HCl XR 150 MG CAP PO SCH (20:23)
[2019-10-09] MEDS: clonazePAM 0.5 MG TAB PO SCH (20:23)
[2019-10-09] MEDS: Digoxin 0.125 MG TAB PO SCH (20:23)
[2019-10-09] MEDS: Polyethylene Glycol 3350 17 GM Packet PO SCH (20:24)
[2019-10-10] MEDS: Acetaminophen 325 MG TAB PO PRN (00:17)
[2019-10-10] MEDS: Sodium Chloride 0.9% 1,000 ML IV SCH (05:22)
[2019-10-10 05:54] LABS: Anion Gap 13 mmol/L (10-20); BUN (Urea Nitrogen) 12 mg/dL (9.8-20.1); Calc. Creatinine Clearance 89 mL/min (70-130); Calcium 8.6 mg/dL (7.8-10.44); Carbon Dioxide 25 mmol/L (23-31); Chloride 105 mmol/L (98-107); Estimated GFR-MDRD 69; Glucose 94 mg/dL (83-110); Sodium 139 mmol/L (136-145)
[2019-10-10] MEDS: Apixaban 2.5 MG TAB PO SCH ×2 (09:22→21:11)
[2019-10-10] MEDS: Cholecalciferol 1,000 UNITS (25 MCG) TAB PO SCH (09:22)
[2019-10-10] MEDS: Polyethylene Glycol 3350 17 GM Packet PO SCH ×2 (09:22→21:13)
[2019-10-10] MEDS: Venlafaxine HCl XR 150 MG CAP PO SCH ×2 (09:22→21:10)
--- NOTE | 2019-10-10 10:10 | HP ---
REASON FOR ADMISSION: 1. General weakness. 2. Dehydration. HISTORY OF PRESENT ILLNESS AND HOSPITAL COURSE: Ms. Negrete is 79-year-old female with significant history of chronic intermittent GERD, episodic abdominal pain associated with intermittent nausea and vomiting. The patient presented to the ER today with reported generalized abdominal pain that has progressively worsened over the past couple of weeks. Pain is generalized and has escalated over the past 3 days. The patient reports that he has not had a bowel movement since the past 5 days. Associated symptoms include nausea with vomiting The patient was recently in the ER for similar episode on 02/2020. At that time, patient was having trouble holding down fluids since she had eaten a meat leilani. At that time, her pain was radiating to her back. The patient was seen to have chronic pancreatitis. At that time, her lipase was elevated to 116 with amylase of 102. The patient was treated at that time with IV fluids, did well and went home. She followed up with Dr. De La Fuente for GI care yesterday. At that time , her abdominal pain was mostly on the mid abdomen with a notable mass or palpable hard knot that is notable along the mid abdomen from left side to the right side. She was told by Dr. De La Fuente that this is caused by constipation with impaction of stools. She was then recommended to stop her pancreatic enzyme supplements and started on enema and Trulance. The patient started the enema earlier this morning at home.She had bowel movement the first time again after 5 days earlier after taking the enema. However, patient reports very severe abdominal pain with it that was crampy in nature. The patient became generally weak. She stayed on the floor to avoid falling,unable to get up on her own. She admits that she has not really been eating over the past 5 days as she could hardly tolerate oral intake, both solids and liquids. Pain has escalated and became very severe, prompting the patient to go back to the ER at [place]. Initial evaluation in the ER showed white count of 12.3, hemoglobin of 13.2, hematocrit 42.5, platelets 317. Sodium 137, potassium 4.2, BUN 16, creatinine 0.92. Liver function tests within normal limits. Lipase 113. Troponin of less than 0.010. BNP of 88.3. IV hydration was initiated from the ER, receiving a litter of normal saline. The patient remains persistently nauseated and unable to eat except for hot water. The patient was admitted for 24-hour observation for rehydration. When evaluated, the patient is awake, alert, generally weak looking. She reports that she is still nauseated. No vomiting at this time. The patient was able to give the information herself for the history. PAST MEDICAL HISTORY: Chronic GERD, systolic and diastolic combined congestive heart failure, dysautonomic syndrome, hypertension, ischemic cardiomyopathy, CAD , COPD, depression, anxiety, chronic atrial fibrillation, status post AICD placement, long-term anticoagulation with Eliquis, seizure disorder, chronic insomnia, chronic pancreatitis. PAST SURGICAL HISTORY: Exploratory laparotomy, AICD implantation, cholecystectomy, hysterectomy, and pacemaker placement. FAMILY HISTORY: Noncontributory. SOCIAL HISTORY: She is nonsmoker. No alcohol or illicit drug use. Senait Marvin is her surrogate decision maker. ALLERGIES: TO VICODIN AND AARON INHIBITOR. MEDICATIONS: 1. Alprazolam 0.25 mg p.o. at bedtime. 2. Eliquis 2.5 mg p.o. b.i.d. 3. Calcium carbonate 1000 mg p.o. q.4 hours p.r.n. 4. Vitamin D 1000 units p.o. daily. 5. Clonazepam 0.5 mg p.o. at bedtime. 6. Digoxin 0.125 mg p.o. at bedtime. 7. Keppra 250 mg p.o. at bedtime. 8. Metoprolol 6.25 mg p.o. at bedtime. 9. Pantoprazole 40 mg p.o. b.i.d. 10. Potassium chloride 10 mEq p.o. daily p.r.n. along with torsemide. 11. Entresto 1 tablet p.o. daily. 12. Sennosides 2 tablets p.o. b.i.d. p.r.n. 13. Simvastatin 40 mg p.o. at bedtime. 14. Torsemide 10 mg p.o. daily p.r.n. for leg edema. 15. Venlafaxine ER 150 mg p.o. b.i.d. REVIEW OF SYSTEMS: GENERAL: The patient denies fever, chills. Reports anorexia, general weakness and fatigue. HEENT: Denies cold symptoms, sore throat, or oral lesions. RESPIRATORY: Denies shortness of breath, cough, sputum production, pain with breathing, wheezing. CARDIAC: Denies chest pain, dyspnea on exertion, palpitations, paroxysmal nocturnal dyspnea. GI: As per HPI. Denies melena, hematochezia, hematemesis, fecal incontinence. GENITOURINARY: No dysuria, hematuria, frequency, urgency, or incontinence. MUSCULOSKELETAL: Denies arthralgia, myalgia, joint swelling or effusions. NEUROLOGIC: Denies focal paralysis, paresthesia, syncope or loss of consciousness. PSYCHIATRIC: Reports depressive symptoms, anxiety, and chronic insomnia. Denies hallucinations, suicidal thoughts or ideations. SKIN: Denies rashes, jaundice, pruritus. IMAGIN. Last chest x-ray, no acute cardiopulmonary processes. 2. EKG atrial sensed ventricular paced rhythm at 82 beats per minute. QRS 134, normal axis. No ST-T wave changes per ER report. PHYSICAL EXAMINATION: VITAL SIGNS: Blood pressure 157/94, temperature 97.7, pulse 80, respirations 18 , O2 sats 93% on room air, weight 213 pounds. GENERAL: The patient is awake, alert. Generally weak-looking, frail, elderly, built obese, not in acute respiratory distress. HEENT: Normocephalic, atraumatic. PERRL. Intact EOM. Anicteric sclerae. No nystagmus. Nares clear. Oropharynx clear. No exudates. Oral mucosa is dry. No oral lesions or ulcers. NECK: Supple. No LAD. No thyromegaly. Flat JVD. LUNGS: Clear to auscultation. No rales. No crackles. No wheezing. No rhonchi. ABDOMEN: Obese, nondistended, soft with bowel sounds in 4 quadrants with tenderness, right upper quadrant greater than left upper quadrant. No rebound. No guarding. Negative CVA tenderness bilaterally. EXTREMITIES: No edema. No cyanosis. NEUROLOGIC: Nonfocal. DTRs 2+. GAIT: Unsteady. PSYCHIATRIC: Calm, appropriate demeanor and affect. SKIN: Moist and warm. Poor skin turgor. Capillary refill less than 2 seconds. ASSESSMENT AND PLAN: 1. Acute clinical dehydration secondary to poor oral intake. 2. Stool Impaction 3. Mild leukocytosis. 4. Chronic pancreatitis with a lipase of 113. 5. Chronic gastroesophageal reflux disease. 6. History of combined systolic and diastolic congestive heart failure. 7. History of atrial fibrillation. S/P Pacemenker and AICD placement 8.History of coronary artery disease. 9. History of seizure. 10. History of depression and anxiety. PLAN: 1. Patient is admitted to [facility] for overnight rehydration and further observation. We will continue NS with extra caution secondary to history of congestive heart failure. We will repeat labs in the morning. 2. We will continue all current medications as modified per list. 3. We will continue stool softeners Fleet prn. 4. Close monitoring of I's and O's. 5. Diet: Clear liquids, may advance to regular diet as tolerated. 6. Possible discharge in the morning, if the patient tolerated oral intake and electrolytes are stable. CODE STATUS: Do not resuscitate. Job ID: [id number] MTDD
[2019-10-10 10:36] LABS: #Basophils 0.1 thou/uL (0.0-0.2); #Eosinphils 0.3 thou/uL (0.0-0.7); #Lymphocytes 3.5 thou/uL (1.20-3.40); #Monocytes 0.9 thou/uL (0.11-0.59); #Neutrophils 5.2 thou/uL (1.40-6.50); %Basophils 0.9 % (0.0-1.0); %Eosinophils 3.3 % (0.0-10.0); %Lymphocytes 35.2 % (21.0-51.0); %Monocytes 9.4 % (0.0-10.0); %Neutrophils 51.2 % (42.0-75.0); Hemoglobin 12.3 g/dL (12.0-16.0); Mean Corpuscular HGB CONC 30.7 g/dL (32.0-36.0); Mean Corpuscular Hemoglobin 28.4 pg (27.0-31.0); Mean Corpuscular Volume 92.5 fL (78.0-98.0); Mean Platelet Volume 8.6 fL (7.4-10.4); Platelet Count 274 thou/uL (130-400); Red Blood Cell (RBC) Count 4.35 mill/uL (4.20-5.40); White Blood Cell (WBC) Count 10.1 thou/uL (4.8-10.8)
[2019-10-10] MEDS: Ondansetron PF 4 MG/2 ML Vial SLOW IVP PRN (13:30)
[2019-10-10] MEDS ORDERED: Sodium Chloride 0.9% 1,000 ML IV SCH (14:00)
[2019-10-10] MEDS ORDERED: TRULANCE 3 MG PO SCH (14:00)
[2019-10-10] MEDS: TRULANCE 3 MG PO PRN (17:44)
[2019-10-10] MEDS: ALPRAZolam 0.25 MG TAB PO SCH (21:07)
[2019-10-10] MEDS: Simvastatin 40 MG TAB PO SCH (21:08)
[2019-10-10] MEDS: levETIRAcetam 500 MG TAB PO SCH (21:08)
[2019-10-10] MEDS: Digoxin 0.125 MG TAB PO SCH (21:08)
[2019-10-10] MEDS: clonazePAM 0.5 MG TAB PO SCH (21:11)
[2019-10-11 05:34] LABS: #Basophils 0.1 thou/uL (0.0-0.2); #Eosinphils 0.4 thou/uL (0.0-0.7); #Lymphocytes 3.7 thou/uL (1.20-3.40); #Neutrophils 5.4 thou/uL (1.40-6.50); %Basophils 1.2 % (0.0-1.0); %Eosinophils 3.4 % (0.0-10.0); %Lymphocytes 35.1 % (21.0-51.0); %Monocytes 9.2 % (0.0-10.0); %Neutrophils 51.2 % (42.0-75.0); Hemoglobin 12.7 g/dL (12.0-16.0); Mean Corpuscular HGB CONC 32.8 g/dL (32.0-36.0); Mean Corpuscular Hemoglobin 29.9 pg (27.0-31.0); Mean Corpuscular Volume 91.2 fL (78.0-98.0); Mean Platelet Volume 8.7 fL (7.4-10.4); Platelet Count 268 thou/uL (130-400); Red Blood Cell (RBC) Count 4.24 mill/uL (4.20-5.40); White Blood Cell (WBC) Count 10.5 thou/uL (4.8-10.8)
[2019-10-11] MEDS: Polyethylene Glycol 3350 17 GM Packet PO SCH ×2 (09:09→21:00)
[2019-10-11] MEDS: Cholecalciferol 1,000 UNITS (25 MCG) TAB PO SCH (09:09)
[2019-10-11] MEDS: Venlafaxine HCl XR 150 MG CAP PO SCH ×2 (09:09→20:57)
[2019-10-11] MEDS: Apixaban 2.5 MG TAB PO SCH ×2 (09:09→20:59)
[2019-10-11] MEDS: Ondansetron PF 4 MG/2 ML Vial SLOW IVP PRN (09:15)
[2019-10-11] MEDS: Ondansetron ODT 4 MG TAB PO PRN (10:10)
[2019-10-11] MEDS ORDERED: Fleet Enema 133 ML BOT FS PRN (14:07)
[2019-10-11] MEDS: Acetaminophen 325 MG TAB PO PRN (20:56)
[2019-10-11] MEDS: clonazePAM 0.5 MG TAB PO SCH (20:56)
[2019-10-11] MEDS: Simvastatin 40 MG TAB PO SCH (20:57)
[2019-10-11] MEDS: Digoxin 0.125 MG TAB PO SCH (20:57)
[2019-10-11] MEDS: ALPRAZolam 0.25 MG TAB PO SCH (20:58)
[2019-10-11] MEDS: levETIRAcetam 500 MG TAB PO SCH (20:58)
[2019-10-12] MEDS: Ondansetron ODT 4 MG TAB PO PRN (08:40)
[2019-10-12] MEDS: Polyethylene Glycol 3350 17 GM Packet PO SCH ×2 (08:40→21:01)
[2019-10-12] MEDS: Cholecalciferol 1,000 UNITS (25 MCG) TAB PO SCH (08:40)
[2019-10-12] MEDS: Apixaban 2.5 MG TAB PO SCH ×2 (08:40→21:00)
[2019-10-12] MEDS: Venlafaxine HCl XR 150 MG CAP PO SCH ×2 (08:40→21:00)
[2019-10-12] MEDS ORDERED: Fleet Enema 133 ML BOT FS SCH (09:00)
[2019-10-12] MEDS: Acetaminophen 325 MG TAB PO PRN (20:56)
[2019-10-12] MEDS: levETIRAcetam 500 MG TAB PO SCH (20:58)
[2019-10-12] MEDS: ALPRAZolam 0.25 MG TAB PO SCH (20:59)
[2019-10-12] MEDS: clonazePAM 0.5 MG TAB PO SCH (20:59)
[2019-10-12] MEDS: Simvastatin 40 MG TAB PO SCH (21:01)
[2019-10-12] MEDS: Digoxin 0.125 MG TAB PO SCH (21:02)
[2019-10-13] MEDS: Polyethylene Glycol 3350 17 GM Packet PO SCH ×2 (08:23→22:11)
[2019-10-13] MEDS: Apixaban 2.5 MG TAB PO SCH ×2 (08:23→21:03)
[2019-10-13] MEDS: Ondansetron ODT 4 MG TAB PO PRN (08:23)
[2019-10-13] MEDS: Venlafaxine HCl XR 150 MG CAP PO SCH ×2 (08:23→21:02)
[2019-10-13] MEDS: Cholecalciferol 1,000 UNITS (25 MCG) TAB PO SCH (08:23)
[2019-10-13] MEDS: TRULANCE 3 MG PO PRN (08:29)
[2019-10-13] MEDS: Simvastatin 40 MG TAB PO SCH (21:01)
[2019-10-13] MEDS: ALPRAZolam 0.25 MG TAB PO SCH (21:03)
[2019-10-13] MEDS: clonazePAM 0.5 MG TAB PO SCH (21:03)
[2019-10-13] MEDS: Digoxin 0.125 MG TAB PO SCH (21:03)
[2019-10-13] MEDS: levETIRAcetam 500 MG TAB PO SCH (22:02)
[2019-10-14] MEDS: Venlafaxine HCl XR 150 MG CAP PO SCH ×2 (08:22→21:20)
[2019-10-14] MEDS: Ondansetron ODT 4 MG TAB PO PRN (08:22)
[2019-10-14] MEDS: Cholecalciferol 1,000 UNITS (25 MCG) TAB PO SCH (08:22)
[2019-10-14] MEDS: Polyethylene Glycol 3350 17 GM Packet PO SCH ×2 (08:22→21:21)
[2019-10-14] MEDS: Apixaban 2.5 MG TAB PO SCH ×2 (08:22→21:19)
[2019-10-14] MEDS: TRULANCE 3 MG PO PRN (14:09)
[2019-10-14] MEDS: Simvastatin 40 MG TAB PO SCH (21:20)
[2019-10-14] MEDS: Digoxin 0.125 MG TAB PO SCH (21:20)
[2019-10-14] MEDS: ALPRAZolam 0.25 MG TAB PO SCH (21:21)
[2019-10-14] MEDS: levETIRAcetam 500 MG TAB PO SCH (21:21)
[2019-10-14] MEDS: clonazePAM 0.5 MG TAB PO SCH (21:23)
[2019-10-15] MEDS: Venlafaxine HCl XR 150 MG CAP PO SCH (08:24)
[2019-10-15] MEDS: Apixaban 2.5 MG TAB PO SCH (08:24)
[2019-10-15] MEDS: Cholecalciferol 1,000 UNITS (25 MCG) TAB PO SCH (08:24)
[2019-10-15] MEDS: Polyethylene Glycol 3350 17 GM Packet PO SCH (08:25)
[2019-10-15 11:01] VITALS: BP 138/83; TEMP 97.4
== END 2019-10-15 14:23 | disposition home or self-care (01) | DRG 640 ==
LOC: MADERS 14:09 → MADMS 17:05 → OBSVTOIN 10-11 09:33
PROVIDERS: ADMIT Family Medicine; ATTEND Family Medicine
DX: E86.0 Dehydration (principal); N18.6 End stage renal disease; K86.1 Other chronic pancreatitis; I50.42 Chronic combined systolic (congestive) and diastolic (congestive) heart failure; I48.20 Chronic atrial fibrillation, unspecified; I13.2 Hypertensive heart and chronic kidney disease with heart failure and with stage 5 chronic kidney disease, or end stage renal disease; K21.9 Gastro-esophageal reflux disease without esophagitis; I25.5 Ischemic cardiomyopathy; I25.10 Atherosclerotic heart disease of native coronary artery without angina pectoris; R53.81 Other malaise; G40.909 Epilepsy, unspecified, not intractable, without status epilepticus; F51.04 Psychophysiologic insomnia; K56.41 Fecal impaction; J44.9 Chronic obstructive pulmonary disease, unspecified; F32.9 Major depressive disorder, single episode, unspecified; F41.9 Anxiety disorder, unspecified; Z79.01 Long term (current) use of anticoagulants; Z95.810 Presence of automatic (implantable) cardiac defibrillator; Z90.49 Acquired absence of other specified parts of digestive tract; Z90.710 Acquired absence of both cervix and uterus; Z88.8 Allergy status to other drugs, medicaments and biological substances; Z88.5 Allergy status to narcotic agent
CPT/HCPCS: 36415; 71045; 80048; 80053; 83690; 83880; 84484; 85025; 93005; 96361; 96374; 96376; G0378; J2405; J7050; Q0162

== ENCOUNTER 2019-10-22 12:47 | Observation (INO) | payer MEDICARE, OTHER ==
[2019-10-22 13:35] LABS: #Basophils 0.1 thou/uL (0.0-0.2); #Eosinphils 0.2 thou/uL (0.0-0.7); #Lymphocytes 3.7 thou/uL (1.20-3.40); #Monocytes 0.9 thou/uL (0.11-0.59); #Neutrophils 4.7 thou/uL (1.40-6.50); %Basophils 1.2 % (0.0-1.0); %Eosinophils 2.6 % (0.0-10.0); %Lymphocytes 38.2 % (21.0-51.0); %Monocytes 9.2 % (0.0-10.0); %Neutrophils 48.9 % (42.0-75.0); Hemoglobin 12.4 g/dL (12.0-16.0); Mean Corpuscular HGB CONC 31.7 g/dL (32.0-36.0); Mean Corpuscular Volume 91.4 fL (78.0-98.0); Mean Platelet Volume 8.9 fL (7.4-10.4); Platelet Count 309 thou/uL (130-400); RBC Distribution Width 12.1 % (11.5-14.5); White Blood Cell (WBC) Count 9.7 thou/uL (4.8-10.8)
[2019-10-22 13:54] LABS: ALT (SGPT) 12 U/L (8-55); AST (SGOT) 13 U/L (5-34); Albumin 3.7 g/dL (3.4-4.8); Alkaline Phosphatase 74 U/L (40-110); Anion Gap 15 mmol/L (10-20); BUN (Urea Nitrogen) 16 mg/dL (9.8-20.1); Bilirubin, Total 0.3 mg/dL (0.2-1.2); Calc. Creatinine Clearance 0 mL/min (70-130); Carbon Dioxide 24 mmol/L (23-31); Chloride 105 mmol/L (98-107); Estimated GFR-MDRD 71; Globulin 2.7 g/dL (2.4-3.5); Glucose 105 mg/dL (83-110); Lipase 58 U/L (8-78); Protein, Total 6.4 g/dL (6.0-8.3); Sodium 140 mmol/L (136-145)
[2019-10-22 16:33] VITALS: BMI 33.2
[2019-10-22] MEDS ORDERED: Acetaminophen/Codeine 30-300mg Tablet PO PRN (19:14)
[2019-10-22] MEDS ORDERED: Calcium Carbonate 500 MG ChewTAB PO PRN (19:14)
[2019-10-22] MEDS ORDERED: Acetaminophen 325 MG TAB PO PRN (19:14)
[2019-10-22] MEDS ORDERED: ALPRAZolam 0.25 MG TAB PO PRN (19:14)
[2019-10-22] MEDS ORDERED: Potassium Chloride 10 MEQ TAB PO PRN (19:14)
[2019-10-22] MEDS ORDERED: Torsemide 20 MG TAB PO PRN (19:14)
[2019-10-22] MEDS ORDERED: Senokot S 8.6-50 MG TAB PO PRN (19:14)
[2019-10-22] MEDS ORDERED: Polyethylene Glycol 3350 17 GM Packet PO PRN (19:14)
[2019-10-22] MEDS ORDERED: Ondansetron ODT 4 MG TAB PO PRN (19:14)
[2019-10-22] MEDS ORDERED: Artificial Tear Sol 15 ML BOT EA EYE PRN (19:45)
[2019-10-22] MEDS ORDERED: Plecanatide [Trulance] 3 MG PO PRN (20:00)
[2019-10-22] MEDS ORDERED: clonazePAM 0.5 MG TAB PO SCH (21:00)
[2019-10-22] MEDS ORDERED: Digoxin 0.125 MG TAB PO SCH (21:00)
[2019-10-22] MEDS ORDERED: Atorvastatin Calcium 10 MG TAB PO SCH (21:00)
[2019-10-22] MEDS ORDERED: levETIRAcetam 500 MG TAB PO SCH (21:00)
[2019-10-22] MEDS: Apixaban 5 MG TAB PO SCH (21:02)
[2019-10-22] MEDS: Venlafaxine HCl XR 150 MG CAP PO SCH (21:03)
--- NOTE | 2019-10-23 04:39 | HP ---
REASON FOR ADMISSION: Severe general weakness. HISTORY OF THE PRESENT ILLNESS AND HOSPITAL COURSE: Ms. Negrete is a 79-year-old female with significant history of CHF, COPD, hypertension, dysautonomic syndrome, ischemic cardiomyopathy, CAD, chronic atrial fibrillation, status post AICD placement and long-term anticoagulation use with Eliquis, seizure disorder, chronic insomnia, depression and anxiety, and intermittent dehydration secondary to poor oral intake from either diarrhea or constipation, history of mildly elevated lipase. The patient was recently admitted to [facility] on 10/11/2019 and was discharged on 10/15/2019, secondary to acute dehydration associated with intractable nausea and vomiting and poor oral intake. The patient did well after conservative medical supportive management and was discharged with improved condition. At that time, the patient was generally weak and unable to help self get up and walk. After the issues were treated, the patient improved significantly and was able to ambulate at her own and was being back to baseline functional status and mobility. At that time, the patient was recommended further skilled rehab; however, she opted to go home and continue the therapy with home health. The patient reports that she is currently doing well with home health therapy. However, on the last few days, the patient reports recurrence of dizziness. The patient describes dizziness as her head is spinning. She reports inability to maintain in a standing position in a long while without having recurrence of dizzy spells. Over the last couple of days, she became generally weak and unable to even get up and out of bed and she reports no significant GI symptoms at this time. She is eating well. Drinking, voiding, and stooling fine. Today, the patient was ready and even move her lower extremities and head without significant dizziness, thus went to [facility]. She states that she was too weak to stand up and was sleeping much more than the normal. She denies fever. No other constitutional symptoms. She has had similar episodes in the past that had required further observation in the hospital secondary to dysautonomic syndrome and orthostatic hypotension. She has not been having any issues with this for more than 6 to 12 months until this time. The patient's initial evaluation in the ER was unremarkable. She was given IV fluids for hydration. After observation in the ER, the patient remains generally weak and reports that unable to take care of self at home. The patient is deemed to benefit from further skilled rehab, thus admitted. After confirmation with the patient's insurance, she could not be directly admitted to skilled facility at this point, so we will observe in an acute setting and possibly evaluated by PT and OT in the morning. When seen in the floor, the patient was resting comfortably. No family members are present. She looks generally weak. She is awake, alert, oriented and contributed to the history. She reports she just had her dinner and feels fine, but when she started moving or changing position, she reported recurrence of dizzy spells. PAST MEDICAL HISTORY: As mentioned above. Dyslipidemia, chronic GERD, and seizure disorder. PAST SURGICAL HISTORY: Exploratory laparotomy, AICD placement, cholecystectomy, hysterectomy, and pacemaker placement. FAMILY HISTORY: Noncontributory. MEDICATIONS: 1. Acetaminophen with codeine every 6 hours as needed. 2. Alprazolam 0.25 mg p.r.n. for panic attack. 3. Eliquis 2.5 mg p.o. b.i.d. 4. Clonazepam 0.5 mg at bedtime. 5. Digoxin 125 mcg p.o. at bedtime. 6. Keppra 250 mg p.o. at bedtime for seizures. 7. Metoprolol succinate 12.5 mg at bedtime. 8. Zofran ODT 4 mg sublingual q.6 p.r.n. for nausea or vomiting. 9. Pantoprazole 40 mg b.i.d. 10. Potassium chloride 10 mEq p.o. daily p.r.n., when torsemide is taken. 11. Seroquel 25 mg at bedtime. 12. Entresto 24/25 mg p.o. at bedtime. 13. Torsemide 10 mg p.o. p.r.n. with weight gain of 4 pounds or more. 14. Venlafaxine 150 mg p.o. b.i.d. 15. Simvastatin 40 mg p.o. at bedtime. ALLERGIES: TO VICODIN AND AARON INHIBITOR. REVIEW OF SYSTEMS: GENERAL: Reports general weakness and body malaise. Denies fever, chills, or body aches. HEENT: Denies acute visual changes or hearing changes, cold symptoms, or ringing of ears. CARDIO: Denies chest pain, dyspnea on exertion, or orthopnea. Reports intermittent leg swelling. RESPIRATORY: No cough, sputum production, pain with breathing, or wheezing. GI: No nausea, vomiting, abdominal pain, or diarrhea. Reports constipation. GENITOURINARY: No dysuria, hematuria, frequency, urgency, or incontinence. MUSCULOSKELETAL: Reports no joint pain/arthralgia or myalgia. SKIN: No rashes, no lesions. No pruritus. NEURO: No focal paralysis. No paresthesia. No slurred speech. No seizure activities. No tics or tremors. No syncope. LABORATORY DATA: Hemoglobin 12.9, hematocrit 39.2, platelets 309, and WBC 9.7. Sodium 140, potassium 4.0, BUN 16, creatinine 0.79, eGFR 71, lactic acid 1.4, calcium 9.0, glucose 105, lipase 58, and albumin 3.7. Liver enzymes within normal limits. Troponin 0.016. PHYSICAL EXAMINATION: VITAL SIGNS: Blood pressure 141/95, temperature 97.7, pulse 82, respirations 16, and O2 saturation 95% on room air. Weight 212 pounds and 3 ounces, height 5 feet 7 inches. Orthostasis. Supine, blood pressure 162/90 and pulse rate 80. Sitting, blood pressure 160/89 and pulse rate 87. Standing, blood pressure 134/87 and heart rate 91. GENERAL: The patient is awake, alert, and oriented x3. Not in distress. HEENT: Normocephalic, atraumatic. PERRL. Intact EOM. Anicteric sclerae. Oral mucosa is moist. NECK: Supple. No LAD. Flat JVD. No bruit. CHEST: Normal excursion. Clear to auscultation bilaterally. CARDIAC: RRR. Normal S1 and S2. No murmurs. The patient reports significant dizziness from lying to sitting position and severely dizzy upon standing with significant orthostatic hypotension and tachycardic. ABDOMEN: Obese and soft. Normoactive bowel sounds. Nondistended, nontender. No rebound or guarding. Negative CVA tenderness bilaterally. EXTREMITIES: No edema. No cyanosis. Multiple superficial varicosities. Negative Homans. PSYCH: Calm, appropriate, cooperative, and interactive. NEUROLOGIC: Nonfocal. DTRs 2+. Gait unsteady. ASSESSMENT: 1. Orthostatic hypotension likely from dysautonomic syndrome. 2. General weakness. 3. Deconditioning. 4. Unsteadiness of gait. 5. Systolic and diastolic congestive heart failure. 6. History of seizure disorder. 7. History of depression and anxiety. 8. History of chronic obstructive pulmonary disease. 9. History of chronic atrial fibrillation, status post automatic implantable cardioverter-defibrillator placement, rate controlled. 10. Ischemic cardiomyopathy. 11. Chronic gastroesophageal reflux disease. PLAN: 1. The patient is admitted for 24-hour observation. We will continue hydration and monitor vital signs. Serial labs if needed. 2. Fall precautions. 3. PT and OT evaluation and treatment if appropriate. 4. Possible admission to skilled continue all current medications per list. 5. Code status; the patient reports DNAR, this is consistent with her previous admissions. Further recommendations depending on the hospital course. Job ID: [id number]
[2019-10-23] MEDS: Apixaban 5 MG TAB PO SCH (08:33)
[2019-10-23] MEDS: Venlafaxine HCl XR 150 MG CAP PO SCH (08:34)
[2019-10-23] MEDS ORDERED: Cholecalciferol 1,000 UNITS (25 MCG) TAB PO SCH (09:00)
[2019-10-23] MEDS ORDERED: Meclizine HCl 25 MG TAB PO SCH (12:15)
[2019-10-23 15:54] VITALS: BP 167/95; TEMP 97.2
--- NOTE | 2019-10-24 03:52 | SS ---
DATE OF ADMISSION: 10/22/2019 DATE OF DISCHARGE: 10/23/2019 The patient was admitted for observation on 10/22/2019 for general weakness and further observation of orthostatic hypotension. The patient reports that she remains having dizzy spells, especially with changes in position. She remains very unsteady with gait. She was able to rest last night, but this morning when she get up, she had recurrence of dizzy spells. 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 The patient requires assistance when she gets up to the potty chair. No significant near-syncope nor syncopal episode. Her blood pressure remains systolic blood pressure of 160s over 70s in a sitting or lying positions. She has a significant increase of heart rate from the 80s to 104 upon standing from sitting position. The patient was evaluated by Physical Therapy today. She easily gets quick onset of lightheadedness and hospice it down initially. She was able to walk about 80 feet using rolling walker, but remained to have very slow doyle and very unsteady gait and weaving gait, decrease balance, strength and trunk/head control. She is a high fall risk. The patient is severely deconditioned and requires assistance with gait and functional transfers. The dizziness and fatigue with any activity from sitting to standing position remains the main barrier. The patient is not comfortable going back home at this point. She states that she could not take care of herself at this point. Her baseline status; she states that she ambulates with the use of a four-wheeled walker. She will sit on her four-wheeled walker when feeling the easier while she is cooking. She will heat in the oven premade meals from [employer]. She has good days and bad days, but able to function well with her routine activities. She dresses herself with time allowed in good days. She has a paid caregiver, who comes for 4 weeks for 5-1/2 hours per day to assist with ADLs and IADLs and in with other days, her daughter helps her. She states that she will do her own laundry for delicates and that is fine until this time. The patient was recommended to continue skilled rehab. We receive authorization of approval from insurance today. She will be transferred to [facility] for further therapy. ESTIMATED LENGTH OF STAY: 1 to 2 weeks. PHYSICAL EXAMINATION: VITAL SIGNS: Current vital signs; blood pressure 167/95, temperature 97.2, pulse 83, respirations 18, and O2 saturation 95% on room air. GENERAL: The patient is awake, alert, and oriented x3. HEENT: Normocephalic and atraumatic. PERRL. Intact EOM. No nystagmus appreciated. Oral mucosa is moist. NECK: Supple. No LAD. Flat JVD. No bruit. CHEST: Normal excursion. Clear to auscultation bilaterally. CARDIAC: RRR. Normal S1 and S2. ABDOMEN: Obese, soft. Normoactive bowel sounds. Nondistended, nontender. No rebound or guarding. Negative CVA tenderness bilaterally. EXTREMITIES: No edema. No cyanosis. NEUROLOGIC: Nonfocal. Gait unsteady. DTRs 2+. PSYCHIATRIC: Calm, appropriate, cooperative. ASSESSMENT AND PLAN: 1. Generalized weakness. 2. Deconditioning. 3. Orthostatic hypotension/dysautonomic syndrome. 4. History of mixed congestive heart failure with EF of 15% to 20%, history of chronic obstructive pulmonary disease, history of depression and anxiety, history of chronic insomnia, history of seizure disorders, history of chronic gastroesophageal reflux disease. 5. The patient will be transferred to [facility] for skilled rehab as above. Continue all current medications. We will start with trial of antivertigo medicine. 6. Deep venous thrombosis prophylaxis with compression stockings. Job ID: [id number]
[2019-10-24 13:51] LABS: SARS-CoV-2 MS2 Positive; SARS-CoV-2 N Gene Negative; SARS-CoV-2 S Gene Negative; SARS-CoV-2 by NAA Not Detected (NotDetected); SARS-CoV-2 orf1ab Negative
== END 2019-10-23 17:08 | disposition swing bed (61) ==
LOC: MADERS 12:47 → MADMS 16:19
PROVIDERS: ADMIT Family Medicine; ATTEND Family Medicine
DX: I95.1 Orthostatic hypotension (principal); R53.1 Weakness; R53.81 Other malaise; I11.0 Hypertensive heart disease with heart failure; I50.40 Unspecified combined systolic (congestive) and diastolic (congestive) heart failure; I25.10 Atherosclerotic heart disease of native coronary artery without angina pectoris; I48.20 Chronic atrial fibrillation, unspecified; I25.5 Ischemic cardiomyopathy; J44.9 Chronic obstructive pulmonary disease, unspecified; F41.9 Anxiety disorder, unspecified; F32.9 Major depressive disorder, single episode, unspecified; F51.04 Psychophysiologic insomnia; K21.9 Gastro-esophageal reflux disease without esophagitis; G40.909 Epilepsy, unspecified, not intractable, without status epilepticus; E78.5 Hyperlipidemia, unspecified; Z79.01 Long term (current) use of anticoagulants; Z79.899 Other long term (current) drug therapy; Z88.5 Allergy status to narcotic agent; Z88.8 Allergy status to other drugs, medicaments and biological substances; Z95.810 Presence of automatic (implantable) cardiac defibrillator
CPT/HCPCS: 80053; 83605; 83690; 84484; 85025; 87635; 96360; 96361; G0378; U0003

== ENCOUNTER 2019-10-23 07:08 | Inpatient (IN) | payer MEDICARE ==
[2019-10-23] MEDS ORDERED: Torsemide 20 MG TAB PO PRN (17:38)
[2019-10-23] MEDS ORDERED: Artificial Tear Sol 15 ML BOT EA EYE PRN (17:38)
[2019-10-23] MEDS ORDERED: (Plecanatide [Trulance] 3 MG) PO PRN (17:38)
[2019-10-23] MEDS ORDERED: Calcium Carbonate 500 MG ChewTAB PO PRN (17:38)
[2019-10-23] MEDS ORDERED: Acetaminophen/Codeine 30-300mg Tablet PO PRN (17:38)
[2019-10-23] MEDS ORDERED: Potassium Chloride 10 MEQ TAB PO PRN (17:38)
[2019-10-23] MEDS ORDERED: Senokot S 8.6-50 MG TAB PO PRN (17:38)
[2019-10-23] MEDS: clonazePAM 0.5 MG TAB PO PRN (20:18)
[2019-10-23] MEDS: Digoxin 0.125 MG TAB PO SCH (20:18)
[2019-10-23] MEDS: Simvastatin 40 MG TAB PO SCH (20:19)
[2019-10-23] MEDS: Venlafaxine HCl XR 150 MG CAP PO SCH (20:19)
[2019-10-23] MEDS: levETIRAcetam 500 MG TAB PO SCH (20:19)
[2019-10-23] MEDS: Apixaban 2.5 MG TAB PO SCH (20:19)
[2019-10-23] MEDS ORDERED: clonazePAM 0.5 MG TAB PO SCH (21:00)
[2019-10-24] MEDS: Meclizine HCl 25 MG TAB PO SCH (05:33)
[2019-10-24] MEDS: Cholecalciferol 1,000 UNITS (25 MCG) TAB PO SCH (08:18)
[2019-10-24] MEDS: Venlafaxine HCl XR 150 MG CAP PO SCH ×2 (08:19→20:31)
[2019-10-24] MEDS: Apixaban 2.5 MG TAB PO SCH ×2 (08:19→20:33)
[2019-10-24] MEDS ORDERED: Prevnar 13-Val Conj/PF 0.5 ML SYRINGE IM ONE (09:00)
[2019-10-24] MEDS: Acetaminophen 325 MG TAB PO PRN ×3 (11:52→21:30)
[2019-10-24] MEDS: levETIRAcetam 500 MG TAB PO SCH (20:31)
[2019-10-24] MEDS: Digoxin 0.125 MG TAB PO SCH (20:31)
[2019-10-24] MEDS: Simvastatin 40 MG TAB PO SCH (20:31)
[2019-10-25 02:40] LABS: Bilirubin Negative (Negative); Blood, Urine Small (Negative); Glucose, Urine (Dipstick) Negative (Negative); Ketone, Urine Negative (Negative); Leukocyte Small (Negative); Nitrite Negative (Negative); Protein, Urine (Dipstick) Negative (Neg-Trace); Urobilinogen 0.2 mg/dL (Less than 2); pH, Urine 5.5 (5.0-9.0)
[2019-10-25 02:41] LABS: Clarity Slightly Cloudy (Clear)
[2019-10-25 02:42] LABS: Specific Gravity, Urine 1.008 (1.002-1.036)
[2019-10-25 02:46] LABS: Bacteria/HPF 3+ HPF (None Seen); Squamous Epithelial 0-3 HPF (0-3)
[2019-10-25] MEDS: Meclizine HCl 25 MG TAB PO SCH (05:48)
[2019-10-25] MEDS: Acetaminophen 325 MG TAB PO PRN ×2 (07:39→20:14)
[2019-10-25] MEDS: Venlafaxine HCl XR 150 MG CAP PO SCH ×2 (08:44→20:15)
[2019-10-25] MEDS: Apixaban 2.5 MG TAB PO SCH ×2 (08:44→20:15)
[2019-10-25] MEDS: Cholecalciferol 1,000 UNITS (25 MCG) TAB PO SCH (08:44)
[2019-10-25] MEDS: Sulfameth/Trimethoprim DS 800-160mg TAB PO SCH ×2 (08:50→20:15)
[2019-10-25] MEDS: Nystatin Ointment 15 GM TUBE TOP SCH (20:14)
[2019-10-25] MEDS: levETIRAcetam 500 MG TAB PO SCH (20:15)
[2019-10-25] MEDS: Digoxin 0.125 MG TAB PO SCH (20:15)
[2019-10-25] MEDS: Simvastatin 40 MG TAB PO SCH (20:16)
[2019-10-26] MEDS: Meclizine HCl 25 MG TAB PO SCH (05:38)
[2019-10-26] MEDS: Sulfameth/Trimethoprim DS 800-160mg TAB PO SCH ×2 (09:05→20:16)
[2019-10-26] MEDS: Polyethylene Glycol 3350 17 GM Packet PO PRN (09:05)
[2019-10-26] MEDS: Venlafaxine HCl XR 150 MG CAP PO SCH ×2 (09:05→20:17)
[2019-10-26] MEDS: Nystatin Ointment 15 GM TUBE TOP SCH ×2 (09:05→20:18)
[2019-10-26] MEDS: Cholecalciferol 1,000 UNITS (25 MCG) TAB PO SCH (09:06)
[2019-10-26] MEDS: Apixaban 2.5 MG TAB PO SCH ×2 (09:06→20:17)
[2019-10-26] MEDS: Meclizine HCl 25 MG TAB PO PRN (10:18)
[2019-10-26] MEDS: Acetaminophen 325 MG TAB PO PRN (20:15)
[2019-10-26] MEDS: Digoxin 0.125 MG TAB PO SCH (20:17)
[2019-10-26] MEDS: Simvastatin 40 MG TAB PO SCH (20:17)
[2019-10-26] MEDS: levETIRAcetam 500 MG TAB PO SCH (20:17)
[2019-10-27] MEDS: Meclizine HCl 25 MG TAB PO SCH (05:39)
[2019-10-27] MEDS: Ondansetron ODT 4 MG TAB PO PRN (06:52)
[2019-10-27] MEDS: Apixaban 2.5 MG TAB PO SCH ×2 (08:18→20:17)
[2019-10-27] MEDS: Polyethylene Glycol 3350 17 GM Packet PO PRN (08:18)
[2019-10-27] MEDS: Cholecalciferol 1,000 UNITS (25 MCG) TAB PO SCH (08:18)
[2019-10-27] MEDS: Sulfameth/Trimethoprim DS 800-160mg TAB PO SCH ×2 (08:19→20:14)
[2019-10-27] MEDS: Venlafaxine HCl XR 150 MG CAP PO SCH ×2 (08:19→20:14)
[2019-10-27] MEDS: Nystatin Ointment 15 GM TUBE TOP SCH ×2 (08:20→20:14)
[2019-10-27] MEDS: Digoxin 0.125 MG TAB PO SCH (20:14)
[2019-10-27] MEDS: Simvastatin 40 MG TAB PO SCH (20:14)
[2019-10-27] MEDS: levETIRAcetam 500 MG TAB PO SCH (20:16)
[2019-10-27] MEDS: Acetaminophen 325 MG TAB PO PRN (20:19)
[2019-10-28] MEDS: Acetaminophen 325 MG TAB PO PRN ×2 (04:31→16:49)
[2019-10-28] MEDS: Ondansetron ODT 4 MG TAB PO PRN (05:51)
[2019-10-28] MEDS: Meclizine HCl 25 MG TAB PO SCH (06:04)
[2019-10-28] MEDS: Sulfameth/Trimethoprim DS 800-160mg TAB PO SCH ×2 (08:16→20:26)
[2019-10-28] MEDS: Cholecalciferol 1,000 UNITS (25 MCG) TAB PO SCH (08:16)
[2019-10-28] MEDS: Apixaban 2.5 MG TAB PO SCH ×2 (08:16→20:27)
[2019-10-28] MEDS: Venlafaxine HCl XR 150 MG CAP PO SCH ×2 (08:16→20:26)
[2019-10-28] MEDS: Nystatin Ointment 15 GM TUBE TOP SCH ×2 (08:18→20:25)
[2019-10-28] MEDS: ALPRAZolam 0.25 MG TAB PO PRN (08:28)
[2019-10-28] MEDS: levETIRAcetam 500 MG TAB PO SCH (20:26)
[2019-10-28] MEDS: Digoxin 0.125 MG TAB PO SCH (20:26)
[2019-10-28] MEDS: Simvastatin 40 MG TAB PO SCH (20:27)
[2019-10-29] MEDS: Meclizine HCl 25 MG TAB PO SCH (05:31)
[2019-10-29] MEDS: Nystatin Ointment 15 GM TUBE TOP SCH ×2 (07:53→20:06)
[2019-10-29] MEDS: Cholecalciferol 1,000 UNITS (25 MCG) TAB PO SCH (07:53)
[2019-10-29] MEDS: Apixaban 2.5 MG TAB PO SCH ×2 (07:53→20:05)
[2019-10-29] MEDS: Sulfameth/Trimethoprim DS 800-160mg TAB PO SCH ×2 (07:53→20:05)
[2019-10-29] MEDS: Venlafaxine HCl XR 150 MG CAP PO SCH ×2 (07:53→20:05)
[2019-10-29] MEDS: ALPRAZolam 0.25 MG TAB PO PRN (14:03)
[2019-10-29] MEDS: clonazePAM 0.5 MG TAB PO PRN (20:03)
[2019-10-29] MEDS: Digoxin 0.125 MG TAB PO SCH (20:05)
[2019-10-29] MEDS: Simvastatin 40 MG TAB PO SCH (20:05)
[2019-10-29] MEDS: levETIRAcetam 500 MG TAB PO SCH (20:06)
[2019-10-29] MEDS: Acetaminophen 325 MG TAB PO PRN (20:07)
[2019-10-30] MEDS: Meclizine HCl 25 MG TAB PO SCH (05:32)
[2019-10-30] MEDS: Apixaban 2.5 MG TAB PO SCH ×2 (08:05→20:04)
[2019-10-30] MEDS: Cholecalciferol 1,000 UNITS (25 MCG) TAB PO SCH (08:05)
[2019-10-30] MEDS: Nystatin Ointment 15 GM TUBE TOP SCH ×2 (08:05→20:03)
[2019-10-30] MEDS: Sulfameth/Trimethoprim DS 800-160mg TAB PO SCH ×2 (08:05→20:03)
[2019-10-30] MEDS: Venlafaxine HCl XR 150 MG CAP PO SCH ×2 (08:05→20:02)
[2019-10-30] MEDS: Acetaminophen 325 MG TAB PO PRN (16:22)
[2019-10-30] MEDS: Plecanatide [Trulance] 3 MG PO PRN (19:58)
[2019-10-30] MEDS: clonazePAM 0.5 MG TAB PO PRN (20:00)
[2019-10-30] MEDS: Digoxin 0.125 MG TAB PO SCH (20:01)
[2019-10-30] MEDS: levETIRAcetam 500 MG TAB PO SCH (20:02)
[2019-10-30] MEDS: Simvastatin 40 MG TAB PO SCH (20:03)
[2019-10-31] MEDS: ALPRAZolam 0.25 MG TAB PO PRN (03:16)
[2019-10-31] MEDS: Meclizine HCl 25 MG TAB PO SCH (05:56)
[2019-10-31] MEDS: Venlafaxine HCl XR 150 MG CAP PO SCH ×2 (08:16→21:31)
[2019-10-31] MEDS: Sulfameth/Trimethoprim DS 800-160mg TAB PO SCH ×2 (08:16→21:31)
[2019-10-31] MEDS: Cholecalciferol 1,000 UNITS (25 MCG) TAB PO SCH (08:16)
[2019-10-31] MEDS: Apixaban 2.5 MG TAB PO SCH ×2 (08:17→21:27)
[2019-10-31] MEDS: Nystatin Ointment 15 GM TUBE TOP SCH ×2 (08:19→21:30)
[2019-10-31 12:33] VITALS: BMI 33.0
[2019-10-31] MEDS: Acetaminophen 325 MG TAB PO PRN (18:28)
[2019-10-31] MEDS: Digoxin 0.125 MG TAB PO SCH (21:27)
[2019-10-31] MEDS: levETIRAcetam 500 MG TAB PO SCH (21:28)
[2019-10-31] MEDS: Simvastatin 40 MG TAB PO SCH (21:31)
[2019-11-01] MEDS: Meclizine HCl 25 MG TAB PO SCH (05:59)
[2019-11-01] MEDS: Meclizine HCl 25 MG TAB PO PRN (08:25)
[2019-11-01] MEDS: Acetaminophen 325 MG TAB PO PRN ×2 (08:25→16:58)
[2019-11-01] MEDS: Venlafaxine HCl XR 150 MG CAP PO SCH ×2 (08:25→20:35)
[2019-11-01] MEDS: Apixaban 2.5 MG TAB PO SCH ×2 (08:25→20:32)
[2019-11-01] MEDS: Cholecalciferol 1,000 UNITS (25 MCG) TAB PO SCH (08:26)
[2019-11-01] MEDS: Nystatin Ointment 15 GM TUBE TOP SCH ×2 (08:28→20:35)
[2019-11-01] MEDS: Plecanatide [Trulance] 3 MG PO PRN (17:01)
[2019-11-01] MEDS: levETIRAcetam 500 MG TAB PO SCH (20:33)
[2019-11-01] MEDS: Digoxin 0.125 MG TAB PO SCH (20:33)
[2019-11-01] MEDS: Simvastatin 40 MG TAB PO SCH (20:35)
[2019-11-02] MEDS: Meclizine HCl 25 MG TAB PO SCH (05:26)
[2019-11-02] MEDS: Venlafaxine HCl XR 150 MG CAP PO SCH ×2 (08:06→20:42)
[2019-11-02] MEDS: Cholecalciferol 1,000 UNITS (25 MCG) TAB PO SCH (08:06)
[2019-11-02] MEDS: Apixaban 2.5 MG TAB PO SCH ×2 (08:06→20:43)
[2019-11-02] MEDS: Nystatin Ointment 15 GM TUBE TOP SCH ×2 (13:52→20:47)
[2019-11-02] MEDS: Acetaminophen 325 MG TAB PO PRN (16:22)
[2019-11-02] MEDS: levETIRAcetam 500 MG TAB PO SCH (20:43)
[2019-11-02] MEDS: Simvastatin 40 MG TAB PO SCH (20:43)
[2019-11-02] MEDS: Digoxin 0.125 MG TAB PO SCH (20:44)
[2019-11-03] MEDS: Meclizine HCl 25 MG TAB PO SCH (06:10)
[2019-11-03] MEDS: Venlafaxine HCl XR 150 MG CAP PO SCH ×2 (08:06→21:24)
[2019-11-03] MEDS: Cholecalciferol 1,000 UNITS (25 MCG) TAB PO SCH (08:06)
[2019-11-03] MEDS: Apixaban 2.5 MG TAB PO SCH ×2 (08:06→21:23)
[2019-11-03] MEDS: Nystatin Ointment 15 GM TUBE TOP SCH ×2 (08:35→21:28)
[2019-11-03] MEDS: Polyethylene Glycol 3350 17 GM Packet PO PRN (18:13)
[2019-11-03] MEDS: Digoxin 0.125 MG TAB PO SCH (21:24)
[2019-11-03] MEDS: levETIRAcetam 500 MG TAB PO SCH (21:24)
[2019-11-03] MEDS: Simvastatin 40 MG TAB PO SCH (21:25)
[2019-11-04] MEDS: Acetaminophen 325 MG TAB PO PRN ×4 (02:11→17:43)
[2019-11-04] MEDS: ALPRAZolam 0.25 MG TAB PO PRN (02:11)
[2019-11-04 05:01] LABS: Hemoglobin 12.6 g/dL (12.0-16.0); Platelet Count 288 thou/uL (130-400)
[2019-11-04] MEDS: Meclizine HCl 25 MG TAB PO SCH (05:27)
[2019-11-04] MEDS: Cholecalciferol 1,000 UNITS (25 MCG) TAB PO SCH (08:53)
[2019-11-04] MEDS: Apixaban 2.5 MG TAB PO SCH ×2 (08:53→21:39)
[2019-11-04] MEDS: Venlafaxine HCl XR 150 MG CAP PO SCH ×2 (08:53→21:42)
[2019-11-04] MEDS: Nystatin Ointment 15 GM TUBE TOP SCH ×2 (08:54→21:41)
[2019-11-04] MEDS: Polyethylene Glycol 3350 17 GM Packet PO PRN (08:56)
[2019-11-04] MEDS: Gabapentin 100 MG CAP PO SCH (21:39)
[2019-11-04] MEDS: levETIRAcetam 500 MG TAB PO SCH (21:39)
[2019-11-04] MEDS: Digoxin 0.125 MG TAB PO SCH (21:39)
[2019-11-04] MEDS: Simvastatin 40 MG TAB PO SCH (21:42)
[2019-11-05] MEDS: Meclizine HCl 25 MG TAB PO SCH (05:23)
[2019-11-05] MEDS: Venlafaxine HCl XR 150 MG CAP PO SCH ×2 (08:15→21:54)
[2019-11-05] MEDS: Nystatin Ointment 15 GM TUBE TOP SCH ×2 (08:15→21:53)
[2019-11-05] MEDS: Apixaban 2.5 MG TAB PO SCH ×2 (08:15→21:52)
[2019-11-05] MEDS: Cholecalciferol 1,000 UNITS (25 MCG) TAB PO SCH (08:15)
[2019-11-05] MEDS: Polyethylene Glycol 3350 17 GM Packet PO PRN (08:19)
[2019-11-05] MEDS: Acetaminophen 325 MG TAB PO PRN ×3 (08:19→16:46)
[2019-11-05] MEDS: Digoxin 0.125 MG TAB PO SCH (21:52)
[2019-11-05] MEDS: Gabapentin 100 MG CAP PO SCH (21:52)
[2019-11-05] MEDS: levETIRAcetam 500 MG TAB PO SCH (21:53)
[2019-11-05] MEDS: ALPRAZolam 0.25 MG TAB PO PRN (21:54)
[2019-11-05] MEDS: Simvastatin 40 MG TAB PO SCH (21:54)
[2019-11-06] MEDS: Meclizine HCl 25 MG TAB PO SCH (05:19)
[2019-11-06] MEDS: Venlafaxine HCl XR 150 MG CAP PO SCH ×2 (08:24→20:50)
[2019-11-06] MEDS: Cholecalciferol 1,000 UNITS (25 MCG) TAB PO SCH (08:24)
[2019-11-06] MEDS: Apixaban 2.5 MG TAB PO SCH ×2 (08:24→20:50)
[2019-11-06] MEDS: Polyethylene Glycol 3350 17 GM Packet PO PRN (08:25)
[2019-11-06] MEDS: Nystatin Ointment 15 GM TUBE TOP SCH ×2 (08:26→20:50)
[2019-11-06] MEDS: Acetaminophen 325 MG TAB PO PRN ×2 (08:28→17:12)
[2019-11-06] MEDS: ALPRAZolam 0.25 MG TAB PO PRN (20:49)
[2019-11-06] MEDS: Gabapentin 100 MG CAP PO SCH (20:50)
[2019-11-06] MEDS: Simvastatin 40 MG TAB PO SCH (20:50)
[2019-11-06] MEDS: Digoxin 0.125 MG TAB PO SCH (20:50)
[2019-11-06] MEDS: levETIRAcetam 500 MG TAB PO SCH (20:51)
[2019-11-07] MEDS: Meclizine HCl 25 MG TAB PO SCH (05:50)
[2019-11-07] MEDS: Venlafaxine HCl XR 150 MG CAP PO SCH ×2 (08:28→20:45)
[2019-11-07] MEDS: Acetaminophen 325 MG TAB PO PRN ×3 (08:28→16:51)
[2019-11-07] MEDS: Cholecalciferol 1,000 UNITS (25 MCG) TAB PO SCH (08:28)
[2019-11-07] MEDS: Apixaban 2.5 MG TAB PO SCH ×2 (08:28→20:43)
[2019-11-07] MEDS: Nystatin Ointment 15 GM TUBE TOP SCH ×2 (08:28→21:25)
[2019-11-07] MEDS: Simvastatin 40 MG TAB PO SCH (20:43)
[2019-11-07] MEDS: levETIRAcetam 500 MG TAB PO SCH (20:44)
[2019-11-07] MEDS: Gabapentin 100 MG CAP PO SCH (20:44)
[2019-11-07] MEDS: Digoxin 0.125 MG TAB PO SCH (20:44)
[2019-11-07] MEDS: ALPRAZolam 0.25 MG TAB PO PRN (20:49)
[2019-11-08] MEDS: Meclizine HCl 25 MG TAB PO SCH (05:16)
[2019-11-08] MEDS: Cholecalciferol 1,000 UNITS (25 MCG) TAB PO SCH (07:48)
[2019-11-08] MEDS: Apixaban 2.5 MG TAB PO SCH (07:48)
[2019-11-08] MEDS: Venlafaxine HCl XR 150 MG CAP PO SCH (07:48)
[2019-11-08] MEDS: Nystatin Ointment 15 GM TUBE TOP SCH (07:48)
[2019-11-08] MEDS: Acetaminophen 325 MG TAB PO PRN ×2 (07:51→12:16)
[2019-11-08 08:32] VITALS: BP 103/76; TEMP 96.7
--- NOTE | 2019-11-14 15:30 | DIS ---
DATE OF ADMISSION: 10/23/2019 DATE OF DISCHARGE: 11/08/2019 DISCHARGE TO SWING BED: 10/23/2019 DISCHARGED HOME: 11/08/2019 REASON FOR ADMISSION: General weakness and further observation of orthostatic hypotension and gait instability. DIAGNOSES: 1. Physical deconditioning secondary to generalized weakness. 2. Orthostatic hypotension. 3. Dysautonomic syndrome. 4. 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 5. History of chronic obstructive pulmonary disease. 6. History of depression and anxiety. 7. History of chronic insomnia. 8. History of seizure disorder. 9. History of chronic gastroesophageal reflux disease. 10. Abnormality of gait and imbalance. 11. Obesity. 12. Neuropathic pain of both legs, new onset. DISPOSITION: Home. CONDITION ON DISCHARGE: Stable. HOME MEDICATIONS: 1. Gabapentin 100 mg p.o. at bedtime. 2. Alprazolam 0.25 mg p.o. b.i.d. p.r.n. 3. Apixaban 2.5 mg p.o. b.i.d. 4. Calcium carbonate 500 mg p.o. q.4 hours p.r.n. 5. Vitamin D3 at 1000 mg p.o. daily. 6. Digoxin 0.125 mg p.o. at bedtime. 7. Keppra 250 mg p.o. at bedtime. 8. Meclizine 25 mg p.o. b.i.d. p.r.n. 9. Metoprolol 12.5 mg p.o. at bedtime. 10. Pantoprazole 40 mg p.o. b.i.d. 11. Plecanatide 3 mg p.o. daily p.r.n. 12. Polyethylene glycol 17 g p.o. daily. 13. Potassium chloride 10 mEq p.o. daily. 14. Quetiapine 25 mg p.o. at bedtime. 15. Entresto 24/26 p.o. daily. 16. Senokot-S two tablets p.o. b.i.d. p.r.n. 17. Simvastatin 40 mg p.o. at bedtime. 18. Torsemide 10 mg p.o. at bedtime p.r.n. for leg edema. 19. Venlafaxine 150 mg ER p.o. b.i.d. DISCHARGE INSTRUCTIONS: 1. Diet: Low salt, low fat. 2. Activity: To use rolling walker at all times. 3. Fall precautions. 4. Follow up with Dr. Mayers in 1 to 2 weeks, sooner with concern. 5. Follow up with with GI as previously scheduled. 6. Follow up with Cardio in 1 to 2 weeks. HISTORY OF THE PRESENT ILLNESS AND HOSPITAL COURSE: Ms. Negrete is a 79-year-old female with multiple chronic medical conditions as dictated above. The patient had another episode of general weakness and orthostatic hypotension. The patient reports that she has been having dizzy spells, especially in changes of position. She remains very unsteady with her gait and was unable to even get up on her own out of bed. She went to the ER on 10/22/2019, and was subsequently admitted for 24-hour observation at [facility]. When admitted, the patient was generally weak. There were no signs of dehydration at this time. There were no gastrointestinal symptoms reported as it used to be. She is eating fine, but remains generally weak and very unsteady with her balance. She required assistance when she gets up to the potty chair. There was no significant near-syncope nor syncopal episode. The patient showed significant evidence of orthostatic hypotension making her very dizzy upon getting up or changing positions. The patient was subsequently admitted on 10/23/2019 to [facility] for skilled rehab. The patient did well over time. She advanced in her overall function and mobility and status during rehab course. She has had intermittent dizzy spells every now and then, but bearable. Her blood pressure improved and has been very stable in the 120s over 60s to 70s for an average. Meclizine had helped her dizzy spells and was able to tolerate her therapy. She was walking 225 feet using her rolling walker with contact guard assist prior to discharge. During this hospitalization, the patient's anxiolytic was readjusted. We discontinued her clonazepam and Xanax was used on a p.r.n. basis. Apparently, patient has had occasional episodes of anxiety/panic attack during day time that had attributed to her dizzy spells. She did well with low-dose Xanax on a p.r.n. basis. I do not think she need an extra anxiolytic at nighttime like clonazepam that she used to take prior to admission. The patient is able to sleep well with her low-dose Seroquel alone at night. During this hospital stay, patient also reported persistent numbness and tingling sensation of both legs limiting her overall functional mobility/status. She was tried on low-dose Neurontin and did very well. The patient has requested continuing Neurontin at home on discharge. Vital signs prior to discharge; blood pressure 125/84, temperature 96.7, pulse 78, respirations 18, O2 sats 95% on room air. Job ID: [id number]
== END 2019-11-08 14:15 | disposition home health service (06) | DRG 948 ==
LOC: MADMS 07:08
PROVIDERS: ADMIT Family Medicine; ATTEND Family Medicine
DX: R53.81 Other malaise (principal); R53.1 Weakness; I50.9 Heart failure, unspecified; I11.0 Hypertensive heart disease with heart failure; I95.1 Orthostatic hypotension
CPT/HCPCS: 81001; 82565; 85014; 85018; 85049; 87077; 87086; 87186; Q0162

== ENCOUNTER 2020-01-08 13:28 | Emergency (ER) | payer MEDICARE ==
[2020-01-08] MEDS ORDERED: Sodium Chloride 0.9% 1,000 ML ONE (14:31)
[2020-01-08] MEDS ORDERED: Ondansetron PF 4 MG/2 ML Vial ONE (14:31)
[2020-01-08 15:04] LABS: ALT (SGPT) 14 U/L (8-55); AST (SGOT) 19 U/L (5-34); Alkaline Phosphatase 89 U/L (40-110); Anion Gap 16 mmol/L (10-20); BUN (Urea Nitrogen) 14 mg/dL (9.8-20.1); Band 10 % (5-11); Bilirubin, Total 0.3 mg/dL (0.2-1.2); CK (CPK) 48 U/L (29-168); Calc. Creatinine Clearance 0 mL/min (70-130); Calcium 9.1 mg/dL (7.8-10.44); Carbon Dioxide 27 mmol/L (23-31); Chloride 99 mmol/L (98-107); Eosinophils 2 % (0-10); Estimated GFR-MDRD 68; Globulin 3.1 g/dL (2.4-3.5); Glucose 121 mg/dL (83-110); Hemoglobin 13.3 g/dL (12.0-16.0); Lipase 146 U/L (8-78); Lymphocytes 24 % (21-51); MDiff Complete? YES; Mean Corpuscular HGB CONC 31.2 g/dL (32.0-36.0); Mean Corpuscular Hemoglobin 29.4 pg (27.0-31.0); Mean Corpuscular Volume 94.1 fL (78.0-98.0); Mean Platelet Volume 8.9 fL (7.4-10.4); Monocytes 9 % (0-10); Neutrophil 55 % (42-75); Platelet Count 247 thou/uL (130-400); Platelet Morphology Comment Appears Adequate; Potassium 4.2 mmol/L (3.5-5.1); Protein, Total 7.1 g/dL (6.0-8.3); RBC Distribution Width 12.7 % (11.5-14.5); Red Blood Cell (RBC) Count 4.53 mill/uL (4.20-5.40); Sodium 138 mmol/L (136-145); White Blood Cell (WBC) Count 10.9 thou/uL (4.8-10.8)
[2020-01-08 15:35] LABS: Bilirubin Negative (Negative); Blood, Urine Negative (Negative); Clarity Clear (Clear); Glucose, Urine (Dipstick) Negative (Negative); Ketone, Urine Negative (Negative); Leukocyte Negative (Negative); Nitrite Negative (Negative); Protein, Urine (Dipstick) Negative (Neg-Trace); Urobilinogen 0.2 mg/dL (Less than 2)
== END 2020-01-08 16:19 | disposition home or self-care (01) ==
LOC: MADERS 13:28
DX: R11.2 Nausea with vomiting, unspecified (principal); R53.1 Weakness; E78.5 Hyperlipidemia, unspecified; I11.0 Hypertensive heart disease with heart failure; I50.9 Heart failure, unspecified; I25.10 Atherosclerotic heart disease of native coronary artery without angina pectoris; Z79.899 Other long term (current) drug therapy; Z79.01 Long term (current) use of anticoagulants
CPT/HCPCS: 36415; 80053; 81003; 82550; 83605; 83690; 84484; 85025; 93005; 96361; 96374; J2405; J7050

== ENCOUNTER 2020-03-19 13:13 | Emergency (ER) | payer MEDICARE ==
[~2020-03-19 13:13] MED LIST changes: +Iopamidol 370 76% 100 ML VIAL ONE; -Sodium Chloride 0.9% 1,000 ML BAG ONE
[2020-03-19] MEDS ORDERED: Ondansetron PF 4 MG/2 ML Vial ONE (13:39)
[2020-03-19] MEDS ORDERED: Sodium Chloride 0.9% 1,000 ML ONE (13:39)
[2020-03-19 13:42] LABS: #Basophils 0.1 thou/uL (0.0-0.2); #Eosinphils 0.3 thou/uL (0.0-0.7); #Lymphocytes 2.6 thou/uL (1.20-3.40); #Monocytes 0.9 thou/uL (0.11-0.59); #Neutrophils 5.7 thou/uL (1.40-6.50); %Basophils 1.1 % (0.0-1.0); %Eosinophils 3.2 % (0.0-10.0); %Lymphocytes 27.1 % (21.0-51.0); %Monocytes 9.4 % (0.0-10.0); %Neutrophils 59.3 % (42.0-75.0); Hemoglobin 12.9 g/dL (12.0-16.0); Mean Corpuscular HGB CONC 32.8 g/dL (32.0-36.0); Mean Corpuscular Hemoglobin 29.7 pg (27.0-31.0); Mean Corpuscular Volume 90.6 fL (78.0-98.0); Mean Platelet Volume 8.4 fL (7.4-10.4); Platelet Count 306 thou/uL (130-400); RBC Distribution Width 11.8 % (11.5-14.5); Red Blood Cell (RBC) Count 4.36 mill/uL (4.20-5.40); White Blood Cell (WBC) Count 9.6 thou/uL (4.8-10.8)
[2020-03-19 13:56] LABS: ALT (SGPT) 12 U/L (8-55); AST (SGOT) 14 U/L (5-34); Albumin 3.8 g/dL (3.4-4.8); Alkaline Phosphatase 84 U/L (40-110); Anion Gap 16 mmol/L (10-20); BUN (Urea Nitrogen) 13 mg/dL (9.8-20.1); Bilirubin, Total 0.2 mg/dL (0.2-1.2); CK (CPK) 50 U/L (29-168); Calc. Creatinine Clearance 0 mL/min (70-130); Carbon Dioxide 25 mmol/L (23-31); Chloride 102 mmol/L (98-107); Globulin 3.1 g/dL (2.4-3.5); Glucose 122 mg/dL (83-110); Magnesium 1.7 mg/dL (1.6-2.6); Potassium 3.7 mmol/L (3.5-5.1); Protein, Total 6.9 g/dL (6.0-8.3); Sodium 139 mmol/L (136-145)
[2020-03-19 14:55] LABS: Bilirubin Negative (Negative); Blood, Urine Negative (Negative); Clarity Clear (Clear); Glucose, Urine (Dipstick) Negative (Negative); Ketone, Urine Negative (Negative); Leukocyte Negative (Negative); Nitrite Negative (Negative); Protein, Urine (Dipstick) Negative (Neg-Trace)
--- NOTE | 2020-03-19 15:56 | CT ---
CT ABDOMEN WITH CONTRAST CT PELVIS WITH CONTRAST: DATE: 03/19/20 HISTORY: 79-year-old female with epigastric pain, nausea, vomiting, and diarrhea. COMPARISON: Abdominal CT of 08/20/19. Pelvic CT of 02/08/17. FINDINGS: Again noted is the laparoscopic gastric band around the proximal stomach. There is pouch dilatation s uperior to the band at the lowest central portion of the thoracic cavity again demonstrated. Multiple surgical clips in the gallbladder fossa. Air within the left intrahepatic bile ducts again noted. Otherwise, no major pathology of liver, spleen, pancreas, adrenals. Appendix not visualized, presumably surgically absent. Uterus absent as was the case in 2017. No signs of colonic diverticulitis, intra-abdominal or intrapelvic abscess, ascites, pneumoperitoneum , hydronephrosis, pyelonephritis, or small bowel dilation. Empty urinary bladder. No consolidation or pleural effusion at lung bases. Pacemaker lead in right ve ntricle. Large number of small bilateral renal cortical cysts. No significant interval change overall identified. IMPRESSION: 1. No acute findings. 2. Status post multiple previous surgeries, laparoscopic gastric banding, cholecystectomy, hyste rectomy, and probably appendectomy. 3. Numerous small bilateral renal cysts. 4. Chronic pneumobilia due to prior common bile duct surgical manipulation or papillotomy. 5. Pouch dilatation associated with the Lap Band. 6. No interval change overall. CONOR Peace POS: VINH
[2020-03-20 17:27] LABS: SARS-CoV-2 MS2 Positive; SARS-CoV-2 N Gene Negative; SARS-CoV-2 S Gene Negative; SARS-CoV-2 by NAA Not Detected (NotDetected); SARS-CoV-2 orf1ab Negative
== END 2020-03-19 16:05 | disposition home or self-care (01) ==
LOC: MADERS 13:13
DX: E86.0 Dehydration (principal); E86.1 Hypovolemia; Z20.828 Contact with and (suspected) exposure to other viral communicable diseases; E78.5 Hyperlipidemia, unspecified; I11.0 Hypertensive heart disease with heart failure; I50.9 Heart failure, unspecified
CPT/HCPCS: 74177; 80053; 81003; 82550; 83605; 83735; 84484; 85025; 93005; 96374; 99284; U0003; 87635; J2405; J7050; Q9967

== ENCOUNTER 2020-04-06 14:08 | Outpatient (CLI) | payer MEDICARE ==
[2020-04-06 14:44] LABS: Bilirubin Negative (Negative); Blood, Urine Moderate (Negative); Clarity Clear (Clear); Glucose, Urine (Dipstick) Negative (Negative); Ketone, Urine Negative (Negative); Leukocyte Small (Negative); Nitrite Positive (Negative); Protein, Urine (Dipstick) 30 mg/dL (Neg-Trace); Urobilinogen 0.2 mg/dL (Less than 2); pH, Urine 5.5 (5.0-9.0)
[2020-04-06 14:56] LABS: WBC/HPF 21-50 HPF (0-3)
[2020-04-06 14:57] LABS: Bacteria/HPF 1+ HPF (None Seen); Squamous Epithelial 0-3 HPF (0-3)
== END 2020-04-06 14:09 | disposition home or self-care (01) ==
LOC: MADLAB 14:08
PROVIDERS: ATTEND Family Medicine
DX: R39.9 Unspecified symptoms and signs involving the genitourinary system (principal)
CPT/HCPCS: 81001; 87077; 87086; 87186

== ENCOUNTER 2020-04-07 12:28 | Emergency (ER) | payer MEDICARE ==
--- NOTE | 2020-04-07 13:07 | CT ---
CT Brain WO Con: 04/07/2020 12:44 PM CLINICAL HISTORY: Altered mental status and on blood thinners. IMAGING TECHNIQUE: Multiple CT images were obtained of the brain without IV contrast. COMPARISON: CT of the brain without contrast dated February 04, 2020 FINDINGS: BRAIN: Evidence of acute infarct: None. Evidence of chronic ischemic change:Moderate chronic small vessel white matter ischemic changes stabl e. Evidence of intracranial hemorrhage: None. Evidence of brain volume loss:Generalized cerebral and cerebellar atrophy is stable. Evidence of midline shift: Third ventricle and septum pellucidum are midline. Ventricles: Normal. No hydrocephalus. SKULL: Intact. VISUALIZED PARANASAL SINUSES: Clear. MASTOID AIR CELLS: Clear. EXTRACRANIAL SOFT TISSUES: Normal. IMPRESSION: No acute intracranial abnormality.
[2020-04-07 13:18] LABS: Digoxin 0.48 ng/mL (0.8-2.0)
[2020-04-07 13:19] LABS: Hemoglobin 12.6 g/dL (12.0-16.0); Mean Corpuscular Hemoglobin 29.2 pg (27.0-31.0); Mean Corpuscular Volume 88.6 fL (78.0-98.0); Mean Platelet Volume 8.5 fL (7.4-10.4); Platelet Count 290 thou/uL (130-400); RBC Distribution Width 11.9 % (11.5-14.5); Red Blood Cell (RBC) Count 4.33 mill/uL (4.20-5.40); White Blood Cell (WBC) Count 9.9 thou/uL (4.8-10.8)
[2020-04-07 13:21] LABS: ALT (SGPT) 14 U/L (8-55); AST (SGOT) 14 U/L (5-34); Albumin 3.8 g/dL (3.4-4.8); Alkaline Phosphatase 80 U/L (40-110); Anion Gap 14 mmol/L (10-20); BUN (Urea Nitrogen) 16 mg/dL (9.8-20.1); Bilirubin, Total 0.2 mg/dL (0.2-1.2); Calc. Creatinine Clearance 0 mL/min (70-130); Calcium 8.9 mg/dL (7.8-10.44); Carbon Dioxide 26 mmol/L (23-31); Chloride 101 mmol/L (98-107); Globulin 2.7 g/dL (2.4-3.5); Glucose 97 mg/dL (83-110); Lipase 202 U/L (8-78); Protein, Total 6.5 g/dL (6.0-8.3); Sodium 137 mmol/L (136-145)
[2020-04-07 13:28] LABS: PTT 29.7 sec (22.9-36.1); Prothrombin Time 13.2 sec (12.0-14.7)
--- NOTE | 2020-04-07 13:30 | RAD ---
XR Chest 1 View Portable History: Altered mental status Comparison: Radiograph January 2020 Findings: AICD/pacer is similar. No pneumothorax. No effusion. No acute osseous abnormality. Impression: No acute intrathoracic abnormality.
[2020-04-07] MEDS ORDERED: cefTRIAXone\\ROCEPHIN 2 GM VIAL ONE (13:43)
[2020-04-07] MEDS ORDERED: Sodium Chloride 0.9% 1,000 ML ONE (13:43)
[2020-04-09 08:41] LABS: SARS-CoV-2 PCR by NAA Not Detected (NotDetected)
== END 2020-04-07 14:08 | disposition critical access hospital (66) ==
LOC: MADERS 12:28
DX: K85.90 Acute pancreatitis without necrosis or infection, unspecified (principal); R41.82 Altered mental status, unspecified; N39.0 Urinary tract infection, site not specified; I25.10 Atherosclerotic heart disease of native coronary artery without angina pectoris; I48.91 Unspecified atrial fibrillation; E78.5 Hyperlipidemia, unspecified; I11.0 Hypertensive heart disease with heart failure; I50.9 Heart failure, unspecified; Z79.899 Other long term (current) drug therapy
CPT/HCPCS: 70450; 71045; 80053; 80162; 83605; 83690; 84443; 84484; 85025; 85610; 85730; 87635; 93005; 94760; J0696; J7050; U0003; U0005

== ENCOUNTER 2020-04-07 13:50 | Inpatient (IN) | payer MEDICARE ==
[2020-04-07 14:22] VITALS: BMI 34.0
[2020-04-07] MEDS ORDERED: Acetaminophen/Codeine 30-300mg Tablet PO PRN (15:49)
[2020-04-07] MEDS ORDERED: Meclizine HCl 25 MG TAB PO PRN (15:49)
[2020-04-07] MEDS ORDERED: Potassium Chloride 10 MEQ TAB PO PRN (15:49)
[2020-04-07] MEDS ORDERED: Senokot S 8.6-50 MG TAB PO PRN (15:49)
[2020-04-07] MEDS ORDERED: Polyethylene Glycol 3350 17 GM Packet PO PRN (15:49)
[2020-04-07] MEDS ORDERED: Torsemide 20 MG TAB PO PRN (16:04)
[2020-04-07] MEDS ORDERED: Plecanatide [Trulance] 3 MG Tablet PO PRN (16:06)
[2020-04-07] MEDS: Sodium Chloride 0.9% 1,000 ML IV SCH (16:54)
[2020-04-07] MEDS ORDERED: Dextrose 5 % And 0.9 % NaCl 1,000 ML IV SCH (17:30)
[2020-04-07] MEDS: Atorvastatin Calcium 10 MG TAB PO SCH (22:15)
[2020-04-07] MEDS: Venlafaxine HCl XR 150 MG CAP PO SCH (22:15)
[2020-04-07] MEDS: Apixaban 5 MG TAB PO SCH (22:16)
[2020-04-07] MEDS: Gabapentin 100 MG CAP PO SCH (22:16)
[2020-04-07] MEDS: levETIRAcetam 500 MG TAB PO SCH (22:16)
[2020-04-07] MEDS: Digoxin 0.125 MG TAB PO SCH (22:16)
[2020-04-07] MEDS: ALPRAZolam 0.5 MG TAB PO PRN (22:18)
[2020-04-08] MEDS: Sodium Chloride 0.9% 1,000 ML IV SCH (02:44)
--- NOTE | 2020-04-08 05:43 | HP ---
ATTENDING/PRIMARY CARE PHYSICIAN: Barb Mayers MD REASON FOR ADMISSION: Pancreatitis. HISTORY OF THE PRESENT ILLNESS AND HOSPITAL COURSE: Ms. Negrete is a 79-year-old female with significant history of hypertension; chronic GERD, CAD, CHF; history of mild pancreatitis, multiple times that was treated conservatively in the hospital without complications. The patient reports that she has not been really feeling well lately since this past couple of weeks since her dad's . She noted general weakness a week ago when she was out of town to attend her father's . shama travelled by land to [place] to attend the , unfortunately she was unable to make it as she felt generally weak and somewhat dizzy at that time. When she went back home, she felt fine, but she has not really been eating much lately for unknown reason. This was followed by having UTI symptoms that started a few days ago. She was seen in the clinic for this2 days ago. Her urinalysis on 04/06/2020 showed significant pyuria, with pending culture at this time. She was then started on Cipro and Pyridium. The patient just started her first dose this morning. Reports burning sensation has improved since she started Pyridium last night. This morning when she was visited by home health, she was reported to have kind of acting "lethargic," and was thought to have seizure activity. When checked, her blood pressure was reported at 160/102. Thus, the patient was sent to the ER for further evaluation. When seen in the ER, the patient was awake and alert. On initial evaluation, CT of the brain showed no acute intracranial abnormality. Chest x-ray showed AICD pacer in place with no acute intrathoracic abnormality. On routine blood exam, WBC was 9.9, hemoglobin 12.6, hematocrit 38, platelets 290. Chemistry showed electrolytes within normal limits. Lactic acid 1.2. TSH 1.3. Liver function tests within normal limits. Troponin less than 0.10. Alkaline phosphatase 80, total bilirubin 0.2 with lipase of 202. Digoxin level 0.48. The patient's blood pressure stabilized at 159/90. EKG showed paced rhythm. Of note, the patient has had normal lipase for the most part of the last year. She had the last elevation of the lipase in April of 2019. The patient then was deemed to benefit for further gentle hydration and monitoring of lipase. Thus, recommended admission to [facility]. She was also started on IV Rocephin for acute UTI, pending urine culture. The patient then agreed and was admitted. 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 PAST SURGICAL HISTORY: Status post appendectomy, cholecystectomy, hysterectomy, pacemaker placement. FAMILY HISTORY: Reports cardiac disorders, CVA. SOCIAL HISTORY: The patient has never smoked. She denies alcohol use. No illicit drug use. Living situation, the patient lives by herself. She is a . She has a loss prevention manager during the time. Her daughter who lives next door is the primary loss prevention manager who checks on the patient all the time. Activity level, the patient uses walker to move around. ALLERGIES: AARON INHIBITORS, HYDROCODONE BITARTRATE, NSAIDS, POTASSIUM CHLORIDE IV, VICODIN. CURRENT MEDICATIONS: 1. Alprazolam 0.5 mg p.o. b.i.d. p.r.n. 2. Eliquis 5 mg p.o. b.i.d. 3. Atorvastatin 20 mg p.o. at bedtime. 4. Ceftriaxone 2 g IV daily. 5. Digoxin 0.125 mg p.o. at bedtime. 6. Gabapentin 100 mg p.o. at bedtime. 7. Keppra 500 mg p.o. b.i.d. 8. Meclizine 25 mg p.o. daily p.r.n. 9. Metoprolol 25 mg p.o. at bedtime. 10. Pantoprazole 40 mg p.o. b.i.d. 11. Venlafaxine 150 mg p.o. b.i.d. 12. Polyethylene glycol 17 g p.o. daily. 13. Potassium chloride 10 mEq p.o. daily p.r.n. 14. Torsemide 5 mg p.o. daily p.r.n. for leg edema. 15. Quetiapine 25 mg p.o. at bedtime. 16. Entresto one tablet p.o. b.i.d. 17. Docusate sodium two tablets p.o. b.i.d. p.r.n. 18. Linzess 1 tablet daily prn REVIEW OF SYSTEMS: GENERAL: Patient denies fever or chills. Reports fatigue, general weakness. HEENT: No acute visual changes. No hearing changes. RESPIRATORY: Denies cough, sputum production, or shortness of breath. CARDIAC: Denies chest pain, dyspnea on exertion, paroxysmal nocturnal dyspnea. GI: Reports nausea without vomiting, constipation, and chronic reflux symptoms. GENITOURINARY: Reports dysuria, frequency, urgency. Denies incontinence. MUSCULOSKELETAL: Denies joint pain, joint effusions. NEURO: Denies syncope, focal paralysis or paresthesia. Reports intermittent dizziness and tremors, neuropathy. PSYCH: Reports anxiety, depression, insomnia. Stable with current medications. Denies hallucinations. LABORATORY DATA: WBC 9.9, hemoglobin 12.6, hematocrit 38, platelets 290. PT 13.2, INR 1, APTT 29.7. PHYSICAL EXAMINATION: VITAL SIGNS: Blood pressure 165/94, temperature 98.3, pulse 83, respirations 18, O2 saturation 96% on room air. Weight 216 pounds and 14 ounces. Height 5 feet 7 inches. GENERAL: The patient is awake, alert, and oriented x3. Not in distress, comfortable on exam, resting in bed. No family is present at the time of examination. HEENT: Normocephalic, atraumatic. PERR. Intact EOM. Anicteric sclerae. Oral mucosa is dry. NECK: Supple. No LAD. CHEST: Normal excursion. Nonlabored breathing. Lungs clear to auscultation bilaterally. CARDIAC: Rate controlled. Normal S1 and S2. ABDOMEN: Obese, soft, nondistended. Normoactive bowel sounds with mild right upper quadrant direct tenderness and suprapubic tenderness. No rebound or guarding. Positive CVA tenderness on the left. EXTREMITIES: No edema. No cyanosis. NEUROLOGIC: Alert, awake, oriented x3. Nonfocal. DTRs 2+. Gait unsteady. PSYCH: Appears calm with appropriate mood and affect. Appropriate interaction. ASSESSMENT AND PLAN: 1. Acute pancreatitis with mild symptoms.without significant evidence of organ failure. 2. Acute urinary tract infection. 3. Altered mental status, improved.Now at her baseline mental state. 4.Seizure disorder. 5. Congestive heart failure with diastolic dysfunction.Compensated. 6. Anxiety, depression. 7. Chronic gastroesophageal reflux disease. 8. Paroxysmal atrial fibrillation, on long-term use of anticoagulation, rate controlled. S/P AICD. 9. Chronic insomnia. 10. Chronic constipation. 11. Dyslipidemia. 12. The patient is admitted to Med Surg for further observation and conservative management of mild pancreatitis. The patient is currently hemodynamically stable. No signs of sepsis/bacteremia. She is afebrile. We will continue gentle hydration with extra caution secondary to history of congestive heart failure. To keep n.p.o. for the first 24 hours and advance diet as tolerated. 13. We will continue empiric IV antibiotic treatment with Rocephin, pending culture. 14. We will obtain serial electrolytes monitoring. . 15. Continue home medications as modified per list. 16. GI prophylaxis with PPI. 17. VTE prophylaxis: Patient is already on anticoagulant use. 18. Seizure precautions. 19. Further recommendations depending on the hospital course. Estimated length of stay 2 to 3 days. CODE STATUS: The patient reports DNAR. Time spent on this admission, in examining the patient and reviewing records, and coordinating care, 45 minutes. Job ID: [id number] [facility]
[2020-04-08 06:19] LABS: ALT (SGPT) 13 U/L (8-55); AST (SGOT) 13 U/L (5-34); Albumin 3.7 g/dL (3.4-4.8); Alkaline Phosphatase 77 U/L (40-110); Anion Gap 14 mmol/L (10-20); BUN (Urea Nitrogen) 14 mg/dL (9.8-20.1); Bilirubin, Total 0.3 mg/dL (0.2-1.2); Calc. Creatinine Clearance 90 mL/min (70-130); Calcium 8.9 mg/dL (7.8-10.44); Carbon Dioxide 28 mmol/L (23-31); Chloride 103 mmol/L (98-107); Globulin 2.5 g/dL (2.4-3.5); Glucose 101 mg/dL (83-110); Potassium 4.1 mmol/L (3.5-5.1); Protein, Total 6.2 g/dL (6.0-8.3); Sodium 141 mmol/L (136-145)
[2020-04-08] MEDS: levETIRAcetam 500 MG TAB PO SCH ×2 (08:30→22:51)
[2020-04-08] MEDS: Venlafaxine HCl XR 150 MG CAP PO SCH ×2 (08:30→22:51)
[2020-04-08] MEDS: Apixaban 5 MG TAB PO SCH ×2 (08:30→22:51)
[2020-04-08] MEDS ORDERED: cefTRIAXone\\ROCEPHIN 2 GM VIAL ONE (14:13)
[2020-04-08] MEDS: cefTRIAXone\\ROCEPHIN 2 GM in Sodium Chloride 0.9% 100 ML IVPB SCH (14:14)
[2020-04-08] MEDS ORDERED: Loratadine 10 MG TAB PO SCH (17:15)
[2020-04-08] MEDS: Gabapentin 100 MG CAP PO SCH (22:50)
[2020-04-08] MEDS: Atorvastatin Calcium 10 MG TAB PO SCH (22:50)
[2020-04-08] MEDS: Digoxin 0.125 MG TAB PO SCH (22:51)
[2020-04-08] MEDS: ALPRAZolam 0.5 MG TAB PO PRN (22:59)
[2020-04-09] MEDS: levETIRAcetam 500 MG TAB PO SCH ×2 (08:13→22:01)
[2020-04-09] MEDS: Venlafaxine HCl XR 150 MG CAP PO SCH ×2 (08:13→22:04)
[2020-04-09] MEDS: Apixaban 5 MG TAB PO SCH ×2 (08:14→21:59)
[2020-04-09] MEDS: cefTRIAXone\\ROCEPHIN 2 GM in Sodium Chloride 0.9% 100 ML IVPB SCH (14:39)
[2020-04-09] MEDS: Gabapentin 100 MG CAP PO SCH (22:01)
[2020-04-09] MEDS: Atorvastatin Calcium 10 MG TAB PO SCH (22:02)
[2020-04-09] MEDS: ALPRAZolam 0.5 MG TAB PO PRN (22:02)
[2020-04-09] MEDS: Digoxin 0.125 MG TAB PO SCH (22:05)
[2020-04-10] MEDS: levETIRAcetam 500 MG TAB PO SCH ×2 (08:21→20:31)
[2020-04-10] MEDS: Venlafaxine HCl XR 150 MG CAP PO SCH ×2 (08:22→20:31)
[2020-04-10] MEDS: Apixaban 5 MG TAB PO SCH ×2 (08:22→20:32)
[2020-04-10] MEDS: cefTRIAXone\\ROCEPHIN 2 GM in Sodium Chloride 0.9% 100 ML IVPB SCH (14:38)
[2020-04-10] MEDS: Atorvastatin Calcium 10 MG TAB PO SCH (20:29)
[2020-04-10] MEDS: Gabapentin 100 MG CAP PO SCH (20:30)
[2020-04-10] MEDS: Digoxin 0.125 MG TAB PO SCH (20:32)
[2020-04-10] MEDS: ALPRAZolam 0.5 MG TAB PO PRN (20:33)
[2020-04-11] MEDS: Apixaban 5 MG TAB PO SCH (08:22)
[2020-04-11] MEDS: levETIRAcetam 500 MG TAB PO SCH (08:22)
[2020-04-11] MEDS: Venlafaxine HCl XR 150 MG CAP PO SCH (08:22)
[2020-04-11] MEDS ORDERED: Cefdinir 300 MG CAP PO SCH (09:00)
[2020-04-11 16:46] VITALS: BP 135/83; TEMP 96.9
--- NOTE | 2020-04-13 08:08 | DIS ---
DATE OF ADMISSION: 04/07/2020 DATE OF DISCHARGE: 04/11/2020 ATTENDING/PCP: Dr. Mayers. REASON FOR ADMISSION: Acute pancreatitis. HOSPITAL COURSE: Ms. Negrete is a 79-year-old female with significant history of hypertension, CHF, recurrent pancreatitis that was treated conservatively in the hospital without complications, and seizure disorders. The patient was initially seen on 04/07/2020, at [place] [facility] when she was initially noted to have lethargy and thought to have seizure activity by the visiting home health nurse. Initial evaluation in the ER showed no significant acute intracranial abnormalities by CT of the brain. Chest x-ray showed AICD pacer in place with no acute intrathoracic abnormality as well. Her blood exam was initially unremarkable with WBC 9.1, lactic acid 1.2, troponin 0.10, digoxin 0.48, but with elevated lipase of 202. The patient's EKG showed paced rhythm. Of note, the patient has had normal lipase for most part of the year since April 2019. The patient admits that she probably has not been eating or drinking much lately due to recent of her father. She was also diagnosed couple of days ago from PCP's clinic with UTI as she complained of dysuria. The patient was treated with conservative management. There was no significant evidence of end-organ failure nor bacteremia or sepsis. The patient remained febrile free. She was put initially on n.p.o. with IV hydration. Her diet was advanced slowly after 24 hours and tolerated the diet well. She was on regular diet prior to discharge without significant nausea, vomiting, or abdominal pain except for the right upper quadrant mild tenderness, which the patient reports has been chronic for her. The patient's UA came back with growth of E coli, sensitive to the Rocephin. The Rocephin was continued for 3 days and subsequently changed to p.o. antibiotic. She is going to finish 2 more days of cefdinir post discharge. On 04/10/2020, the patient was hemodynamically stable and is deemed appropriate for discharge. Prior to discharge, the patient reports some dizzy spell and was noted to have orthostatic hypotension. She was then recommended to stay and blood pressure was monitored. Her beta nicole last night was withheld as well as the Entresto was withheld this morning. Her blood pressure gradually improved with the med adjustments. Prior to discharge, blood pressure in a standing position was reported at 135/83 with heart rate of 92. The patient admits history of significant dysautonomic orthostatic hypotension and intermittently she would get dizzy spells that usually respond to meclizine. When revaluated on 04/11/2020, the patient reports that she is feeling a lot better, just with lightheadedness, that she is fine when she is just resting. Despite medical recommendations for further observation, the patient declined. She was very adamant to go home because of her dog. The patient is highly recommended to continue blood pressure monitoring at home. If her blood pressure remains at systolic blood pressure of 120s to 130s and heart rate is greater than 65, she can start back on metoprolol 25 mg p.o. at bedtime and Entresto / p.o. q.a.m. the next day. She denies active chest pain, heart palpitation, shortness of breath, or dyspnea on exertion. She is tolerant moving around from the bed to the restroom without syncopal episode. DISPOSITION: Home. CONDITION ON DISCHARGE: Stable. HOME MEDICATIONS: To continue all current medications as per list with addition of cefdinir 300 mg p.o. b.i.d. for two more days starting on 04/12/2020. DISCHARGE INSTRUCTIONS: 1. Follow up with Dr. Mayers next week as previously scheduled. 2. Diet, regular as tolerated. Increase fluid intake. Avoid dehydration. 3. ER warnings/strict return precautions. PHYSICAL EXAMINATION: VITAL SIGNS: Prior to discharge; blood pressure 135/83 standing, heart rate 92, temperature 96.2, respirations 20, O2 saturations 90%. Weight 250 pounds and height of 5 feet 7 inches. GENERAL: The patient is awake, alert, and oriented x3. CHEST: Normal excursion. Good expansion. LUNGS: Clear to auscultation bilaterally. No rales, no wheezes, no crackles, no rhonchi. CARDIAC: Rate controlled. Normal S1 and S2. ABDOMEN: Soft, obese, nondistended. Normoactive bowel sounds. Nontender. No rebound or guarding. Negative CVA tenderness bilaterally. EXTREMITIES: No edema. No cyanosis. NEUROLOGIC: Nonfocal. Awake, alert, and oriented x3. Gait unsteady. Uses a rolling walker at home. Job ID: [id number]
== END 2020-04-11 16:18 | disposition home or self-care (01) | DRG 439 ==
LOC: MADMS 13:50
PROVIDERS: ADMIT Family Medicine; ATTEND Family Medicine
DX: K85.90 Acute pancreatitis without necrosis or infection, unspecified (principal); N39.0 Urinary tract infection, site not specified; I50.32 Chronic diastolic (congestive) heart failure; G40.909 Epilepsy, unspecified, not intractable, without status epilepticus; F41.9 Anxiety disorder, unspecified; F32.9 Major depressive disorder, single episode, unspecified; K21.9 Gastro-esophageal reflux disease without esophagitis; I48.0 Paroxysmal atrial fibrillation; G47.00 Insomnia, unspecified; K59.09 Other constipation; E78.5 Hyperlipidemia, unspecified; Z66 Do not resuscitate; I11.0 Hypertensive heart disease with heart failure; I25.10 Atherosclerotic heart disease of native coronary artery without angina pectoris; B96.20 Unspecified Escherichia coli [E. coli] as the cause of diseases classified elsewhere; I95.1 Orthostatic hypotension; Z95.810 Presence of automatic (implantable) cardiac defibrillator; Z79.01 Long term (current) use of anticoagulants; Z79.899 Other long term (current) drug therapy; Z88.6 Allergy status to analgesic agent; Z88.8 Allergy status to other drugs, medicaments and biological substances; Z82.3 Family history of stroke; Z82.49 Family history of ischemic heart disease and other diseases of the circulatory system; Z90.49 Acquired absence of other specified parts of digestive tract; Z90.710 Acquired absence of both cervix and uterus
CPT/HCPCS: 70450; 71045; 80053; 80162; 83605; 83690; 84443; 84484; 85025; 85610; 85730; 87635; 93005; 94760; 96374; J0696; J3490; J7042; J7050; U0003; U0005

== ENCOUNTER 2020-06-03 16:36 | Emergency (ER) | payer MEDICARE ==
[2020-06-03 17:14] LABS: Hemoglobin 14.7 g/dL (12.0-16.0); Mean Corpuscular HGB CONC 33.6 g/dL (32.0-36.0); Mean Corpuscular Hemoglobin 30.1 pg (27.0-31.0); Mean Corpuscular Volume 89.6 fL (78.0-98.0); Mean Platelet Volume 8.3 fL (7.4-10.4); Platelet Count 341 thou/uL (130-400); RBC Distribution Width 12.4 % (11.5-14.5); Red Blood Cell (RBC) Count 4.88 mill/uL (4.20-5.40); White Blood Cell (WBC) Count 14.2 thou/uL (4.8-10.8)
[2020-06-03 17:22] LABS: Band 1 % (5-11); Eosinophils 3 % (0-10); Lymphocytes 29 % (21-51); MDiff Complete? YES; Monocytes 9 % (0-10); Neutrophil 46 % (42-75); Platelet Morphology Comment Appears Adequate; Reactive Lymphocytes 10 % (0-10)
[2020-06-03 17:23] LABS: ALT (SGPT) 17 U/L (8-55); AST (SGOT) 18 U/L (5-34); Albumin 4.2 g/dL (3.4-4.8); Alkaline Phosphatase 101 U/L (40-110); Anion Gap 17 mmol/L (10-20); BUN (Urea Nitrogen) 28 mg/dL (9.8-20.1); Bilirubin, Total 0.6 mg/dL (0.2-1.2); Calc. Creatinine Clearance 0 mL/min (70-130); Calcium 9.7 mg/dL (7.8-10.44); Carbon Dioxide 24 mmol/L (23-31); Chloride 99 mmol/L (98-107); Globulin 3.2 g/dL (2.4-3.5); Glucose 116 mg/dL (83-110); Lipase 78 U/L (8-78); Potassium 4.3 mmol/L (3.5-5.1); Protein, Total 7.4 g/dL (5.8-8.1); Sodium 136 mmol/L (136-145)
[2020-06-03] MEDS ORDERED: Sodium Chloride 0.9% 2,000 ML ONE (17:27)
[2020-06-03] MEDS ORDERED: Ondansetron PF 4 MG/2 ML Vial ONE (17:27)
== END 2020-06-03 21:00 | disposition home or self-care (01) ==
LOC: MADERS 16:36
DX: E86.0 Dehydration (principal); R11.2 Nausea with vomiting, unspecified; I25.10 Atherosclerotic heart disease of native coronary artery without angina pectoris; I48.91 Unspecified atrial fibrillation; E78.5 Hyperlipidemia, unspecified; I11.0 Hypertensive heart disease with heart failure; I50.9 Heart failure, unspecified; Z79.899 Other long term (current) drug therapy; Z79.01 Long term (current) use of anticoagulants; Z79.891 Long term (current) use of opiate analgesic
CPT/HCPCS: 80053; 83690; 84484; 85025; 93005; 96374; J2405; J7050

== ENCOUNTER 2020-06-29 10:35 | Emergency (ER) | payer MEDICARE ==
[~2020-06-29 10:35] MED LIST changes: -Iopamidol 370 76% 100 ML VIAL ONE; +Sodium Chloride 0.9% 500 ML BAG ONE
[2020-06-29] MEDS ORDERED: Iopamidol 370 76% 100 ML VIAL ONE (11:16)
[2020-06-29] MEDS ORDERED: Ondansetron PF 4 MG/2 ML Vial ONE (11:19)
[2020-06-29] MEDS ORDERED: Fentanyl 100 MCG/2 ML VIAL ONE (11:19)
[2020-06-29 11:29] LABS: ALT (SGPT) 16 U/L (8-55); AST (SGOT) 21 U/L (5-34); Albumin 4.3 g/dL (3.4-4.8); Alkaline Phosphatase 88 U/L (40-110); Anion Gap 20 mmol/L (10-20); BUN (Urea Nitrogen) 15 mg/dL (9.8-20.1); Bilirubin, Total 0.5 mg/dL (0.2-1.2); Calc. Creatinine Clearance 0 mL/min (70-130); Calcium 9.3 mg/dL (7.8-10.44); Carbon Dioxide 20 mmol/L (23-31); Chloride 103 mmol/L (98-107); Globulin 3.1 g/dL (2.4-3.5); Glucose 116 mg/dL (83-110); Lipase 77 U/L (8-78); Potassium 4.3 mmol/L (3.5-5.1); Protein, Total 7.4 g/dL (5.8-8.1); Sodium 139 mmol/L (136-145)
[2020-06-29 11:36] LABS: Hemoglobin 13.9 g/dL (12.0-16.0); Red Blood Cell (RBC) Count 4.66 mill/uL (4.20-5.40); White Blood Cell (WBC) Count 10.2 thou/uL (4.8-10.8)
[2020-06-29 11:37] LABS: #Lymphocytes 3.6 thou/uL (1.20-3.40); #Neutrophils 5.6 thou/uL (1.40-6.50); %Basophils 1.4 % (0.0-1.0); %Eosinophils 3.5 % (0.0-10.0); %Monocytes 5.3 % (0.0-10.0); %Neutrophils 54.8 % (42.0-75.0); Manual Diff?? NO; Mean Corpuscular HGB CONC 32.1 g/dL (32.0-36.0); Mean Corpuscular Hemoglobin 29.8 pg (27.0-31.0); Mean Platelet Volume 9.7 fL (7.4-10.4); Platelet Count 320 thou/uL (130-400); RBC Distribution Width 12.6 % (11.5-14.5)
[2020-06-29 11:38] LABS: #Basophils 0.1 thou/uL (0.0-0.2); #Eosinphils 0.4 thou/uL (0.0-0.7); #Monocytes 0.5 thou/uL (0.11-0.59)
[2020-06-29] MEDS ORDERED: Promethazine HCl 25 MG/ML VIAL ONE (13:12)
[2020-06-29] MEDS ORDERED: Sodium Chloride 0.9% 1,000 ML ONE (13:50)
[2020-06-29] MEDS ORDERED: Sodium Chloride 0.9% 500 ML ONE (13:50)
[2020-06-29 14:32] LABS: Bilirubin Negative (Negative); Blood, Urine Negative (Negative); Glucose, Urine (Dipstick) Negative (Negative); Ketone, Urine Negative (Negative); Leukocyte Negative (Negative); Nitrite Negative (Negative); Protein, Urine (Dipstick) Negative (Neg-Trace); Specific Gravity, Urine 1.015 (1.005-1.030); pH, Urine 5.5 (5.0-9.0)
[2020-06-29 14:33] LABS: Clarity Hazy (Clear)
[2020-06-29 15:22] LABS: Lactic Acid 1.1 mmol/L (0.5-2.2)
== END 2020-06-29 16:00 | disposition home or self-care (01) ==
LOC: MADERS 10:35
DX: R10.11 Right upper quadrant pain (principal); R11.2 Nausea with vomiting, unspecified; I11.0 Hypertensive heart disease with heart failure; I50.9 Heart failure, unspecified; I25.10 Atherosclerotic heart disease of native coronary artery without angina pectoris
CPT/HCPCS: 71045; 74177; 80053; 81003; 83605; 83690; 83880; 84484; 85025; 87040; 87086; 93005; 96365; 96375; J2405; J2550; J3010; J7030; J7050; Q9967

== ENCOUNTER 2020-11-14 10:29 | Emergency (ER) | payer MEDICARE ==
[2020-11-14] MEDS ORDERED: Ondansetron PF 4 MG/2 ML Vial ONE (11:27)
[2020-11-14] MEDS ORDERED: Sodium Chloride 0.9% 500 ML ONE (11:27)
[2020-11-14] MEDS ORDERED: Fentanyl 100 MCG/2 ML VIAL ONE (11:27)
[2020-11-14 11:53] LABS: #Basophils 0.1 thou/uL (0.0-0.2); #Eosinphils 0.2 thou/uL (0.0-0.7); #Lymphocytes 2.8 thou/uL (1.20-3.40); #Monocytes 0.7 thou/uL (0.11-0.59); #Neutrophils 6.4 thou/uL (1.40-6.50); %Basophils 1.3 % (0.0-1.0); %Eosinophils 2.2 % (0.0-10.0); %Monocytes 6.9 % (0.0-10.0); %Neutrophils 62.6 % (42.0-75.0); Hemoglobin 13.4 g/dL (12.0-16.0); Mean Corpuscular HGB CONC 31.5 g/dL (32.0-36.0); Mean Corpuscular Hemoglobin 28.4 pg (27.0-31.0); Mean Corpuscular Volume 90.3 fL (78.0-98.0); Mean Platelet Volume 8.9 fL (7.4-10.4); Platelet Count 308 thou/uL (130-400); RBC Distribution Width 12.6 % (11.5-14.5); Red Blood Cell (RBC) Count 4.71 mill/uL (4.20-5.40); White Blood Cell (WBC) Count 10.2 thou/uL (4.8-10.8)
[2020-11-14 12:18] LABS: ALT (SGPT) 14 U/L (8-55); Albumin 3.9 g/dL (3.4-4.8); Alkaline Phosphatase 89 U/L (40-110); Anion Gap 15 mmol/L (10-20); BUN (Urea Nitrogen) 15 mg/dL (9.8-20.1); Bilirubin, Total 0.6 mg/dL (0.2-1.2); Calc. Creatinine Clearance 0 mL/min (70-130); Calcium 9.4 mg/dL (7.8-10.44); Carbon Dioxide 24 mmol/L (23-31); Chloride 103 mmol/L (98-107); Globulin 2.9 g/dL (2.4-3.5); Glucose 109 mg/dL (83-110); Lipase 90 U/L (8-78); Potassium 4.4 mmol/L (3.5-5.1); Protein, Total 6.8 g/dL (5.8-8.1); Sodium 138 mmol/L (136-145)
[2020-11-14] MEDS ORDERED: Iopamidol 370 76% 100 ML VIAL ONE (12:26)
[2020-11-14 12:29] LABS: AST (SGOT) 26 U/L (5-34)
== END 2020-11-14 15:00 | disposition home or self-care (01) ==
LOC: MADERS 10:29
DX: K85.90 Acute pancreatitis without necrosis or infection, unspecified (principal); R07.81 Pleurodynia; I10 Essential (primary) hypertension; E78.5 Hyperlipidemia, unspecified; Z79.01 Long term (current) use of anticoagulants; Z79.899 Other long term (current) drug therapy
CPT/HCPCS: 74177; 80053; 83605; 83690; 84484; 85025; 93005; 96374; 96375; J2405; J3010; J7030; Q9967

== ENCOUNTER 2020-12-01 13:30 | Emergency (ER) | payer MEDICARE ==
[~2020-12-01 13:30] MED LIST changes: +Iopamidol 370 76% 100 ML VIAL ONE; -Sodium Chloride 0.9% 500 ML BAG ONE
[2020-12-01 14:31] LABS: #Basophils 0.1 thou/uL (0.0-0.2); #Eosinphils 0.3 thou/uL (0.0-0.7); #Lymphocytes 3.7 thou/uL (1.20-3.40); #Neutrophils 6.2 thou/uL (1.40-6.50); %Basophils 1.2 % (0.0-1.0); %Eosinophils 2.7 % (0.0-10.0); %Lymphocytes 32.6 % (21.0-51.0); %Monocytes 8.7 % (0.0-10.0); %Neutrophils 54.7 % (42.0-75.0); Hemoglobin 13.3 g/dL (12.0-16.0); Mean Corpuscular HGB CONC 31.6 g/dL (32.0-36.0); Mean Corpuscular Hemoglobin 28.4 pg (27.0-31.0); Mean Corpuscular Volume 89.7 fL (78.0-98.0); Mean Platelet Volume 8.9 fL (7.4-10.4); Platelet Count 343 thou/uL (130-400); RBC Distribution Width 12.3 % (11.5-14.5); Red Blood Cell (RBC) Count 4.69 mill/uL (4.20-5.40); White Blood Cell (WBC) Count 11.2 thou/uL (4.8-10.8)
[2020-12-01 14:46] LABS: ALT (SGPT) 14 U/L (8-55); AST (SGOT) 16 U/L (5-34); Albumin 4.1 g/dL (3.4-4.8); Alkaline Phosphatase 78 U/L (40-110); Anion Gap 13 mmol/L (10-20); BUN (Urea Nitrogen) 18 mg/dL (9.8-20.1); Bilirubin, Total 0.3 mg/dL (0.2-1.2); Calc. Creatinine Clearance 0 mL/min (70-130); Calcium 9.7 mg/dL (7.8-10.44); Carbon Dioxide 25 mmol/L (23-31); Chloride 102 mmol/L (98-107); Glucose 108 mg/dL (83-110); Potassium 4.2 mmol/L (3.5-5.1); Protein, Total 7.1 g/dL (5.8-8.1); Sodium 136 mmol/L (136-145)
== END 2020-12-01 15:55 | disposition home or self-care (01) ==
LOC: MADERS 13:30
DX: S70.01XA Contusion of right hip, initial encounter (principal); S80.01XA Contusion of right knee, initial encounter; R10.9 Unspecified abdominal pain; R11.2 Nausea with vomiting, unspecified; I48.91 Unspecified atrial fibrillation; Z79.01 Long term (current) use of anticoagulants; W10.9XXA Fall (on) (from) unspecified stairs and steps, initial encounter
CPT/HCPCS: 72170; 74177; 80053; 85025; Q9967

== ENCOUNTER 2021-02-27 10:55 | Emergency (ER) | payer MEDICARE ==
[2021-02-27] MEDS ORDERED: Iopamidol 370 76% 125 ML VIAL FS ONE (10:56)
[2021-02-27] MEDS ORDERED: Iopamidol 370 76% 100 ML VIAL IV ONE (10:56)
[2021-02-27 12:01] LABS: Band 6 % (5-11); Eosinophils 5 % (0-10); Lymphocytes 23 % (21-51); MDiff Complete? YES; Mean Corpuscular Hemoglobin 27.9 pg (27.0-31.0); Mean Corpuscular Volume 87.5 fL (78.0-98.0); Mean Platelet Volume 8.4 fL (7.4-10.4); Monocytes 6 % (0-10); Neutrophil 60 % (42-75); Platelet Count 261 thou/uL (130-400); Platelet Morphology Comment Appears Adequate; RBC Morphology Normal; Red Blood Cell (RBC) Count 4.28 mill/uL (4.20-5.40); White Blood Cell (WBC) Count 8.5 thou/uL (4.8-10.8)
[2021-02-27 12:04] LABS: ALT (SGPT) 13 U/L (8-55); AST (SGOT) 15 U/L (5-34); Albumin 3.7 g/dL (3.4-4.8); Alkaline Phosphatase 77 U/L (40-110); Anion Gap 15 mmol/L (10-20); BUN (Urea Nitrogen) 11 mg/dL (9.8-20.1); Bilirubin, Total 0.5 mg/dL (0.2-1.2); Calc. Creatinine Clearance 0 mL/min (70-130); Calcium 9.2 mg/dL (7.8-10.44); Carbon Dioxide 24 mmol/L (23-31); Chloride 100 mmol/L (98-107); Glucose 109 mg/dL (83-110); Lipase 34 U/L (8-78); Potassium 3.5 mmol/L (3.5-5.1); Protein, Total 6.7 g/dL (5.8-8.1); Sodium 135 mmol/L (136-145)
[2021-02-27] MEDS ORDERED: Morphine 4 MG/ML VIAL ONE (12:05)
[2021-02-27 13:15] LABS: SARS-CoV-2 NAA Rapid Test Not Detected (NotDetected)
== END 2021-02-27 13:40 | disposition home or self-care (01) ==
LOC: MADERS 10:55
DX: R10.13 Epigastric pain (principal); R10.12 Left upper quadrant pain; R11.2 Nausea with vomiting, unspecified; I11.0 Hypertensive heart disease with heart failure; I50.9 Heart failure, unspecified; I48.91 Unspecified atrial fibrillation; K21.9 Gastro-esophageal reflux disease without esophagitis; E78.5 Hyperlipidemia, unspecified; G40.909 Epilepsy, unspecified, not intractable, without status epilepticus; Z20.822 Contact with and (suspected) exposure to COVID-19; Z95.0 Presence of cardiac pacemaker; Z87.19 Personal history of other diseases of the digestive system; Z79.01 Long term (current) use of anticoagulants; Z79.899 Other long term (current) drug therapy
CPT/HCPCS: 74177; 80053; 83605; 83690; 85025; U0002; 36415; 96361; 96374; J2270; Q9967

== ENCOUNTER 2021-03-07 10:56 | Emergency (ER) | payer MEDICARE ==
[2021-03-07] MEDS ORDERED: Benzonatate 100 MG CAP ONE (13:33)
[2021-03-07] MEDS ORDERED: Azithromycin 250 MG TAB ONE (13:33)
== END 2021-03-07 13:55 | disposition home or self-care (01) ==
LOC: MADERS 10:56
DX: J18.9 Pneumonia, unspecified organism (principal); I10 Essential (primary) hypertension; R11.2 Nausea with vomiting, unspecified; I11.0 Hypertensive heart disease with heart failure; I50.9 Heart failure, unspecified; I48.91 Unspecified atrial fibrillation; K21.9 Gastro-esophageal reflux disease without esophagitis; I25.10 Atherosclerotic heart disease of native coronary artery without angina pectoris; Z79.01 Long term (current) use of anticoagulants; Z79.899 Other long term (current) drug therapy
CPT/HCPCS: 71250; 87804; J7620

== ENCOUNTER 2021-06-05 21:18 | Emergency (ER) | payer MEDICARE ==
[2021-06-05 22:18] LABS: #Basophils 0.2 thou/uL (0.0-0.2); #Eosinphils 0.6 thou/uL (0.0-0.7); #Lymphocytes 2.2 thou/uL (1.20-3.40); #Monocytes 1.1 thou/uL (0.11-0.59); #Neutrophils 7.1 thou/uL (1.40-6.50); %Basophils 1.6 % (0.0-1.0); %Eosinophils 5.4 % (0.0-10.0); %Lymphocytes 19.5 % (21.0-51.0); %Monocytes 10.1 % (0.0-10.0); %Neutrophils 63.4 % (42.0-75.0); Hemoglobin 12.4 g/dL (12.0-16.0); Mean Corpuscular HGB CONC 31.8 g/dL (32.0-36.0); Mean Corpuscular Hemoglobin 26.9 pg (27.0-31.0); Mean Corpuscular Volume 84.8 fL (78.0-98.0); Mean Platelet Volume 8.4 fL (7.4-10.4); Platelet Count 300 thou/uL (130-400); RBC Distribution Width 13.8 % (11.5-14.5); Red Blood Cell (RBC) Count 4.61 mill/uL (4.20-5.40); White Blood Cell (WBC) Count 11.2 thou/uL (4.8-10.8)
[2021-06-05 22:35] LABS: ALT (SGPT) 15 U/L (8-55); AST (SGOT) 18 U/L (5-34); Albumin 3.7 g/dL (3.4-4.8); Alkaline Phosphatase 93 U/L (40-110); Anion Gap 17 mmol/L (10-20); BUN (Urea Nitrogen) 13 mg/dL (9.8-20.1); Bilirubin, Total 0.7 mg/dL (0.2-1.2); CRP (Inflammatory) 3.54 mg/dL (= or < 0.5); Calc. Creatinine Clearance 0 mL/min (70-130); Calcium 9.7 mg/dL (7.8-10.44); Carbon Dioxide 23 mmol/L (23-31); Chloride 102 mmol/L (98-107); Globulin 3.1 g/dL (2.4-3.5); Glucose 107 mg/dL (83-110); Potassium 3.4 mmol/L (3.5-5.1); Protein, Total 6.8 g/dL (5.8-8.1); Sodium 139 mmol/L (136-145)
[2021-06-05 22:57] LABS: CKMB 2.7 ng/mL (0-6.6)
[2021-06-05 23:12] LABS: Digoxin 0.28 ng/mL (0.8-2.0)
[2021-06-05] MEDS ORDERED: Furosemide 40 MG/4 ML VIAL ONE (23:23)
[2021-06-05] MEDS ORDERED: Sodium Chloride 0.9% 50 ML ONE (23:23)
[2021-06-05] MEDS ORDERED: Ondansetron PF 4 MG/2 ML Vial ONE ×2 (23:23→23:27)
[2021-06-06 00:40] LABS: SARS-CoV-2 NAA Rapid Test Not Detected (NotDetected)
[2021-06-06 01:35] LABS: Bilirubin Negative (Negative); Blood, Urine Negative (Negative); Clarity Clear (Clear); Glucose, Urine (Dipstick) Negative (Negative); Ketone, Urine Negative (Negative); Leukocyte Negative (Negative); Nitrite Negative (Negative); Protein, Urine (Dipstick) Negative (Neg-Trace)
[2021-06-06 01:36] LABS: Specific Gravity, Urine 1.006 (1.002-1.036)
== END 2021-06-06 01:21 | disposition short-term general hospital (02) ==
LOC: MADERS 21:18
DX: I11.0 Hypertensive heart disease with heart failure (principal); I50.9 Heart failure, unspecified; K86.1 Other chronic pancreatitis; R77.8 Other specified abnormalities of plasma proteins; I25.10 Atherosclerotic heart disease of native coronary artery without angina pectoris; I48.91 Unspecified atrial fibrillation; K21.9 Gastro-esophageal reflux disease without esophagitis; E78.5 Hyperlipidemia, unspecified; G40.909 Epilepsy, unspecified, not intractable, without status epilepticus; Z20.822 Contact with and (suspected) exposure to COVID-19
CPT/HCPCS: 71045; 74018; 80053; 80162; 81003; 82150; 82550; 82553; 83690; 83880; 84484; 85025; 86140; 87086; 93005; 94760; U0002; 51702; 96365; 96375; J1940; J2405

== ENCOUNTER 2021-06-15 19:29 | Inpatient (IN) | payer MEDICARE ==
[2021-06-15] MEDS ORDERED: (Plecanatide [Trulance] 3 MG Tablet) PO PRN (20:53)
[2021-06-15] MEDS ORDERED: Polyethylene Glycol 3350 17 GM Packet PO PRN (20:53)
[2021-06-15] MEDS: Gabapentin 100 MG CAP PO SCH (21:56)
[2021-06-15] MEDS: levETIRAcetam 500 MG TAB PO SCH (21:57)
[2021-06-15] MEDS: Apixaban 5 MG TAB PO SCH (21:57)
[2021-06-15] MEDS: Digoxin 0.125 MG TAB PO SCH (21:58)
[2021-06-15] MEDS: Atorvastatin Calcium 40 MG TAB PO SCH (21:58)
[2021-06-15] MEDS: ALPRAZolam 0.5 MG TAB PO PRN (22:03)
[2021-06-16 05:26] LABS: #Basophils 0.2 thou/uL (0.0-0.2); #Lymphocytes 3.1 thou/uL (1.20-3.40); #Monocytes 1.2 thou/uL (0.11-0.59); #Neutrophils 5.1 thou/uL (1.40-6.50); %Basophils 1.7 % (0.0-1.0); %Eosinophils 9.8 % (0.0-10.0); %Lymphocytes 29.5 % (21.0-51.0); %Monocytes 11.6 % (0.0-10.0); %Neutrophils 47.5 % (42.0-75.0); Hemoglobin 13.6 g/dL (12.0-16.0); Mean Corpuscular HGB CONC 30.6 g/dL (32.0-36.0); Mean Corpuscular Hemoglobin 26.4 pg (27.0-31.0); Mean Corpuscular Volume 86.3 fL (78.0-98.0); Mean Platelet Volume 9.7 fL (7.4-10.4); Platelet Count 343 thou/uL (130-400); RBC Distribution Width 13.3 % (11.5-14.5); Red Blood Cell (RBC) Count 5.16 mill/uL (4.20-5.40); White Blood Cell (WBC) Count 10.7 thou/uL (4.8-10.8)
[2021-06-16 05:52] LABS: Anion Gap 14 mmol/L (10-20); BUN (Urea Nitrogen) 25 mg/dL (9.8-20.1); Calc. Creatinine Clearance 76 mL/min (70-130); Calcium 10.1 mg/dL (7.8-10.44); Carbon Dioxide 25 mmol/L (23-31); Chloride 102 mmol/L (98-107); Glucose 100 mg/dL (83-110); Potassium 3.8 mmol/L (3.5-5.1); Sodium 137 mmol/L (136-145)
[2021-06-16] MEDS: Pancrelipase DR 12,000 1 CAP PO SCH ×3 (08:44→18:04)
[2021-06-16] MEDS: Venlafaxine HCl XR 150 MG CAP PO SCH (08:44)
[2021-06-16] MEDS: Furosemide 40 MG TAB PO SCH (08:44)
[2021-06-16] MEDS: Potassium Chloride 20 MEQ TAB PO SCH (08:44)
[2021-06-16] MEDS: Apixaban 5 MG TAB PO SCH ×2 (08:44→21:13)
[2021-06-16 19:00] LABS: SARS-CoV-2 PCR by NAA Not Detected (NotDetected)
[2021-06-16] MEDS: levETIRAcetam 500 MG TAB PO SCH (21:12)
[2021-06-16] MEDS: Atorvastatin Calcium 40 MG TAB PO SCH (21:12)
[2021-06-16] MEDS: Gabapentin 100 MG CAP PO SCH (21:14)
[2021-06-16] MEDS: Digoxin 0.125 MG TAB PO SCH (21:14)
[2021-06-16] MEDS: ALPRAZolam 0.5 MG TAB PO PRN (21:20)
[2021-06-17] MEDS: Potassium Chloride 20 MEQ TAB PO SCH (08:23)
[2021-06-17] MEDS: Pancrelipase DR 12,000 1 CAP PO SCH ×3 (08:23→17:27)
[2021-06-17] MEDS: Furosemide 40 MG TAB PO SCH (08:23)
[2021-06-17] MEDS: Venlafaxine HCl XR 150 MG CAP PO SCH (08:23)
[2021-06-17] MEDS: Apixaban 5 MG TAB PO SCH ×2 (08:23→20:00)
[2021-06-17] MEDS: ALPRAZolam 0.5 MG TAB PO PRN (20:00)
[2021-06-17] MEDS: Digoxin 0.125 MG TAB PO SCH (20:01)
[2021-06-17] MEDS: levETIRAcetam 500 MG TAB PO SCH (20:01)
[2021-06-17] MEDS: Atorvastatin Calcium 40 MG TAB PO SCH (20:02)
[2021-06-17] MEDS: Gabapentin 100 MG CAP PO SCH (20:02)
[2021-06-18] MEDS: Pancrelipase DR 12,000 1 CAP PO SCH ×3 (08:31→16:56)
[2021-06-18] MEDS: Apixaban 5 MG TAB PO SCH ×2 (08:31→21:10)
[2021-06-18] MEDS: Furosemide 40 MG TAB PO SCH (08:31)
[2021-06-18] MEDS: Venlafaxine HCl XR 150 MG CAP PO SCH (08:31)
[2021-06-18] MEDS: Potassium Chloride 20 MEQ TAB PO SCH (08:31)
[2021-06-18] MEDS: ALPRAZolam 0.5 MG TAB PO PRN (21:09)
[2021-06-18] MEDS: Atorvastatin Calcium 40 MG TAB PO SCH (21:10)
[2021-06-18] MEDS: levETIRAcetam 500 MG TAB PO SCH (21:10)
[2021-06-18] MEDS: Digoxin 0.125 MG TAB PO SCH (21:10)
[2021-06-18] MEDS: Gabapentin 100 MG CAP PO SCH (21:10)
[2021-06-19] MEDS: Pancrelipase DR 12,000 1 CAP PO SCH ×3 (08:14→16:33)
[2021-06-19] MEDS: Potassium Chloride 20 MEQ TAB PO SCH (08:15)
[2021-06-19] MEDS: Venlafaxine HCl XR 150 MG CAP PO SCH (08:15)
[2021-06-19] MEDS: Apixaban 5 MG TAB PO SCH ×2 (08:15→21:08)
[2021-06-19] MEDS: Furosemide 40 MG TAB PO SCH (08:15)
[2021-06-19] MEDS: Atorvastatin Calcium 40 MG TAB PO SCH (21:07)
[2021-06-19] MEDS: ALPRAZolam 0.5 MG TAB PO PRN (21:07)
[2021-06-19] MEDS: levETIRAcetam 500 MG TAB PO SCH (21:08)
[2021-06-19] MEDS: Gabapentin 100 MG CAP PO SCH (21:08)
[2021-06-19] MEDS: Digoxin 0.125 MG TAB PO SCH (21:08)
[2021-06-20] MEDS: Potassium Chloride 20 MEQ TAB PO SCH (08:18)
[2021-06-20] MEDS: Pancrelipase DR 12,000 1 CAP PO SCH ×3 (08:18→16:52)
[2021-06-20] MEDS: Apixaban 5 MG TAB PO SCH ×2 (08:18→21:34)
[2021-06-20] MEDS: Venlafaxine HCl XR 150 MG CAP PO SCH (08:18)
[2021-06-20] MEDS: Furosemide 40 MG TAB PO SCH (08:18)
[2021-06-20] MEDS ORDERED: Acetaminophen 325 MG TAB PO SCH (17:00)
[2021-06-20] MEDS: [UNRECOGNIZED DRUG - OTHER] PO SCH (17:17)
[2021-06-20] MEDS ORDERED: Ondansetron ODT 4 MG TAB PO PRN (18:00)
[2021-06-20] MEDS: Atorvastatin Calcium 40 MG TAB PO SCH (21:32)
[2021-06-20] MEDS: Gabapentin 100 MG CAP PO SCH (21:33)
[2021-06-20] MEDS: Digoxin 0.125 MG TAB PO SCH (21:34)
[2021-06-20] MEDS: levETIRAcetam 500 MG TAB PO SCH (21:34)
[2021-06-21] MEDS: [UNRECOGNIZED DRUG - OTHER] PO SCH ×3 (07:47→17:26)
[2021-06-21] MEDS: Potassium Chloride 20 MEQ TAB PO SCH (08:27)
[2021-06-21] MEDS: Venlafaxine HCl XR 150 MG CAP PO SCH (08:27)
[2021-06-21] MEDS: Furosemide 40 MG TAB PO SCH (08:28)
[2021-06-21] MEDS: Apixaban 5 MG TAB PO SCH ×2 (08:28→20:51)
[2021-06-21] MEDS ORDERED: Meclizine HCl 25 MG TAB PO PRN (13:17)
[2021-06-21] MEDS: Acetaminophen 325 MG TAB PO PRN (15:58)
[2021-06-21] MEDS: Gabapentin 100 MG CAP PO SCH (20:50)
[2021-06-21] MEDS: Digoxin 0.125 MG TAB PO SCH (20:51)
[2021-06-21] MEDS: Atorvastatin Calcium 40 MG TAB PO SCH (20:51)
[2021-06-21] MEDS: levETIRAcetam 500 MG TAB PO SCH (20:51)
[2021-06-21] MEDS: ALPRAZolam 0.5 MG TAB PO PRN (21:20)
[2021-06-22] MEDS: Furosemide 40 MG TAB PO SCH (08:06)
[2021-06-22] MEDS: Potassium Chloride 20 MEQ TAB PO SCH (08:06)
[2021-06-22] MEDS: Apixaban 5 MG TAB PO SCH ×2 (08:06→21:25)
[2021-06-22] MEDS: Venlafaxine HCl XR 150 MG CAP PO SCH (08:06)
[2021-06-22] MEDS: [UNRECOGNIZED DRUG - OTHER] PO SCH ×3 (08:07→16:43)
[2021-06-22] MEDS: ALPRAZolam 0.5 MG TAB PO PRN (21:21)
[2021-06-22] MEDS: levETIRAcetam 500 MG TAB PO SCH (21:22)
[2021-06-22] MEDS: Atorvastatin Calcium 40 MG TAB PO SCH (21:23)
[2021-06-22] MEDS: Digoxin 0.125 MG TAB PO SCH (21:25)
[2021-06-22] MEDS: Gabapentin 100 MG CAP PO SCH (21:25)
[2021-06-22] MEDS: Acetaminophen 325 MG TAB PO PRN (21:26)
[2021-06-23] MEDS: Potassium Chloride 20 MEQ TAB PO SCH (08:21)
[2021-06-23] MEDS: Furosemide 40 MG TAB PO SCH (08:21)
[2021-06-23] MEDS: Venlafaxine HCl XR 150 MG CAP PO SCH ×2 (08:21→21:03)
[2021-06-23] MEDS: [UNRECOGNIZED DRUG - OTHER] PO SCH ×3 (08:22→17:09)
[2021-06-23] MEDS: Apixaban 5 MG TAB PO SCH ×2 (08:22→21:04)
[2021-06-23] MEDS: Acetaminophen 325 MG TAB PO PRN ×2 (12:03→19:13)
[2021-06-23 14:24] LABS: SARS-CoV-2 PCR by NAA Not Detected (NotDetected)
[2021-06-23] MEDS: Digoxin 0.125 MG TAB PO SCH (21:03)
[2021-06-23] MEDS: Atorvastatin Calcium 40 MG TAB PO SCH (21:04)
[2021-06-23] MEDS: levETIRAcetam 500 MG TAB PO SCH (21:05)
[2021-06-23] MEDS: Gabapentin 100 MG CAP PO SCH (21:05)
[2021-06-23] MEDS: ALPRAZolam 0.5 MG TAB PO PRN (21:13)
[2021-06-24] MEDS: Furosemide 40 MG TAB PO SCH (09:53)
[2021-06-24] MEDS: Apixaban 5 MG TAB PO SCH ×2 (09:53→20:56)
[2021-06-24] MEDS: Potassium Chloride 20 MEQ TAB PO SCH (09:53)
[2021-06-24] MEDS: Venlafaxine HCl XR 150 MG CAP PO SCH ×2 (09:54→20:56)
[2021-06-24] MEDS: [UNRECOGNIZED DRUG - OTHER] PO SCH ×3 (09:54→16:48)
[2021-06-24] MEDS: Acetaminophen 325 MG TAB PO PRN (19:46)
[2021-06-24] MEDS: ALPRAZolam 0.5 MG TAB PO PRN (20:52)
[2021-06-24] MEDS: Atorvastatin Calcium 40 MG TAB PO SCH (20:53)
[2021-06-24] MEDS: Gabapentin 100 MG CAP PO SCH (20:55)
[2021-06-24] MEDS: levETIRAcetam 500 MG TAB PO SCH (20:56)
[2021-06-24] MEDS: Digoxin 0.125 MG TAB PO SCH (20:56)
[2021-06-25] MEDS: Potassium Chloride 20 MEQ TAB PO SCH (09:02)
[2021-06-25] MEDS: [UNRECOGNIZED DRUG - OTHER] PO SCH ×3 (09:02→17:17)
[2021-06-25] MEDS: Venlafaxine HCl XR 150 MG CAP PO SCH ×2 (09:02→20:50)
[2021-06-25] MEDS: Apixaban 5 MG TAB PO SCH ×2 (09:02→20:51)
[2021-06-25] MEDS: Furosemide 40 MG TAB PO SCH (09:03)
[2021-06-25] MEDS: Acetaminophen 325 MG TAB PO PRN ×2 (13:44→20:53)
[2021-06-25] MEDS: Atorvastatin Calcium 40 MG TAB PO SCH (20:49)
[2021-06-25] MEDS: ALPRAZolam 0.5 MG TAB PO PRN (20:50)
[2021-06-25] MEDS: levETIRAcetam 500 MG TAB PO SCH (20:50)
[2021-06-25] MEDS: Digoxin 0.125 MG TAB PO SCH (20:51)
[2021-06-25] MEDS: Gabapentin 100 MG CAP PO SCH (20:52)
[2021-06-26 06:08] LABS: Hemoglobin 12.7 g/dL (12.0-16.0); Platelet Count 278 thou/uL (130-400)
[2021-06-26] MEDS: Potassium Chloride 20 MEQ TAB PO SCH (08:15)
[2021-06-26] MEDS: Venlafaxine HCl 37.5 MG TAB PO SCH ×2 (08:15→21:00)
[2021-06-26] MEDS: Furosemide 40 MG TAB PO SCH (08:16)
[2021-06-26] MEDS: Apixaban 5 MG TAB PO SCH ×2 (08:16→21:01)
[2021-06-26] MEDS: [UNRECOGNIZED DRUG - OTHER] PO SCH ×3 (08:16→17:17)
[2021-06-26] MEDS ORDERED: Venlafaxine HCl XR 150 MG CAP PO SCH (09:00)
[2021-06-26] MEDS: Acetaminophen 325 MG TAB PO PRN ×2 (12:17→21:07)
[2021-06-26] MEDS: levETIRAcetam 500 MG TAB PO SCH (21:01)
[2021-06-26] MEDS: Gabapentin 100 MG CAP PO SCH (21:01)
[2021-06-26] MEDS: Digoxin 0.125 MG TAB PO SCH (21:01)
[2021-06-26] MEDS: Atorvastatin Calcium 40 MG TAB PO SCH (21:02)
[2021-06-26] MEDS: ALPRAZolam 0.5 MG TAB PO PRN (21:07)
[2021-06-27] MEDS: Apixaban 5 MG TAB PO SCH ×2 (08:39→21:09)
[2021-06-27] MEDS: Venlafaxine HCl 37.5 MG TAB PO SCH ×2 (08:39→21:09)
[2021-06-27] MEDS: [UNRECOGNIZED DRUG - OTHER] PO SCH ×3 (08:40→17:32)
[2021-06-27] MEDS: Furosemide 40 MG TAB PO SCH (08:40)
[2021-06-27] MEDS: Potassium Chloride 20 MEQ TAB PO SCH (08:40)
[2021-06-27] MEDS: Acetaminophen 325 MG TAB PO PRN ×2 (15:58→21:17)
[2021-06-27] MEDS: Gabapentin 100 MG CAP PO SCH (21:08)
[2021-06-27] MEDS: levETIRAcetam 500 MG TAB PO SCH (21:08)
[2021-06-27] MEDS: Digoxin 0.125 MG TAB PO SCH (21:09)
[2021-06-27] MEDS: Atorvastatin Calcium 40 MG TAB PO SCH (21:09)
[2021-06-27] MEDS: ALPRAZolam 0.5 MG TAB PO PRN (21:16)
[2021-06-28] MEDS: Furosemide 40 MG TAB PO SCH (08:10)
[2021-06-28] MEDS: Apixaban 5 MG TAB PO SCH ×2 (08:10→20:40)
[2021-06-28] MEDS: Potassium Chloride 20 MEQ TAB PO SCH (08:10)
[2021-06-28] MEDS: Venlafaxine HCl 37.5 MG TAB PO SCH (08:10)
[2021-06-28] MEDS: [UNRECOGNIZED DRUG - OTHER] PO SCH ×4 (08:10→16:24)
[2021-06-28 15:00] VITALS: BMI 31.6
[2021-06-28] MEDS: Acetaminophen 325 MG TAB PO PRN ×2 (16:28→20:39)
[2021-06-28] MEDS: ALPRAZolam 0.5 MG TAB PO PRN (20:38)
[2021-06-28] MEDS: Gabapentin 100 MG CAP PO SCH (20:39)
[2021-06-28] MEDS: Atorvastatin Calcium 40 MG TAB PO SCH (20:39)
[2021-06-28] MEDS: levETIRAcetam 500 MG TAB PO SCH (20:40)
[2021-06-28] MEDS: Digoxin 0.125 MG TAB PO SCH (20:40)
[2021-06-29] MEDS ORDERED: Venlafaxine HCl 37.5 MG TAB PO SCH (09:00)
[2021-06-29] MEDS: [UNRECOGNIZED DRUG - OTHER] PO SCH ×3 (09:04→17:21)
[2021-06-29] MEDS: Apixaban 5 MG TAB PO SCH ×2 (09:04→21:19)
[2021-06-29] MEDS: Potassium Chloride 20 MEQ TAB PO SCH (09:04)
[2021-06-29] MEDS: Furosemide 40 MG TAB PO SCH (09:04)
[2021-06-29] MEDS: Venlafaxine HCl 37.5 MG TAB PO SCH ×2 (09:07→21:19)
[2021-06-29] MEDS: Acetaminophen 325 MG TAB PO PRN ×2 (15:41→21:22)
[2021-06-29] MEDS: ALPRAZolam 0.5 MG TAB PO PRN (21:20)
[2021-06-29] MEDS: Atorvastatin Calcium 40 MG TAB PO SCH (21:20)
[2021-06-29] MEDS: levETIRAcetam 500 MG TAB PO SCH (21:21)
[2021-06-29] MEDS: Gabapentin 100 MG CAP PO SCH (21:21)
[2021-06-29] MEDS: Digoxin 0.125 MG TAB PO SCH (21:21)
[2021-06-30] MEDS: Venlafaxine HCl 37.5 MG TAB PO SCH ×2 (08:13→20:55)
[2021-06-30] MEDS: Furosemide 40 MG TAB PO SCH (08:13)
[2021-06-30] MEDS: Potassium Chloride 20 MEQ TAB PO SCH (08:13)
[2021-06-30] MEDS: [UNRECOGNIZED DRUG - OTHER] PO SCH ×3 (08:14→16:34)
[2021-06-30] MEDS: Apixaban 5 MG TAB PO SCH ×2 (08:14→20:54)
[2021-06-30] MEDS: Acetaminophen 325 MG TAB PO PRN ×2 (13:20→20:55)
[2021-06-30 14:43] LABS: SARS-CoV-2 PCR by NAA Not Detected (NotDetected)
[2021-06-30] MEDS: Digoxin 0.125 MG TAB PO SCH (20:53)
[2021-06-30] MEDS: levETIRAcetam 500 MG TAB PO SCH (20:54)
[2021-06-30] MEDS: Gabapentin 100 MG CAP PO SCH (20:54)
[2021-06-30] MEDS: Atorvastatin Calcium 40 MG TAB PO SCH (20:55)
[2021-06-30] MEDS: ALPRAZolam 0.5 MG TAB PO PRN (20:56)
[2021-07-01] MEDS: Furosemide 40 MG TAB PO SCH (08:10)
[2021-07-01] MEDS: Apixaban 5 MG TAB PO SCH (08:10)
[2021-07-01] MEDS: Venlafaxine HCl 37.5 MG TAB PO SCH (08:10)
[2021-07-01] MEDS: [UNRECOGNIZED DRUG - OTHER] PO SCH ×3 (08:10→17:00)
[2021-07-01] MEDS: Potassium Chloride 20 MEQ TAB PO SCH (08:10)
[2021-07-01] MEDS: Acetaminophen 325 MG TAB PO PRN (08:16)
[2021-07-01 14:15] VITALS: BP 113/77; TEMP 98.1
== END 2021-07-01 17:00 | disposition home health service (06) | DRG 948 ==
LOC: MADMS 19:29
PROVIDERS: ADMIT Family Medicine; ATTEND Family Medicine
DX: R53.81 Other malaise (principal); I50.22 Chronic systolic (congestive) heart failure; I48.91 Unspecified atrial fibrillation; I25.5 Ischemic cardiomyopathy; I25.10 Atherosclerotic heart disease of native coronary artery without angina pectoris; I11.0 Hypertensive heart disease with heart failure; G40.909 Epilepsy, unspecified, not intractable, without status epilepticus; K59.09 Other constipation; K21.9 Gastro-esophageal reflux disease without esophagitis; R13.10 Dysphagia, unspecified; E87.6 Hypokalemia; Z20.822 Contact with and (suspected) exposure to COVID-19; E11.42 Type 2 diabetes mellitus with diabetic polyneuropathy; E78.5 Hyperlipidemia, unspecified; Z66 Do not resuscitate; Z88.8 Allergy status to other drugs, medicaments and biological substances; Z88.5 Allergy status to narcotic agent; Z79.899 Other long term (current) drug therapy; Z79.01 Long term (current) use of anticoagulants; Z95.810 Presence of automatic (implantable) cardiac defibrillator; Z90.49 Acquired absence of other specified parts of digestive tract; Z90.710 Acquired absence of both cervix and uterus
CPT/HCPCS: 36415; 80048; 85014; 85018; 85025; 85049; U0003; U0005

== ENCOUNTER 2021-07-20 15:42 | Outpatient (CLI) | payer MEDICARE ==
[2021-07-20 16:20] LABS: ALT (SGPT) 16 U/L (8-55); AST (SGOT) 28 U/L (5-34); Albumin 4.4 g/dL (3.4-4.8); Alkaline Phosphatase 107 U/L (40-110); Anion Gap 19 mmol/L (10-20); BUN (Urea Nitrogen) 27 mg/dL (9.8-20.1); Bilirubin, Total 0.4 mg/dL (0.2-1.2); Calc. Creatinine Clearance 0 mL/min (70-130); Calcium 10.3 mg/dL (7.8-10.44); Carbon Dioxide 35 mmol/L (23-31); Chloride 91 mmol/L (98-107); Globulin 3.1 g/dL (2.4-3.5); Glucose 103 mg/dL (83-110); Potassium 3.4 mmol/L (3.5-5.1); Protein, Total 7.5 g/dL (5.8-8.1); Sodium 142 mmol/L (136-145)
== END 2021-07-20 15:43 | disposition home or self-care (01) ==
LOC: MADLAB 15:42
PROVIDERS: ATTEND Family Medicine
DX: E87.6 Hypokalemia (principal); I50.9 Heart failure, unspecified
CPT/HCPCS: 80053

== ENCOUNTER 2021-09-24 11:27 | Emergency (ER) | payer MEDICARE ==
[2021-09-24] MEDS ORDERED: Ondansetron PF 4 MG/2 ML Vial ONE (11:59)
[2021-09-24] MEDS ORDERED: Sodium Chloride 0.9% 500 ML ONE (11:59)
[2021-09-24 12:23] LABS: #Basophils 0.1 thou/uL (0.0-0.2); #Lymphocytes 2.5 thou/uL (1.20-3.40); #Monocytes 0.8 thou/uL (0.11-0.59); #Neutrophils 6.1 thou/uL (1.40-6.50); %Basophils 0.7 % (0.0-1.0); %Eosinophils 0.4 % (0.0-10.0); %Lymphocytes 26.1 % (21.0-51.0); %Monocytes 8.7 % (0.0-10.0); %Neutrophils 64.1 % (42.0-75.0); Hemoglobin 12.8 g/dL (12.0-16.0); Mean Corpuscular HGB CONC 32.5 g/dL (32.0-36.0); Mean Corpuscular Hemoglobin 27.8 pg (27.0-31.0); Mean Corpuscular Volume 85.4 fL (78.0-98.0); Mean Platelet Volume 10.6 fL (7.4-10.4); Platelet Count 159 thou/uL (130-400); RBC Distribution Width 15.9 % (11.5-14.5); Red Blood Cell (RBC) Count 4.62 mill/uL (4.20-5.40); White Blood Cell (WBC) Count 9.5 thou/uL (4.8-10.8)
[2021-09-24 12:46] LABS: ALT (SGPT) 22 U/L (8-55); AST (SGOT) 21 U/L (5-34); Albumin 3.7 g/dL (3.4-4.8); Alkaline Phosphatase 86 U/L (40-110); Anion Gap 17 mmol/L (10-20); BUN (Urea Nitrogen) 19 mg/dL (9.8-20.1); Bilirubin, Total 0.3 mg/dL (0.2-1.2); Calc. Creatinine Clearance 0 mL/min (70-130); Carbon Dioxide 22 mmol/L (23-31); Chloride 101 mmol/L (98-107); Estimated GFR 45; Glucose 135 mg/dL (83-110); Lipase 179 U/L (8-78); Potassium 3.4 mmol/L (3.5-5.1); Protein, Total 6.7 g/dL (5.8-8.1); Sodium 137 mmol/L (136-145)
[2021-09-24 12:57] LABS: Bilirubin Negative (Negative); Blood, Urine Negative (Negative); Clarity Clear (Clear); Glucose, Urine (Dipstick) Negative (Negative); Ketone, Urine Negative (Negative); Leukocyte Negative (Negative); Nitrite Negative (Negative); Protein, Urine (Dipstick) 30 mg/dL (Neg-Trace); Specific Gravity, Urine 1.025 (1.005-1.030); Urobilinogen 0.2 mg/dL (Less than 2)
[2021-09-24 12:59] LABS: Bacteria/HPF 3+ HPF (None Seen); RBC/HPF 0-3 HPF (0-3); Squamous Epithelial 0-3 HPF (0-3); WBC/HPF 0-3 HPF (0-3)
== END 2021-09-24 13:20 | disposition home or self-care (01) ==
LOC: MADERS 11:27
DX: U07.1 COVID-19 (principal); E86.0 Dehydration; E86.1 Hypovolemia; I49.8 Other specified cardiac arrhythmias; I11.0 Hypertensive heart disease with heart failure; I50.9 Heart failure, unspecified; I25.10 Atherosclerotic heart disease of native coronary artery without angina pectoris; I48.91 Unspecified atrial fibrillation; K21.9 Gastro-esophageal reflux disease without esophagitis; E78.5 Hyperlipidemia, unspecified; G40.909 Epilepsy, unspecified, not intractable, without status epilepticus; Z95.0 Presence of cardiac pacemaker; Z79.01 Long term (current) use of anticoagulants; Z79.899 Other long term (current) drug therapy
CPT/HCPCS: 51701; 71045; 80053; 81003; 81015; 83605; 83690; 83880; 84484; 85025; 87040; 93005; 94760; 96361; 96374; J2405; J7030